=== PATIENT | female | born 1935 | race Caucasian/White ===

== ENCOUNTER 2022-02-21 06:10 | Observation (INO) ==
[2022-02-21] MEDS ORDERED: SODIUM CHLORIDE 0.9% 1000ML 1,000 ML IV ONE (06:43)
[2022-02-21] MEDS ORDERED: ACETAMINOPHEN 1,000 MG/100 ML VIAL IV STA (06:58)
[2022-02-21] MEDS ORDERED: MoRPHine SULFATE 2 MG/ML CARP IV STA (06:58)
[2022-02-21 07:18] LABS: Basophils # (auto) 0.02 K/uL (0-0.2); Basophils % (auto) 0.2 %; Eosinophils # (auto) 0.02 K/uL (0-0.5); Eosinophils % (auto) 0.2 %; Hematocrit (blood only) 39.7 % (37-47); Hemoglobin 13.7 g/dL (12.0-16.0); Immature Granulocytes # (auto) 0.03 K/uL (0.00-0.02); Immature Granulocytes % (auto) 0.3 %; Lymphocytes # (auto) 0.84 K/uL (1.2-3.4); Lymphocytes % (auto) 8.5 %; Mean Corpuscular Hemoglobin 32.3 pg (25-34); Mean Corpuscular Hgb Conc 34.5 g/dL (32-36); Mean Corpuscular Volume 93.6 fL (80-100); Mean Platelet Volume 9.7 fL (7.4-10.4); Monocytes # (auto) 1.09 K/uL (0.11-0.59); Neutrophils # (auto) 7.92 K/uL (1.4-6.5); Neutrophils % (auto) 79.8 %; Platelet Count 263 K/uL (130-400); RDW Coefficient of Variation 12.9 % (11.5-14.5); RDW Standard Deviation 44.4 fL (36.4-46.3); Red Blood Count 4.24 M/uL (4.2-5.4); White Blood Count 9.92 K/uL (4.8-10.8)
--- NOTE | 2022-02-21 07:26 | XRay Report ---
XR chest 1V portable CLINICAL HISTORY: Fall. COMPARISON STUDY: No previous studies for comparison. FINDINGS: There is an acute mildly displaced fracture of the posterior lateral right eighth rib. Ther e is an age indeterminate fracture of the posterior right ninth rib. There are age indeterminate nond isplaced fractures of the posterior left sixth and seventh ribs. No pneumothorax is identified. Linea r bilateral lower lung opacities are noted. These favor atelectasis. No evidence for pulmonary edema or pneumonia. Cardiac size is normal. IMPRESSION: 1. Acute mildly displaced fracture of the right eighth rib. No pneumothorax. Age-indeterminate fractu re of the posterior right ninth rib. 2. Age-indeterminate fractures of the posterior left sixth and seventh ribs. ACT 112: Negative or not required by law. Electronically signed by: Kevin Gaffney M.D. 02/21/2022 7:23 AM
[2022-02-21 07:37] LABS: Albumin Globulin Ratio 1.4 (0.9-2); Albumin Level 4.4 gm/dl (3.4-5.0); BUN Creatinine Ratio 16.4 (10-20); Bilirubin,Total 0.7 mg/dl (0.2-1.0); Calcium 9.4 mg/dl (8.5-10.1); Creatinine Clr Calc Pharmacy 42.2 ml/min; Est GFR (Non-African American) 75.1 ml/min; Globulin 3.1 gm/dl (2.5-4.0); Magnesium 1.8 mg/dl (1.7-2.4); Phosphorus 2.8 mg/dl (2.5-4.9); Potassium 3.7 mmol/L (3.5-5.1); Total Protein 7.5 gm/dl (6.0-8.3)
[2022-02-21] MEDS ORDERED: OPTIRAY 320 100ml IV ONE (08:14)
--- NOTE | 2022-02-21 08:24 | CT Scan Report ---
CT OF THE HEAD WITHOUT CONTRAST CLINICAL HISTORY: pain fall COMPARISON STUDY: No previous studies for comparison. TECHNIQUE: Helical axial images of the head were obtained without IV contrast. Automated exposure con trol was utilized for the study. A dose lowering technique was utilized adhering to the principles o f ALARA. FINDINGS: No acute intracranial hemorrhage, midline shift or mass effect is present. White matter hyp odensity suggests small vessel disease. The ventricular system is unremarkable. The basal cisterns ar e patent. No extra-axial collections are present. There are no findings to suggest acute dural sinus thrombosis or acute territorial infarct. No significant calvarial abnormalities are present. Visualiz ed portions of the sinuses and mastoid air cells are clear. IMPRESSION: 1. No acute intracranial findings. 2. No acute calvarial fracture. ACT 112: Negative or not required by law. Electronically signed by: Kevin Gaffney M.D. 02/21/2022 8:23 AM
--- NOTE | 2022-02-21 08:41 | CT Scan Report ---
CERVICAL SPINE CT CT DOSE: HISTORY: Neck pain fall TECHNIQUE: Multiaxial CT images of the cervical spine were performed and reformatted in the sagittal and coronal plane without the use of contrast. A dose lowering technique was utilized adhering to th e principles of ALARA. COMPARISON: None. FINDINGS: No fractures. 2 mm of anterolisthesis of C3 on C4. The C3-C4 vertebral bodies and facets ar e fused. Severe disc space narrowing from C4 through C7. Prevertebral soft tissues and the C1-C2 inte rval are intact. No pneumothorax. IMPRESSION: No fractures within the cervical spine. ACT 112: Negative or not required by law. Electronically signed by: Massimo Enamorado M.D. 02/21/2022 8:40 AM
--- NOTE | 2022-02-21 08:41 | CT Scan Report ---
CT thoracic spine w con CLINICAL HISTORY: Thoracic spine pain following fall. COMPARISON STUDY: No previous studies for comparison. TECHNIQUE: Axial images of the thoracic spine obtained following intravenous injection of 94 cc of Op tiray 320 IV. Sagittal and coronal reconstructions were viewed. Automated exposure control was utiliz ed for the study. A dose lowering technique was utilized adhering to the principles of ALARA. FINDINGS: Please note that the chest CT will be reported separately. Alignment of the thoracic spine is anatomic. There is moderate loss of height of the T4 vertebral body. This is age-indeterminate but probably old. There is mild loss of height of the superior endplate of T3. L2 compression fracture i s better depicted on the lumbar spine CT which will be reported separately. There is an acute nondisp laced fracture the posterior left seventh rib. There are multiple acute right-sided rib fractures whi ch are better depicted on the chest CT. There is a trace right hemothorax. IMPRESSION: 1. T3 and T4 compression fractures which are age-indeterminate but probably old. 2. Multiple acute right-sided rib fractures and an acute nondisplaced fracture of the posterior left seventh rib. These findings are better depicted on the chest CT which will be reported separately. ACT 112: Negative or not required by law. Electronically signed by: Kevin Gaffney M.D. 02/21/2022 8:40 AM
--- NOTE | 2022-02-21 08:46 | XRay Report ---
XR shoulder RT min 2V routine CLINICAL HISTORY: Fall. Right shoulder pain. COMPARISON STUDY: None. FINDINGS: No fracture or dislocation within the right shoulder. The right clavicle is intact. Nondisp laced right posterior eighth rib fracture. No right-sided pneumothorax. IMPRESSION: 1. No fracture or dislocation within the right shoulder. 2. Nondisplaced right posterior eighth rib fracture. ACT 112: Negative or not required by law. Electronically signed by: Massimo Enamorado M.D. 02/21/2022 8:44 AM
--- NOTE | 2022-02-21 08:53 | CT Scan Report ---
CT lumbar spine w con CLINICAL HISTORY: pain fall COMPARISON STUDY: No previous studies for comparison. TECHNIQUE: Axial images of the lumbar spine were obtained following intravenous injection of 94 cc of Optiray 320 IV. Sagittal and coronal reconstructions were viewed. Automated exposure control was uti lized for the study. A dose lowering technique was utilized adhering to the principles of ALARA. FINDINGS: Please note that the CT of the abdomen and pelvis will be reported separately. For purposes of numbering on this exam, the L5-S1 disc space is assigned to axial image 262 of [id number]. There is mode rate levoscoliosis of the lumbar spine. Moderate L2 compression fracture is probably old. Severe mult ilevel facet arthrosis is noted as well as multilevel disc space narrowing, osteophytosis and vacuum disc phenomenon. There are suspected acute nondisplaced bilateral sacral ala fractures. Acute nondisp laced fracture of the left transverse process of L5 is noted. IMPRESSION: 1. Acute nondisplaced fracture of the left transverse process of L5. 2. Moderate L2 compression fracture, likely old. 3. Suspected acute nondisplaced bilateral sacral ala fractures. 4. Severe multilevel degenerative changes within the lumbar spine with moderate levoscoliosis. ACT 112: Negative or not required by law. Electronically signed by: Kevin Gaffney M.D. 02/21/2022 8:52 AM
--- NOTE | 2022-02-21 09:19 | CT Scan Report ---
CHEST CT WITH CONTRAST; CT ABDOMEN AND PELVIS WITH IV CONTRAST ONLY HISTORY: Acute chest and abdominal trauma status post fall pain fall TECHNIQUE: Multiaxial CT images of the chest, abdomen and pelvis were performed following the IV admi nistration of 94 cc of Optiray. A dose lowering technique was utilized adhering to the principles o f ALARA. COMPARISON: CT thoracic and lumbar spine studies of same day FINDINGS: CT CHEST: Subcentimeter hypodense thyroid nodules. There are a few borderline enlarged mediastinal and right hi lar lymph nodes which are nonspecific. The heart is mildly enlarged. No pericardial effusion. Atheros clerosis of the thoracic aorta without aneurysm. Mild descending thoracic aortic tortuosity. Unremark able pulmonary artery. Trace left and small right pleural effusions. There is no pneumothorax. Mild bibasilar cylindrical br onchiectasis with linear atelectasis/scarring. Mild bilateral intralobular septal thickening. Mild em physema. There are a few scattered subsegmental tree-in-bud nodules noted within the lung bases. Ther e are a few solid pulmonary nodules noted within the lingula measuring up to 5 mm. The central airway s are patent. Unremarkable soft tissues. Degenerative changes of the shoulders and spine. Mild superi or endplate compression deformities without retropulsion is noted at T3 and T4. Acute nondisplaced fr acture involves the posterior medial aspect of the left seventh rib. Additional acute fractures are n oted within the posterior eighth, ninth and 10th ribs with mild comminution and displacement. CT ABDOMEN/PELVIS: Moderate L2 superior end plate compression deformity, likely chronic. Subtle acute nondisplaced bilat eral sacral alar fractures. Subtle acute nondisplaced fracture of the left L5 transverse process. Deg enerative changes of the spine, pelvis and hips. No pneumatosis or pneumoperitoneum. The spleen, pancreas, and mildly distended gallbladder appear unr emarkable. Thickening and adrenal glands suggests hyperplasia. There are several subcentimeter hypode nse foci throughout the liver suggestive of probable cysts. Patency of the hepatic and portal veins. No hydronephrosis. 1.8 cm cyst of the superior pole right kidney. Unremarkable urinary bladder. Atrop hic uterus. Atherosclerosis of the aorta. There is no lymphadenopathy. Small hiatal hernia with mild distal esophageal wall thickening. Colonic diverticulosis. No bowel obs truction or bowel wall thickening. There is mild fecal retention. Noninflamed appendix. Mild generali zed body wall edema. IMPRESSION: 1. Acute nondisplaced fracture of the posterior medial left seventh rib with acute comminuted and mil dly displaced fractures of the posterior right eighth through tenth ribs. 2. Mild superior endplate compression deformities at T3, T4 and L2 are technically age-indeterminate however are likely chronic. 3. Acute nondisplaced bilateral sacral alar fractures. 4. Subtle acute nondisplaced fracture of the left L5 transverse process. 5. Mild interstitial pulmonary edema with trace pleural effusions and bibasilar opacities suggestive of atelectasis. 6. No acute solid organ injury. 7. No pneumothorax. ACT 112: Negative or not required by law. Electronically signed by: Leon Dowd M.D. 02/21/2022 9:18 AM
[2022-02-21 09:37] LABS: Appearance Urine Clear (Clear); Bilirubin Urine Negative (Negative); Blood Urine Negative (Negative); Color Urine Yellow; Glucose Urine UA Negative (Negative); Ketones Urine Trace (Negative); Leukocyte Esterase Urine Negative (Negative); Nitrite Urine Negative (Negative); Protein Urine Negative (Negative); Specific Gravity Urine 1.022 (1.000-1.030); Urobilinogen Urine Negative (Negative); pH Urine 7.5 (4.5-7.5)
[2022-02-21] MEDS ORDERED: MoRPHine SULFATE 2 MG/ML CARP IV PRN (11:04)
[2022-02-21] MEDS ORDERED: MoRPHine SULFATE 4 MG/ML 1 ML CARP\\VIAL IV PRN (11:04)
--- NOTE | 2022-02-21 12:27 | History & Physical Report ---
Date of Service February 21, 2022 Assessment & Plan (1) Syncope: Admission and Anticipated Discharge Date Admission Date: #. Syncope Patient fell after walking few steps, lightheadedness/palpitation prior to fall [see HnP]. History of paroxysmal atrial tachycardia Add trop to admitting lab, Telemetry monitoring, Ortho vitals, cardiology consult. Might need Zio patch monitoring upon discharge. #. Fall #. Multiple rib fracture [right 8-10 ribs, left sixth and seventh rib #. Nondisplaced bilateral sacral ala fracture #. Chronic T3, T4 and L2 vertebral body fracture #. Fracture on the background of senile osteoporosis CT head and C-spine, right shoulder x-ray at admission WNL. CT chest, CTAP, CXR, LS spine CT, T-spine CT: Reviewed and multiple fractures noted as above. Pain control, morphine alternating with Toradol Laxatives while on morphine, patient reports better pain control at bedside exam with morphine. Orthopedic consult, await recommendations PT/OT, will likely need at least outpatient physical therapy versus rehab. continue w/ incentive spirometry. #. Other chronic medical conditions: Continue with/resume home meds as and when appropriate. #. Chronic mild hyponatremia: Pt's OP lab reveals Na to be 133 most of the time in the past, here 129 at presentation, continue to monitor daily. DVT prophylaxis: Heparin subcu Full code Patient's daughter at bedside at the time of exam, updated plan of care. 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 Per patient, she was sleeping in the couch the night prior to arrival, woke up in the middle of the night to go to the bathroom, walked a few steps, then became lightheaded with heart racing, she blacked out and fell over the stairs, her came from another room to pick her up and was noted to be unconscious [approximately 1 minute or less per patient] but soon became aware of the surroundings as soon as her called her name. Patient did not have any post-event confusion or headache. Prior to the event, patient did not have any nausea or vomiting or sweating or chest pain. Patient denies any fever/headache/chills/sore throat/cough/chest pain/palpitations/belly pain/acute changes in bowel or bladder habits/myalgias/other review of symptoms. Patient does complain of her chronic low back pain at her usual baseline state. Patient never used tobacco/smoking, very rarely drinks alcohol [6 times in a year], no recreational drug use. Patient is full code. No personal history of blood clot or UT. Family history of UT in father and NHL in mother. No family history of blood clot. Allergies Allergy/AdvReac Type Severity Reaction Status Date / Time No Known Allergies Allergy Unverified 02/21/22 07:39 Home Medications Medication Instructions Recorded Confirmed Type alendronate 70 mg tablet 70 mg PO WK 02/21/22 02/21/22 History calcium carb 333 mg-vit D3 133 1 tab PO DAILY 02/21/22 02/21/22 History unit-mag ox 133 mg-zinc oxide 5 mg tab coenzyme Q10 100 mg capsule 100 mg PO DAILY 02/21/22 02/21/22 History (CoQ-10) lisinopril 2.5 mg tablet 2.5 mg PO DAILY 02/21/22 02/21/22 History metoprolol succinate 50 mg 50 mg PO DAILY 02/21/22 02/21/22 History tablet,extended release 24 hr simvastatin 40 mg tablet 40 mg PO HS 02/21/22 02/21/22 History triamterene 37.5 1 tab PO DAILY 02/21/22 02/21/22 History mg-hydrochlorothiazide 25 mg tablet Past Med/Surg History Medical History (Updated 02/21/22 @ 12:28 by Africa Salas MD) CKD (chronic kidney disease) stage 3, GFR 30-59 ml/min Esotropia HLD (hyperlipidemia) HTN (hypertension) Osteoarthritis PAT (paroxysmal atrial tachycardia) Senile osteoporosis Surgical History (Updated 02/21/22 @ 09:06 by Edita Red PA-C) History of x4 History of cataract extraction Family History (Updated 02/21/22 @ 09:07 by Edita Red PA-C) Mother , 76 Lymphoma CHF (congestive heart failure) Father , 86 Myocardial infarction Coronary heart disease Social History (Updated 02/21/22 @ 09:08 by Edita eRd PA-C) Smoking Status: Never smoker Hx Alcohol Use: Yes Alcohol type: wine Hx Substance Use: No Preferred Language: Guatemalan Communication Ability: Effective It Support Consultant Required: No Beliefs That Will Affect Care: None marital status: Current Living Situation: Spouse Other Information That Helps Us Care for You: No Feels Safe at Home: Yes Review of Systems Review of Systems: Neg as otherwise mentioned above Physical Exam Physical Exam: GENERAL: Alert and oriented x3. NAD, on RA. HEENT: No pallor, no icterus. Pupils equal, round and reactive to light. Oral mucosa moist. NECK: No JVD, no neck masses. HEART: S1 and S2 heard. Regular rate and rhythm. No murmur, no gallop. RESPIRATORY SYSTEM: Normal AP diameter. No accessory muscle use. No wheezing, no crackles. ABDOMEN: Soft, bowel sounds present, nontender, no distention. CENTRAL NERVOUS SYSTEM: No facial droop. Speech is clear. Obeys simple commands. Moves extremities. EXTREMITIES: No edema, no erythema seen. Rt mid-back tenderness moderate, Lt mid-back tenderness mild. No vertebral tenderness. Results & Data Results & Data ([facility]) Vital Signs (Past 12 Hours) Vital Signs Temp Pulse Resp BP Pulse Ox 02/21/22 10:30 86 22 146/87 H 93 02/21/22 10:00 85 16 134/80 92 02/21/22 09:30 86 19 128/78 95 02/21/22 09:00 89 17 127/80 93 02/21/22 08:30 98 H 22 138/83 96 02/21/22 08:18 99 H 24 127/82 92 02/21/22 08:16 102 H 12 02/21/22 07:43 101 H 20 149/99 H 99 02/21/22 07:30 92 H 35 H 163/85 H 88 L 02/21/22 07:17 96 02/21/22 07:12 89 14 165/82 H 96 02/21/22 07:00 99 H 17 02/21/22 06:30 82 14 02/21/22 06:28 84 19 02/21/22 06:17 36.6 C 96 H 14 147/76 H 94 Code Status & VTE Plan VTE Prophylaxis Plan VTE Prophylaxis will be ordered: Yes
[2022-02-21] MEDS ORDERED: ONDANSETRON INJ 2 MG/ML 2 ML VIAL IV PRN (13:43)
[2022-02-21] MEDS ORDERED: ACETAMINOPHEN 325 MG TAB PO PRN (13:43)
[2022-02-21] MEDS ORDERED: ALUMINUM/MAGNESIUM SUSP 30 ML UDC PO PRN (13:43)
[2022-02-21] MEDS ORDERED: POLYETHYLENE (MIRALAX) 17 GM PACK PO PRN (13:43)
[2022-02-21] MEDS ORDERED: MAGNESIUM HYDROXIDE SUSP 30 ML UDC PO PRN (13:43)
[2022-02-21] MEDS: KETOROLAC TROMETHAMINE 15 MG/ML VIAL IV PRN ×2 (14:38→20:45)
[2022-02-21] MEDS: ACETAMINOPHEN 325 MG TAB PO SCH ×3 (14:39→20:38)
[2022-02-21] MEDS: TRIAMTERENE/HCTZ 37.5/25MG TAB PO SCH (15:34)
[2022-02-21] MEDS: MoRPHine SULFATE 2 MG/ML CARP IV PRN ×2 (15:39→20:44)
--- NOTE | 2022-02-21 15:40 | Cardiology Consultation ---
Date of Consultation February 21, 2022 Assessment & Plan (1) Syncope: (2) PAT (paroxysmal atrial tachycardia): (3) Hyponatremia: 86-year-old female presents with episode of syncope. Etiology not well- defined. Vasovagal etiology considered versus possible symptomatic dysrhythmia with history of paroxysmal atrial tachycardia. Resting 2D transthoracic echocardiogram pending currently. No dysrhythmias since admission. No symptoms to suggest unstable angina/ACS. Continue telemetry monitoring. If unrevealing, recommend 14-day outpatient ZIO monitor at discharge. Pain management, symptomatic treatment of rib fractures as per internal medicine. Check orthostatic blood pressure every shift. No medication changes at this time. Thank you for allow me to participate in the care of your patient. History of Present Illness Reason for Consultation: Syncope Requesting Physician: Dr. Salas Attending Physician: Africa Salas MD History of Present Illness 86-year-old female present to the emergency department with syncope, fall, and rib fracture. Patient reports walking in her home. She was not performing any strenuous activity when she acutely felt lightheaded. Her heart began to race and she was unable to lower herself to the floor. She passed out and injured her right side. CT confirms mildly displaced fractures of the posterior right and eighth through 10th ribs. Currently resting comfortably. Reports episodes of light headedness and palpita tions that have occurred throughout the years. She was evaluated by the undersigned in 2012. A few months prior to that evaluation she had experienced a similar syncopal episode. She has not experienced a syncopal episode over the past 9 years. In general, she is able to lower herself to a seated position if she becomes lightheaded or experiences palpitations. Carries a history of paroxysmal atrial tachycardia diagnosed per Holter monitor in 2010. Holter monitor reviewed, the episodes of SVT were less than 10 beats duration without associated symptoms. Denies any personal history of coronary disease, congestive heart failure, rheumatic fever as a child, or peripheral vascular disease. She denies any exertional chest discomfort or unusual shortness of breath. Currently asymptomatic and resting comfortably. Telemetry reveals sinus rhythm with rare PVCs. Allergies Allergy/AdvReac Type Severity Reaction Status Date / Time No Known Allergies Allergy Unverified 02/21/22 07:39 Home Medications Medication Instructions Recorded Confirmed Type alendronate 70 mg tablet 70 mg PO WK 02/21/22 02/21/22 History calcium carb 333 mg-vit D3 133 1 tab PO DAILY 02/21/22 02/21/22 History unit-mag ox 133 mg-zinc oxide 5 mg tab coenzyme Q10 100 mg capsule 100 mg PO DAILY 02/21/22 02/21/22 History (CoQ-10) lisinopril 2.5 mg tablet 2.5 mg PO DAILY 02/21/22 02/21/22 History metoprolol succinate 50 mg 50 mg PO DAILY 02/21/22 02/21/22 History tablet,extended release 24 hr simvastatin 40 mg tablet 40 mg PO HS 02/21/22 02/21/22 History triamterene 37.5 1 tab PO DAILY 02/21/22 02/21/22 History mg-hydrochlorothiazide 25 mg tablet Patient History Medical History CKD (chronic kidney disease) stage 3, GFR 30-59 ml/min Esotropia HLD (hyperlipidemia) HTN (hypertension) Osteoarthritis PAT (paroxysmal atrial tachycardia) Senile osteoporosis Surgical History History of x4 History of cataract extraction Family History Mother , 76 Lymphoma CHF (congestive heart failure) Father , 86 Myocardial infarction Coronary heart disease Social History Smoking Status: Never smoker Hx Alcohol Use: Yes Alcohol type: wine Hx Substance Use: No Preferred Language: Czech Communication Ability: Effective Log Cut Off Sawyer Required: No Beliefs That Will Affect Care: None marital status: Current Living Situation: Spouse Other Information That Helps Us Care for You: No Feels Safe at Home: Yes Assistive Devices: Walker Review of Systems Review of Systems: All systems reviewed & are unremarkable except as noted in Subjective Physical Exam Constitutional: well nourished; no acute distress and not ill appearing Respiratory: no respiratory distress, no labored breathing and no retractions Auscultation: lungs clear to auscultation bilaterally; no crackles, no rales, no rhonchi and no wheezes Cardiovascular: Rate/Rhythm: regular rate and regular rhythm Heart Sounds: normal S1 and normal S2; no murmur Vessels: no JVD and no carotid bruit Extremities: no edema Gastrointestinal (Abdomen): Inspection/Auscultation: abdomen normal to inspection; abdomen not distended and no abdominal edema Neurologic: CN's II-XI intact bilaterally and moves all extremities; no focal motor deficits Motor/Sensory: no tremor Psychiatric: A+Ox3, euthymic affect Results & Data ([facility]) Vital Signs (Past 12 Hours) Vital Signs Temp Pulse Pulse Resp BP BP Pulse Ox 02/21/22 13:46 36.5 C 88 16 153/94 H 95 02/21/22 12:15 85 18 171/105 H 97 02/21/22 12:00 89 18 95 02/21/22 11:30 86 20 161/88 H 02/21/22 11:00 96 H 16 02/21/22 10:30 86 22 146/87 H 93 02/21/22 10:00 85 16 134/80 92 02/21/22 09:30 86 19 128/78 95 02/21/22 09:00 89 17 127/80 93 02/21/22 08:30 98 H 22 138/83 96 02/21/22 08:18 99 H 24 127/82 92 02/21/22 08:16 102 H 12 02/21/22 07:43 101 H 20 149/99 H 99 02/21/22 07:30 92 H 35 H 163/85 H 88 L 02/21/22 07:17 96 02/21/22 07:12 89 14 165/82 H 96 02/21/22 07:00 99 H 17 02/21/22 06:30 82 14 02/21/22 06:28 84 19 02/21/22 06:17 36.6 C 96 H 14 147/76 H 94
--- NOTE | 2022-02-21 15:54 | Emergency Department Note ---
Impression & Plan Multiple fractures of ribs of right side, Left rib fracture, Closed sacral fracture, Lumbar transverse process fracture, Fall ED Provider Note NAME: VIVIAN ALONSO AGE: 86 SEX: F ARRIVES VIA: Walk-In INFORMANT: Patient ED PROVIDER(S): Caden Aviles MD CHIEF COMPLAINT: Fall, rib pain, back pain PLAN: Disposition: Admit MEDICAL DECISION MAKING: The patient is a pleasant 86-year-old woman with a pmhx of CKD, HTN, HLD, PAT who presents to the emergency department accompanied by her daughter via EMS for evaluation of fall last night around midnight when she was getting off of the couch to go upstairs and felt a flare of her sciatica and then fell before going up the steps onto her right side where she feels she may have broken a rib. She denies any head strike. She reports she was briefly "out" but recovered uneventfully. She initially wanted to stay home but her pain persisted and so agreed to come to the hospital. Prior to today she has any fevers, chills, cough, congestion, GI or symptoms. She is not on anti-coagulation. On arrival the patient is in no acute distress, afebrile stable vital signs. She appears uncomfortable. She has mild tenderness throughout the thoracic region without bony crepitus. She has tenderness of the right anterior lateral chest wall without bony crepitus. She has pain in the right hip with full range of motion. There is no shortening overtly. Distal PMS intact. Pelvis is stable. She has no focal neurologic deficits. WBC, H/H and platelets within normal limits. Chemistry without metabolic acidosis. Sodium 129 without recent values for comparison. Electrolytes LFTs without significant abnormality. High-sensitivity troponin 6.9, within normal limits. TSH within normal limits. UA without evidence of infection. Covid-19 RNA, NAAT negative. CT of the head, CTL spine, chest, abdomen pelvis were performed. Findings are notable for right-sided mildly displaced 8-10 rib fractures. Single nondisplaced left rib fracture. No pneumothorax. Age indeterminant thoracic compression fractures are noted. Acute bilateral nondisplaced sacral chon fractures are also seen. No additional traumatic findings. Findings reviewed with the patient and her daughter at the bedside. Given the patient's pain and impaired mobility. They did agree with plan for admission for pain control and PT/OT and possible placement. Case was discussed with Benito Llanos hospitalist, who will evaluate the patient for admission. Triage Nursing notes reviewed and agree them. Prior medical records reviewed Vital Signs: reviewed and remarkable for no significant abnormalities Differential diagnosis: Fracture, dislocation, contusion, intra-abdominal, pneumothorax, intrathoracic, intracranial, neurologic, compartment syndrome, rhabdomyolysis, as well as other pathologies. ER treatment provided: See below. Diagnostics interpreted by me: ECG: NSR, 89 bpm, no ectopy, no overt ST elevation or depression. Cardiac Monitoring: An order for continuous cardiac monitoring was placed and demonstrated NSR, 89 bpm, no ectopy. Laboratory studies: See below Imaging studies: See below Consultation(s): Case was discussed with Dominique Llanos hospitalist, who will evaluate the patient for admission. HPI: The patient is a pleasant 86-year-old woman with a pmhx of CKD, HTN, HLD, PAT who presents to the emergency department accompanied by her daughter via EMS for evaluation of fall last night around midnight when she was getting off of the couch to go upstairs and felt a flare of her sciatica and then fell before going up the steps onto her right side where she feels she may have broken a rib. She denies any head strike. She reports she was briefly "out" but recovered uneventfully. She initially wanted to stay home but her pain persisted and so agreed to come to the hospital. Prior to today she has any fevers, chills, cough, congestion, GI or symptoms. She is not on anti- coagulation. ROS: See above HPI for pertinent positives & negatives. A total of 10 systems reviewed and were otherwise negative. VITALS:See Below PHYSICAL EXAMINATION: GENERAL: Awake, alert, uncomfortable-appearing, in no distress HENT: Normocephalic, atraumatic. Oropharynx with dry mucous membranes and otherwise unremarkable. EYES: Normal conjunctiva. Sclera non-icteric. EOMI. No nystamgus. PEARRL. NECK: Supple. No nuchal rigidity. FROM. No JVD. RESPIRATORY: Clear to auscultation. CARDIAC: Regular rate, normal rhythm. Extremities warm and well perfused. Pulses equal. ABDOMEN: Soft, non-distended. No tenderness to palpation. No rebound or guarding. No masses. RECTAL: Deferred. MUSCULOSKELETAL: Mild tenderness throughout the thoracic region without bony crepitus. Mild tenderness of the right anterior lateral chest wall without bony crepitus.Pain in the right hip with full range of motion intact. There is no shortening. Distal PMS intact.Pelvis is stable. No joint edema. Right shoulder with ROM limited 2/2 pain. No deformity. LOWER EXTREMITIES: Calves are equal size bilaterally and non-tender. No edema. No discoloration. NEURO: No focal sensory or motor deficits noted. SKIN: No rash or jaundice noted. Caden Aviles MD Past Med/Surg History Medical History CKD (chronic kidney disease) stage 3, GFR 30-59 ml/min Esotropia HLD (hyperlipidemia) HTN (hypertension) Osteoarthritis PAT (paroxysmal atrial tachycardia) Senile osteoporosis Surgical History History of x4 History of cataract extraction Family History Mother , 76 Lymphoma CHF (congestive heart failure) Father , 86 Myocardial infarction Coronary heart disease Social History Smoking Status: Never smoker Hx Alcohol Use: Yes Alcohol type: wine Hx Substance Use: No Preferred Language: Tajik Communication Ability: Effective Makeup Editor Required: No Beliefs That Will Affect Care: None marital status: Current Living Situation: Spouse Other Information That Helps Us Care for You: No Feels Safe at Home: Yes Allergies Allergies Allergy/AdvReac Type Severity Reaction Status Date / Time No Known Allergies Allergy Unverified 02/21/22 07:39 Home Meds Home Medications Medication Instructions Recorded Confirmed alendronate 70 mg tablet 70 mg PO WK 02/21/22 02/21/22 calcium carb 333 mg-vit D3 133 1 tab PO DAILY 02/21/22 02/21/22 unit-mag ox 133 mg-zinc oxide 5 mg tab coenzyme Q10 100 mg capsule 100 mg PO DAILY 02/21/22 02/21/22 (CoQ-10) lisinopril 2.5 mg tablet 2.5 mg PO DAILY 02/21/22 02/21/22 metoprolol succinate 50 mg 50 mg PO DAILY 02/21/22 02/21/22 tablet,extended release 24 hr simvastatin 40 mg tablet 40 mg PO HS 02/21/22 02/21/22 triamterene 37.5 1 tab PO DAILY 02/21/22 02/21/22 mg-hydrochlorothiazide 25 mg tablet Results & Data (ED) Vital Signs Vital Signs - 24 hr 02/21/22 06:17 02/21/22 06:28 02/21/22 06:30 Temperature 36.6 C Temperature Source Temporal Artery Scan Pulse Rate 96 H 84 82 Pulse Rate from SpO2 Sensor Respiratory Rate 14 19 14 Respiratory Effort / Characteristics Non-Labored Respiratory Depth Normal Blood Pressure 147/76 H Blood Pressure Mean 99 Pulse Oximetry 94 Oxygen Delivery Method Room Air Sepsis Recent Fever Within 48 Hours No Sepsis New/Unexplained Change in Mental Status No Sepsis Action Taken by Nursing No Action Required 02/21/22 07:00 02/21/22 07:12 02/21/22 07:17 Temperature Temperature Source Pulse Rate 99 H 89 Pulse Rate from SpO2 Sensor 89 Respiratory Rate 17 14 Respiratory Effort / Characteristics Respiratory Depth Blood Pressure 165/82 H Blood Pressure Mean 109 Pulse Oximetry 96 96 Oxygen Delivery Method Room Air Sepsis Recent Fever Within 48 Hours Sepsis New/Unexplained Change in Mental Status Sepsis Action Taken by Nursing 02/21/22 07:30 02/21/22 07:43 02/21/22 08:16 Temperature Temperature Source Pulse Rate 92 H 101 H 102 H Pulse Rate from SpO2 Sensor 93 H 101 H Respiratory Rate 35 H 20 12 Respiratory Effort / Characteristics Respiratory Depth Blood Pressure 163/85 H 149/99 H Blood Pressure Mean 111 115 Pulse Oximetry 88 L 99 Oxygen Delivery Method Sepsis Recent Fever Within 48 Hours Sepsis New/Unexplained Change in Mental Status Sepsis Action Taken by Nursing 02/21/22 08:18 02/21/22 08:30 02/21/22 09:00 Temperature Temperature Source Pulse Rate 99 H 98 H 89 Pulse Rate from SpO2 Sensor 98 H 99 H 90 Respiratory Rate 24 22 17 Respiratory Effort / Characteristics Respiratory Depth Blood Pressure 127/82 138/83 127/80 Blood Pressure Mean 97 101 95 Pulse Oximetry 92 96 93 Oxygen Delivery Method Sepsis Recent Fever Within 48 Hours Sepsis New/Unexplained Change in Mental Status Sepsis Action Taken by Nursing 02/21/22 09:30 02/21/22 10:00 02/21/22 10:30 Temperature Temperature Source Pulse Rate 86 85 86 Pulse Rate from SpO2 Sensor 89 87 85 Respiratory Rate 19 16 22 Respiratory Effort / Characteristics Respiratory Depth Blood Pressure 128/78 134/80 146/87 H Blood Pressure Mean 94 98 106 Pulse Oximetry 95 92 93 Oxygen Delivery Method Room Air Sepsis Recent Fever Within 48 Hours Sepsis New/Unexplained Change in Mental Status Sepsis Action Taken by Nursing 02/21/22 11:00 02/21/22 11:30 Temperature Temperature Source Pulse Rate 96 H 86 Pulse Rate from SpO2 Sensor Respiratory Rate 16 20 Respiratory Effort / Characteristics Respiratory Depth Blood Pressure 161/88 H Blood Pressure Mean 112 Pulse Oximetry Oxygen Delivery Method Sepsis Recent Fever Within 48 Hours Sepsis New/Unexplained Change in Mental Status Sepsis Action Taken by Nursing Laboratory Data Attestation: I reviewed the patient's lab results. Result diagrams: 02/21/22 06:48 02/21/22 06:48 Lab Results 02/21/22 02/21/22 02/21/22 Range/Units 06:48 06:48 06:48 WBC 9.92 (4.8-10.8) K/uL RBC 4.24 (4.2-5.4) M/uL Hgb 13.7 (12.0-16.0) g/dL Hct 39.7 (37-47) % MCV 93.6 (80-100) fL MCH 32.3 (25-34) pg MCHC 34.5 (32-36) g/dL RDW Std Deviation 44.4 (36.4-46.3) fL RDW Coeff of Idalmis 12.9 (11.5-14.5) % Plt Count 263 (130-400) K/uL MPV 9.7 (7.4-10.4) fL Immature Gran % (Auto) 0.3 % Neut % (Auto) 79.8 % Lymph % (Auto) 8.5 % [place] % (Auto) 11.0 % Eos % (Auto) 0.2 % Baso % (Auto) 0.2 % Neut # (Auto) 7.92 H (1.4-6.5) K/uL Lymph # (Auto) 0.84 L (1.2-3.4) K/uL [place] # (Auto) 1.09 H (0.11-0.59) K/uL Eos # (Auto) 0.02 (0-0.5) K/uL Baso # (Auto) 0.02 (0-0.2) K/uL Immature Gran # (Auto) 0.03 H (0.00-0.02) K/uL Sodium 129 L (136-145) mmol/L Potassium 3.7 (3.5-5.1) mmol/L Chloride 93 L (98-107) mmol/L Carbon Dioxide 28 (21-32) mmol/L Anion Gap 8 (3-11) BUN 12 (6-23) mg/dl Creatinine 0.73 (0.6-1.2) mg/dl Est Cr Clr Drug Dosing 42.2 ml/min Est GFR ( Amer) 87.0 ml/min Est GFR (Non-Af Amer) 75.1 ml/min BUN/Creatinine Ratio 16.4 (10-20) Glucose 108 H (70-99(Fasting)) mg/dl Calcium 9.4 (8.5-10.1) mg/dl Phosphorus 2.8 (2.5-4.9) mg/dl Magnesium 1.8 (1.7-2.4) mg/dl Total Bilirubin 0.7 (0.2-1.0) mg/dl AST 34 (13-39) U/L ALT 22 (7-52) U/L Alkaline Phosphatase 119 H (34-104) U/L Troponin I High Sens (0-14) pg/ml Total Protein 7.5 (6.0-8.3) gm/dl Albumin 4.4 (3.4-5.0) gm/dl Globulin 3.1 (2.5-4.0) gm/dl Albumin/Globulin Ratio 1.4 (0.9-2) TSH 1.179 (0.300-4.500) uIu/ml Urine Color Urine Appearance (Clear) Urine pH (4.5-7.5) Ur Specific [place] (1.000-1.030) Urine Protein (Negative) Urine Glucose (UA) (Negative) Urine Ketones (Negative) Urine Blood (Negative) Urine Nitrite (Negative) Urine Bilirubin (Negative) Urine Urobilinogen (Negative) Ur Leukocyte Esterase (Negative) 02/21/22 02/21/22 Range/Units 06:48 09:22 WBC (4.8-10.8) K/uL RBC (4.2-5.4) M/uL Hgb (12.0-16.0) g/dL Hct (37-47) % MCV (80-100) fL MCH (25-34) pg MCHC (32-36) g/dL RDW Std Deviation (36.4-46.3) fL RDW Coeff of Idalmis (11.5-14.5) % Plt Count (130-400) K/uL MPV (7.4-10.4) fL Immature Gran % (Auto) % Neut % (Auto) % Lymph % (Auto) % [place] % (Auto) % Eos % (Auto) % Baso % (Auto) % Neut # (Auto) (1.4-6.5) K/uL Lymph # (Auto) (1.2-3.4) K/uL [place] # (Auto) (0.11-0.59) K/uL Eos # (Auto) (0-0.5) K/uL Baso # (Auto) (0-0.2) K/uL Immature Gran # (Auto) (0.00-0.02) K/uL Sodium (136-145) mmol/L Potassium (3.5-5.1) mmol/L Chloride (98-107) mmol/L Carbon Dioxide (21-32) mmol/L Anion Gap (3-11) BUN (6-23) mg/dl Creatinine (0.6-1.2) mg/dl Est Cr Clr Drug Dosing ml/min Est GFR ( Amer) ml/min Est GFR (Non-Af Amer) ml/min BUN/Creatinine Ratio (10-20) Glucose (70-99(Fasting)) mg/dl Calcium (8.5-10.1) mg/dl Phosphorus (2.5-4.9) mg/dl Magnesium (1.7-2.4) mg/dl Total Bilirubin (0.2-1.0) mg/dl AST (13-39) U/L ALT (7-52) U/L Alkaline Phosphatase (34-104) U/L Troponin I High Sens 6.9 (0-14) pg/ml Total Protein (6.0-8.3) gm/dl Albumin (3.4-5.0) gm/dl Globulin (2.5-4.0) gm/dl Albumin/Globulin Ratio (0.9-2) TSH (0.300-4.500) uIu/ml Urine Color Yellow Urine Appearance Clear (Clear) Urine pH 7.5 (4.5-7.5) Ur Specific [place] 1.022 (1.000-1.030) Urine Protein Negative (Negative) Urine Glucose (UA) Negative (Negative) Urine Ketones Trace H (Negative) Urine Blood Negative (Negative) Urine Nitrite Negative (Negative) Urine Bilirubin Negative (Negative) Urine Urobilinogen Negative (Negative) Ur Leukocyte Esterase Negative (Negative) Administered Medications Acetaminophen (Acetaminophen 325 Mg Tab) 650 mg PO QID [facility] Stop: 03/23/22 14:29 Last Admin: 02/21/22 17:20 Dose: 650 mg Documented by: [id number] Admin: 02/21/22 14:39 Dose: 650 mg Documented by: [id number] Ketorolac Tromethamine (Ketorolac Tromethamine 15 Mg/Ml Vial) 10 mg IV Q6H PRN PRN Reason: severe pain Stop: 02/26/22 14:03 Last Admin: 02/21/22 14:38 Dose: 10 mg Documented by: [id number] Morphine Sulfate (Morphine Sulfate 2 Mg/Ml Carp) 2 mg IV Q4H PRN PRN Reason: severe pain Stop: 03/07/22 13:42 Last Admin: 02/21/22 15:39 Dose: 2 mg Documented by: [id number] Triamterene/Hydrochlorothiazide (Triamterene/Hctz 37.5/25mg Tab) 1 tab PO DAILY [facility] Stop: 03/23/22 14:29 Last Admin: 02/21/22 15:34 Dose: 1 tab Documented by: [id number] Discontinued Medications Sodium Chloride (Nss 1000ml) 1,000 mls @ 999 mls/hr IV .Q1H1M ONE Stop: 02/21/22 07:43 Last Infusion: 02/21/22 08:19 Dose: 0 mls/hr Documented by: [id number] Admin: 02/21/22 07:09 Dose: 999 mls/hr Documented by: [id number] Acetaminophen (Ofirmev) 1,000 mg in 100 mls @ 400 mls/hr IV NOW STA Stop: 02/21/22 07:12 Last Infusion: 02/21/22 08:18 Dose: 0 mls/hr Documented by: [id number] Admin: 02/21/22 07:10 Dose: 400 mls/hr Documented by: [id number] Ioversol (Optiray 320 100ml) 94 ml IV ONCE ONE Stop: 02/21/22 08:15 Last Admin: 02/21/22 08:16 Dose: 94 ml Documented by: [id number] Morphine Sulfate (Morphine Sulfate 2 Mg/Ml Carp) 2 mg IV NOW STA Stop: 02/21/22 06:59 Last Admin: 02/21/22 07:11 Dose: 2 mg Documented by: [id number] Morphine Sulfate (Morphine Sulfate 2 Mg/Ml Carp) 1 mg IV Q2H PRN PRN Reason: Moderate Pain (Rating 3,4,5,6) Stop: 03/07/22 11:03 Last Admin: 02/21/22 11:27 Dose: 1 mg Documented by: [id number] Imaging Data Radiologist's Impression: Abdomen/Pelvis CT 02/21/22 06:[address] WITH CONTRAST; CT ABDOMEN AND PELVIS WITH IV CONTRAST ONLY HISTORY: Acute chest and abdominal trauma status post fall pain fall TECHNIQUE: Multiaxial CT images of the chest, abdomen and pelvis were performed following the IV administration of 94 cc of Optiray. A dose lowering technique was utilized adhering to the principles of ALARA. COMPARISON: CT thoracic and lumbar spine studies of same day FINDINGS: CT CHEST: Subcentimeter hypodense thyroid nodules. There are a few borderline enlarged mediastinal and right hilar lymph nodes which are nonspecific. The heart is mildly enlarged. No pericardial effusion. Atherosclerosis of the thoracic aorta without aneurysm. Mild descending thoracic aortic tortuosity. Unremarkable pulmonary artery. Trace left and small right pleural effusions. There is no pneumothorax. Mild bibasilar cylindrical bronchiectasis with linear atelectasis/scarring. Mild bilateral intralobular septal thickening. Mild emphysema. There are a few scattered subsegmental tree-in-bud nodules noted within the lung bases. There are a few solid pulmonary nodules noted within the lingula measuring up to 5 mm. The central airways are patent. Unremarkable soft tissues. Degenerative changes of the shoulders and spine. Mild superior endplate compression deformities without retropulsion is noted at T3 and T4. Acute nondisplaced fracture involves the posterior medial aspect of the left seventh rib. Additional acute fractures are noted within the posterior eighth, ninth and 10th ribs with mild comminution and displacement. CT ABDOMEN/PELVIS: Moderate L2 superior end plate compression deformity, likely chronic. Subtle ac jhonathan nondisplaced bilateral sacral alar fractures. Subtle acute nondisplaced fracture of the left L5 transverse process. Degenerative changes of the spine, pelvis and hips. No pneumatosis or pneumoperitoneum. The spleen, pancreas, and mildly distended gallbladder appear unremarkable. Thickening and adrenal glands suggests hyperplasia. There are several subcentimeter hypodense foci throughout the liver suggestive of probable cysts. Patency of the hepatic and portal veins. No hydronephrosis. 1.8 cm cyst of the superior pole right kidney. Unremarkable urinary bladder. Atrophic uterus. Atherosclerosis of the aorta. There is no lymphadenopathy. Small hiatal hernia with mild distal esophageal wall thickening. Colonic diverticulosis. No bowel obstruction or bowel wall thickening. There is mild fecal retention. Noninflamed appendix. Mild generalized body wall edema. IMPRESSION: 1. Acute nondisplaced fracture of the posterior medial left seventh rib with acute comminuted and mildly displaced fractures of the posterior right eighth through tenth ribs. 2. Mild superior endplate compression deformities at T3, T4 and L2 are technically age-indeterminate however are likely chronic. 3. Acute nondisplaced bilateral sacral alar fractures. 4. Subtle acute nondisplaced fracture of the left L5 transverse process. 5. Mild interstitial pulmonary edema with trace pleural effusions and bibasilar opacities suggestive of atelectasis. 6. No acute solid organ injury. 7. No pneumothorax. ACT 112: Negative or not required by law. Electronically signed by: Leon Dowd M.D. 02/21/2022 9:[address] 02/21/22 06:[address] DOSE: HISTORY: Neck pain fall TECHNIQUE: Multiaxial CT images of the cervical spine were performed and reformatted in the sagittal and coronal plane without the use of contrast. A dose lowering technique was utilized adhering to the principles of ALARA. COMPARISON: None. FINDINGS: No fractures. 2 mm of anterolisthesis of C3 on C4. The C3-C4 vertebral bodies and facets are fused. Severe disc space narrowing from C4 through C7. Prevertebral soft tissues and the C1-C2 interval are intact. No pneumothorax. IMPRESSION: No fractures within the cervical spine. ACT 112: Negative or not required by law. Electronically signed by: Massimo Enamorado M.D. 02/21/2022 8:[address] 02/21/22 06:[address] WITH CONTRAST; CT ABDOMEN AND PELVIS WITH IV CONTRAST ONLY HISTORY: Acute chest and abdominal trauma status post fall pain fall TECHNIQUE: Multiaxial CT images of the chest, abdomen and pelvis were performed following the IV administration of 94 cc of Optiray. A dose lowering technique was utilized adhering to the principles of ALARA. COMPARISON: CT thoracic and lumbar spine studies of same day FINDINGS: CT CHEST: Subcentimeter hypodense thyroid nodules. There are a few borderline enlarged mediastinal and right hilar lymph nodes which are nonspecific. The heart is mildly enlarged. No pericardial effusion. Atherosclerosis of the thoracic aorta without aneurysm. Mild descending thoracic aortic tortuosity. Unremarkable pulmonary artery. Trace left and small right pleural effusions. There is no pneumothorax. Mild bibasilar cylindrical bronchiectasis with linear atelectasis/scarring. Mild bilateral intralobular septal thickening. Mild emphysema. There are a few scattered subsegmental tree-in-bud nodules noted within the lung bases. There are a few solid pulmonary nodules noted within the lingula measuring up to 5 mm. The central airways are patent. Unremarkable soft tissues. Degenerative changes of the shoulders and spine. Mild superior endplate compression deformities without retropulsion is noted at T3 and T4. Acute nondisplaced fracture involves the posterior medial aspect of the left seventh rib. Additional acute fractures are noted within the posterior eighth, ninth and 10th ribs with mild comminution and displacement. CT ABDOMEN/PELVIS: Moderate L2 superior end plate compression deformity, likely chronic. Subtle acute nondisplaced bilateral sacral alar fractures. Subtle acute nondisplaced fracture of the left L5 transverse process. Degenerative changes of the spine, pelvis and hips. No pneumatosis or pneumoperitoneum. The spleen, pancreas, and mildly distended gallbladder appear unremarkable. Thickening and adrenal glands suggests hyperplasia. There are several subcentimeter hypodense foci throughout the liver suggestive of probable cysts. Patency of the hepatic and portal veins. No hydronephrosis. 1.8 cm cyst of the superior pole right kidney. Unremarkable urinary bladder. Atrophic uterus. Atherosclerosis of the aorta. There is no lymphadenopathy. Small hiatal hernia with mild distal esophageal wall thickening. Colonic diverticulosis. No bowel obstruction or bowel wall thickening. There is mild fecal retention. Noninflamed appendix. Mild generalized body wall edema. IMPRESSION: 1. Acute nondisplaced fracture of the posterior medial left seventh rib with acute comminuted and mildly displaced fractures of the posterior right eighth th rough tenth ribs. 2. Mild superior endplate compression deformities at T3, T4 and L2 are technically age-indeterminate however are likely chronic. 3. Acute nondisplaced bilateral sacral alar fractures. 4. Subtle acute nondisplaced fracture of the left L5 transverse process. 5. Mild interstitial pulmonary edema with trace pleural effusions and bibasilar opacities suggestive of atelectasis. 6. No acute solid organ injury. 7. No pneumothorax. ACT 112: Negative or not required by law. Electronically signed by: Leon Dowd M.D. 02/21/2022 9:[address] 02/21/22 06:58 CT lumbar spine w con CLINICAL HISTORY: pain fall COMPARISON STUDY: No previous studies for comparison. TECHNIQUE: Axial images of the lumbar spine were obtained following intravenous injection of 94 cc of Optiray 320 IV. Sagittal and coronal reconstructions were viewed. Automated exposure control was utilized for the study. A dose lowering technique was utilized adhering to the principles of ALARA. FINDINGS: Please note that the CT of the abdomen and pelvis will be reported separately. For purposes of numbering on this exam, the L5-S1 disc space is assigned to axial image 262 of [id number]. There is moderate levoscoliosis of the lumbar spine. Moderate L2 compression fracture is probably old. Severe multilevel facet arthrosis is noted as well as multilevel disc space narrowing, osteophytosis and vacuum disc phenomenon. There are suspected acute nondisplaced bilateral sacral ala fractures. Acute nondisplaced fracture of the left transverse process of L5 is noted. IMPRESSION: 1. Acute nondisplaced fracture of the left transverse process of L5. 2. Moderate L2 compression fracture, likely old. 3. Suspected acute nondisplaced bilateral sacral ala fractures. 4. Severe multilevel degenerative changes within the lumbar spine with moderate levoscoliosis. ACT 112: Negative or not required by law. Electronically signed by: Kevin Gaffney M.D. 02/21/2022 8:52 AM Shoulder X-Ray 02/21/22 06:58 XR shoulder RT min 2V routine CLINICAL HISTORY: Fall. Right shoulder pain. COMPARISON STUDY: None. FINDINGS: No fracture or dislocation within the right shoulder. The right clavicle is intact. Nondisplaced right posterior eighth rib fracture. No right- sided pneumothorax. IMPRESSION: 1. No fracture or dislocation within the right shoulder. 2. Nondisplaced right posterior eighth rib fracture. ACT 112: Negative or not required by law. Electronically signed by: Massimo Enamorado M.D. 02/21/2022 8:[address] 02/21/22 06:58 CT thoracic spine w con CLINICAL HISTORY: Thoracic spine pain following fall. COMPARISON STUDY: No previous studies for comparison. TECHNIQUE: Axial images of the thoracic spine obtained following intravenous injection of 94 cc of Optiray 320 IV. Sagittal and coronal reconstructions were viewed. Automated exposure control was utilized for the study. A dose lowering technique was utilized adhering to the principles of ALARA. FINDINGS: Please note that the chest CT will be reported separately. Alignment of the thoracic spine is anatomic. There is moderate loss of height of the T4 vertebral body. This is age-indeterminate but probably old. There is mild loss of height of the superior endplate of T3. L2 compression fracture is better depicted on the lumbar spine CT which will be reported separately. There is an acute nondisplaced fracture the posterior left seventh rib. There are multiple acute right-sided rib fractures which are better depicted on the chest CT. There is a trace right hemothorax. IMPRESSION: 1. T3 and T4 compression fractures which are age-indeterminate but probably old. 2. Multiple acute right-sided rib fractures and an acute nondisplaced fracture of the posterior left seventh rib. These findings are better depicted on the chest CT which will be reported separately. ACT 112: Negative or not required by law. Electronically signed by: Kevin Gaffney M.D. 02/21/2022 8:40 AM Discharge Plan Visit Data Chief Complaint: Fall Stated Complaint: BACK PAIN,POSS BROKEN RIBS S/P FALL,BLACKED OUT ED Provider: Caden Aivles Discharge Problem: Multiple fractures of ribs of right side, Left rib fracture, Closed sacral fracture, Lumbar transverse process fracture, Fall Patient Disposition: Admitted As Inpatient Discharge Instructions Interventions: ED Discharge Assessment Last Done: 02/21/22 12:15 Discharge Problem: Multiple fractures of ribs of right side Qualifiers: Encounter type: initial encounter Fracture type: closed Qualified Code(s): S22.41XA - Multiple fractures of ribs, right side, initial encounter for closed fracture Left rib fracture Qualifiers: Encounter type: initial encounter Rib fracture type: single rib Fracture type: closed Qualified Code(s): S22.32XA - Fracture of one rib, left side, initial encounter for closed fracture Closed sacral fracture Qualifiers: Encounter type: initial encounter Zone of sacrum fracture: unspecified portion of sacrum Qualified Code(s): S32.10XA - Unspecified fracture of sacrum, initial encounter for closed fracture Lumbar transverse process fracture Qualifiers: Encounter type: initial encounter Fracture type: closed Qualified Code(s): S32.009A - Unspecified fracture of unspecified lumbar vertebra, initial encounter for closed fracture Fall Qualifiers: Encounter type: initial encounter Qualified Code(s): W19.XXXA - Unspecified fall, initial encounter
[2022-02-21] MEDS: DOCUSATE SODIUM/SENNA 50/8.6MG TAB PO SCH (20:38)
[2022-02-21] MEDS: HEPARIN SOD 5,000 UNIT/0.5 ML VIAL SQ SCH (22:43)
[2022-02-22] MEDS: MoRPHine SULFATE 2 MG/ML CARP IV PRN (04:39)
[2022-02-22] MEDS: KETOROLAC TROMETHAMINE 15 MG/ML VIAL IV PRN ×3 (04:40→22:27)
[2022-02-22 07:27] LABS: Basophils # (auto) 0.03 K/uL (0-0.2); Basophils % (auto) 0.5 %; Eosinophils # (auto) 0.25 K/uL (0-0.5); Hematocrit (blood only) 36.3 % (37-47); Hemoglobin 12.2 g/dL (12.0-16.0); Immature Granulocytes # (auto) 0.01 K/uL (0.00-0.02); Immature Granulocytes % (auto) 0.2 %; Lymphocytes # (auto) 1.41 K/uL (1.2-3.4); Lymphocytes % (auto) 22.5 %; Mean Corpuscular Hemoglobin 31.9 pg (25-34); Mean Corpuscular Hgb Conc 33.6 g/dL (32-36); Mean Corpuscular Volume 94.8 fL (80-100); Mean Platelet Volume 9.4 fL (7.4-10.4); Monocytes # (auto) 0.85 K/uL (0.11-0.59); Monocytes % (auto) 13.5 %; Neutrophils # (auto) 3.73 K/uL (1.4-6.5); Neutrophils % (auto) 59.3 %; Platelet Count 231 K/uL (130-400); RDW Coefficient of Variation 13.3 % (11.5-14.5); Red Blood Count 3.83 M/uL (4.2-5.4); White Blood Count 6.28 K/uL (4.8-10.8)
[2022-02-22 07:36] LABS: Albumin Globulin Ratio 1.3 (0.9-2); Albumin Level 3.5 gm/dl (3.4-5.0); BUN Creatinine Ratio 18.4 (10-20); Bilirubin,Total 0.5 mg/dl (0.2-1.0); Calcium 8.8 mg/dl (8.5-10.1); Creatinine Clr Calc Pharmacy 35.8 ml/min; Est GFR (African American) 70.4 ml/min; Est GFR (Non-African American) 60.7 ml/min; Globulin 2.6 gm/dl (2.5-4.0); Magnesium 1.9 mg/dl (1.7-2.4); Potassium 3.9 mmol/L (3.5-5.1); Total Protein 6.1 gm/dl (6.0-8.3)
[2022-02-22] MEDS: HEPARIN SOD 5,000 UNIT/0.5 ML VIAL SQ SCH ×2 (08:08→20:31)
[2022-02-22] MEDS: ACETAMINOPHEN 325 MG TAB PO SCH ×4 (08:08→20:31)
[2022-02-22] MEDS: TRIAMTERENE/HCTZ 37.5/25MG TAB PO SCH (08:09)
[2022-02-22] MEDS: MULTIVITAMIN TAB PO SCH (08:09)
--- NOTE | 2022-02-22 08:48 | Orthopedic Consultation ---
Date of Consultation February 22, 2022 Assessment & Plan (1) Closed sacral fracture: I did consider possible brace however my concern is she is very short in stature and it would probably create more pressure on the ribs and subsequent discomfort. I would recommend ambulation and transfers as tolerated. I suspect these will heal without difficulty. She should lift no more than 5 pounds. History of Present Illness Reason for Consultation: Sacral insufficiency fractures Attending Physician: Karen Baires MD History of Present Illness This is a kiet 86-year-old female who presents after a fall. She does have multiple rib fractures as well as bilateral sacral ala fractures and transverse process fracture of L5. This morning states she states she is relatively comfortable in bed but does have trouble with transitions. She denies any numbness or tingling in lower extremities. Denies any lower extremity weakness. Allergies Allergy/AdvReac Type Severity Reaction Status Date / Time No Known Allergies Allergy Unverified 02/21/22 07:39 Home Medications Medication Instructions Recorded Confirmed Type alendronate 70 mg tablet 70 mg PO WK 02/21/22 02/21/22 History calcium carb 333 mg-vit D3 133 1 tab PO DAILY 02/21/22 02/21/22 History unit-mag ox 133 mg-zinc oxide 5 mg tab coenzyme Q10 100 mg capsule 100 mg PO DAILY 02/21/22 02/21/22 History (CoQ-10) lisinopril 2.5 mg tablet 2.5 mg PO DAILY 02/21/22 02/21/22 History metoprolol succinate 50 mg 50 mg PO DAILY 02/21/22 02/21/22 History tablet,extended release 24 hr simvastatin 40 mg tablet 40 mg PO HS 02/21/22 02/21/22 History triamterene 37.5 1 tab PO DAILY 02/21/22 02/21/22 History mg-hydrochlorothiazide 25 mg tablet Patient History Medical History CKD (chronic kidney disease) stage 3, GFR 30-59 ml/min Esotropia HLD (hyperlipidemia) HTN (hypertension) Osteoarthritis PAT (paroxysmal atrial tachycardia) Senile osteoporosis Surgical History History of x4 History of cataract extraction Family History Mother , 76 Lymphoma CHF (congestive heart failure) Father , 86 Myocardial infarction Coronary heart disease Social History Smoking Status: Never smoker Hx Alcohol Use: Yes Alcohol type: wine Hx Substance Use: No Preferred Language: Mexican Communication Ability: Effective Transportation Director Required: No Beliefs That Will Affect Care: None marital status: Current Living Situation: Spouse Other Information That Helps Us Care for You: No Feels Safe at Home: Yes Physical Exam Physical Exam: Patient is In bed. She does appear comfortable. She is constricted testing lower extremities. Sensory is intact. Results & Data ([facility]) Vital Signs (Past 12 Hours) Vital Signs Temp Pulse Pulse Resp BP Pulse Ox 02/22/22 08:19 36.9 C 89 16 158/84 H 94 02/22/22 07:45 75 02/22/22 04:00 36.8 C 85 18 124/79 94 02/22/22 00:38 77 02/21/22 22:47 36.5 C 80 20 124/71 92 (1) Closed sacral fracture Encounter type: initial encounter Zone of sacrum fracture: unspecified portion of sacrum Qualified Code(s): S32.10XA - Unspecified fracture of sacrum, initial encounter for closed fracture
[2022-02-22] MEDS ORDERED: lisinopril 2.5 MG TAB PO SCH (09:00)
[2022-02-22] MEDS ORDERED: METOPROLOL SUCC 50MG EXT REL TAB PO SCH (09:00)
[2022-02-22] MEDS: oxyCODONE HCL IR 5 MG TAB (IMMEDIATE RELEASE) PO PRN (11:20)
--- NOTE | 2022-02-22 11:53 | Electrocardiogram Report ---
Test Reason : Blood Pressure : / mmHG Vent. Rate : 089 BPM Atrial Rate : 089 BPM P-R Int : 146 ms QRS Dur : 066 ms QT Int : 356 ms P-R-T Axes : 058 -37 027 degrees QTc Int : 433 ms Poor data quality, interpretation may be adversely affected Normal sinus rhythm Left axis deviation Low voltage QRS Abnormal ECG No previous ECGs available Confirmed by Josh Ghosh ([id number]) on 02/22/2022 11:53:29 AM Referred By: REFERRED SELF Confirmed By:Josh Ghosh
[2022-02-22] MEDS ORDERED: METOPROLOL SUCC 25MG EXT REL TAB PO STA (14:12)
--- NOTE | 2022-02-22 14:15 | Cardiology Progress Note ---
Date of Service February 22, 2022 Assessment & Plan (1) Syncope: (2) PAT (paroxysmal atrial tachycardia): (3) Hyponatremia: Plan: Titrate Toprol-XL to 75 mg daily. Resting 2D transthoracic echocardiogram ordered. Recommend 14-day outpatient ZIO monitor at discharge. Assess orthostatic blood pressure every shift. Admission and Anticipated Discharge Date Admission Date: February 21, 2022 Subjective 86-year-old female seen and examined at the bedside. No recurrent lightheadedness or dizziness since admission. Telemetry reveals sinus rhythm in the 70-80s. There is an isolated 11 beat gladys of paroxysmal supraventricular tachycardia 2:57 AM. Patient sleeping during the event. Continues to note right-sided rib discomfort. No shortness of breath, orthopnea, or PND. Review of Systems Review of Systems: All systems reviewed & are unremarkable except as noted in Subjective Physical Exam Constitutional: well nourished; no acute distress and not ill appearing Respiratory: no respiratory distress, no labored breathing and no retractions Auscultation: lungs clear to auscultation bilaterally; no crackles, no rales, no rhonchi and no wheezes Cardiovascular: Rate/Rhythm: regular rate and regular rhythm Heart Sounds: normal S1 and normal S2; no murmur Vessels: no JVD and no carotid bruit Extremities: no edema Gastrointestinal (Abdomen): Inspection/Auscultation: abdomen normal to inspection; abdomen not distended and no abdominal edema Neurologic: CN's II-XI intact bilaterally and moves all extremities; no focal motor deficits Motor/Sensory: no tremor Psychiatric: A+Ox3, euthymic affect Results & Data ([facility]) Vital Signs (Past 12 Hours) Vital Signs Temp Pulse Pulse Resp BP Pulse Ox 02/22/22 11:22 36.3 C L 91 H 16 156/88 H 94 02/22/22 08:19 36.9 C 89 16 158/84 H 94 02/22/22 07:45 75 02/22/22 04:00 36.8 C 85 18 124/79 94
--- NOTE | 2022-02-22 15:33 | Hospitalist Progress Note ---
Date of Service February 22, 2022 Assessment & Plan (1) Syncope: (2) Multiple fractures of ribs of right side: Plan: #. Fall #. Multiple rib fracture [right 8-10 ribs, left sixth and seventh rib #. Nondisplaced bilateral sacral ala fracture #. Chronic T3, T4 and L2 vertebral body fracture #. Fracture on the background of senile osteoporosis Castor dizzy while ambulating and ended up with a fall Noted to have multiple rib fractures on the right and left side without any respiratory distress at rest Has closed sacral fracture as well Conservative management, pain control Appreciate Ortho input (3) Closed sacral fracture: (4) Lumbar transverse process fracture: (5) Hyponatremia: Plan: Sodium level is 129 on admission has improved to 131 (6) HTN (hypertension): Plan: Blood pressure seems to be reasonably controlled Pains a little high at 156 /80 (7) PAT (paroxysmal atrial tachycardia): Plan: Has paroxysmal atrial tachycardia Appreciate cardiology input and recommendation Has been getting beta-pat Will have outpatient Zio patch DVT prophylaxis Subcu heparin CODE STATUS Full Admission and Anticipated Discharge Date Admission Date: February 21, 2022 Subjective 02/22/2022 The patient was seen and examined in medical telemetry unit She has bad osteoarthritis and back pain with ambulatory dysfunction Has had a fall following spell of dizziness but no loss of consciousness Remained stable in bed Review of Systems Review of Systems: All systems reviewed and are unremarkable except as noted below Physical Exam Physical Exam: Lying in bed comfortably Constitutional: + thin; not ill appearing Eyes: PERRL, conjunctivae normal, anicteric sclerae ENMT: external ear and nose normal, oropharynx normal Neck: trachea midline, no thyromegaly Respiratory: no respiratory distress Auscultation: + diminished lung sounds and + crackles (Minimal crackles at the bases) Cardiovascular: Rate/Rhythm: regular rate and regular rhythm; not tachycardic Heart Sounds: normal S1, normal S2 and + murmur (2/6 ESM over precordium) Gastrointestinal (Abdomen): Inspection/Auscultation: normal bowel sounds; abdomen not distended Percussion/Palpation: abdomen soft; abdomen nontender Musculoskeletal: No acute arthritis in any joint Neurologic: Alert, awake and oriented x3. No focal sensory or no motor deficit appreciated Psychiatric: A+Ox3, euthymic affect Lymphatic: no cervical or axillary lymphadenopathy Results & Data Results & Data ([facility]) Vital Signs (Past 12 Hours) Vital Signs Temp Pulse Pulse Resp BP Pulse Ox 02/22/22 14:55 84 02/22/22 11:22 36.3 C L 91 H 16 156/88 H 94 02/22/22 08:19 36.9 C 89 16 158/84 H 94 02/22/22 07:45 75 02/22/22 04:00 36.8 C 85 18 124/79 94 Laboratory Results Short CBC 02/22/22 Range/Units 06:54 WBC 6.28 (4.8-10.8) K/uL Hgb 12.2 (12.0-16.0) g/dL Hct 36.3 L (37-47) % Plt Count 231 (130-400) K/uL BMP 02/22/22 06:54 Sodium 131 L Potassium 3.9 Chloride 100 Carbon Dioxide 26 BUN 16 Creatinine 0.87 Glucose 88 Calcium 8.8 Liver Function 02/22/22 Range/Units 06:54 Total Bilirubin 0.5 (0.2-1.0) mg/dl AST 45 H (13-39) U/L ALT 19 (7-52) U/L Alkaline Phosphatase 92 (34-104) U/L Albumin 3.5 (3.4-5.0) gm/dl Medications Administered Current Inpatient Medications Acetaminophen (Acetaminophen 325 Mg Tab) 650 mg PO Q4H PRN PRN Reason: Pain or Fever Stop: 03/23/22 13:42 Acetaminophen (Acetaminophen 325 Mg Tab) 650 mg PO QID [facility] Stop: 03/23/22 14:29 Last Admin: 02/22/22 13:26 Dose: 650 mg Documented by: Al Hydrox/Mg Hydrox/Simethicone (Aluminum/Magnesium Susp 30 Ml Udc) 15 ml PO Q4H PRN PRN Reason: Dyspepsia Stop: 03/23/22 13:42 Heparin Sodium (Porcine) (Heparin Sod 5,000 Unit/0.5 Ml Vial) 5,000 units SQ Q12 [facility] Stop: 03/23/22 20:59 Last Admin: 02/22/22 08:08 Dose: 5,000 units Documented by: Ketorolac Tromethamine (Ketorolac Tromethamine 15 Mg/Ml Vial) 10 mg IV Q6H PRN PRN Reason: severe pain Stop: 02/26/22 14:03 Last Admin: 02/22/22 14:28 Dose: 10 mg Documented by: Lisinopril (Lisinopril 2.5 Mg Tab) 2.5 mg PO DAILY [facility] Stop: 03/24/22 08:59 Last Admin: 02/22/22 08:09 Dose: 2.5 mg Documented by: Magnesium Hydroxide (Magnesium Hydroxide Susp 30 Ml Udc) 30 ml PO Q12H PRN PRN Reason: Constipation Stop: 03/23/22 13:42 Metoprolol Succinate (Metoprolol Succ 25mg Ext Rel Tab) 75 mg PO DAILY [facility] Stop: 03/25/22 08:59 Morphine Sulfate (Morphine Sulfate 2 Mg/Ml Carp) 2 mg IV Q4H PRN PRN Reason: severe pain Stop: 03/07/22 13:42 Last Admin: 02/22/22 04:39 Dose: 2 mg Documented by: Multivitamins (Multivitamin Tab) 1 tab PO DAILY [facility] Stop: 03/24/22 08:59 Last Admin: 02/22/22 08:09 Dose: 1 tab Documented by: Ondansetron HCl (Ondansetron Inj 2 Mg/Ml 2 Ml Vial) 4 mg IV Q6H PRN PRN Reason: Nausea Stop: 03/23/22 13:42 Oxycodone HCl (Oxycodone Hcl Ir 5 Mg Tab (Immediate Release)) 2.5 mg PO Q6H PRN PRN Reason: moderate pain Stop: 03/07/22 13:42 Last Admin: 02/22/22 11:20 Dose: 2.5 mg Documented by: Polyethylene Glycol (Polyethylene (Miralax) 17 Gm Pack) 17 gm PO DAILY PRN PRN Reason: Constipation Stop: 03/23/22 13:42 Senna/Docusate Sodium (Docusate Sodium/Senna 50/8.6mg Tab) 1 tab PO HS [facility] Stop: 03/23/22 20:59 Last Admin: 02/21/22 20:38 Dose: 1 tab Documented by: Triamterene/Hydrochlorothiazide (Triamterene/Hctz 37.5/25mg Tab) 1 tab PO DAILY [facility] Stop: 03/23/22 14:29 Last Admin: 02/22/22 08:09 Dose: 1 tab Documented by: (1) Multiple fractures of ribs of right side Encounter type: initial encounter Fracture type: closed Qualified Code(s): S22.41XA - Multiple fractures of ribs, right side, initial encounter for closed fracture (2) Closed sacral fracture Encounter type: initial encounter Zone of sacrum fracture: unspecified portion of sacrum Qualified Code(s): S32.10XA - Unspecified fracture of sacrum, initial encounter for closed fracture (3) Lumbar transverse process fracture Encounter type: initial encounter Fracture type: closed Qualified Code(s): S32.009A - Unspecified fracture of unspecified lumbar vertebra, initial encounter for closed fracture
[2022-02-22] MEDS: DOCUSATE SODIUM/SENNA 50/8.6MG TAB PO SCH (20:30)
[2022-02-23] MEDS ORDERED: lisinopril 2.5 MG TAB PO SCH (05:05)
[2022-02-23] MEDS: ACETAMINOPHEN 325 MG TAB PO SCH ×2 (08:01→12:38)
[2022-02-23] MEDS: TRIAMTERENE/HCTZ 37.5/25MG TAB PO SCH (08:02)
[2022-02-23] MEDS: HEPARIN SOD 5,000 UNIT/0.5 ML VIAL SQ SCH (08:02)
[2022-02-23] MEDS: MULTIVITAMIN TAB PO SCH (08:02)
[2022-02-23] MEDS ORDERED: METOPROLOL SUCC 25MG EXT REL TAB PO SCH (09:00)
--- NOTE | 2022-02-23 09:10 | Hospitalist Progress Note ---
Date of Service February 23, 2022 Assessment & Plan (1) Syncope: (2) Multiple fractures of ribs of right side: Plan: #. Fall #. Multiple rib fracture [right 8-10 ribs, left sixth and seventh rib #. Nondisplaced bilateral sacral ala fracture #. Chronic T3, T4 and L2 vertebral body fracture #. Fracture on the background of senile osteoporosis [place]uevo dizzy while ambulating and ended up with a fall Noted to have multiple rib fractures on the right and left side without any respiratory distress at rest Has closed sacral fracture as well Conservative management, pain control Appreciate Ortho input She is with a rib, sacral and compression fractures of vertebrae and requires a hospital bed for repositioning. This is not possible in an ordinary bed and a hospital bed is needed to elevate pain as well. She remains stable medically Blood pressure remains upper side without any symptoms Likely discharge today (3) Closed sacral fracture: (4) Lumbar transverse process fracture: (5) Hyponatremia: Plan: Sodium level is 129 on admission has improved to 131 (6) HTN (hypertension): Plan: Blood pressure seems to be reasonably controlled Pains a little high at 156 /80 We will continue current blood pressure medications and increase lisinopril to 5 mg once a day (7) PAT (paroxysmal atrial tachycardia): Plan: Has paroxysmal atrial tachycardia Appreciate cardiology input and recommendation Has been getting beta-pat Will have outpatient Zio patch DVT prophylaxis Subcu heparin CODE STATUS Full Likely discharge this afternoon Admission and Anticipated Discharge Date Admission Date: February 21, 2022 Subjective 02/22/2022 The patient was seen and examined in medical telemetry unit She has bad osteoarthritis and back pain with ambulatory dysfunction Has had a fall following spell of dizziness but no loss of consciousness Remained stable in bed 02/23/2022 The patient was seen and examined in medical telemetry unit She has been stable Orthostatic vitals showed that her blood pressure went up to 180s on standing without any symptoms She has been started with beta-pat with increasing dose and has been getting lisinopril She will continue with outpatient PT and a hospital bed has been requested Review of Systems Review of Systems: All systems reviewed and are unremarkable except as noted below Physical Exam Physical Exam: Lying in bed comfortably Constitutional: + thin; not ill appearing Eyes: PERRL, conjunctivae normal, anicteric sclerae ENMT: external ear and nose normal, oropharynx normal Neck: trachea midline, no thyromegaly Respiratory: no respiratory distress Auscultation: + diminished lung sounds and + crackles (Minimal crackles at the bases) Cardiovascular: Rate/Rhythm: regular rate and regular rhythm; not tachycardic Heart Sounds: normal S1, normal S2 and + murmur (2/6 ESM over precordium) Gastrointestinal (Abdomen): Inspection/Auscultation: normal bowel sounds; abdomen not distended Percussion/Palpation: abdomen soft; abdomen nontender Musculoskeletal: Has bilateral chest wall pain with deep breathing. Back pain is stable Neurologic: Alert, awake and oriented x3 Psychiatric: A+Ox3, euthymic affect Lymphatic: no cervical or axillary lymphadenopathy Results & Data Results & Data ([facility]) Vital Signs (Past 12 Hours) Vital Signs Temp Pulse Pulse Pulse Resp BP BP 02/23/22 08:03 36.5 C 78 18 172/102 H 02/23/22 07:51 86 02/23/22 06:15 159/90 H 02/23/22 04:24 37.4 C 87 18 176/96 H 02/23/22 00:04 83 02/22/22 23:00 36.5 C Pulse Ox 02/23/22 08:03 94 02/23/22 07:51 02/23/22 06:15 02/23/22 04:24 94 02/23/22 00:04 02/22/22 23:00 Medications Administered Current Inpatient Medications Acetaminophen (Acetaminophen 325 Mg Tab) 650 mg PO Q4H PRN PRN Reason: Pain or Fever Stop: 03/23/22 13:42 Acetaminophen (Acetaminophen 325 Mg Tab) 650 mg PO QID [facility] Stop: 03/23/22 14:29 Last Admin: 02/23/22 12:38 Dose: 650 mg Documented by: Al Hydrox/Mg Hydrox/Simethicone (Aluminum/Magnesium Susp 30 Ml Udc) 15 ml PO Q4H PRN PRN Reason: Dyspepsia Stop: 03/23/22 13:42 Heparin Sodium (Porcine) (Heparin Sod 5,000 Unit/0.5 Ml Vial) 5,000 units SQ Q12 [facility] Stop: 03/23/22 20:59 Last Admin: 02/23/22 08:02 Dose: 5,000 units Documented by: Ketorolac Tromethamine (Ketorolac Tromethamine 15 Mg/Ml Vial) 10 mg IV Q6H PRN PRN Reason: severe pain Stop: 02/26/22 14:03 Last Admin: 02/22/22 22:27 Dose: 10 mg Documented by: Lisinopril (Lisinopril 2.5 Mg Tab) 2.5 mg PO DAILY [facility] Stop: 03/25/22 05:04 Last Admin: 02/23/22 06:40 Dose: 2.5 mg Documented by: Magnesium Hydroxide (Magnesium Hydroxide Susp 30 Ml Udc) 30 ml PO Q12H PRN PRN Reason: Constipation Stop: 03/23/22 13:42 Metoprolol Succinate (Metoprolol Succ 25mg Ext Rel Tab) 75 mg PO DAILY [facility] Stop: 03/25/22 08:59 Last Admin: 02/23/22 08:02 Dose: 75 mg Documented by: Morphine Sulfate (Morphine Sulfate 2 Mg/Ml Carp) 2 mg IV Q4H PRN PRN Reason: severe pain Stop: 03/07/22 13:42 Last Admin: 02/22/22 04:39 Dose: 2 mg Documented by: Multivitamins (Multivitamin Tab) 1 tab PO DAILY [facility] Stop: 03/24/22 08:59 Last Admin: 02/23/22 08:02 Dose: 1 tab Documented by: Ondansetron HCl (Ondansetron Inj 2 Mg/Ml 2 Ml Vial) 4 mg IV Q6H PRN PRN Reason: Nausea Stop: 03/23/22 13:42 Oxycodone HCl (Oxycodone Hcl Ir 5 Mg Tab (Immediate Release)) 2.5 mg PO Q6H PRN PRN Reason: moderate pain Stop: 03/07/22 13:42 Last Admin: 02/22/22 11:20 Dose: 2.5 mg Documented by: Polyethylene Glycol (Polyethylene (Miralax) 17 Gm Pack) 17 gm PO DAILY PRN PRN Reason: Constipation Stop: 03/23/22 13:42 Senna/Docusate Sodium (Docusate Sodium/Senna 50/8.6mg Tab) 1 tab PO HS [facility] Stop: 03/23/22 20:59 Last Admin: 02/22/22 20:30 Dose: 1 tab Documented by: Triamterene/Hydrochlorothiazide (Triamterene/Hctz 37.5/25mg Tab) 1 tab PO DAILY [facility] Stop: 03/23/22 14:29 Last Admin: 02/23/22 08:02 Dose: 1 tab Documented by: (1) Multiple fractures of ribs of right side Encounter type: initial encounter Fracture type: closed Qualified Code(s): S22.41XA - Multiple fractures of ribs, right side, initial encounter for closed fracture (2) Lumbar transverse process fracture Encounter type: initial encounter Fracture type: closed Qualified Code(s): S32.009A - Unspecified fracture of unspecified lumbar vertebra, initial encounter for closed fracture (3) Closed sacral fracture Encounter type: initial encounter Zone of sacrum fracture: unspecified portion of sacrum Qualified Code(s): S32.10XA - Unspecified fracture of sacrum, initial encounter for closed fracture
[2022-02-23] MEDS ORDERED: lisinopril 5 MG TAB PO ONE (13:16)
[2022-02-23] MEDS: KETOROLAC TROMETHAMINE 15 MG/ML VIAL IV PRN (14:23)
[2022-02-23] MEDS: oxyCODONE HCL IR 5 MG TAB (IMMEDIATE RELEASE) PO PRN (15:40)
--- NOTE | 2022-02-23 16:25 | Cardiology Progress Note ---
Date of Service February 23, 2022 Assessment & Plan (1) Syncope: (2) PAT (paroxysmal atrial tachycardia): (3) Hyponatremia: Plan: Continue Toprol-XL 75 mg daily. Consider titration to 100 mg daily in the future pending clinical response. Agree with titration of lisinopril to improve blood pressure control. Recommend 14-day outpatient ZIO monitor at discharge. Admission and Anticipated Discharge Date Admission Date: February 21, 2022 Subjective Patient seen examined the bedside. Blood pressure elevated. Toprol-XL titrated to 75 mg daily. Lisinopril increased to 5 mg daily. Denies chest pain or shortness of breath. No recurrent palpitations, lightheadedness, or dizziness. Isolated short gladys of PSVT recorded overnight. Otherwise she remains in sinus rhythm. Review of Systems Review of Systems: All systems reviewed & are unremarkable except as noted in Subjective Physical Exam Constitutional: well nourished; no acute distress and not ill appearing Respiratory: no respiratory distress, no labored breathing and no retractions Auscultation: lungs clear to auscultation bilaterally; no crackles, no rales, no rhonchi and no wheezes Cardiovascular: Rate/Rhythm: regular rate and regular rhythm Heart Sounds: normal S1 and normal S2; no murmur Vessels: no JVD and no carotid bruit Extremities: no edema Gastrointestinal (Abdomen): Inspection/Auscultation: abdomen normal to inspection; abdomen not distended and no abdominal edema Neurologic: CN's II-XI intact bilaterally and moves all extremities; no focal motor deficits Motor/Sensory: no tremor Psychiatric: A+Ox3, euthymic affect Results & Data ([facility]) Vital Signs (Past 12 Hours) Vital Signs Temp Pulse Pulse Pulse Pulse Resp BP 02/23/22 15:18 36.9 C 80 87 90 18 172/102 H 02/23/22 11:00 36.9 C 80 18 02/23/22 08:03 36.5 C 78 18 172/102 H 02/23/22 07:51 86 02/23/22 06:15 02/23/22 04:24 37.4 C 87 18 176/96 H BP Pulse Ox 02/23/22 15:18 168/98 H 96 02/23/22 11:00 168/98 H 96 02/23/22 08:03 94 02/23/22 07:51 02/23/22 06:15 159/90 H 02/23/22 04:24 94
--- NOTE | 2022-02-24 07:55 | Discharge Summary ---
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 Per patient, she was sleeping in the couch the night prior to arrival, woke up in the middle of the night to go to the bathroom, walked a few steps, then became lightheaded with heart racing, she blacked out and fell over the stairs, her came from another room to pick her up and was noted to be unconscious [approximately 1 minute or less per patient] but soon became aware of the surroundings as soon as her called her name. Patient did not have any post-event confusion or headache. Prior to the event, patient did not have any nausea or vomiting or sweating or chest pain. Patient denies any fever/headache/chills/sore throat/cough/chest pain/palpitations/belly pain/acute changes in bowel or bladder habits/ myalgias/other review of symptoms. Patient does complain of her chronic low back pain at her usual baseline state. Patient never used tobacco/smoking, very rarely drinks alcohol [6 times in a year], no recreational drug use. Patient is full code. No personal history of blood clot or [place]. Family history of [place] in father and NHL in mother. No family history of blood clot. Admission Exam Per Admitting Provider Physical Exam: GENERAL: Alert and oriented x3. NAD, on RA. HEENT: No pallor, no icterus. Pupils equal, round and reactive to light. Oral mucosa moist. NECK: No JVD, no neck masses. HEART: S1 and S2 heard. Regular rate and rhythm. No murmur, no gallop. RESPIRATORY SYSTEM: Normal AP diameter. No accessory muscle use. No wheezing, no crackles. ABDOMEN: Soft, bowel sounds present, nontender, no distention. CENTRAL NERVOUS SYSTEM: No facial droop. Speech is clear. Obeys simple commands. Moves extremities. EXTREMITIES: No edema, no erythema seen. Rt mid-back tenderness moderate, Lt mid-back tenderness mild. No vertebral tenderness. Principal Diagnosis Fall with multiple rib fractures, nondisplaced sacral fracture and vertebral compression fracture-stable, syncope, hypertension Discharge Exam Lying in bed comfortably Constitutional + thin; not ill appearing Eyes PERRL, conjunctivae normal, anicteric sclerae ENMT external ear and nose normal, oropharynx normal Neck trachea midline, no thyromegaly Respiratory no respiratory distress Auscultation: + diminished lung sounds and + crackles (Minimal crackles at the bases) Cardiovascular Rate/Rhythm: regular rate and regular rhythm; not tachycardic Heart Sounds: normal S1, normal S2 and + murmur (2/6 ESM over precordium) Gastrointestinal (Abdomen) Inspection/Auscultation: normal bowel sounds; abdomen not distended Percussion/Palpation: abdomen soft; abdomen nontender Psychiatric A+Ox3, euthymic affect Lymphatic no cervical or axillary lymphadenopathy Discharge Data Allergies Allergy/AdvReac Type Severity Reaction Status Date / Time No Known Allergies Allergy Unverified 02/21/22 07:39 Consultations 02/21/22 11:04 ED Decision to Admit Stat 02/21/22 11:35 Consult Orthopedic Surgery Routine 02/21/22 12:20 Consult Cardiology Routine Ordered Studies 02/21/22 06:58 CT abd pelvis IV con only Stat CT cervical spine wo con Stat CT chest diagnostic w con Stat CT head/brain wo con Stat CT lumbar spine w con Stat CT thoracic spine w con Stat Hospital Course (1) Syncope: (2) Multiple fractures of ribs of right side: #. Fall #. Multiple rib fracture [right 8-10 ribs, left sixth and seventh rib #. Nondisplaced bilateral sacral ala fracture #. Chronic T3, T4 and L2 vertebral body fracture #. Fracture on the background of senile osteoporosis [place] dizzy while ambulating and ended up with a fall Noted to have multiple rib fractures on the right and left side without any respiratory distress at rest Has closed sacral fracture as well Conservative management, pain control Appreciate Ortho input She is with a rib, sacral and compression fractures of vertebrae and requires a hospital bed for repositioning. This is not possible in an ordinary bed and a hospital bed is needed to elevate pain as well. She remains stable medically Blood pressure remains upper side without any symptoms Likely discharge today (3) Closed sacral fracture: (4) Lumbar transverse process fracture: (5) Hyponatremia: Sodium level is 129 on admission has improved to 131 (6) HTN (hypertension): Blood pressure seems to be reasonably controlled Pains a little high at 156 /80 We will continue current blood pressure medications and increase lisinopril to 5 mg once a day (7) PAT (paroxysmal atrial tachycardia): Has paroxysmal atrial tachycardia Appreciate cardiology input and recommendation Has been getting beta-pat Will have outpatient Zio patch DVT prophylaxis Subcu heparin CODE STATUS Full Likely discharge this afternoon Total Time Total Time Spent Total Time Spent (In Minutes): 40 minutes Discharge Plan Discharge Items Patient Disposition: Home - Home Health Services Reason For Visit: FALL, MULTIPLE FRACTURES, CHRONIC HYPOATREMIA Discharge Diagnosis: Fall with multiple rib fractures, nondisplaced sacral fracture and vertebral compression fracture-stable, syncope, hypertension Condition on Discharge: Fair Activity: As commented below Activity Comment: Continue physical therapy and Occupational Therapy Non-emergency contact: Primary Care Provider Call non-emergency contact if: you have any medication questions and your symptoms worsen Follow-up/Referrals: Mindy Willis DO [Primary Care Provider] - (Date & Time 02/27/2022 11:10 AM Provider Mindy Willis DO Department Family Medicine [facility] ) Diet: Heart Healthy and Low Sodium (2gm) Addtl Attending Provider Instructions: Please take precautions to avoid falls Take your medications as advised Please keep appointments with your healthcare providers Will need outpatient Zio patch for 14 days Pending Studies at Discharge: No Stand-Alone Forms: My [facility] [email or web address], Smoking Cessation Medications and DC Order Prescriptions: New lisinopril [Zestril] 5 mg Tablet 5 mg PO DAILY 30 Days Qty: 30 RF: 0 metoprolol succinate [Toprol XL] 25 mg tablet extended release 24 hr 25 mg PO DAILY Qty: 30 RF: 0 oxycodone 5 mg Tablet 2.5 mg PO Q6H PRN (Reason: pain) 5 Days Qty: 10 RF: 0 diclofenac sodium 1 % gel 2 g topical QID Qty: 100 RF: 0 Continued metoprolol succinate 50 mg tablet extended release 24 hr 50 mg PO DAILY RF: 0 alendronate 70 mg tablet 70 mg PO WK RF: 0 simvastatin 40 mg tablet 40 mg PO HS RF: 0 triamterene-hydrochlorothiazid 37.5-25 mg tablet 1 tab PO DAILY RF: 0 coenzyme Q10 [CoQ-10] 100 mg Capsule 100 mg PO DAILY RF: 0 calcium carb-D3-mag ox-zinc ox 333 mg-133 unit -133 mg-5 mg Tablet 1 tab PO DAILY RF: 0 Discontinued lisinopril 2.5 mg tablet 2.5 mg PO DAILY RF: 0 Discharge Orders: Discharge Order (Routine); Ordered 02/23/22 Ordered By: Karen Baires Admission Data Admit Date/Time: 02/21/22 11:32 Attending Provider: Karen Baires Admit Provider: Africa Salas Primary Care Provider: Mindy Willis Other Providers: Adams Armendariz ; Africa Salas ; Chon Castro Other Interventions: Discharge Summary Assessment (RN) Last Done: 02/23/22 15:18
[2022-02-24] MEDS ORDERED: lisinopril 5 MG TAB PO SCH (09:00)
== END 2022-02-23 16:00 | disposition home health service (06) ==
LOC: 2W 06:10 → ED 06:10 → SUATTDRO 11:32 → 2W 12:15
DX: W19.XXXA Unspecified fall, initial encounter; S22.049A Unspecified fracture of fourth thoracic vertebra, initial encounter for closed fracture; E78.5 Hyperlipidemia, unspecified; M18.0 Bilateral primary osteoarthritis of first carpometacarpal joints; S32.10XA Unspecified fracture of sacrum, initial encounter for closed fracture; N18.30 Chronic kidney disease, stage 3 unspecified; S22.039A Unspecified fracture of third thoracic vertebra, initial encounter for closed fracture; R55 Syncope and collapse; M81.0 Age-related osteoporosis without current pathological fracture; I12.9 Hypertensive chronic kidney disease with stage 1 through stage 4 chronic kidney disease, or unspecified chronic kidney disease; Z79.899 Other long term (current) drug therapy; Z79.01 Long term (current) use of anticoagulants; S22.41XA Multiple fractures of ribs, right side, initial encounter for closed fracture; S32.029A Unspecified fracture of second lumbar vertebra, initial encounter for closed fracture

== ENCOUNTER 2023-12-17 13:33 | Inpatient (IN) ==
--- NOTE | 2023-12-17 14:15 | Emergency Department Note ---
Impression & Plan Acute pancreatitis, Syncope, Nausea & vomiting ED Provider Note Provider: José Luis Zee MD DATE OF SERVICE: 12/17/2023 CHIEF COMPLAINT: Weak, nausea vomiting, upper abdominal pain HISTORY OF PRESENT ILLNESS: Patient is a 88-year-old female past medical history of CKD and hypertension as well as hyperlipidemia presenting here today via ambulance from home. Earlier in the week had a bit of discomfort in the upper shoulder blade seen in the clinic and thought was musculoskeletal. This is mostly improved but today just after 10:00 developed some pain in the upper abdomen with associated nausea vomiting and 1 episode of diarrhea. No bloody component. [place] weak and near syncopal after this with possibly a few seconds syncope. No falls however family were present. Received some Zofran for EMS and nausea is little bit improved pain not that improved with Toradol enroute. Denies a history of abdominal surgeries. Denies lower abdominal pain. Denies lower back pain. Denies chest pain to me. No sick contacts. No suspect food intake. Son and daughter at bedside. No slurred speech or focal numbness or weakness appreciated. PAST MEDICAL HISTORY: As noted above MEDICATIONS: Reviewed home medications SOCIAL HISTORY: Resides at home PHYSICAL EXAM: GENERAL: alert and oriented in no acute distress on stretcher fatigued in appearance Head: normocephalic and atraumatic EYES: No injection, discharge or icterus. NECK: Trachea midline. Supple. ENT: Mucous membranes pink and moist. LUNGS: Airway patent. No retractions. Breath sounds clear with good air entry bilaterally. HEART: Regular rate and rhythm. No chest wall tenderness ABDOMEN: Soft mild epigastric tenderness. No lower abdominal tenderness. No guarding. No significant flank tenderness. SKIN: Acyanotic, warm, dry, without rashes EXTREMITIES: Without swelling, tenderness or deformity NEUROLOGICAL: No focal deficits. No aphasia. No facial droop or slurred speech. EK beats minute sinus rhythm PACs. No PVC. No acute ST segment elevation or depression with QTc 418. Left axis is noted. CONTINUOUS CARDIAC MONITORING: was ordered and showed a heart rate of 70s-80s bpm in NSR Patient's laboratory studies and imaging reviewed. Differential includes Appendicitis, infections, diverticulitis, UTI, obstruction, mesenteric ischemia, aortic pathology, inflammatory bowel disease, renal colic, PUD, pancreatitis, biliary pathology, hernia, volvulus, constipation, ACS as well as other pathologies. IMPRESSION/MEDICAL DECISION MAKING: Given the patient's age although minimal comorbidities, will obtain blood work, EKG, and imaging of the abdomen pelvis. Doubt this is cardiac in nature given location. Question possible intra-abdominal pathology such as cholecystitis or pancreatitis. Laboratory studies were sent. Given some IV fluid and small Lenz Zofran and fentanyl here for pain control as she has significant pain does not normally. Patient with elevated white blood cell count but no significant anemia. No evidence of a significant electrolyte abnormality or renal dysfunction. Noted with hepatitis. CT of her abdomen pelvis per radiology with some inflammation of the transverse colon and peritoneal fluid but no obvious perforation noted. Stool testing pending collection. Lipase later returned significant elevated 15,000. Consistent with pancreatitis. Given some additional final for pain control. Hospitalist contacted for further inpatient treatment. DIAGNOSIS: pancreatitis DISPOSITION: Hospitalist will evaluate Patient was agreeable with this plan as well as family Past Med/Surg History Medical History CKD (chronic kidney disease) stage 3, GFR 30-59 ml/min Esotropia HLD (hyperlipidemia) HTN (hypertension) Osteoarthritis PAT (paroxysmal atrial tachycardia) Senile osteoporosis Surgical History History of x4 History of cataract extraction Family History Mother , 76 Lymphoma CHF (congestive heart failure) Father , 86 Myocardial infarction Coronary heart disease Social History Smoking Status: Never smoker Hx Alcohol Use: Yes Alcohol type: wine Hx Substance Use: No Preferred Language: Turkish Communication Ability: Effective Senior Technical Manager Required: No Beliefs That Will Affect Care: None marital status: Current Living Situation: Spouse Feels Safe at Home: Yes Assistive Devices: Walker Allergies Allergies Allergy/AdvReac Type Severity Reaction Status Date / Time No Known Allergies Allergy Unverified 12/17/23 15:49 Home Meds Home Medications Medication Instructions Recorded Confirmed alendronate 70 mg tablet 70 mg PO WK 02/21/22 12/17/23 calcium carb 333 mg-vit D3 133 1 tab PO DAILY 02/21/22 12/17/23 unit-mag ox 133 mg-zinc oxide 5 mg tab coenzyme Q10 100 mg capsule 100 mg PO DAILY 02/21/22 12/17/23 (CoQ-10) acetaminophen 500 mg tablet 1,000 mg PO Q8 PRN pain,moderate 12/17/23 12/17/23 or headache amlodipine 2.5 mg tablet 2.5 mg PO [facility] 12/17/23 12/17/23 ascorbic acid (vitamin C) 125 mg 125 mg PO DAILY 12/17/23 12/17/23 chewable tablet (Vitamin C) atorvastatin 20 mg tablet 20 mg PO [facility] 12/17/23 12/17/23 fluorouracil 5 % topical cream 1 applic topical BID 12/17/23 12/17/23 lisinopril 10 mg tablet 10 mg PO [facility] 12/17/23 12/17/23 metoprolol succinate 100 mg 100 mg PO [facility] 12/17/23 12/17/23 tablet,extended release 24 hr multivitamin 1 tab PO [facility] 12/17/23 12/17/23 torsemide 5 mg tablet 5 mg PO [facility] 12/17/23 12/17/23 Results & Data (ED) Vital Signs Vital Signs - 24 hr 12/17/23 13:53 12/17/23 13:55 12/17/23 13:57 Temperature 36.7 C Temperature Source Oral Pulse Rate 74 81 78 Pulse Rate [Right Finger] Respiratory Rate 16 16 Respiratory Effort / Characteristics Non-Labored Respiratory Depth Normal Blood Pressure 144/78 H Blood Pressure [Right Arm] Blood Pressure Mean 100 Blood Pressure Mean [Right Arm] Pulse Oximetry 96 96 Oxygen Delivery Method Room Air Room Air Sepsis Recent Fever Within 48 Hours No Sepsis New/Unexplained Change in Mental Status N/A Sepsis Action Taken by Nursing No Action Required 12/17/23 15:25 Temperature Temperature Source Pulse Rate Pulse Rate [Right Finger] 88 Respiratory Rate 22 Respiratory Effort / Characteristics Non-Labored Respiratory Depth Normal Blood Pressure Blood Pressure [Right Arm] 137/77 Blood Pressure Mean Blood Pressure Mean [Right Arm] 97 Pulse Oximetry 95 Oxygen Delivery Method Room Air Sepsis Recent Fever Within 48 Hours Sepsis New/Unexplained Change in Mental Status Sepsis Action Taken by Nursing Laboratory Data 12/17/23 14:06 12/17/23 14:06 Lab Results 12/17/23 12/17/23 Range/Units 14:06 14:42 WBC 26.81 H (4.8-10.8) K/ul RBC 4.55 (4.20-5.40) M/uL Hgb 14.6 (12.0-16.0) g/dl Hct 43.0 (37.0-47.0) % MCV 94.5 (80.0-100.0) fL MCH 32.1 (25.0-34.0) pg MCHC 34.0 (32.0-36.0) g/dL RDW Std Deviation 47.3 H (36.4-46.3) fL RDW Coeff of Idalmis 13.6 (11.5-14.5) % Plt Count 232 (130-400) K/uL MPV 9.9 (9.4-12.4) fL Immature Gran % (Auto) 0.6 % Neut % (Auto) 85.6 % Lymph % (Auto) 5.0 % Addison % (Auto) 8.2 % Eos % (Auto) 0.3 % Baso % (Auto) 0.3 % Neut # (Auto) 22.95 H (1.40-6.50) K/uL Lymph # (Auto) 1.33 (1.20-3.40) K/uL Addison # (Auto) 2.19 H (0.11-0.59) K/uL Eos # (Auto) 0.09 (0.00-0.50) K/uL Baso # (Auto) 0.09 (0.00-0.20) K/uL Immature Gran # (Auto) 0.16 (0.01-0.20) K/uL Sodium 138 (136-145) mmol/L Potassium 4.1 (3.5-5.1) mmol/L Chloride 104 (98-107) mmol/L Carbon Dioxide 26 (21-32) mmol/L Anion Gap 8 (3-11) BUN 19 (6-23) mg/dl Creatinine 1.18 (0.6-1.2) mg/dl Est Cr Clr Drug Dosing 26.5 ml/min Est GFR ( Amer) 48.0 ml/min Est GFR (Non-Af Amer) 41.4 ml/min BUN/Creatinine Ratio 16.1 (10-20) Glucose 107 H (70-99(Fasting)) mg/dl Calcium 9.0 (8.6-10.3) mg/dl Total Bilirubin 0.4 (0.2-1.0) mg/dl AST 28 (13-39) U/L ALT 20 (7-52) U/L Alkaline Phosphatase 66 (34-104) U/L Troponin I High Sens 6.7 (0-14) pg/ml Total Protein 7.0 (6.0-8.3) gm/dl Albumin 3.9 (3.4-5.0) gm/dl Globulin 3.1 (2.5-4.0) gm/dl Albumin/Globulin Ratio 1.3 (0.9-2) Lipase 08221 H (11-82) U/L Adenovirus (PCR) Not Detected (NotDetected) B. pertussis DNA (PCR) Not Detected (NotDetected) B.parapertussis DNA PCR Not Detected (NotDetected) C. pneumoniae DNA (PCR) Not Detected (NotDetected) Coronavirus OC43 (PCR) Not Detected (NotDetected) Coronavirus HKU1 (PCR) Not Detected (NotDetected) Coronavirus 229E (PCR) Not Detected (NotDetected) SARS-CoV-2 (PCR) DETECTED A (NotDetected) Coronavirus NL63 (PCR) Not Detected (NotDetected) Human Metapneumovir PCR Not Detected (NotDetected) Influenza Type A (PCR) Not Detected (NotDetected) Influenza Type B (PCR) Not Detected (NotDetected) M. pneumoniae (PCR) Not Detected (NotDetected) Parainfluenza 1 (PCR) Not Detected (NotDetected) Parainfluenza 2 (PCR) Not Detected (NotDetected) Parainfluenza 3 (PCR) Not Detected (NotDetected) Parainfluenza 4 (PCR) Not Detected (NotDetected) RSV (PCR) Not Detected (NotDetected) Entero/Rhino (PCR) Not Detected (NotDetected) Administered Medications Discontinued Medications Fentanyl Citrate (Fentanyl Citrate Pf 100 Mcg/2 Ml Vial) 25 mcg IV NOW STA Stop: 12/17/23 14:15 Last Admin: 12/17/23 14:42 Dose: 25 mcg Documented By: EDISON Fentanyl Citrate (Fentanyl Citrate Pf 100 Mcg/2 Ml Vial) 50 mcg IV NOW STA Stop: 12/17/23 16:01 Last Admin: 12/17/23 16:16 Dose: 50 mcg Documented By: KELLI Ioversol (Optiray 320 500ml) 84 ml IV ONCE ONE Stop: 12/17/23 15:07 Last Admin: 12/17/23 15:02 Dose: 84 ml Documented By: EUNICE Ondansetron HCl (Ondansetron Inj 2 Mg/Ml 2 Ml Vial) 4 mg IV NOW STA Stop: 12/17/23 14:15 Last Admin: 12/17/23 14:42 Dose: 4 mg Documented By: EDISON Imaging Data Radiologist's Impression: Chest X-Ray 12/17/23 14:05 XR chest 1V portable CLINICAL HISTORY: near snycope, weak TECHNIQUE: Single frontal radiograph of the chest was obtained. Comparison: Comparison is made to chest radiograph 02/21/2022 FINDINGS: No lines and tubes are seen. Calcified aortic knob is seen. The lungs are clear. No evidence of pleural effusion or pneumothorax. IMPRESSION: No acute chest disease. ACT 112: Negative or not required by law. Electronically signed by: Paul Yun M.D. 12/17/2023 2:21 PM Abdomen/Pelvis CT 12/17/23 14:14 CT abd pelvis IV con only CLINICAL HISTORY: n/v/d, upper abd pain TECHNIQUE: Helical axial images of the abdomen and pelvis were obtained and displayed. Automated dose lowering techniques and/or adjustment according to patient size were utilized for this exam. This exam was performed with intravenous contrast. CT DOSE: 431.36 mGy.cm COMPARISON: Comparison is made to CT abdomen pelvis 02/21/2022 FINDINGS: Lower chest: Bibasilar atelectasis versus scarring is seen. Liver: Subcentimeter hypodensities in the liver are too small to characterize. Gallbladder and biliary tree: No calcified gallstones. Normal caliber wall. No intra- or extrahepatic biliary ductal dilation. Pancreas: Unremarkable, no focal lesions. Spleen: Unremarkable. Adrenals: Unremarkable. Kidneys and ureters: 16 mm cyst arises from the right kidney superior pole. Bladder: Unremarkable. Reproductive organs: Unremarkable. Bowel: Diverticulosis is seen without diverticulitis. The appendix is normal. Thickening of the transverse colon and cecal art noted. Liquid contents are seen in the colon. Lymph nodes Retroperitoneal: Unremarkable. Pelvic: Unremarkable. Mesenteric: Unremarkable. Peritoneum: Mild peritoneal fluid is seen. Vessels: Atherosclerotic calcifications are seen. Abdominal wall: Unremarkable. Bones: Old healed rib fractures are seen. Degenerative changes are seen in the spine. Scoliosis is seen. Old compression fractures of the spine are again seen. IMPRESSION: There is thickening of the transverse colon and cecum with peritoneal fluid, this may represent an infectious/inflammatory colitis. ACT 112: Negative or not required by law. Electronically signed by: Paul Yun M.D. 12/17/2023 3:15 PM Discharge Plan Visit Data Chief Complaint: Syncope (Near Syncope) ED Provider: José Luis Zee Discharge Problem: Acute pancreatitis, Syncope, Nausea & vomiting Patient Disposition: Being Evaluated by Hospitalist Forms Stand Alone Forms: My [facility] [email or web address] Prescriptions Prescriptions: No Action alendronate 70 mg tablet 70 mg PO WK Rx Instructions: TAKE 1 TABLET BY MOUTH ONCE A WEEK. coenzyme Q10 [CoQ-10] 100 mg Capsule 100 mg PO DAILY calcium carb-D3-mag ox-zinc ox 333 mg-133 unit -133 mg-5 mg Tablet 1 tab PO DAILY torsemide 5 mg tablet 5 mg PO QAM lisinopril 10 mg tablet 10 mg PO QAM fluorouracil 5 % cream 1 applic TOPICAL BID Rx Instructions: apply to isolated areas on face for 6-8 weeks atorvastatin 20 mg tablet 20 mg PO QAM metoprolol succinate 100 mg tablet extended release 24 hr 100 mg PO QAM amlodipine 2.5 mg tablet 2.5 mg PO QAM multivitamin Tablet 1 tab PO QAM ascorbic acid (vitamin C) [Vitamin C] 125 mg Tablet,Chewable 125 mg PO DAILY acetaminophen 500 mg Tablet 1,000 mg PO Q8 PRN (Reason: pain,moderate or headache) Referrals Referrals: Mindy Willis DO [Primary Care Provider] - Discharge Problem: Acute pancreatitis Qualifiers: Pancreatitis type: unspecified pancreatitis type Acute pancreatitis complication: unspecified Qualified Code(s): K85.90 - Acute pancreatitis without necrosis or infection, unspecified
--- NOTE | 2023-12-17 14:22 | XRay Report ---
XR chest 1V portable CLINICAL HISTORY: near snycope, weak TECHNIQUE: Single frontal radiograph of the chest was obtained. Comparison: Comparison is made to chest radiograph 02/21/2022 FINDINGS: No lines and tubes are seen. Calcified aortic knob is seen. The lungs are clear. No evidence of pleur al effusion or pneumothorax. IMPRESSION: No acute chest disease. ACT 112: Negative or not required by law. Electronically signed by: Paul Yun M.D. 12/17/2023 2:21 PM
[2023-12-17 14:23] LABS: Hemoglobin 14.6 g/dl (12.0-16.0); Mean Corpuscular Hemoglobin 32.1 pg (25.0-34.0); Mean Corpuscular Volume 94.5 fL (80.0-100.0); Mean Platelet Volume 9.9 fL (9.4-12.4); Platelet Count 232 K/uL (130-400); RDW Coefficient of Variation 13.6 % (11.5-14.5); RDW Standard Deviation 47.3 fL (36.4-46.3); Red Blood Count 4.55 M/uL (4.20-5.40); White Blood Count 26.81 K/ul (4.8-10.8)
[2023-12-17 14:40] LABS: BUN Creatinine Ratio 16.1 (10-20); Creatinine Clr Calc Pharmacy 26.5 ml/min; Est GFR (Non-African American) 41.4 ml/min; Potassium 4.1 mmol/L (3.5-5.1)
[2023-12-17] MEDS: fentaNYL citrate PF 100 MCG/2 ML VIAL IV STA ×2 (14:42→16:16)
[2023-12-17] MEDS: ONDANSETRON INJ 2 MG/ML 2 ML VIAL IV STA (14:42)
[2023-12-17 14:46] LABS: Troponin I High Sensitivity 6.7 pg/ml (0-14)
[2023-12-17 14:56] LABS: Basophils # (auto) 0.09 K/uL (0.00-0.20); Basophils % (auto) 0.3 %; Eosinophils # (auto) 0.09 K/uL (0.00-0.50); Eosinophils % (auto) 0.3 %; Immature Granulocytes # (auto) 0.16 K/uL (0.01-0.20); Immature Granulocytes % (auto) 0.6 %; Lymphocytes # (auto) 1.33 K/uL (1.20-3.40); Monocytes # (auto) 2.19 K/uL (0.11-0.59); Monocytes % (auto) 8.2 %; Neutrophils # (auto) 22.95 K/uL (1.40-6.50); Neutrophils % (auto) 85.6 %
[2023-12-17 14:59] LABS: Albumin Globulin Ratio 1.3 (0.9-2); Albumin Level 3.9 gm/dl (3.4-5.0); Bilirubin,Total 0.4 mg/dl (0.2-1.0); Globulin 3.1 gm/dl (2.5-4.0)
[2023-12-17] MEDS: OPTIRAY 320 500ml IV ONE (15:02)
--- NOTE | 2023-12-17 15:16 | CT Scan Report ---
CT abd pelvis IV con only CLINICAL HISTORY: n/v/d, upper abd pain TECHNIQUE: Helical axial images of the abdomen and pelvis were obtained and displayed. Automated dose lowering techniques and/or adjustment according to patient size were utilized for this exam. This e xam was performed with intravenous contrast. CT DOSE: 431.36 mGy.cm COMPARISON: Comparison is made to CT abdomen pelvis 02/21/2022 FINDINGS: Lower chest: Bibasilar atelectasis versus scarring is seen. Liver: Subcentimeter hypodensities in the liver are too small to characterize. Gallbladder and biliary tree: No calcified gallstones. Normal caliber wall. No intra- or extrahepatic biliary ductal dilation. Pancreas: Unremarkable, no focal lesions. Spleen: Unremarkable. Adrenals: Unremarkable. Kidneys and ureters: 16 mm cyst arises from the right kidney superior pole. Bladder: Unremarkable. Reproductive organs: Unremarkable. Bowel: Diverticulosis is seen without diverticulitis. The appendix is normal. Thickening of the trans verse colon and cecal art noted. Liquid contents are seen in the colon. Lymph nodes Retroperitoneal: Unremarkable. Pelvic: Unremarkable. Mesenteric: Unremarkable. Peritoneum: Mild peritoneal fluid is seen. Vessels: Atherosclerotic calcifications are seen. Abdominal wall: Unremarkable. Bones: Old healed rib fractures are seen. Degenerative changes are seen in the spine. Scoliosis is se en. Old compression fractures of the spine are again seen. IMPRESSION: There is thickening of the transverse colon and cecum with peritoneal fluid, this may represent an in fectious/inflammatory colitis. ACT 112: Negative or not required by law. Electronically signed by: Paul Yun M.D. 12/17/2023 3:15 PM
[2023-12-17 16:21] LABS: Adenovirus PCR Not Detected (NotDetected); Bordetella parapertussis PCR Not Detected (NotDetected); Bordetella pertussis PCR Not Detected (NotDetected); Chlamydia pneumoniae PCR Not Detected (NotDetected); Coronavirus 229E PCR Not Detected (NotDetected); Coronavirus CoV-2 (COVID19)PCR DETECTED (NotDetected); Coronavirus HKU1 PCR Not Detected (NotDetected); Coronavirus NL63 PCR Not Detected (NotDetected); Coronavirus OC43PCR Not Detected (NotDetected); Human Metapneumovirus PCR Not Detected (NotDetected); Influenza A PCR Not Detected (NotDetected); Influenza B PCR Not Detected (NotDetected); Mycoplasma pneumoniae PCR Not Detected (NotDetected); Parainfluenza Virus 1 PCR Not Detected (NotDetected); Parainfluenza Virus 2 PCR Not Detected (NotDetected); Parainfluenza Virus 3 PCR Not Detected (NotDetected); Parainfluenza Virus 4 PCR Not Detected (NotDetected); Respiratory Syncytial VirusPCR Not Detected (NotDetected); Rhinovirus/Enterovirus PCR Not Detected (NotDetected)
[2023-12-17] MEDS ORDERED: POLYETHYLENE (MIRALAX) 17 GM PACK PO PRN (16:49)
[2023-12-17] MEDS ORDERED: MAGNESIUM HYDROXIDE SUSP 30 ML UDC PO PRN (16:49)
[2023-12-17] MEDS ORDERED: ALUMINUM/MAGNESIUM SUSP 30 ML UDC PO PRN (16:49)
--- NOTE | 2023-12-17 17:39 | History & Physical Report ---
Date of Service December 17, 2023 Assessment & Plan (1) Acute pancreatitis: (2) Nausea & vomiting: (3) HTN (hypertension): (4) HLD (hyperlipidemia): (5) CKD (chronic kidney disease) stage 3, GFR 30-59 ml/min: Plan Ms. Cash is an 88-year-old female that presents today with complaints of epigastric pain, nausea and 1 episode of vomiting that occurred around 1030 this morning after eating breakfast. Since then she has had intermittent diarrhea. She recently had COVID October 2023 and since then reports generally feeling poor. No recent travel or known sick contacts. Otherwise is generally healthy and independent at baseline. Patient recently finished a 5-day course of p.o. prednisone for arthritic changes in her back which was started on 12/05/2023. Additional past medical history includes HTN, HLD, CKD stage III, chronic hyponatremia. In the ED noted leukocytosis 26.81, lipase 15,300, LFTs unremarkable, troponin negative, otherwise labs unremarkable. Incidentally tested positive for COVID on [facility] [employer] [facility]. Patient received IV Zofran and IV fentanyl for symptom management in ED. Abdomen pelvis CT in the ED There is thickening of the transverse colon and cecum with peritoneal fluid, this may represent an infectious/inflammatory colitis. No clear fluid collection or abscess noted. Patient will be admitted for acute pancreatitis with IV fluid resuscitation and broad-spectrum IV antibiotics. Will keep patient n.p.o. and obtain MRCP tonight.will check lactate and calcium and magnesium level. Will continue scheduled Zofran and as needed Dilaudid. Incidentally patient tested positive for COVID and will be placed on airborne precautions. GI consult formally placed. Acute pancreatitis: Acute Leukocytosis 26.81, lactate pending Lipase 15,300; trend in a.m. LFTs unremarkable Abdomen/pelvis CT: thickening of the transverse colon and cecum with peritoneal fluid, this may represent an infectious/inflammatory colitis. No clear fluid collection or abscess noted. No gallbladder surgery history Received Zofran and fentanyl in ED; Continue IV Zofran and add IV Dilaudid; avoid morphine due to effects on sphincter of Oddi Empirically treat with IV Zosyn and adjust based on culture results LR at 100 mL/h x 2 bags ordered MRCP ordered GI consult placed COVID-positive: Acute Recent COVID infection October 2023 with supportive treatment at home No official PCR testing No upper respiratory symptoms currently Placed on airborne precautions HTN: Chronic Takes amlodipine, torsemide, and lisinopril; continue for now. HLD: Chronic Takes atorvastatin; continue Disposition: PCP: Mindy Willis PA-C CODE STATUS: Full code VTE prophylaxis: Teds and SCDs for now I spent a total of 87 minutes coordinating, documenting, and providing care for this patient excluding time spent in the performance of separately billed services. All of the aforementioned completed while collaborating with the assigned attending physician for a full treatment plan. Please see their addendum for further details. History of Present Illness Chief Complaint: Nausea and abdominal pain Primary Care Provider: Mindy Willis DO Ms. Cash is an 88-year-old female that presents today with complaints o epigastric pain, nausea and 1 episode of vomiting that occurred around 1030 this morning. She had just finished eating toast, cereal, crackers with peanut butter and her coffee as usual and while she was watching TV started to feel nauseated. She sat on a nearby rolled walker and had a near syncopal episode but did not fall or lose consciousness that lasted a few seconds. Since then she has had intermittent diarrhea. She recently had COVID October 2023 and since then reports generally feeling poor. Patient denies tobacco, alcohol, recreational drug use including medical marijuana. No recent travel or known sick contacts. Otherwise is generally healthy and independent at baseline. Patient recently finished a 5-day course of p.o. prednisone for arthritic changes in her back which was started on 12/05/2023. Additional past medical history includes HTN, HLD, CKD stage III, chronic hyponatremia. In the ED noted leukocytosis 26.81, lipase 15,300, LFTs unremarkable, troponin negative, otherwise labs unremarkable. Incidentally tested positive for COVID on [facility]. Patient received IV Zofran and IV fentanyl for symptom management. Abdomen pelvis CT in the ED There is thickening of the transverse colon and cecum with peritoneal fluid, this may represent an infectious/inflammatory colitis. No clear fluid collection or abscess noted. Patient will be admitted for acute pancreatitis with IV fluid resuscitation and broad-spectrum IV antibiotics. Will keep patient n.p.o. and obtain MRCP tonight.will check lactate and calcium and magnesium level. Will continue scheduled Zofran and as needed Dilaudid. Incidentally patient tested positive for COVID and will be placed on airborne precautions. GI consult formally placed. Allergies Allergy/AdvReac Type Severity Reaction Status Date / Time No Known Allergies Allergy Unverified 12/17/23 15:49 Home Medications Medication Instructions Recorded Confirmed Type alendronate 70 mg tablet 70 mg PO WK 02/21/22 12/17/23 History calcium carb 333 mg-vit D3 133 1 tab PO DAILY 02/21/22 12/17/23 History unit-mag ox 133 mg-zinc oxide 5 mg tab coenzyme Q10 100 mg capsule 100 mg PO DAILY 02/21/22 12/17/23 History (CoQ-10) acetaminophen 500 mg tablet 1,000 mg PO Q8 PRN pain,moderate 12/17/23 12/17/23 History or headache amlodipine 2.5 mg tablet 2.5 mg PO QAM 12/17/23 12/17/23 History ascorbic acid (vitamin C) 125 mg 125 mg PO DAILY 12/17/23 12/17/23 History chewable tablet (Vitamin C) atorvastatin 20 mg tablet 20 mg PO QAM 12/17/23 12/17/23 History fluorouracil 5 % topical cream 1 applic topical BID 12/17/23 12/17/23 History lisinopril 10 mg tablet 10 mg PO QAM 12/17/23 12/17/23 History metoprolol succinate 100 mg 100 mg PO QAM 12/17/23 12/17/23 History tablet,extended release 24 hr multivitamin 1 tab PO QAM 12/17/23 12/17/23 History torsemide 5 mg tablet 5 mg PO QAM 12/17/23 12/17/23 History Past Med/Surg History Medical History (Updated 12/17/23 @ 17:57 by NATALIE Mcfarlane) Near syncope Esotropia Osteoarthritis Senile osteoporosis CKD (chronic kidney disease) stage 3, GFR 30-59 ml/min HTN (hypertension) PAT (paroxysmal atrial tachycardia) HLD (hyperlipidemia) Surgical History History of cataract extraction History of x4 Family History Mother , 76 Lymphoma CHF (congestive heart failure) Father , 86 Myocardial infarction Coronary heart disease Social History Smoking Status: Never smoker Hx Alcohol Use: Yes Alcohol type: wine Hx Substance Use: No Preferred Language: Maltese Communication Ability: Effective Pan Greaser Required: No Beliefs That Will Affect Care: None marital status: Current Living Situation: Spouse Feels Safe at Home: Yes Assistive Devices: Walker Review of Systems Review of Systems: Neuro: (-) Falls, trauma, slurred speech HEENT: (-) CHILDRESS, dizziness, dysphagia, visual or auditory changes CV: (-) CP, palpitations, swelling Resp: (-) SOB GI: (-) appetite changes, (+) nausea, (+) vomiting (+) diarrhea, bowel changes : (-) urinary changes Skin: (-) rashes Psych: (-) anxiety, depression Physical Exam Physical Exam: Neuro: AAOx4, PERRLA, no aphagia, memory changes, CNII-XII grossly intact HEENT: head normocephalic, moist mucus membranes CV: S1/S2, (-) M/G/R, (-) edema, cap refill < 3 seconds Resp: Lungs CTA in all geiger. On RA GI: Abdomen Ax4 bowel sounds. (+) rebound tenderness LUQ; generalized abdominal pain. (+) soft. (-) CVA tenderness Musculoskeletal: 5/5 B/L UE strength, 5/5 B/L LE strength. No gait disturbance Skin: (-) rashes , (-) erythema. Psych: euthymic mood Results & Data Results & Data Vital Signs (Past 12 Hours) Vital Signs Temp Pulse Pulse Resp BP BP Pulse Ox 12/17/23 15:25 88 22 137/77 95 12/17/23 13:57 78 16 96 12/17/23 13:55 81 12/17/23 13:53 36.7 C 74 16 144/78 H 96 O2 Del Method 12/17/23 15:25 Room Air 12/17/23 13:57 Room Air 12/17/23 13:55 12/17/23 13:53 Room Air Laboratory Results Short CBC 12/17/23 Range/Units 14:06 WBC 26.81 H (4.8-10.8) K/ul Hgb 14.6 (12.0-16.0) g/dl Hct 43.0 (37.0-47.0) % Plt Count 232 (130-400) K/uL BMP 12/17/23 14:06 Sodium 138 Potassium 4.1 Chloride 104 Carbon Dioxide 26 BUN 19 Creatinine 1.18 Glucose 107 H Calcium 9.0 Liver Function 12/17/23 Range/Units 14:06 Total Bilirubin 0.4 (0.2-1.0) mg/dl AST 28 (13-39) U/L ALT 20 (7-52) U/L Alkaline Phosphatase 66 (34-104) U/L Albumin 3.9 (3.4-5.0) gm/dl Diagnostic Findings Chest X-Ray 12/17/23 14:05 XR chest 1V portable CLINICAL HISTORY: near snycope, weak TECHNIQUE: Single frontal radiograph of the chest was obtained. Comparison: Comparison is made to chest radiograph 02/21/2022 FINDINGS: No lines and tubes are seen. Calcified aortic knob is seen. The lungs are clear. No evidence of pleural effusion or pneumothorax. IMPRESSION: No acute chest disease. ACT 112: Negative or not required by law. Electronically signed by: Paul Yun M.D. 12/17/2023 2:21 PM Abdomen/Pelvis CT 12/17/23 14:14 CT abd pelvis IV con only CLINICAL HISTORY: n/v/d, upper abd pain TECHNIQUE: Helical axial images of the abdomen and pelvis were obtained and displayed. Automated dose lowering techniques and/or adjustment according to patient size were utilized for this exam. This exam was performed with intravenous contrast. CT DOSE: 431.36 mGy.cm COMPARISON: Comparison is made to CT abdomen pelvis 02/21/2022 FINDINGS: Lower chest: Bibasilar atelectasis versus scarring is seen. Liver: Subcentimeter hypodensities in the liver are too small to characterize. Gallbladder and biliary tree: No calcified gallstones. Normal caliber wall. No intra- or extrahepatic biliary ductal dilation. Pancreas: Unremarkable, no focal lesions. Spleen: Unremarkable. Adrenals: Unremarkable. Kidneys and ureters: 16 mm cyst arises from the right kidney superior pole. Bladder: Unremarkable. Reproductive organs: Unremarkable. Bowel: Diverticulosis is seen without diverticulitis. The appendix is normal. Thickening of the transverse colon and cecal art noted. Liquid contents are se en in the colon. Lymph nodes Retroperitoneal: Unremarkable. Pelvic: Unremarkable. Mesenteric: Unremarkable. Peritoneum: Mild peritoneal fluid is seen. Vessels: Atherosclerotic calcifications are seen. Abdominal wall: Unremarkable. Bones: Old healed rib fractures are seen. Degenerative changes are seen in the spine. Scoliosis is seen. Old compression fractures of the spine are again seen. IMPRESSION: There is thickening of the transverse colon and cecum with peritoneal fluid, this may represent an infectious/inflammatory colitis. ACT 112: Negative or not required by law. Electronically signed by: Paul Yun M.D. 12/17/2023 3:15 PM Code Status & VTE Plan Code Status Full Code in the event of cardiac or respiratory arrest VTE Prophylaxis Plan VTE Prophylaxis will be ordered: Yes Supervising Physician Co-Signing Physician Notes I have seen and discussed the case with the collaborating LEANNE. I agree with the above H&P. I have reviewed and confirmed the patients medical history, the findings on physical examination, and the patients diagnosis and treatment plan with Cory ESTRADA and agree with the information documented. In short, Ms. Cash is an 88 year old woman admitted for acute pancreatitis. Reports "annoying" epigastric pain that came on suddenly. Exam with LUQ/epigastric tenderness to slight palation. GI consulted. Undergoing MRCP. Recommendations per GI. LR @80/hr. Rest of plan as above. I have reviewed the advanced practitioner's documentation, and I agree with, and take responsibility for the plan of care I spent a total of 25 minutes coordinating, documenting, and providing care for this patient excluding time spent in the performance of separately billed services. All of the aforementioned completed outside of collaborating with above advanced practitioner for a full treatment plan. (1) Acute pancreatitis Acute pancreatitis complication: unspecified Pancreatitis type: unspecified pancreatitis type Qualified Code(s): K85.90 - Acute pancreatitis without necrosis or infection, unspecified
[2023-12-17] MEDS: HYDROmorphone INJ 0.5 MG/0.5 ML SYR IV STA (17:59)
[2023-12-17] MEDS: HYDROmorphone INJ 0.5 MG/0.5 ML SYR ONE (17:59)
[2023-12-17] MEDS: ONDANSETRON INJ 2 MG/ML 2 ML VIAL ONE (17:59)
[2023-12-17 18:53] LABS: Calcium 8.3 mg/dl (8.6-10.3); Phosphorus 3.5 mg/dl (2.5-4.9)
[2023-12-17] MEDS: ACETAMINOPHEN 325 MG TAB PO PRN (20:07)
[2023-12-17] MEDS: PIPER/TAZO 4.5g in D5W MINI-B 100 ML IV ONE (20:20)
[2023-12-17] MEDS: LACTATED RINGER'S 1,000 ML IV SCH (20:21)
[2023-12-17] MEDS: oxyCODONE HCL IR 5 MG TAB (IMMEDIATE RELEASE) PO PRN (21:02)
[2023-12-17] MEDS: KETOROLAC TROMETHAMINE 15 MG/ML VIAL IV ONE (21:02)
[2023-12-17] MEDS: HYDROmorphone INJ 0.5 MG/0.5 ML SYR IV PRN (22:19)
[2023-12-18 00:40] LABS: Appearance Urine Clear (Clear); Bilirubin Urine Negative (Negative); Blood Urine Negative (Negative); Color Urine Yellow; Epithelial Cell Urine Auto >30 /lpf (0-5); Glucose Urine UA Negative (Negative); Ketones Urine Trace (Negative); Leukocyte Esterase Urine Negative (Negative); Nitrite Urine Negative (Negative); Protein Urine Trace (Negative); Specific Gravity Urine > 1.045 (1.000-1.030); Urobilinogen Urine Negative (Negative); pH Urine 5.5 (4.5-7.5)
[2023-12-18 01:03] LABS: Bacteria Urine Automated 1+ (Negative); RBC Urine Automated 0-4 /hpf (0-4)
--- OUTSIDE RECORDS SUMMARY | 2023-12-18 04:44 | External Medical Summary | Summary of Care ---
Author Name Unknown Organization [facility] Address [address] [place] [address] Phone [phone] Care Team Providers Care Crusher Setter Name Role Phone Kelly Powell DO Primary Care Provider Reason for Visit * Reason Comments Outpatient Testing Encounter Details Date Type Department Care Team (Late st Contact Info) Description 12/13/2023 10:40 AM EST Laboratory Laboratory [address] [place] [phone] [place] [address] Hypercalcemia*; MyCode Research Other*[id number]; Dyslipidemia, goal LDL below 100; Essential hypertension with goal blood pressure less than 140/90; Senile osteoporosis; Malaise and fatigue Allergies Active Allergy Reactions Criticality Noted Date Comments No Known Drug Allergy 02/27/2002 documented as of this encounter (statuses as of 12/16/2023) Medications Medication Sig Dispensed Refills Start Date End Date Status Coenzyme Q10 100 MG Oral Capsule 1 Capsule. 0 02/21/2022 Active Fpw-Rnc-Wltv-D Oral Tablet 1 Tablet . 0 02/21/2022 Active Acetaminophen 500 MG Oral Tablet Take 2 Tablets by mouth every 8 hours as needed for Pain, Moderate or Other (headache). 0 Active Multivitamin Adult Oral Tablet Take 1 Tablet by mouth in the morning. 0 Active Metoprolol Succinate ER 100 MG Oral Tablet Extended Release 24 Hour (toPROL XL)Indications:Parox ysmal atrial tachycardia,Essentia l hypertension with goal blood pressure less than 140/90 TAKE ONE TABLET BY MOUTH EVERY MORNING 90 Tablet 3 02/21/2023 02/21/2024 Active Atorvastatin Calcium 20 MG Oral Tablet (Lipitor) Take 1 Tablet by mouth in the morning. 100 Tablet 3 06/04/2023 Active amLODIPine Besylate 2.5 MG Oral Tablet (Norvasc) Take 1 Tablet by mouth in the morning. 100 Tablet 3 06/04/2023 Active Alendronate Sodium 70 MG Oral Tablet (Fosamax) Take 1 Tablet by mouth once a week. with 8 oz. water 30 minutes before first meal of the day. Remain upright for 30 min after taking tablet. 13 Tablet 3 08/19/2023 Active Vitamin C 125 MG Oral Tablet Chewable Take by mouth. 0 Active Fluorouracil 5 % External Cream (Efudex)Indications: AK (actinic keratosis) Apply 2x daily for 3 weeks to isolated areas on face (6-8 weeks total to spots on arms/hands) 40 g 1 12/02/2023 Active Lisinopril 10 MG Oral Tablet (Prinivil) Take 1 Tablet by mouth in the morning. In the morning.. 100 Tablet 3 12/13/2023 Active Torsemide 5 MG Oral Tablet (Demadex)Indications :Essential hypertension with goal blood pressure less than 140/90 Take 1 Tablet by mouth in the morning. 100 Tablet 3 12/13/2023 Active documented as of this encounter (statuses as of 12/16/2023) Active Problems Problem Noted Date Diagnosed Date Vision impairment 06/04/2023 Hx of actinic keratosis 01/03/2022 Overview: actinic keratoses (Efudex 05/2014 to nose, bilat temples/R upper forehead with only mild reaction, bilat forearms 12/09, face/neck/dorsal hands 09/08, face/arms 06/12) Proteinuria 05/18/2020 Primary osteoarthritis of both hands 11/19/2017 Chronic right-sided low back pain with right-sandy ed sciatica 11/19/2017 Essential hypertension with goal blood pressure less than 140/90 04/18/2016 Personal history of other malignant neoplasm of skin 12/01/2014 Overview: 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 Paroxysmal atrial tachycardia 12/28/2010 Dyslipidemia, goal LDL below 100 11/15/2010 Senile osteoporosis documented as of this encounter (statuses as of 12/16/2023) Resolved Problems Problem Noted Date Diagnosed Date Resolved Date Chronic kidney disease, stage 3a 04/04/2021 06/01/2022 Overview: Per CKD protocol Benign hypertension with sta ge 3a chronic kidney disease 02/28/2021 06/01/2022 Overview: Per CKD protocol Benign hypertension with CKD (chronic kidney disease) stage III 08/29/2018 03/02/2021 Overview: Per CKD protocol HTN, goal below 140/90 05/14/201505/14 Hypertension goal BP (blood pressure) < 140/80 11/08/2014 05/14/2015 Balance problem 04/05/2014 11/19/2017 Palpitations 03/10/2013 08/29/2018 Lightheadedness 03/10/2013 09/14/2013 HTN, goal below 130/80 11/15/201011/08 Major depressive disorder 10/18/2010 Overview: ICD-10 update of inactive term Transient insomnia 10/18/2010 2 Dyslipidemia, goal LDL below 160 10/18/2010 11/15/2010 HTN, goal below 140/90 10/18/201011/15 Dyslipidemia, goal LDL below 100 09/07/2009 10/18/2010 HTN, goal below 130/80 09/07/200910/18 Cramp in limb 09/07/2009 08/20/2012 Kidney disease, chronic, sta ge III (GFR 30-59 ml/min) 01/20/2008 10/18/2010 Kidney disease, chronic, sta ge III (GFR 30-59 ml/min) 01/20/2008 08/05/2019 Vitamin D deficiency 10/22/2006 018 LUMB-LUMBOSAC DISC DEGEN 10/09/2006 Sciatica 10/09/2006 01/20/2008 ADVANCE DIRECTIVE INFORMATION 09/24/2005 11/19/2017 Overview: No, Advance Directive brochure given to patient at prior appointment. Other premature beats 03/28/20052010 Esophageal reflux 03/23/2003 11/19/2017 Other allergic rhinitis 03/06/200210/23 Overview: ICD-10 update of inactive term GENERAL OSTEOARTHROSIS 11/19 PURE HYPERCHOLESTEROLEM 08/21 Postmenopausal atrophic vaginitis 11/19/2017 HTN, goal below 140/90 03/04 COMMON MIGRAINE WITHOUT MENT ION OF INTRACTABLE MIGRAINE 11/19/2017 Other cataract 08/20/2012 Overview: bilateral Benign hypertensive kidney d isease with chronic kidney disease stage I through stage IV, or unspecified(403.10) 01/20/2008 Mitral valve disorder 2017 documented as of this encounter (statuses as of 12/16/2023) Immunizations Name Administration Dates Next Due COVID-19 mRNA, LNP-s, No Pre serve, 2-Dose Series (Moderna) 08/14/2021,01/19/2021,12/19/2020 Influenza, Whole Virus 10/23/2000 Pneumococcal Conjugate Vacc, 13 Valent (Prevnar) 07/26/2015 Pneumococcal Polysaccharide PPV23 (Pneumovax) 03/23/2003 Seasonal Influenza Virus Vac cine, Unspecified Formulation 08/14/2021,07/19/2020,07/10/2019,06/21,07/01/2017,11/14/2016,07/26/20 15,07/26/2014,08/24/2013,08/20/2012,1 ,08/10/2010,08/06/2009,08/31,08/19/2007,08/22/2006, 5,09/09/2003,09/02/2002,09/16/2001, Seasonal Influenza, PF, 6 M & above, IM , (FluLaval or Fluzone) 09/20/2023,07/05/2022,07/19/2020,06/22,07/09/2018 Seasonal Influenza, Quadriva lent Hd (Fluzone Hd) 08/14/2021 Seasonal Influenza, Quadriva lent, No Preserve, IM 07/01/2017,11/14/2016,07/26/2015 Seasonal Influenza, Split, I IV3, With Preserve, Inj 07/26/2014,08/24/2013,08/20/2012,07/21,08/10/2010,08/06/2009,08/31/20 08,08/19/2007,08/22/2006,09/07/2005,1 11/09/2002,09/02/2002,09/16/2001 09/16/2002 TD - Tetanus/Diptheria (ADULT) 10/09/2007,1995 TDAP (age 10 and older)(Boostrix) 03/25/2018 Varicella Zoster Vaccine (Adult) 11/04/2008 Zoster Vaccine Recombinant (Shingrix) 06/14/2022 ,11/30/2021 documented as of this encounter Social History Tobacco Use Types Packs/Day Years Used Date Smoking Tobacco: Never Smokeless Tobacco: Never Alcohol Use Standard Drinks/Week Comments No 0 (1 standard drink = 0.6 oz pur e alcohol) a few times per year PHQ-2 Answer Date Recorded PHQ Adult Total Score 0 03/30/2022 Hunger Vital Sign Answer Date Recorded Within the past 12 months, y ou worried that your food would run out before you got the money to buy more. Never true 03/30/20 22 Within the past 12 months, t he food you bought just didn't last and you didn't have money to get more. Never true 03/30/2022 Sex and Gender Information Value Date Recorded Sex Assigned at Female 02/22/2021 9:06 AM EDT Gender Identity Female 02/22/2021 9:06 AM EDT Sexual Orientation Straight 02/22/2021 9: 06 AM EDT Job Start Date Occupation Industry Not on file Not on file Not on file documented as of this encounter Miscellaneous Notes * Addendum Note - Kelly Powell DO - 12/16/2023 10:15 PM ESTAddended by: KELLY POWELL on: 12/16/2023 10:15 PM Modules accepted: Orders documented in this encounter Plan of Treatment Upcoming Encounters Date Type Department Care Team (Late st Contact Info) Description 01/01/2024 12:45 PM EDT Office Visit MOHS Surgery [facility] [address] [place] [address] Susie Witt MD [address] [place] [address] 01/29/2024 12:30 PM EDT Office Visit Orthopaedics [facility] [address] [facility] [place] [address] José Luis Conklin MD [address] [place] [address] 03/26/2024 10:30 AM EDT Office Visit [facility] [place] [address] Mahnaz Guerrier PA-C [address] [facility] [place] [address] 03/30/2024 9:20 AM EDT Office Visit Dermatology [address] [place] [address] Luann Guerra PA-C [address] [place] [address] [place] [address] 07/22/2024 9:30 AM EDT Office Visit Family Medicine [address] [place] [phone] Kelly Powell, [address] [place] [address] [place] [address] Scheduled Orders Name Type Priority Associated Diagnoses Orde r Schedule CALCIUM Lab Routine Hypercalcemia Expected: 01/14/2024 (Approximate), Expires: 12/15/2024 PTH Lab Routine Hypercalcemia Expected: 01/14/2024 (Approximate), Expires: 12/15/2024 Health Maintenance Due Date Last Done Comments Depression Screening 03/30/2023 03/30/2022 COVID-19 Vaccine ( season) 2023 08/14/2021, 01/19/2021, 12/19/2020 Albumin/Creatinine Ratio 06/01/2025 022, 05/30/2021, 05/25/2020 DXA Scan 08/08/2025 08/08/2023, 07/21, 05/24/2021, Additional history exists DTaP,Tdap,and Td Vaccines (2 - Td or Tdap) 03/25/2028 03/25/2018, 10/09/2007, 02/20/1996 Pneumococcal Vaccine: 65+ Years Completed 07/26/2015, 03/23/2003 Zoster Vaccines Completed 06/14/2022, 11/21, 11/04/2008 Influenza Vaccine (FLU shot) Completed 10/2022, 07/05/2022, 08/14/2021, Additional history exists VITAMIN D LEVEL ONCE IN A LIFETIME-USE SMARTSET# [id number] Completed 12/13/2023, 06/01/2022, 11/25/2020, Additional history exists GARDASIL-HPV IMMUNIZATION SERIES Aged Out No longer eligible based on patient's age to complete this topic Hepatitis B Aged Out No longer eligi ble based on patient's age to complete this topic MENINGOCOCCAL (MENACTRA/MENVEO) Aged Out No longer eligible based on patient's age to complete this topic documented as of this encounter Medical Devices Not on filedocumented as of this encounter Procedures Procedure Name Priority Date/Time Associated Diagnosis Comments MYCODE SST1 Routine 12/13/2023 10:32 AM EST MyCode Research Other*[id number] MYCODE INITIAL ADULT-2SST Routine 12/13/2023 10:32 AM EST MyCode Research Other*[id number] ANEMIA REFLEX CHEMISTRY HOLD Routine 12/13/2023 10:32 AM EST Malaise and fatigue ANEMIA CBC Routine 12/13/2023 10:32 AM EST Malaise and fatigue DIFFERENTIAL, AUTOMATED Routine 12/13/2023 10:32 AM EST Malaise and fatigue MYCODE SUBSEQUENT ADULT Routine 12/13/2023 10:32 AM EST MyCode Research Other*[id number] DIFFERENTIAL, AUTOMATED Routine 12/13/2023 10:32 AM EST Malaise and fatigue LIPID PANEL WITH DIRECT LDL IF TG IS HIGH Routine 12/13/2023 10:32 AM EST Dyslipidemia, goal LDL below 100 25-HYDROXY VITAMIN D Routine 12/13/2023 10:32 AM EST Senile osteoporosis COMPREHENSIVE METABOLIC PANEL Routine 12/13/2023 10:32 AM EST Essential hypertension with goal blood pressure less than 140/90 Dyslipidemia, goal LDL below 100 documented in this encounter Results * ANEMIA REFLEX CHEMISTRY HOLD (12/13/2023 10:32 AM EST) Blood Venous blood specimen / Unknown Venipuncture / Unknown 12/13/2023 10:32 AM EST 12/13/2023 10:32 AM EST Kelly Powell DO LAB BLOOD ORDERABLES LABORATORY [facility] [address] [place] [address] * (ABNORMAL) DIFFERENTIAL, AUTOMATED (12/13/2023 10:32 AM EST) WBC 9.70 4.00 - 10.80 K/uL 12/13/2023 11:24 PM EST [facility] Neutrophils % 57.8 40.0 - 75.0 % 12/13/2023 11:24 PM EST [facility] Lymphocytes % 24.0 18.0 - 42.0 % 12/13/2023 11:24 PM EST [facility] Monocytes % 12.4(H) 1.0 - 11.0 % 12/13/2023 11:24 PM EST [facility] Eosinophils % 4.4 0.0 - 6.0 % 12/13/2023 11:24 PM EST [facility] Basophils % 0.6 0.0 - 2.0 % 12/13/2023 11:24 PM EST [facility] Immature Granulocytes % 0.8 0.0 - 2.0 % 12/13/2023 11:24 PM EST [facility] Absolute Neutrophils 5.60 1.80 - 7.70 K/uL 12/13/2023 11:24 PM EST [facility] Absolute Lymphocytes 2.33 1.00 - 4.80 K/ul 12/13/2023 11:24 PM EST [facility] Absolute Monocytes 1.20(H) 0.00 - 1.10 K/uL 12/13/2023 11:24 PM EST [facility] Absolute Eosinophils 0.43 0.00 - 0.70 K/uL 12/13/2023 11:24 PM EST [facility] Absolute Basophils 0.06 0.00 - 0.20 K/uL 12/13/2023 11:24 PM EST [facility] Absolute Immature Granulocytes 0.08 0.00 - 0.20 K/uL 12/13/2023 11:24 PM EST [facility] Blood Venous blood specimen / Unknown Venipuncture / Unknown 12/13/2023 10:32 AM EST 12/13/2023 10:32 AM EST Kelyl Powell DO LAB BLOOD ORDERABLES [facility] [address] [place] [address] * (ABNORMAL) ANEMIA CBC (12/13/2023 10:32 AM EST) WBC 9.70 4.00 - 10.80 K/uL 12/13/2023 11:24 PM EST [facility] RBC 4.73 3.85 - 5.15 M/uL 12/13/2023 11:24 PM EST [facility] HGB 15.3 12.0 - 15.3 g/dL 12/13/2023 11:24 PM EST [facility] Comment: Anemia reflex testing triggers on a HGB < 12.0 for Females and HGB < 13.0 for Males in accordance with the WHO Anemia Guidelines Anemia reflex testing triggers on a HGB < 12.0 for Females and HGB < 13.0 for Males in accordance with the WHO Anemia Guidelines HCT 47.0(H) 36.0 - 45.2 % 12/13/2023 11:24 PM EST [facility] MCV 99.4 81.5 - 97.5 fL 12/13/2023 11:24 PM EST [facility] MCH 32.3 27.0 - 34.0 pg 12/13/2023 11:24 PM EST LABORATORY [facility] MCHC 32.6 32.0 - 36.0 g/dL 12/13/2023 11:24 PM EST LABORATORY [facility] RDW 13.7 11.5 - 15.5 % 12/13/2023 11:24 PM EST [facility] PLT 270 140 - 400 K/uL 12/13/2023 11:24 PM EST LAB[facility]ATORY [facility] MPV 10.8 6.6 - 11.1 fL 12/13/2023 11:24 PM EST LABORATORY [facility] nRBCs 0 <=0 /100 WBCs 12/13/2023 11:24 PM EST LAB[facility]ATORY [facility] Blood Venous blood specimen / Unknown Venipuncture / Unknown 12/13/2023 10:32 AM EST 12/13/2023 10:32 AM EST Kelly Powell DO LAB BLOOD ORDERABLES LABORATORY [facility] [address] [place] [address] * MYCODE SST2 (12/13/2023 10:32 AM EST) MyCode Specimen Freezing of extracted DNA, whole blood and/or serum. 12/16/2023 10:01 AM EST LAB[facility]ATORY [facility] Blood Venous blood specimen / Unknown Venipuncture / Unknown 12/13/2023 10:32 AM EST 12/13/2023 10:32 AM EST Shirley Mayos PSYCHIATRICA LAB BLOOD ORDERAB LES Performing Organization Address City/[facility]/ZIP Co de Phone Number LABORATORY [facility] [address] [place] [address] * MYCODE SST1 (12/13/2023 10:32 AM EST) Pathologist [facility] MyCode Specimen Freezing of extracted DNA, whole blood and/or serum. 12/16/2023 10:01 AM EST LABORATORY [facility] Blood Venous blood specimen / Unknown Venipuncture / Unknown 12/13/2023 10:32 AM EST 12/13/2023 10:32 AM EST Shirley Mayos PSYCHIATRICA LAB BLOOD ORDERAB LES Performing Organization Address [facility] Co de Phone Number LABORATORY [facility] [address] [place] [address] * 25-HYDROXY VITAMIN D (12/13/2023 10:32 AM EST) Pathologist [facility] 25-Hydroxy Vitamin D 34 >19 ng/mL 12/14/2023 4:13 AM EST LABORATORY [facility] Blood Venous blood specimen / Unknown Venipuncture / Unknown 12/13/2023 10:32 AM EST 12/13/2023 10:32 AM EST Narrative LABORATORY [facility] - 12/14/2023 4:13 AM EST Deficient: <20 ng/mL Insufficient: 20-29 ng/mL Recommended/Optimum:30-50 ng/mL Vitamin D intoxication is rare. If suspicious of Vitamin D toxicity, evaluation of serum Calcium and PTH is recommended. Kelly Powell DO LAB BLOOD ORDERABLES Performing Organization Address City/[facility] Co de Phone Number LABORATORY [facility] [address] [place] [address] * (ABNORMAL) COMPREHENSIVE METABOLIC PANEL (12/13/2023 10:32 AM EST) BUN 17 6 - 20 mg/dL 12/14/2023 3:27 AM EST [facility] Creatinine 0.9 0.5 - 1.0 mg/dL 12/14/2023 3:27 AM EST [facility] Estimated Glomerular Filtration Rate 62 >=60 mL/min 12/14/2023 3:27 AM EST [facility] Comment:eGFR is calculated b ased on the CKD-EPI 2020 equation Sodium 139 135 - 146 mmol/L 12/14/2023 3:27 AM EST [facility] Potassium 4.7 3.5 - 5.1 mmol/L 12/14/2023 3:27 AM EST [facility] Chloride 98 98 - 107 mmol/L 12/14/2023 3:27 AM EST [facility] CO2 27 22 - 32 mmol/L 12/14/2023 3:27 AM EST [facility] Anion Gap 14 7 - 15 mmol/L 12/14/2023 3:27 AM EST [facility] Glucose 85 70 - 120 mg/dL 12/14/2023 3:27 AM EST [facility] Albumin 4.7 3.8 - 5.0 g/dL 12/14/2023 3:27 AM EST [facility] AST 30 10 - 35 U/L 12/14/2023 3:27 AM EST [facility] Alkaline Phosphatase 83 35 - 130 U/L 12/14/2023 3:27 AM EST [facility] Bilirubin, Total 0.3 <=1.2 mg/dL 12/14/2023 3:27 AM EST [facility] Calcium 10.7(H) 8.4 - 10.2 mg/dL 12/14/2023 3:27 AM EST [facility] Protein 7.4 6.0 - 8.3 g/dL 12/14/2023 3:27 AM EST [facility] ALT 29 10 - 35 U/L 12/14/2023 3:27 AM EST [facility] Blood Venous blood specimen / Unknown Venipuncture / Unknown 12/13/2023 10:32 AM EST 12/13/2023 10:32 AM EST Kelly Powell DO LAB BLOOD ORDERABLES [facility] [address] [place] [address] * (ABNORMAL) LIPID PANEL WITH DIRECT LDL IF TG IS HIGH (12/13/2023 10:32 AM EST) Triglycerides 175(H) <=174 mg/dL 12/14/2023 3:27 AM EST LABORATORY [facility] Comment: Triglyceride Reference Ranges (mg/dL): <150 Acceptable 150-174 Borderline high 175-499 High >=500 Very high Cholesterol 179 <200 mg/dL 12/14/2023 3:27 AM EST LAB[facility]ATORY [facility] Comment: Total Cholesterol Reference Ranges (mg/dL): <200 Desirable 200-239 Borderline high >=240 High HDL Cholesterol 71 >49 mg/dL 3:27 AM EST LAB[facility]ATORY [facility] Comment: HDL Cholesterol Reference Ranges (mg/dL): >=60 High (Desirable) <50 Low (Undesirable) For Females <40 Low (Undesirable) For Males Non-HDL Cholesterol 108 <=159 mg/dL 12/14/2023 3:27 AM EST LAB[facility]ATORY [facility] Comment: Non-HDL Cholesterol Reference Range (mg/dL): <100 Target level for high risk ASCVD patient <130 Optimal for general population 130-159 Near optimal for general population 160-189 Borderline High 190-219 High >=220 Very High LDL Cholesterol 73 <=129 mg/dL 12/14/2023 3:27 AM EST LAB[facility]ATORY [facility] Comment: LDL Cholesterol Reference Ranges (mg/dL): <70 Target level for high risk ASCVD patient <100 Optimal for general population 100-129 Near optimal for general population 130-159 Borderline high 160-189 High >=190 Very high Blood Venous blood specimen / Unknown Venipuncture / Unknown 12/13/2023 10:32 AM EST 12/13/2023 10:32 AM EST Kelly Powell DO LAB BLOOD ORDERABLES LABORATORY [facility] [address] [place] [address] documented in this encounter Visit Diagnoses Diagnosis Hypercalcemia- Primary MyCode Research Other*[id number] Dyslipidemia, goal LDL below 100 Other and unspecified hyperlipidemia Essential hypertension with goal blood pressure less than 140/90 Senile osteoporosis Malaise and fatigue Other malaise and fatigue documented in this encounter Care Teams Crusher Setter Relationship Specialty Start Date End Date Kelly Powell DO [address] [place] [address] [place] [phone] PCP - General Internal Medicine 11/19/17 documented as of this encounter
--- OUTSIDE RECORDS SUMMARY | 2023-12-18 04:45 | External Medical Summary ---
Author Name Unknown Address Unknown Organization K01:LABORATORY [facility] - [address] [facility] [place] [address] Laboratory Report Ordering Provider Test Date Status SHERRY MENDOZA 12/13/2023 10:32:13 Final Observation Date Value Abnormality Reference (Units ) Status BUN 12/13/2023 10:32:13 17 6-20 (mg/dL) Final Creatinine 12/13/2023 10:32:13 0.9 0.5-1.0 (mg/dL) Final Glomerular filtration rate/1.73 sq M.predicted [Volume Rate/Area] in Serum, Plasma or Blood by Creatinine-based formula (CKD-EPI) 12/13/2023 10:32:13 62 >=60 (mL/min) Final eGFR is calculated based on the CKD-EPI 2020 equation SODIUM 12/13/2023 10:32:13 139 135-146 (m mol/L) Final Potassium 12/13/2023 10:32:13 4.7 3.5-5.1 (m mol/L) Final Cl 12/13/2023 10:32:13 98 98-107 (mm ol/L) Final CO2 12/13/2023 10:32:13 27 22-32 (mmo l/L) Final Anion gap 12/13/2023 10:32:13 14 7-15 (mmol /L) Final Glucose 12/13/2023 10:32:13 85 70-120 (mg /dL) Final Albumin 12/13/2023 10:32:13 4.7 3.8-5.0 (g /dL) Final AST (Aspartate aminotransferase) 12/13/2023 10:32:13 30 10-35 (U/L) Fin al Alk Phos 12/13/2023 10:32:13 83 35-130 (U/ L) Final Bilirubin, Total 12/13/2023 10:32:13 0.3 <=1 .2 (mg/dL) Final Calcium 12/13/2023 10:32:13 10.7 Above high normal 8. 4-10.2 (mg/dL) Final Protein 12/13/2023 10:32:13 7.4 6.0-8.3 (g /dL) Final ALT (Alanine aminotransferase) 12/13/2023 10:32:13 29 10-35 (U/L) Sarkis diaz Performing Location LABORATORY [facility] - [facility] [address] [facility] [address]
--- OUTSIDE RECORDS SUMMARY | 2023-12-18 04:45 | External Medical Summary | Summary of Care ---
Author Name Unknown Organization [facility] Address [address] [place] [address] Phone [phone] Care Team Providers Care Hardware Press Operator Name Role Phone Mindy Willis DO Primary Care Provider Reason for Referral * Evaluate & Treat - Unlimited Visits (Within 10 days (routine)) - Authorized Specialty Diagnoses / Procedures Referred By Angelique mcdonald Referred To Contact Orthopaedic Surgery / Orthopedics Diagnoses Carpal tunnel syndrome of right wrist Mindy Willis DO [address] [place] [address] [place] [address] Referral ID Status Reason Start Date Expiration Date Visits Requested Visits Authorized [id number] Authorized Specialty Services Required 12/13/2023 999 999 Question Answer Referral Priority Within 10 days (routine) Where should this appointment be scheduled? [facility] What body part is the patient being seen for? Hand What condition is the patient being seen for? Sprain/Strain/Tear/Other Comments Dr. Conklin Reason for Visit * Reason Comments Re-Check Pt c/o pain in shoul derek blades; saw Dr. Valentin last week for this (chest wall pain), finished prednisone, no improvement. Encounter Details Date Type Department Care Team (Late st Contact Info) Description 12/13/2023 9:30 AM EST [facility] [place] [phone] Mindy Willis, [address] [place] [address] Essential hypertension with goal blood pressure less than 140/90*; Paroxysmal atrial tachycardia; Senile osteoporosis; Dyslipidemia, goal LDL below 100; Paraspinal muscle spasm; Carpal tunnel syndrome of right wrist; Malaise and fatigue; History of 2019 novel coronavirus disease (COVID-19) Allergies Active Allergy Reactions Criticality Noted Date Comments No Known Drug Allergy 02/27/2002 documented as of this encounter (statuses as of 12/13/2023) Medications Medication Sig Dispensed Refills Start Date End Date Status Coenzyme Q10 100 MG Oral Capsule 1 Capsule. 0 02/21/2022 Active Dte-Tsb-Nydq-D Oral Tablet 1 Tablet . 0 02/21/2022 Active Acetaminophen 500 MG Oral Tablet Take 2 Tablets by mouth every 8 hours as needed for Pain, Moderate or Other (headache). 0 Active Multivitamin Adult Oral Tablet Take 1 Tablet by mouth in the morning. 0 Active Metoprolol Succinate ER 100 MG Oral Tablet Extended Release 24 Hour (toPROL XL)Indications:Par oxysmal atrial tachycardia,Essent ial hypertension with goal blood pressure less than [...] 0 Active Fluorouracil 5 % External Cream (Efudex)Indication s:AK (actinic keratosis) Apply 2x daily for 3 weeks to isolated areas on face (6-8 weeks total to spots on arms/hands) 40 g 1 12/02/2023 Active Lisinopril 10 MG Oral Tablet (Prinivil) Take 1 Tablet by mouth in the morning. In the morning.. 100 Tablet 3 12/13/2023 Active Torsemide 5 MG Oral Tablet (Demadex)Indicatio ns:Essential hypertension with goal blood pressure less than 140/90 Take 1 Tablet by mouth in the morning. 100 Tablet 3 12/13/2023 Active Torsemide 5 MG Oral Tablet (Demadex)Indicatio ns:Essential hypertension with goal blood pressure less than 140/90,HTN, goal below 140/90 TAKE ONE TABLET BY MOUTH IN THE MORNING 90 Tablet 2 03/25/2023 12/13/2023 Discontinue d(Refill) Lisinopril 10 MG Oral Tablet (Prinivil) TAKE ONE TABLET BY MOUTH EVERY MORNING 100 Tablet 3 10/23/2022 12/13/2023 Discontinue d(Refill) documented as of this encounter (statuses as of 12/13/2023) Active Problems Problem Noted Date Diagnosed Date [...] as of this encounter (statuses as of 12/13/2023) Resolved Problems Problem Noted Date Diagnosed Date [...] as of this encounter (statuses as of 12/13/2023) Immunizations Name Administration Dates Next Due COVID-19 mRNA, LNP-s, No Pre serve, 2-Dose Series (Moderna) 08/14/2021,01/19/2021,12/19/2020 Pneumococcal Conjugate Vacc, 13 Valent (Prevnar) 07/26/2015 Seasonal Influenza Virus Vac cine, Unspecified Formulation 08/14/2021,07/19/2020,07/10/2019,2017,07/01/2017,11/14/2016,07/26/2015,1 ,08/24/2013,08/20/2012, 011,08/10/2010,08/06/2009,08/31/2008,,08/22/2006,09/07/2005,09/09/20 03,09/02/2002,09/16/2001,10/23/2000 Seasonal Influenza, PF, 6 M & above, IM , (FluLaval or Fluzone) 09/20/2023,07/05/2022,07/19/2020,2018,07/09/2018 Seasonal Influenza, Quadriva lent Hd (Fluzone Hd) 08/14/2021 Seasonal Influenza, Quadriva lent, No Preserve, IM 07/01/2017,11/14/2016,07/26/2015 Seasonal Influenza, Split, I IV3, With Preserve, Inj 07/26/2014,08/24/2013,08/20/2012,2010,08/10/2010,08/06/2009,08/31/2008,1 ,08/22/2006 TD - Tetanus/Diptheria (ADULT) 10/09/2007 TDAP (age 10 and older)(Boostrix) 03/25/2018 Varicella [...] on file documented as of this encounter Last Filed Vital Signs Vital Sign Reading Time Taken Comments Blood Pressure 144/86 12/13/2023 9:33 AM EST Pulse 88 12/13/2023 9:33 AM EST Temperature 36.6 C (97.8 F) 12/13/2023 9:33 AM ES T Respiratory Rate - - Oxygen Saturation 95% 12/13/2023 9:33 AM EST Inhaled Oxygen Concentration - - Weight 51.6 kg (113 lb 12.8 oz) 12/13/2023 9:33 AM EST Height - - Body Mass Index 23.19 12/05/2023 10:55 AM EST documented in this encounter Progress Notes * Mindy Willis DO - 12/13/2023 9:48 AM EST Subjective: Connie Cash is a 88 year old female. Chief Complaint Patient presents with Re-Check Pt c/o pain in shoulder blades; saw Dr. Valentin last week for this (chest wall pain), finished prednisone, no improvement. HPI: Connie Cash presents today for routine follow up. Concerns today include back pain x 2 weeks. Was worse on the left but it's more present on the right. It is a dull ache that gets worse at times. No clear precipitating factors. Symptoms started after she was doing some yard work and she thought it was muscular. No pain or swelling her calves. She also notes some pins and needles in her right hand. Makes it hard for her to do things with theright hand. Comes and goes throughout the night. She did have COVID in mid-October and has felt tired since then. She notices some carpal tunnel symptoms in her right hand. Drops things at times. She is right-handed. She remains on fosamax for her osteoporosis. Tolerating this well. BP is a little high here today. Tends to run in the 130/70s at home. PMH: Patient Active Problem List Diagnosis Code Senile osteoporosis M81.0 Dyslipidemia, goal LDL below 100 E78.5 Paroxysmal atrial tachycardia I47.19 Personal history of other malignant neoplasm of skin Z85.828 Essential hypertension with goal blood pressure less than 140/90 I10 Primary osteoarthritis of both hands M19.041, M19.042 Chronic right-sided low back pain with right-sided sciatica M54.41, G89.29 Proteinuria R80.9 Hx of actinic keratosis Z87.2 Vision impairment H54.7 Current Outpatient Medications Medication Sig Dispense Refill Coenzyme Q10 100 MG Oral Capsule 1 Capsule. Vzc-Pgm-Neqk-D Oral Tablet 1 Tablet . Acetaminophen 500 MG Oral Tablet Take 2 Tablets by mouth every 8 hours as needed for Pain, Moderateor Other (headache). Multivitamin Adult Oral Tablet Take 1 Tablet by mouth in the morning. Torsemide 5 MG Oral Tablet (Demadex) TAKE ONE TABLET BY MOUTH IN THE MORNING 90 Tablet 2 Metoprolol Succinate ER 100 MG Oral Tablet Extended Release 24 Hour (toPROL XL) TAKE ONE TABLET BY MOUTH EVERY MORNING 90 Tablet 3 Lisinopril 10 MG Oral Tablet (Prinivil) TAKE ONE TABLET BY MOUTH EVERY MORNING (Patient taking differently: Take 2 Tablets by mouth in the morning.) 100 Tablet 3 Atorvastatin Calcium 20 MG Oral Tablet (Lipitor) Take 1 Tablet by mouth in the morning. 100 Tablet 3 amLODIPine Besylate 2.5 MG Oral Tablet (Norvasc) Take 1 Tablet by mouth in the morning. 100 Tablet 3 Alendronate Sodium 70 MG Oral Tablet (Fosamax) Take 1 Tablet by mouth once a week. with 8 oz. water30 minutes before first meal of the day. Remain upright for 30 min after taking tablet. 13 Tablet 3 Vitamin C 125 MG Oral Tablet Chewable Take by mouth. Fluorouracil 5 % External Cream (Efudex) Apply 2x daily for 3 weeks to isolated areas on face (6-8 weeks total to spots on arms/hands) 40 g 1 No current facility-administered medications for this visit. Review of patient's allergies indicates: Allergen Reactions No Known Drug Allergy Objective: BP 144/86 | Pulse 88 | Temp 36.6 C (97.8 F) | Wt 51.6 kg (113 lb 12.8 oz) | SpO2 95% | BMI 23.19 kg/m | BSA 1.46 m General: alert, healthy, no distress, well nourished, and well developed Neck: supple, no adenopathy, thyroid normal size, non-tender, without nodularity Back: there is right thoracic paraspinal muscle in the area of her pain Heart: regular rate & rhythm and no murmur Lungs: chest symmetric with normal AP diameter, no chest deformities noted, normal respiratory rateand rhythm, lungs clear to auscultation Abdomen: abdomen soft and non-tender Extremities: no joint deformities, effusion, or inflammation, no edema Neuro Exam: alert & oriented x 3 with fluent speech, no focal motor/sensory deficits, gait normal Skin: skin color, texture, turgor are normal, no rashes or significant lesions ASSESSMENT/PLAN: Essential hypertension with goal blood pressure less than 140/90 (Primary) - high here today but typically well controlled. - Torsemide 5 MG Oral Tablet (Demadex); Take 1 Tablet by mouth in the morning. Paroxysmal atrial tachycardia - continue metoprolol Senile osteoporosis - on fosamax - 25-HYDROXY VITAMIN D; Future; Expected date: 12/13/2023 Dyslipidemia, goal LDL below 100 - continue atorvastatin - LIPID PANEL WITH DIRECT LDL IF TG IS HIGH; Future; Expected date: 12/13/2023 - COMPREHENSIVE METABOLIC PANEL; Future; Expected date: 12/13/2023 Paraspinal muscle spasm - recommend heat, massage. Soft tissue treatment by the chiropractor would also be okay. Carpal tunnel syndrome of right wrist - refer to Dr. Conklin - ORTHOPAEDICS REFERRAL OP Malaise and fatigue - suspect due to COVID but will check labs. - CBC WITH WBC DIFFERENTIAL AND ANEMIA REFLEX WORKUP; Future; Expected date: 12/13/2023 History of 2019 novel coronavirus disease (COVID-19) Other orders - Lisinopril 10 MG Oral Tablet (Prinivil); Take 1 Tablet by mouth in the morning. In the morning.. Follow-up: Return in about 6 months (around 06/12/2024). | Check-out note: Labs today. Mindy Willis DO documented in this encounter Plan of Treatment Upcoming Encounters Date Type Department Care Team (Late st Contact Info) Description 12/13/2023 10:40 AM EST Laboratory Laboratory [address] [place] [phone] [place], [address] [place] [address] [employer] Other*[id number]; Dyslipidemia, goal LDL below 100; Essential hypertension with goal blood pressure less than 140/90; Senile osteoporosis; Malaise and fatigue 01/01/2024 12:45 PM EDT Office Visit [facility] Surgery [facility] [address] [place] [address] Susie Witt MD [address] [place] [address] 01/29/2024 12:30 PM EDT Office Visit Orthopaedics [facility] [address] [place] [address] José Luis Conklin MD [address] [place] [address] 03/26/2024 10:30 AM EDT Office Visit Otolaryngology, [address] [place] [address] Mahnaz Guerrier PA-C [address] [address] 03/30/2024 9:20 AM EDT Office Visit Dermatology [address] [place] [address] Luann Guerra PA-C [address] [place] [address] [place] [address] 07/22/2024 9:30 AM EDT Office Visit Family Medicine [address] [place] [phone] Mindy Willis[address] [place] [address] Pending Results Name Type Priority Associated Diagnoses Date /Time LIPID PANEL WITH DIRECT LDL IF TG IS HIGH Lab Routine Dyslipidemia, goal LDL below 100 12/13/2023 10:32 AM EST COMPREHENSIVE METABOLIC PANEL Lab Routine Essential hypertension with goal blood pressure less than 140/90 Dyslipidemia, goal LDL below 100 12/13/2023 10:32 AM EST 25-HYDROXY VITAMIN D Lab Routine Senile osteoporosis 12/13/2023 10:32 AM EST CBC WITH WBC DIFFERENTIAL AND ANEMIA REFLEX WORKUP Lab Routine Malaise and fatigue 12/13/2023 10:32 AM EST Scheduled Orders Name Type Priority Associated Diagnoses Orde r Schedule LIPID PANEL WITH DIRECT LDL IF TG IS HIGH Lab Routine Dyslipidemia, goal LDL below 100 Expected: 12/13/2023, Expires: 12/13/2024 COMPREHENSIVE METABOLIC PANEL Lab Routine Essential hypertension with goal blood pressure less than 140/90 Dyslipidemia, goal LDL below 100 Expected: 12/13/2023 (Approximate), Expires: 12/12/2024 25-HYDROXY VITAMIN D Lab Routine Senile osteoporosis Expected: 12/13/2023 (Approximate), Expires: 12/12/2024 CBC WITH WBC DIFFERENTIAL AND ANEMIA REFLEX WORKUP Lab Routine Malaise and fatigue Expected: 12/13/2023 (Approximate), Expires: 12/13/2024 Scheduled Referrals Name Type Priority Associated Diagnoses Order Schedule ORTHOPAEDICS REFERRAL OP Referral Within 10 days (routine) Carpal tunnel syndrome of right wrist Ordered: 12/13/2023 Health Maintenance Due Date Last Done Comments Depression Screening 03/30/2023 03/30/2022 COVID-19 Vaccine ( season) 2023 08/14/2021, 01/19/2021, 12/19/2020 Albumin/Creatinine Ratio 06/01/2025 022, 05/30/2021, 05/25/2020 DXA Scan 08/08/2025 08/08/2023, 07/21, 05/24/2021, Additional history exists DTaP,Tdap,and Td Vaccines (2 - Td or Tdap) 03/25/2028 03/25/2018, 10/09/2007, 02/20/1996 Pneumococcal Vaccine: 65+ Years Completed 07/26/2015, 03/23/2003 VITAMIN D LEVEL ONCE IN A LIFETIME-USE SMARTSET# [id number] Completed 06/01/2022, 11/25/2020, 03/11/2020, Additional history exists Zoster Vaccines Completed 06/14/2022, 11/21, 11/04/2008 Influenza Vaccine (FLU shot) Completed 10/2022, 07/05/2022, 08/14/2021, Additional history exists GARDASIL-HPV IMMUNIZATION SERIES Aged [...] Not on filedocumented as of this encounter Visit Diagnoses Diagnosis Essential hypertension with goal blood pressure less than 140/90- Primary Paroxysmal atrial tachycardia Paroxysmal supraventricular tachycardia Senile osteoporosis Dyslipidemia, goal LDL below 100 Other and unspecified hyperlipidemia Paraspinal muscle spasm Other symptoms referable to back Carpal tunnel syndrome of right wrist Carpal tunnel syndrome Malaise and fatigue Other malaise and fatigue History of 2019 novel coronavirus disease (COVID-19) [employer] Other*[id number] Dyslipidemia, goal LDL below 100 Other and unspecified hyperlipidemia Essential hypertension with goal blood pressure less than 140/90 Senile osteoporosis Malaise and fatigue Other malaise and fatigue documented in this encounter Care Teams Hardware Press Operator Relationship Specialty Start Date End Date Mindy Willis DO [address] [place] [address] [place] [address] PCP - General Internal Medicine 11/19/17 documented as of this encounter"
--- OUTSIDE RECORDS SUMMARY | 2023-12-18 04:45 | External Medical Summary | Summary of Care ---
Author Name Unknown Organization [facility] Address [address] [place] [address] Phone [phone] Care Team Providers Care Cardiac Catheterization Technician Name Role Phone Mindy Willis DO Primary Care Provider Reason for Visit * Reason Comments Outpatient Testing Encounter Details Date Type Department Care Team (Late st Contact Info) Description 12/13/2023 10:40 AM EST Laboratory Laboratory [address] [place] [phone] [place] [address] [employer] Other*[id number]; Dyslipidemia, goal LDL below 100; Essential hypertension with goal blood pressure less than 140/90; Senile osteoporosis; Malaise and fatigue Allergies Active Allergy Reactions Criticality Noted Date Comments No Known Drug Allergy 02/27/2002 documented as of this encounter (statuses as of 12/13/2023) Medications Medication Sig Dispensed Refills Start Date End Date Status Coenzyme Q10 100 MG Oral Capsule 1 Capsule. 0 02/21/2022 Active Gtv-Sdt-Dmbs-D Oral Tablet 1 Tablet . 0 02/21/2022 [...] on file documented as of this encounter Plan of Treatment Upcoming Encounters Date Type Department Care Team (Late st Contact Info) Description 01/01/2024 12:45 PM EDT Office Visit [facility] Surgery [facility] [address] [place] [address] Susie Witt MD [address] [facility] [place] [address] 01/29/2024 12:30 PM EDT Office Visit Orthopaedics [facility] [address] [place] [address] José Luis Conklin MD [address] [place] [address] 03/26/2024 10:30 AM EDT Office Visit Otolaryngology, [address] [address] [place] [address] Mahnaz Guerrier PA-C [address] [facility] [address] 03/30/2024 9:20 AM EDT Office Visit Dermatology [address] [place] [address] Luann Guerra PA-C [address] [place] [address] [place] [address] 07/22/2024 9:30 AM EDT Office Visit Family Medicine [address] [place] [phone] Mindy Willis [address] [place] [address] Pending Results Name Type Priority Associated Diagnoses Date /Time MYCODE SUBSEQUENT ADULT Lab Routine [employer] Other*[id number] 12/13/2023 10:32 AM EST LIPID PANEL WITH DIRECT LDL IF TG [...] Malaise and fatigue 12/13/2023 10:32 AM EST MYCODE SST1 Lab Routine [employer] Other*[id number] 12/13/2023 10:32 AM EST MYCODE SST2 Lab Routine [employer] Other*[id number] 12/13/2023 10:32 AM EST ANEMIA CBC Lab Routine Malaise and fatigue 12/13/2023 10:32 AM EST DIFFERENTIAL, AUTOMATED Lab Routine Malaise and fatigue 12/13/2023 10:32 AM EST ANEMIA REFLEX CHEMISTRY HOLD Lab Routine Malaise and fatigue 12/13/2023 10:32 AM EST Health Maintenance Due Date Last Done Comments Depression Screening 03/30/2023 03/30/2022 COVID-19 Vaccine ( season) 2023 08/14/2021, 01/19/2021, 12/19/2020 Albumin/Creatinine Ratio 06/01/2025 022, 05/30/2021, 05/25/2020 DXA Scan 08/08/2025 08/08/2023, 07/21, 05/24/2021, Additional history exists DTaP,Tdap,and Td Vaccines (2 - Td or Tdap) 03/25/2028 03/25/2018, 10/09/2007, 02/20/1996 Pneumococcal Vaccine: 65+ Years Completed 07/26/2015, 03/23/2003 VITAMIN D LEVEL ONCE IN A LIFETIME-USE SMARTSET# [id number] Completed 06/01/2022, 11/25/2020, 03/11/2020, Additional history exists [...] as of this encounter Visit Diagnoses Diagnosis [employer] Other*[id number] Dyslipidemia, goal LDL below 100 Other and unspecified hyperlipidemia Essential hypertension with goal blood pressure less than 140/90 Senile osteoporosis Malaise and fatigue Other malaise and fatigue documented in this encounter Care Teams Cardiac Catheterization Technician Relationship Specialty Start Date End Date Mindy Willis DO [address] [place] [address] [place] [address] PCP - General Internal Medicine 11/19/17 documented as of this encounter
--- OUTSIDE RECORDS SUMMARY | 2023-12-18 04:45 | External Medical Summary ---
Author Name Unknown Address Unknown Organization [id number]:[facility]ATORY [facility] [place] [address] [place] [address] [address] Laboratory Report Ordering Provider Test Date Status TRIXIE VALLADARES 12/13/2023 10:32:13 Final Observation Date Value Abnormality Reference (Units ) Status MYCODE SPECIMEN-SST 12/13/2023 10:32:13 Freezing of extracted DNA, whole blood and/or serum. Final Performing Location [facility]ORY [facility] [address] [facility] [address]
--- OUTSIDE RECORDS SUMMARY | 2023-12-18 04:45 | External Medical Summary ---
Author Name Unknown Address Unknown Organization [id number]:[facility] [place] [address] [place] [address] Laboratory Report Ordering Provider Test Date Status TRIXIE VALLADARES 12/13/2023 10:32:13 Final Observation Date Value Abnormality Reference (Units ) Status MYCODE SPECIMEN-SST 12/13/2023 10:32:13 Freezing of extracted DNA, whole blood and/or serum. Final Performing Location [facility]ORY [facility] [address] [facility] [address]
--- OUTSIDE RECORDS SUMMARY | 2023-12-18 04:45 | External Medical Summary ---
Author Name Unknown Address Unknown Organization [id number]:[facility] [place] [address] [place] [address] Laboratory Report Ordering Provider Test Date Status SHERRY MENDOZA 12/13/2023 10:32:13 Final Deficient: <20 ng/mL
Ins ufficient: 20-29 ng/mL
Recommended/Optimum:30-50 ng/mL

Vitamin D intoxication is rare. If suspicious of Vitamin D toxicity, evaluation of serum Calcium and PTH is recommended. Observation Date Value Abnormality Reference (Units ) Status 25-OH Vitamin D total 12/13/2023 10:32:13 34 >19 (ng/mL) Final Performing Location LABORATORY C - [address] [place] [address]
--- OUTSIDE RECORDS SUMMARY | 2023-12-18 04:45 | External Medical Summary | Summary of Care ---
Author Name Unknown Organization [facility] Address [address] [place] [address] Phone [phone] Care Team Providers Care Rotary Pump Operator Name Role Phone Mindy Willis DO Primary Care Provider Reason for Referral * Evaluate & Treat - Unlimited Visits (Within 10 days (routine)) - Authorized Specialty Diagnoses / Procedures Referred By Angelique mcdonald Referred To Contact Dermatology Diagnoses Squamous cell carcinoma of skin of right upper limb, including shoulder Luann Guerra PA-C [address] [place] [address] [place] [address] Referral ID Status Reason Start Date Expiration Date Visits Requested Visits Authorized [id number] Authorized Specialty Services Required 12/09/2023 1 1 Question Answer Referral Priority Within 10 days (routine) Are you referring the patient for Mohs Surgery and have a current positive skin cancer biopsy result? Yes Where should this appointment be scheduled? Dominique Type of Procedure MOHS Surgery Comments A. Skin, R anterior forearm, shave: Invasive moderately differentiated squamous cell carcinoma Reason for Visit * Reason Onset Date Comments Appointment 12/09/2023 Encounter Details Date Type Department Care Team ([facility] st Contact Info) Description 12/09/[address] [address] Luann Guerra PA-C [address] [place] [address] [place] [address] Appointment Allergies Active Allergy Reactions Criticality Noted Date Comments No Known Drug Allergy 02/27/2002 documented as of this encounter (statuses as of 12/10/2023) Medications Medication Sig Dispensed Refills Start Date End Date Status Coenzyme Q10 100 MG Oral Capsule 1 Capsule. 0 02/21/2022 Active Swo-Egj-Mvnm-D Oral Tablet 1 Tablet . 0 02/21/2022 Active Acetaminophen 500 MG Oral Tablet Take 2 Tablets by mouth every 8 hours as needed for Pain, Moderate or Other (headache). 0 Active Multivitamin Adult Oral Tablet Take 1 Tablet by mouth in the morning. 0 Active Torsemide 5 MG Oral Tablet (Demadex)Indication s:Essential hypertension with goal blood pressure less than 140/90,HTN, goal below 140/90 TAKE ONE TABLET BY MOUTH IN THE MORNING 90 Tablet 2 03/25/2023 03/24/2024 Active Metoprolol Succinate ER 100 MG Oral Tablet Extended Release 24 Hour (toPROL XL)Indications:Paro xysmal atrial tachycardia,Essenti al hypertension with goal blood pressure less than 140/90 TAKE ONE TABLET BY MOUTH EVERY MORNING 90 Tablet 3 02/21/2023 02/21/2024 Active Lisinopril 10 MG Oral Tablet (Prinivil) TAKE ONE TABLET BY MOUTH EVERY MORNING 100 Tablet 3 10/23/2022 12/31/2023 Active Additional Information Patient taking differently: 20 mg Oral Daily(AM), Reported on 06/04/2023 Atorvastatin Calcium 20 MG Oral Tablet (Lipitor) [...] 0 Active Fluorouracil 5 % External Cream (Efudex)Indications :AK (actinic keratosis) Apply 2x daily for 3 weeks to isolated areas on face (6-8 weeks total to spots on arms/hands) 40 g 1 12/02/2023 Active predniSONE 20 MG Oral Tablet (Deltasone)Indicati ons:Chest wall pain Take 2 Tablets by mouth in the morning for 5 days. 10 Tablet 0 12/05/2023 12/10/2023 Active documented as of this encounter (statuses as of 12/10/2023) Active Problems Problem Noted Date Diagnosed Date [...] as of this encounter (statuses as of 12/10/2023) Resolved Problems Problem Noted Date Diagnosed Date [...] as of this encounter (statuses as of 12/10/2023) Immunizations Name Administration Dates Next Due COVID-19 mRNA, LNP-s, No Pre serve, 2-Dose Series (Moderna) 08/14/2021,01/19/2021,12/19/2020 Influenza, Whole Virus 10/23/2000 Pneumococcal Conjugate Vacc, 13 Valent (Prevnar) 07/26/2015 Pneumococcal Polysaccharide PPV23 (Pneumovax) 03/23/2003 Seasonal Influenza, PF, 6 M & above, IM , (FluLaval or Fluzone) 07/05/2022,07/19/2020,07/10/2019,06/21 Seasonal Influenza, Quadriva lent Hd (Fluzone Hd) [...] as of this encounter Miscellaneous Notes * Telephone Encounter - Josefina Pang OSA - 12/10/2023 9:41 AM EST Spoke to patient and confirmed scheduled mohs appt for December will mail a mohs packet. * Telephone Encounter - Josefina Pang OSA - 12/09/2023 12:52 PM EST 12/09 spoke to son and offered 01/01/[address] Witt for mohs surgery, he said he will "discuss" this with Connie and will call us back to confirm the surgery * Telephone Encounter - Luann Guerra PA-C - 12/09/2023 12:28 PM EST A. Skin, R anterior forearm, shave: Invasive moderately differentiated squamous cell carcinoma documented in this encounter Plan of Treatment Upcoming Encounters Date Type Department Care Team (Late st Contact Info) Description 12/13/2023 9:30 AM EST Office Visit Family Medicine [address] [place] [phone] [place] [address] 01/01/2024 12:45 PM EDT Office Visit MOHS Surgery [facility] [place] [address] [place] [address] Susie Witt MD [address] [place] [address] 03/26/2024 10:30 AM EDT Office Visit Otolaryngology, [address] [place] [address] Mahnaz Guerrier PA-C [address] [facility] [id number] 03/30/2024 9:20 AM EDT Office Visit Dermatology [address] [place] [address] Luann Guerra PA-C [address] [place] [address] [place] [address] Scheduled Referrals Name Type Priority Associated Diagnoses Orde r Schedule MOHS SURGERY REFERRAL OP Referral Within 10 days (routine) Squamous cell carcinoma of skin of right upper limb, including shoulder Ordered: 12/09/2023 Health Maintenance Due Date Last Done Comments Depression Screening 03/30/2023 03/30/2022 COVID-19 Vaccine ( season) 2023 08/14/2021, 01/19/2021, 12/19/2020 Influenza Vaccine (FLU shot) (#1) 2023 07/05/2022, 08/14/2021, 07/19/2020, Additional history exists Albumin/Creatinine Ratio 06/01/2025 022, 05/30/2021, 05/25/2020 DXA Scan 08/08/2025 08/08/2023, 07/21, 05/24/2021, Additional history exists DTaP,Tdap,and Td Vaccines (2 - Td or Tdap) 03/25/2028 03/25/2018, 10/09/2007, 02/20/1996 Pneumococcal Vaccine: 65+ Years Completed 07/26/2015, 03/23/2003 VITAMIN D LEVEL ONCE IN A LIFETIME-USE SMARTSET# [id number] Completed 06/01/2022, 11/25/2020, 03/11/2020, Additional history exists Zoster Vaccines Completed 06/14/2022, 11/21, 11/04/2008 GARDASIL-HPV IMMUNIZATION SERIES Aged Out No longer [...] as of this encounter Visit Diagnoses Diagnosis Squamous cell carcinoma of skin of right upper limb, including shoulder- Primary Squamous cell carcinoma of skin of upper limb, including shoulder documented in this encounter Care Teams Rotary Pump Operator Relationship Specialty Start Date End Date Mindy Willis DO [address] [place] [address] [place] [address] PCP - General Internal Medicine 11/19/17 documented as of this encounter
--- OUTSIDE RECORDS SUMMARY | 2023-12-18 04:45 | External Medical Summary ---
Author Name Unknown Address Unknown Organization K01:[facility] [place] [address] [place] [id number] Laboratory Report Ordering Provider Test Date Status SHERRY MENDOZA 12/13/2023 10:32:13 Final Observation Date Value Abnormality Reference (Units ) Status WBC, Total 12/13/2023 10:32:13 9.70 4.00-10.8 0 (K/uL) Final RBC 12/13/2023 10:32:13 4.73 3.85-5.15 (M/uL) Final Hemoglobin 12/13/2023 10:32:13 15.3 12.0-15.3 (g/dL) Final Anemia reflex testing trigge rs on a HGB < 12.0 for Females and HGB < 13.0 for Males in accordance with the WHO Anemia Guidelines
Anemia reflex testing triggers on a HGB < 12.0 for Females and HGB < 13.0 for Males in accordance with the WHO Anemia Guidelines HCT 12/13/2023 10:32:13 47.0 Above hi gh normal 36.0-45.2 (%) Final MCV 12/13/2023 10:32:13 99.4 81.5-97.5 (fL) Final MCH 12/13/2023 10:32:13 32.3 27.0-34.0 (pg) Final MCHC 12/13/2023 10:32:13 32.6 32.0-36.0 (g/dL) Final RDW 12/13/2023 10:32:13 13.7 11.5-15.5 (%) Final Platelets 12/13/2023 10:32:13 270 140-400 (K /uL) Final MPV 12/13/2023 10:32:13 10.8 6.6-11.1 ( fL) Final Nucleated erythrocytes/100 leukocytes [Ratio] in Blood by Automated count 12/13/2023 10:32:13 0 <=0 (/100 WBCs) Final Performing Location [facility] [place] [address] [facility] [address]
--- OUTSIDE RECORDS SUMMARY | 2023-12-18 04:46 | External Medical Summary | Summary of Care ---
Author Name Unknown Organization [facility] Address [address] [place] [address] Phone [phone] Care Team Providers Care Hybrid Derivatives Trader Name Role Phone Mindy Willis DO Primary Care Provider Reason for Visit * Reason Onset Date Comments Appointment 12/02/2023 3 - 6 mon ret - Derm Encounter Details Date Type Department Care Team (Late st Contact Info) Description 12/02/[address] [place] [address] Luann Guerra PA-C [address] [place] [address] [place] [phone] Appointment (3 - 6 mon ret - Derm ) Allergies Active Allergy Reactions Criticality Noted Date Comments No Known Drug Allergy 02/27/2002 documented as of this encounter (statuses as of 12/02/2023) Medications Medication Sig Dispensed Refills Start Date End Date Status Coenzyme Q10 100 MG Oral Capsule 1 Capsule. 0 02/21/2022 Active Mel-Rra-Dkkf-D Oral Tablet 1 Tablet . 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 Paroxysmal atrial tachycardia 12/28/2010 Dyslipidemia, goal LDL below 100 11/15/2010 Senile osteoporosis documented as of this encounter (statuses as of 12/02/2023) Resolved Problems Problem Noted Date Diagnosed Date [...] as of this encounter (statuses as of 12/02/2023) Immunizations Name Administration Dates Next Due COVID-19 mRNA, LNP-s, No Pre serve, 2-Dose Series (Moderna) 08/14/2021,01/19/2021,12/19/2020 Pneumococcal Conjugate Vacc, 13 Valent (Prevnar) 07/26/2015 Seasonal Influenza, PF, 6 M & above, IM , (FluLaval or Fluzone) 07/05/2022,07/19/2020,07/10/2019,2017 Seasonal Influenza, Quadriva lent Hd (Fluzone Hd) [...] encounter Miscellaneous Notes * Telephone Encounter - Karie Chapin OSA - 12/02/2023 11:25 AM EST Damien saw Luann today, and needs to return in: Return 3-6 months for AKs. documented in this encounter Plan of Treatment Upcoming Encounters Date Type Department Care Team (Late st Contact Info) Description 12/13/2023 9:30 AM EST Office Visit Family Medicine [address] [place] [phone] Mindy Willis [address] [place] [address] 03/19/2024 9:30 AM EDT Office Visit OtolaryngologyAd[facility] [address] [place] [address] Mahnaz Guerrier PA-C [address] [facility] [place] [address] Health Maintenance Due Date Last Done Comments [...] D LEVEL ONCE IN A LIFETIME-USE SMARTSET# [id number] Completed 06/01/2022, 11/25/2020, 03/11/2020, Additional history exists [...] Not on filedocumented as of this encounter Care Teams Hybrid Derivatives Trader Relationship Specialty Start Date End Date Mindy Willis DO [address] [place] [address] [place] [address] PCP - General Internal Medicine 11/19/17 documented as of this encounter
--- OUTSIDE RECORDS SUMMARY | 2023-12-18 04:46 | External Medical Summary | Summary of Care ---
Author Name Unknown Organization [facility] Address [address] [place] [address] Phone [phone] Care Team Providers Care Tester Vibrator Equipment Name Role Phone Mindy Willis DO Primary Care Provider [phone] Reason for Referral * Evaluate & Treat - Unlimited Visits (Within 10 days (routine)) - Authorized Specialty Diagnoses / Procedures Referred By Angelique mcdonald Referred To Contact Dermatology Diagnoses Squamous cell carcinoma of skin of right upper limb, including shoulder Luann Guerra PA-C [address] [place] [address] [place] [address] Referral ID Status Reason Start Date Expiration Date Visits Requested Visits Authorized [id number] Authorized Specialty Services Required 12/09/2023 1 1 [...] Encounter Details Date Type Department Care Team ([facility] st Contact Info) Description 12/09/[address] [address] Luann Guerra PA-C [address] [place] [address] [place] [address] Appointment Allergies Active Allergy Reactions Criticality Noted Date Comments No Known Drug Allergy 02/27/2002 documented as of this encounter (statuses as of 12/09/2023) Medications Medication Sig Dispensed Refills Start Date End Date Status Coenzyme Q10 100 MG Oral Capsule 1 Capsule. 0 02/21/2022 Active Wyb-Mau-Fjwf-D Oral Tablet 1 Tablet . 0 02/21/2022 [...] as of this encounter (statuses as of 12/09/2023) Active Problems Problem Noted Date Diagnosed Date [...] as of this encounter (statuses as of 12/09/2023) Resolved Problems Problem Noted Date Diagnosed Date [...] as of this encounter (statuses as of 12/09/2023) Immunizations Name Administration Dates Next Due COVID-19 [...] Pang OSA - 12/09/2023 12:[address] Randle ok to offer 12/18 at the 10:30am mohs spot? * Telephone Encounter - Luann Guerra PA-C - 12/09/2023 12:28 PM EST A. Skin, R anterior forearm, shave: Invasive moderately differentiated squamous cell carcinoma documented in this encounter Plan of Treatment Upcoming Encounters Date Type Department Care Team (Late st Contact Info) Description 12/13/2023 9:30 AM EST Office Visit Family Medicine [address] [place] [phone] Mindy [address] [place] [address] 03/26/2024 10:30 AM EDT [place] [address] Mahnaz Guerrier PA-C [address] [facility] [place] [address] 03/30/2024 9:20 AM EDT Office Visit Dermatology [place] [place] [address] Luann Guerra PA-C [address] [place] [address] [place] [address] Scheduled Referrals Name Type Priority Associated Diagnoses [...] D LEVEL ONCE IN A LIFETIME-USE SMARTSET# [id number] Completed 06/01/2022, 11/25/2020, 03/11/2020, Additional history exists [...] shoulder documented in this encounter Care Teams Tester Vibrator Equipment Relationship Specialty Start Date End Date Mindy Willis DO [address] [place] [address] [place] [address] PCP - General Internal Medicine 11/19/17 documented as of this encounter
--- OUTSIDE RECORDS SUMMARY | 2023-12-18 04:46 | External Medical Summary | Summary of Care ---
Author Name Unknown Organization [facility] Address [address] [place] [address] Phone [phone] Care Team Providers Care Lasting Room Machine Operator Name Role Phone Mindy Willis DO Primary Care Provider Reason for Referral * Evaluate & Treat - Unlimited Visits (Within 10 days (routine)) - Authorized Specialty Diagnoses / Procedures Referred By Angelique mcdonald Referred To Contact Dermatology Diagnoses Squamous cell carcinoma of skin of right upper limb, including shoulder Luann Guerra PA-C [address] [place] [address] [place] [address] Referral ID Status Reason Start Date Expiration Date Visits Requested Visits Authorized [id number] Authorized Specialty Services Required 12/09/2023 1 1 [...] Encounter Details Date Type Department Care Team ([facility] st Contact Info) Description 12/09/[address] [address] Luann Guerra PA-C [address] [place] [address] [place] [address] Appointment Allergies Active Allergy Reactions Criticality Noted Date Comments No Known Drug Allergy 02/27/2002 documented as of this encounter (statuses as of 12/09/2023) Medications Medication Sig Dispensed Refills Start Date End Date Status Coenzyme Q10 100 MG Oral Capsule 1 Capsule. 0 02/21/2022 Active Gzl-Dug-Riwr-D Oral Tablet 1 Tablet . 0 02/21/2022 [...] encounter Miscellaneous Notes * Telephone Encounter - Luann Guerra PA-C - 12/09/2023 12:28 PM EST A. Skin, R anterior forearm, shave: Invasive moderately differentiated squamous cell carcinoma documented in this encounter Plan of Treatment Upcoming Encounters Date Type Department Care Team (Late st Contact Info) Description 12/13/2023 9:30 AM EST Office Visit Family Medicine [address] [place] [phone] Mindy Willis DO [address] [place] [address] [place] [address] 03/26/2024 10:30 AM EDT [facility] [place] [address] Mahnaz Guerrier PA-C [address] [facility] [address] 03/30/2024 9:20 AM EDT Office Visit Dermatology [address] [place] [address] Luann Guerra PA-C [address] [place] [address] [place] [address] Scheduled Referrals Name Type Priority Associated Diagnoses Orde r Schedule MOHS SURGERY REFERRAL OP Referral Within 10 days (routine) Squamous cell carcinoma of skin of right upper limb, including shoulder Ordered: 12/09/2023 Health Maintenance Due Date Last Done Comments Depression Screening 03/30/2023 03/30/2022 COVID-19 Vaccine (24 season) 2023 08/14/2021, 01/19/2021, 12/19/2020 Influenza Vaccine (FLU shot) (#1) 2023 07/05/2022, 08/14/2021, 07/19/2020, Additional history exists Albumin/Creatinine Ratio 06/01/2025 022, 05/30/2021, 05/25/2020 DXA Scan 08/08/2025 08/08/2023, 07/21, 05/24/2021, Additional history exists DTaP,Tdap,and Td Vaccines (2 - Td or Tdap) 03/25/2028 03/25/2018, 10/09/2007, 02/20/1996 Pneumococcal Vaccine: 65+ Years Completed 07/26/2015, 03/23/2003 VITAMIN D LEVEL ONCE IN A LIFETIME-USE SMARTSET# [id number] Completed 06/01/2022, 11/25/2020, 03/11/2020, Additional history exists [...] shoulder documented in this encounter Care Teams Lasting Room Machine Operator Relationship Specialty Start Date End Date Mindy Willis DO [address] [place] [address] [place] [phone] PCP - General Internal Medicine 11/19/17 documented as of this encounter
--- OUTSIDE RECORDS SUMMARY | 2023-12-18 04:46 | External Medical Summary | Summary of Care ---
Author Name Unknown Organization [facility] Address [address] [place] [address] Phone [phone] Care Team Providers Care Asset Protection Officer Name Role Phone Mindy Willis DO Primary Care Provider Reason for Visit * Reason Onset Date Comments Appointment 12/02/2023 3 - 6 mon ret - Derm Encounter Details Date Type Department Care Team (Late st Contact Info) Description 12/02/2023 Telephone Dermatology [address] [place] [address] Luann Guerra PA-C [address] [place] [address] [place] [address] Appointment (3 - 6 mon ret - Derm ) Allergies Active Allergy Reactions Criticality Noted Date Comments No Known Drug Allergy 02/27/2002 documented as of this encounter (statuses as of 12/04/2023) Medications Medication Sig Dispensed Refills Start Date End Date Status Coenzyme Q10 100 MG Oral Capsule 1 Capsule. 0 02/21/2022 Active Bhi-Mik-Gkne-D Oral Tablet 1 Tablet . 0 02/21/2022 [...] as of this encounter (statuses as of 12/04/2023) Active Problems Problem Noted Date Diagnosed Date [...] as of this encounter (statuses as of 12/04/2023) Resolved Problems Problem Noted Date Diagnosed Date [...] as of this encounter (statuses as of 12/04/2023) Immunizations Name Administration Dates Next Due COVID-19 [...] encounter Miscellaneous Notes * Telephone Encounter - Kirby Pichardo OSA - 12/04/2023 11:02 AM EST I mailed appt to pt. * Telephone Encounter - Leesa Olivia LPN - 12/04/2023 8:49 AM EST Saturday at 9:20 AM - please mail * Telephone Encounter - Karie Chapin OSA - 12/02/2023 11:25 AM EST Damien saw Luann today, and needs to return in: Return 3-6 months for AKs. documented in this encounter Plan of Treatment Upcoming Encounters Date Type Department Care Team (Late st Contact Info) Description 12/05/2023 3:40 PM EST Office Visit Family [address] [phone] Leonora Alonso PA-C [address] [place] [address] [place] [address] 12/13/2023 9:30 AM EST Office Visit Family Medicine [address] [place] [phone] Mindy Willis DO [address] [place] [address] [place] [address] 03/19/2024 9:30 AM EDT Office Visit Otolaryngology, [address] [place] [address] Mahnaz Guerrier PA-C [address] [facility] [place] [address] 03/30/2024 9:20 AM EDT Office Visit Dermatology [address] [place] [address] Luann Guerra PA-C [address] [place] [address] [place] [address] Health Maintenance Due Date Last Done Comments Depression Screening 03/30/2023 03/30/2022 COVID-19 Vaccine (4 - 2023-24 season) 2023 08/14/2021, 01/19/2021, 12/19/2020 Influenza Vaccine (FLU shot) (#1) 2023 07/05/2022, 08/14/2021, 07/19/2020, Additional history exists Albumin/Creatinine Ratio 06/01/2025 022, 05/30/2021, 05/25/2020 DXA Scan 08/08/2025 08/08/2023, 07/21, 05/24/2021, Additional history exists DTaP,Tdap,and Td Vaccines (2 - Td or Tdap) 03/25/2028 03/25/2018, 10/09/2007, 02/20/1996 Pneumococcal Vaccine: 65+ Years Completed 07/26/2015, 03/23/2003 VITAMIN D LEVEL ONCE IN A LIFETIME-USE SMARTSET# [id number] Completed 06/01/2022, 11/25/2020, 03/11/2020, Additional history exists [...] filedocumented as of this encounter Care Teams Asset Protection Officer Relationship Specialty Start Date End Date Mindy Willis DO [address] [place] [address] [place] [address] PCP - General Internal Medicine 11/19/17 documented as of this encounter
--- OUTSIDE RECORDS SUMMARY | 2023-12-18 04:46 | External Medical Summary | Summary of Care ---
Author Name Unknown Organization [facility] Address [address] [place] [address] Phone [phone] Care Team Providers Care Monogram Machine Operator Name Role Phone Mindy Willis DO Primary Care Provider [phone] Reason for Visit * Reason Comments Follow Up Pt here for multiple spots of concern on neck, arms, and face. Hx of non-melanoma skin cancer. Encounter Details Date Type Department Care Team (Late st Contact Info) Description 12/02/2023 9:20 AM EST Office Visit Dermatology [address] [place] [address] Luann Guerra PA-C [address] [place] [address] [place] [address] Hx of nonmelanoma skin cancer*; AK (actinic keratosis); Neoplasm of uncertain behavior of skin Allergies Active Allergy Reactions Criticality Noted Date Comments No Known Drug Allergy 02/27/2002 documented as of this encounter (statuses as of 12/02/2023) Medications Medication Sig Dispensed Refills Start Date End Date Status Coenzyme Q10 100 MG Oral Capsule 1 Capsule. 0 02/21/2022 Active Okt-Aym-Fgoi-D Oral Tablet 1 Tablet . 0 02/21/2022 [...] Split, I IV3, With Preserve, Inj 07/26/2014,08/24/2013,08/20/2012,07/21,08/10/2010,08/06/2009,08/31/20 08,08/19/2007,08/22/2006,09/07/2005,11/09/2002,09/02/2002,09/16/2001 09/16/2002 TD - Tetanus/Diptheria (ADULT) 10/09/2007,1995 TDAP [...] on file documented as of this encounter Patient Instructions * Patient Instructions* Luann Guerra PA-C - 12/02/2023 9:14 AM EST Skin Cryosurgery (FREEZING) Instructions Most areas treated by freezing will need very little care. You may wash normally with soap and water and leave any small crusts in place. Vaseline to treated areas 2-3 times per day is a good idea, you do not need to keep them covered with bandages. If a large blister forms and breaks, you will want to apply a light dressing to the area. CHANGE DRESSING ONCE DAILY 1. Wash hands and remove the original dressing(s) in 12-24 hours. 2. Gently clean wound(s) with soap and water. Rinse with water and pat the wound dry. 3. Apply a thin layer of Vaseline ointment with a Q-tip. 4. Cover with a bandage if area(s) is not on the face or scalp. A dressing is not required on the face or scalp. Use non-adherent dressing and paper tape if you are sensitive to band-aid adhesive sensitive. 5. If you have any concerns about the healing wound, please either or our main Dermatology office in [place] at [phone]. If an emergency, please go to your nearest Emergency Department. documented in this encounter Progress Notes * Torin Fontanez MD - 12/02/2023 10:22 AM EST I have seen and examined the patient via teledermatology review of chart note and photos with Luann Guerra PA-C. I have reviewed and agree with the assessment and plan. * Luann Guerra PA-C - 12/02/2023 9:20 AM EST SUBJECTIVE: History of Present Illness: Connie Cash is a 87 year old female seen today for follow up of AKs. Previous office visit: 07/08/2023 Last attempted treatments include: cryo to AKs Pt declined full skin exam. Had CV about 1 month ago. Some scaly areas on face/neck/arms, two that became firmer and more tender. No tx to date. Did not use any Efudex to any lesions since last office visit. REVIEW OF SYSTEMS: SKIN: No other new or changing moles. HEME/LYMPH: No new or enlarging lumps or bumps. CONSTITUTIONAL: No nausea, vomiting, fevers, chills, diarrhea. No recent unintended weight loss, night sweats, appetite or malaise. 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 MEDICA TIONS: Current Outpatient Medications Medication Sig Dispense Refill Coenzyme Q10 100 MG Oral Capsule 1 Capsule. Ocx-Nvy-Qgyl-D Oral Tablet 1 Tablet . Acetaminophen 500 [...] MG Oral Tablet Chewable Take by mouth. No current facility-administered medications for this visit. ALLERG IES: No known drug allergy OBJECT EDUARDO: GEN: alert, no distress, appears oriented, pleasant, and cooperative. SKIN: Detailed exam of face including lids and lips, anterior neck, bilateral upper ext. (arm, hand, fingers), and fingernails completed: 1A.R anterior forearm-9x5mm hyperkeratotic scaly papule on erythematous base. 2B. L dorsal hand-Hemorrhagically crust papule on hyperkeratotic base. 3. Face/neck/hands/forearms-24 pink scaly papules and plaques, some hyperkeratotic. ASSESS MENT/PLAN: 1A. hAK vs SCCIS vs SCC on R anterior forearm-Tangential biopsy of the lesion noted above to confirm diagnosis. The procedure, risks (to include but not limited to pain, bleeding, infection and scarring), benefits, alternatives and expected outcomes were discussed with the patient and verbal consent was obtained. Time out called. Patient identified, procedure verified, site identified and verified. Patient and staff present in agreement. Area prepped with alcohol and anesthetized using 1cc of 0.5% lidocaine with epinephrine at 1:200,000 concentration. Tangential biopsy of lesion performed. 20% AlCl and bandaging applied. Specimen sent to pathology. Patient instructed in routine post-op careand given wound care brochure. 2B. L dorsal hand-Tangential biopsy of the lesion noted above to confirm diagnosis. The procedure, risks (to include but not limited to pain, bleeding, infection and scarring), benefits, alternativesand expected outcomes were discussed with the patient and verbal consent was obtained. Time out called. Patient identified, procedure verified, site identified and verified. Patient and staff presentin agreement. Area prepped with alcohol and anesthetized using 1cc of 0.5% lidocaine with epinephrine at 1:200,000 concentration. Tangential biopsy of lesion performed. 20% AlCl and bandaging applied. Specimen sent to pathology. Patient instructed in routine post-op care and given wound care brochure. 3. Actinic keratosis (x24 treated) on face/neck/hands/forearms-Cryosurgery explained to the patient. Discussed risk of blistering, crusting, infection, scarring, reoccurrence of lesions, hypopigmentation, post inflammatory hyperpigmentation with pt prior to procedure. Verbal consent obtained. Time out called immediately prior to procedure and patient identification and site verified. Cryo therapyperformed with Liquid Nitrogen via cryo spray unit to lesion (s) noted above. Location noted in physical exam. Post op course explained. Recommend/might use Efudex in between appointments, she will let me know next time if she did useit, for how long, and what location(s). Patient with son, Sriram, today. Photo(s) of #1-3 taken, pt verbally consented to having photo(s) taken. Follow-up: 3-6 months for AKs Call pt's son (Sriram) or patient with bx result, gave permission to send results over my chart as well. Applicable photos (if any) and chart reviewed by Dr. Torin Fontanez. Presumed diagnoses, expected natural histories, and management options discussed with the patient at length. Questions were addressed and anticipatory guidance provided. They were instructed to contact me if additional questions, concerns, or problems develop in the interim. -There were no barriers to learning and no other pain was related to today's visit. The patient and/or person accompanying patient demonstrates understanding of the visit and treatment. Luann Guerra PA-C 12/02/2023 9:13 AM Dermatology [address] [place] [address] documented in this encounter Nursing Notes * Silvia Raygoza LPN - 12/02/2023 9:08 AM EST Patient identified by full name and date of Chief Complaint Patient presents with Follow Up Pt here for multiple spots of concern on neck, arms, and face. Hx of non- melanoma skin cancer. documented in this encounter Plan of Treatment Upcoming Encounters Date Type Department Care Team (Late st Contact Info) Description 12/13/2023 9:30 AM EST Office Visit [place] [phone] Mindy Willis[address] [place] [address] 03/19/2024 9:30 AM EDT Office Visit [facility] [place] [address] Mahnaz Guerrier PA-C [address] [facility] [place] [address] Pending Results Name Type Priority Associated Diagnoses Date /Time SURGICAL PATHOLOGY Pathology Routine Neoplasm of uncertain behavior of skin 12/02/2023 9:40 AM EST Health Maintenance Due Date Last [...] D LEVEL ONCE IN A LIFETIME-USE SMARTSET# [id number] Completed 06/01/2022, 11/25/2020, 03/11/2020, Additional history exists [...] Procedure Name Priority Date/Time Associated Diagnosis Comments DERM IMAGE (SITE) Routine 12/02/2023 Hx of nonmelanoma skin cancer AK (actinic keratosis) Neoplasm of uncertain behavior of skin documented in this encounter Results * DERM IMAGE (SITE) (12/02/2023) 12/02/2023 Luann Guerra PA-C DIGITAL PHOTOG SUSAN documented in this encounter Visit Diagnoses Diagnosis Hx of nonmelanoma skin cancer- Primary Personal history of other malignant neoplasm of skin AK (actinic keratosis) Actinic keratosis Neoplasm of uncertain behavior of skin documented in this encounter Care Teams Monogram Machine Operator Relationship Specialty Start Date End Date Mindy Willis DO [address] [place] [address] [place] [address] PCP - General Internal Medicine 11/19/17 documented as of this encounter
--- OUTSIDE RECORDS SUMMARY | 2023-12-18 04:46 | External Medical Summary | Summary of Care ---
Author Name Unknown Organization [facility] Address [address] [facility] [address] Phone [phone] Care Team Providers Care Towel Hemmer Name Role Phone Mindy Willis DO Primary Care Provider [phone] Reason for Visit * Reason Onset Date Comments Appointment 11/12/2023 Encounter Details Date Type Department Care Team (Late st Contact Info) Description 11/12/2023 Telephone Access Center, [address] Ext *DO NOT REMOVE THIS DEPARTMENT* [place] [address] Services, Scheduling [address] [place] [address] Appointment Allergies Active Allergy Reactions Criticality Noted Date Comments No Known Drug Allergy 02/27/2002 documented as of this encounter (statuses as of 11/13/2023) Medications Medication Sig Dispensed Refills Start Date End Date Status Coenzyme Q10 100 MG Oral Capsule 1 Capsule. 0 02/21/2022 Active Rdt-Azg-Raux-D Oral Tablet 1 Tablet . 0 02/21/2022 [...] taking tablet. 13 Tablet 3 08/19/2023 Active documented as of this encounter (statuses as of 11/13/2023) Active Problems Problem Noted Date Diagnosed Date [...] as of this encounter (statuses as of 11/13/2023) Resolved Problems Problem Noted Date Diagnosed Date [...] as of this encounter (statuses as of 11/13/2023) Immunizations Name Administration Dates Next Due COVID-19 [...] Telephone Encounter - Kirby Pichardo OSA - 11/13/2023 3:51 PM EST I spoke to pt. She agreed to appt for now, unless still not feeling ok from Covid. * Telephone Encounter - Leesa Olivia LPN - 11/13/2023 3:41 PM EST Can offer first next avail of Saturday at 9:20 AM * Telephone Encounter - Rocio Avila OSA - 11/12/2023 8:09 AM EST Pt called to cancel her appointment on 11/13 she tested positive for Covid and would like to reschedule has a concerning lump on hand. Please assist. Yocasta eugene documented in this encounter Plan of Treatment Upcoming Encounters Date Type Department Care Team (Late st Contact Info) Description 12/02/2023 9:20 AM EST Office Visit Dermatology [address] [place] [address] Luann Guerra PA-C [address] [place] [address] [place] [address] 12/13/2023 9:30 AM EST Office Visit Family Medicine [address] [place] [phone] Mindy Willis [address] [place] [address] 03/19/2024 9:30 AM EDT Office Visit [facility] [place] [address] Mahnaz Guerrier PA-C [address] [facility] [place] [address] Health Maintenance Due Date Last Done Comments Depression Screening 03/30/2023 03/30/2022 COVID-19 Vaccine ( season) 2023 08/14/2021, 01/19/2021, 12/19/2020 Influenza Vaccine (FLU shot) (#1) 2023 07/05/2022, 08/14/2021, 07/19/2020, Additional history exists Albumin/Creatinine Ratio 06/01/2025 022, 05/30/2021, 05/25/2020 DXA Scan 08/08/2025 08/08/2023, 0801/2021, 03/04/2018, Additional history exists DTaP,Tdap,and Td Vaccines (2 - Td or Tdap) 03/25/2028 03/25/2018, 10/09/2007, 02/20/1996 Pneumococcal Vaccine: 65+ Years Completed 07/26/2015, 03/23/2003 VITAMIN D LEVEL ONCE IN A LIFETIME-USE SMARTSET# [id number] Completed 06/01/2022, 11/25/2020, 03/11/2020, Additional history exists [...] filedocumented as of this encounter Care Teams Towel Hemmer Relationship Specialty Start Date End Date Mindy Willis DO [address] [place] [address] [place] [phone] PCP - General Internal Medicine 11/19/17 documented as of this encounter
--- OUTSIDE RECORDS SUMMARY | 2023-12-18 04:46 | External Medical Summary | Summary of Care ---
Author Name Unknown Organization [facility] Address [address] [place] [address] Phone [phone] Care Team Providers Care Final Assembly Worker Name Role Phone Mindy Willis DO Primary Care Provider Reason for Referral * Evaluate & Treat - Unlimited Visits (Within 10 days (routine)) - Authorized Specialty Diagnoses / Procedures Referred By Angelique mcdonald Referred To Contact Dermatology Diagnoses Squamous cell carcinoma of skin of right upper limb, including shoulder Luann Guerra PA-C [address] [place] [address] [place] [address] Referral ID Status Reason Start Date Expiration Date Visits Requested Visits Authorized [id number] Authorized Specialty Services Required 12/09/2023 1 1 [...] Encounter Details Date Type Department Care Team ([facility] st Contact Info) Description 12/09/[address] [address] Luann Guerra PA-C [address] [place] [address] [place] [address] Appointment Allergies Active Allergy Reactions Criticality Noted Date Comments No Known Drug Allergy 02/27/2002 documented as of this encounter (statuses as of 12/09/2023) Medications Medication Sig Dispensed Refills Start Date End Date Status Coenzyme Q10 100 MG Oral Capsule 1 Capsule. 0 02/21/2022 Active Upu-Yuv-Ojud-D Oral Tablet 1 Tablet . 0 02/21/2022 [...] 9:30 AM EST Office Visit Family Medicine [address] [phone] [place] [address] 01/01/2024 12:45 PM EDT Office Visit [facility] [place] [address] [facility] [address] Susie Witt MD [address] [place], [place] [address] [address] 03/26/2024 10:30 AM EDT Office Visit Otolaryngology, [facility] [address] [place] [address] Mahnaz Guerrier PA-C [address] [place] [address] 03/30/2024 9:20 AM EDT Office Visit Dermatology [address] [place] [address] Luann Guerra PA-C [address] [place] [address] [place] [address] Scheduled Referrals Name Type Priority Associated Diagnoses [...] D LEVEL ONCE IN A LIFETIME-USE SMARTSET# [id number] Completed 06/01/2022, 11/25/2020, 03/11/2020, Additional history exists [...] shoulder documented in this encounter Care Teams Final Assembly Worker Relationship Specialty Start Date End Date Mindy Willis DO [address] [place] [address] [place] [address] PCP - General Internal Medicine 11/19/17 documented as of this encounter
--- OUTSIDE RECORDS SUMMARY | 2023-12-18 04:46 | External Medical Summary | Summary of Care ---
Author Name Unknown Organization [facility] Address [address] [place] [address] Phone [phone] Care Team Providers Care Cost And Risk Analysis Manager Name Role Phone Mindy Willis DO Primary Care Provider [phone] Reason for Visit * Reason Onset Date Comments Appointment 12/02/2023 3 - 6 mon ret - Derm Encounter Details Date Type Department Care Team (Late st Contact Info) Description 12/02/20[address]phone [address] [place] [address] Luann Guerra PA-C [address] [place] [address] [place] [address] Appointment (3 - 6 mon ret - Derm ) Allergies Active Allergy Reactions Criticality Noted Date Comments No Known Drug Allergy 02/27/2002 documented as of this encounter (statuses as of 12/04/2023) Medications Medication Sig Dispensed Refills Start Date End Date Status Coenzyme Q10 100 MG Oral Capsule 1 Capsule. 0 02/21/2022 Active Zof-Wlz-Gmry-D Oral Tablet 1 Tablet . 0 02/21/2022 [...] encounter Miscellaneous Notes * Telephone Encounter - Leesa Olivia LPN [...] 9:30 AM EST Office Visit Family Medicine [address] [place] [phone] Mindy Willis [address] [place] [address] 03/19/2024 9:30 AM EDT Office Visit [facility] [place] [phone] Mahnaz Guerrier PA-C [address] [facility] [place] [address] 03/30/2024 9:20 AM EDT Office Visit Dermatology [address] [place] [address] Luann Guerra PA-C [address] [place] [address] [place] [address] Health Maintenance Due Date Last Done Comments [...] D LEVEL ONCE IN A LIFETIME-USE SMARTSET# [id number] Completed 06/01/2022, 11/25/2020, 03/11/2020, Additional history exists [...] filedocumented as of this encounter Care Teams Cost And Risk Analysis Manager Relationship Specialty Start Date End Date Mindy Willis DO [address] [place] [address] [place] [phone] PCP - General Internal Medicine 11/19/17 documented as of this encounter
--- OUTSIDE RECORDS SUMMARY | 2023-12-18 04:46 | External Medical Summary | Summary of Care ---
Author Name Unknown Organization [facility] Address [address] [place] [address] Phone [phone] Care Team Providers Care Surgical Technology Instructor Name Role Phone Mindy Willis DO Primary Care Provider [phone] Reason for Visit * Reason Comments Acute Encounter Details Date Type Department Care Team (Late st Contact Info) Description 12/05/2023 11:00 AM EST Office Visit Family Medicine [address] [place] [phone] Ming Andrade MD [address] [place] [address] [place] [address] Chest wall pain* Allergies Active Allergy Reactions Criticality Noted Date Comments No Known Drug Allergy 02/27/2002 documented as of this encounter (statuses as of 12/05/2023) Medications Medication Sig Dispensed Refills Start Date End Date Status Coenzyme Q10 100 MG Oral Capsule 1 Capsule. 0 02/21/2022 Active Dix-Ien-Uopl-D Oral Tablet 1 Tablet . 0 02/21/2022 [...] as of this encounter (statuses as of 12/05/2023) Active Problems Problem Noted Date Diagnosed Date [...] as of this encounter (statuses as of 12/05/2023) Resolved Problems Problem Noted Date Diagnosed Date [...] as of this encounter (statuses as of 12/05/2023) Immunizations Name Administration Dates Next Due COVID-19 [...] Sign Reading Time Taken Comments Blood Pressure 138/82 12/05/2023 10:55 AM EST Pulse 82 12/05/2023 10:55 AM EST Temperature 36.1 C (97 F) 12/05/2023 10:55 AM EST Respiratory Rate - - Oxygen Saturation 94% 12/05/2023 10:55 AM EST Inhaled Oxygen Concentration - - Weight 51.3 kg (113 lb) 12/05/2023 10:55 AM EST Height 149.2 cm (4' 10.74") 12/05/2023 10:55 AM EST Body Mass Index 23.03 12/05/2023 10:55 AM EST documented in this encounter Progress Notes * Ming Andrade MD - 12/05/2023 11:05 AM EST Subjective: HPI: Connie Cash is a 88 year old female with hx of HLD, HTN, DJD, Atrial tachycardia, insomnia seen for Ant and posterior chest wall pain - for 1 week - pt was doing yard work 1 week ago - worse with deep breath - denied any CP or dizziness - have not tried anything - denied any fever or cough ---- had mild URI symptoms 1 month ago- tested positive COVID Patient Active Problem List Diagnosis Code Senile [...] Q10 100 MG Oral Capsule 1 Capsule. Com-Jvd-Jzme-D Oral Tablet 1 Tablet . Acetaminophen 500 [...] to spots on arms/hands) 40 g 1 predniSONE 20 MG Oral Tablet (Deltasone) Take 2 Tablets by mouth in the morning for 5 days. 10 Tablet 0 No current facility-administered medications for this visit. Past Medical History: Diagnosis Date Balance problem 04/05/2014 Benign hypertensive kidney disease with chronic kidney disease stage I through stage IV, or unspecified(403.10) Cramp in limb 09/07/2009 Degeneration of lumbosacral intervertebral disc Depressive disorder, not elsewhere classified 10/18/2010 Dyslipidemia, goal LDL below 100 09/07/2009 Dyslipidemia, goal LDL below 160 10/18/2010 Generalized osteoarthritis HTN, goal below 130/80 09/07/2009 HTN, goal below 140/90 10/18/2010 Hypertension goal BP (blood pressure) < 140/80 11/08/2014 Kidney disease, chronic, stage III (GFR 30-59 ml/min) ([facility]) 01/20/2008 Migraine without aura Mitral valve disorder 12/26/10 moderate MR Other cataract bilateral Other premature beats 03/28/2005 Paroxysmal atrial tachycardia 12/28/2010 Postmenopausal atrophic vaginitis Sciatica 10/09/2006 Senile osteoporosis 09/21 Past Surgical History: Procedure Laterality Date DELIVERY 1956 x4 COLORECTAL CANCER SCREEN; COLON spring 2005 Dr. Gonzáles - normal INJECT DX/THER SUBSTANCE INTERLAMINAR LUMBAR/SACRAL W IMAGE GUIDE 04/25/2022 INJECTION SPINE LUMBAR OR SACRAL performed by Thaddeus Mendenhall, DO at OR [facility] 03/04/2018 Femur T -3.1 high risk but stable, continue treatment. 2 years NUC MED MYOCARD STRESS TREAD 03/25/01 normal REMOVE CATARACT, INSERT LENS PROSTH Bilateral 2014 US BONE DENSITY PERIPH NON [facility] 10/21 t score = -1.8 Review of patient's allergies indicates: Allergen Reactions No Known Drug Allergy Family History Problem Relation Age of Onset Cancer Mother lymphoma Heart Disorder Mother CHF in her 70's Social History Tobacco Use Smoking status: Never Smokeless tobacco: Never Substance Use Topics Alcohol use: No Comment: a few times per year Vaping/E-Cigarette Use Vaping/E-Cigarette Substances Vaping/E-Cigarette Devices ROS: -Per HPI OBJECTIVE: BP 138/82 | Pulse 82 | Temp 36.1 C (97 F) (Tympanic) | Ht 1.492 m (4' 10.74") | Wt 51.3 kg (113lb) | SpO2 94% | BMI 23.03 kg/m | BSA 1.46 m PHYSICAL EXAM: Vitals are reviewed General:. NAD, well developed Cardiac:. Normal S1, S2, no murmur Lungs:. CTA, no wheezing or crackles MSK: ttp of the anterior chest wall area and b/l scapula area ASSESSMENT/PLAN: Continue warm compress and recommended topical pain reliever - call the clinic if the symptoms persist Chest wall pain (Primary) - predniSONE 20 MG Oral Tablet (Deltasone); Take 2 Tablets by mouth in the morning for 5 days. Ming Andrade MD Family medicine, [address] [address] documented in this encounter Nursing Notes * Edita Limon LPN - 12/05/2023 10:55 AM EST Acute: Had COVID about a month ago. Has pain in through back Taking a deep breath in, hurts across chest and back. Saturday was doing a lot of bending & outside yard work since it was nice out. Pain started on Saturday. documented in this encounter Plan of Treatment Upcoming Encounters Date Type Department Care Team (Late st Contact Info) Description 12/13/2023 9:30 AM EST Office Visit Family Medicine [address] [place] [phone] Mindy Willis DO [address] [place] [address] [place] [address] 03/19/2024 9:30 AM EDT Office Visit [facility]ol[facility]ology[facility] [address] [place] [address] Mahnaz Guerrier PA-C [address] [facility] [place] [address] 03/30/2024 9:20 AM EDT Office Visit Dermatology [address] [place] [address] Luann Guerra PA-C [address] [place] [address] [place] [address] Health Maintenance Due Date Last Done Comments Depression Screening 03/30/2023 03/30/2022 COVID-19 Vaccine (2022- season) 2023 08/14/2021, 01/19/2021, 12/19/2020 Influenza Vaccine (FLU shot) (#1) 2023 07/05/2022, 08/14/2021, 07/19/2020, Additional history exists Albumin/Creatinine Ratio 06/01/2025 022, 05/30/2021, 05/25/2020 DXA Scan 08/08/2025 08/08/2023, 07/21, 05/24/2021, Additional history exists DTaP,Tdap,and Td Vaccines (2 - Td or Tdap) 03/25/2028 03/25/2018, 10/09/2007, 02/20/1996 Pneumococcal Vaccine: 65+ Years Completed 07/26/2015, 03/23/2003 VITAMIN D LEVEL ONCE IN A LIFETIME-USE SMARTSET# [id number] Completed 06/01/2022, 11/25/2020, 03/11/2020, Additional history exists [...] as of this encounter Visit Diagnoses Diagnosis Chest wall pain- Primary Painful respiration documented in this encounter Care Teams Surgical Technology Instructor Relationship Specialty Start Date End Date Mindy Willis DO [address] [place] [address] [place] [address] PCP - General Internal Medicine 11/19/17 documented as of this encounter
--- OUTSIDE RECORDS SUMMARY | 2023-12-18 04:46 | External Medical Summary | Summary of Care ---
Author Name Unknown Organization [facility] Address [address] [place] [address] Phone [phone] Care Team Providers Care Fraternity Adviser Name Role Phone Mindy Willis DO Primary Care Provider Reason for Visit * Reason Comments Follow Up Pt here for multiple spots of concern on neck, arms, and face. Hx of non-melanoma skin cancer. Encounter Details Date Type Department Care Team (Late st Contact Info) Description 12/02/2023 9:20 AM EST Office Visit Dermatology [address] [place] [address] Luann Guerra PA-C [address] [place] [address] [place] [address] Hx of nonmelanoma skin cancer*; AK (actinic keratosis); Neoplasm of uncertain behavior of skin Allergies Active Allergy Reactions Criticality Noted Date Comments No Known Drug Allergy 02/27/2002 documented as of this encounter (statuses as of 12/02/2023) Medications Medication Sig Dispensed Refills Start Date End Date Status Coenzyme Q10 100 MG Oral Capsule 1 Capsule. 0 02/21/2022 Active Tie-Iyy-Vmfv-D Oral Tablet 1 Tablet . 0 02/21/2022 [...] either or our main Dermatology office in [place] at [phone]. If an emergency, please go to your nearest Emergency Department. documented in this encounter Progress Notes * Luann Guerra PA-C - 12/02/2023 9:20 [...] 06/12) Reviewed, same day as visit, 0 [facility] Dermatology lab work(s)/pathology report(s) as well as those sent by referring provider prior to seeing pt. MEDICA TIONS: Current Outpatient Medications Medication Sig Dispense Refill Coenzyme Q10 100 MG Oral Capsule 1 Capsule. Wye-Szg-Scam-D Oral Tablet 1 Tablet . Acetaminophen 500 [...] Guerra PA-C 12/02/2023 9:13 AM Dermatology [address] Steve [place] [address] documented in this encounter Nursing Notes * [...] 9:30 AM EST Office Visit Family Medicine [address] [place] [phone] [address] [place] [address] 03/19/2024 9:30 AM EDT [place] [address] Mahnaz Guerrier PA-C [address] [facility] [place] [address] Pending Results Name Type Priority Associated Diagnoses [...] D LEVEL ONCE IN A LIFETIME-USE SMARTSET# [id number] Completed 06/01/2022, 11/25/2020, 03/11/2020, Additional history exists [...] skin documented in this encounter Care Teams Fraternity Adviser Relationship Specialty Start Date End Date Mindy Willis DO [address] [place] [address] [place] [phone] PCP - General Internal Medicine 11/19/17 documented as of this encounter
[2023-12-18 04:47] LABS: Hematocrit (blood only) 39.7 % (37.0-47.0); Hemoglobin 13.3 g/dl (12.0-16.0); Mean Corpuscular Hgb Conc 33.5 g/dL (32.0-36.0); Mean Corpuscular Volume 95.7 fL (80.0-100.0); Mean Platelet Volume 9.8 fL (9.4-12.4); Platelet Count 190 K/uL (130-400); RDW Coefficient of Variation 14.1 % (11.5-14.5); RDW Standard Deviation 49.1 fL (36.4-46.3); Red Blood Count 4.15 M/uL (4.20-5.40); White Blood Count 17.38 K/ul (4.8-10.8)
--- OUTSIDE RECORDS SUMMARY | 2023-12-18 04:47 | External Medical Summary | Summary of Care ---
Author Name Unknown Organization [facility] Address [address] [facility] [place] [address] Phone [phone] Care Team Providers Care Laborer Rags Name Role Phone Kelly Powell DO Primary Care Provider Reason for Visit * Reason Comments Follow Up 6 months for AKs, no concerns Encounter Details Date Type Department Care Team Description 07/08/2023 Office Visit Dermatology [address] [place] [address] Luann Guerra PA-C [address] [place] [address] [place] [address] Hx of nonmelanoma skin cancer*; AK (actinic keratosis) Allergies Active Allergy Reactions Severity Noted Date Comments No Known Drug Allergy 02/27/2002 documented as of this encounter (statuses as of 07/09/2023) Medications Medication Sig Dispensed Refills Start Date End Date Status Coenzyme Q10 100 MG Oral Capsule 1 Capsule. 0 02/21/2022 Active Yre-Frw-Olwh-D Oral Tablet 1 Tablet . 0 02/21/2022 [...] Release 24 Hour (toPROL XL)Indications:Paro xysmal atrial tachycardia (HCC),Essential hypertension with goal blood pressure less than 140/90 TAKE ONE TABLET BY MOUTH EVERY MORNING 90 Tablet 3 02/21/2023 02/21/2024 Active Lisinopril 10 MG Oral Tablet (Prinivil) TAKE ONE TABLET BY MOUTH EVERY MORNING 100 Tablet 3 10/23/2022 10/23/2023 Active Additional Information Patient taking differently: 20 mg Oral Daily(AM), Reported on 06/04/2023 Atorvastatin Calcium 20 MG Oral Tablet (Lipitor) Take 1 Tablet by mouth in the morning. 100 Tablet 3 06/04/2023 Active amLODIPine Besylate 2.5 MG Oral Tablet (Norvasc) Take 1 Tablet by mouth in the morning. 100 Tablet 3 06/04/2023 Active documented as of this encounter (statuses as of 07/09/2023) Active Problems Problem Noted Date Vision impairment 06/04/2023 Hx of actinic keratosis 01/03/2022 Overview: actinic keratoses (Efudex 05/2014 to nose, bilat temples/R upper forehead with only mild reaction, bilat forearms 12/09, face/neck/dorsal hands 09/08, face/arms 06/12) Proteinuria 05/18/2020 Primary osteoarthritis of both hands Chronic right-sided low back pain with r ight-sided sciatica 11/19/2017 Essential hypertension with goal blood p ressure less than 140/90 04/18/2016 Personal history of other malignant neop lasm of skin 12/01/2014 Overview: 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 Paroxysmal atrial tachycardia 12/28/2010 Dyslipidemia, goal LDL below 100 011 Senile osteoporosis documented as of this encounter (statuses as of 07/09/2023) Resolved Problems Problem Noted Date Resolved Date Chronic kidney disease, stage 3a 04/04/2021 06/01/2022 Overview: Per CKD protocol Benign hypertension with stage 3a chronic kidney disease 02/28/2021 06/01/2022 Overview: Per CKD protocol Benign hypertension with CKD (chronic kidney disease) stage III 08/29/2018 03/02/2021 Overview: Per CKD protocol HTN, goal below 140/90 05/14/2015 6 Hypertension goal BP (blood pressure) < 140/80 0 11/08/2014 05/14/2015 Balance problem 04/05/2014 11/19/2017 Palpitations 03/10/2013 08/29/2018 Lightheadedness 03/10/2013 09/14/2013 HTN, goal below 130/80 11/15/2010 5 Major depressive disorder 10/18/20102010 Overview: ICD-10 update of inactive term Transient insomnia 10/18/2010 08/20/2012 Dyslipidemia, goal LDL below 160 10/18/2010 11/15/2010 HTN, goal below 140/90 10/18/2010 1 Dyslipidemia, goal LDL below 100 09/07/2009 10/18/2010 HTN, goal below 130/80 09/07/2009 0 Cramp in limb 09/07/2009 08/20/2012 Kidney disease, chronic, stage III (GFR 30-59 ml /min) 01/20/2008 10/18/2010 Kidney disease, chronic, stage III (GFR 30-59 ml /min) 01/20/2008 08/05/2019 Vitamin D deficiency 10/22/2006 11/19/2017 LUMB-LUMBOSAC DISC DEGEN 10/09/2006 018 Sciatica 10/09/2006 01/20/2008 ADVANCE DIRECTIVE INFORMATION 09/24/2005 Overview: No, Advance Directive brochure given to patient at prior appointment. Other premature beats 03/28/2005 12/28/2010 Esophageal reflux 03/23/2003 11/19/2017 Other allergic rhinitis 03/06/2002 11/19/19 18 Overview: ICD-10 update of inactive term GENERAL OSTEOARTHROSIS 8 PURE HYPERCHOLESTEROLEM 09/07/20 09 Postmenopausal atrophic vaginitis 11/19/2017 HTN, goal below 140/90 0 COMMON MIGRAINE WITHOUT MENTION OF INTRACTABLE M IGRAINE 11/19/2017 Other cataract 08/20/2012 Overview: bilateral Benign hypertensive kidney d isease with chronic kidney disease stage I through stage IV, or unspecified(403.10) 01/20/2008 Mitral valve disorder 11/19/2017 documented as of this encounter (statuses as of 07/09/2023) Immunizations Name Administration Dates Next Due COVID-19 mRNA, LNP-s, No Pre serve, 2-Dose Series (Moderna) 08/14/2021,01/19/2021,12/19/2020 Influenza, Whole Virus 10/23/2000 Pneumococcal Conjugate Vacc, 13 Valent (Prevnar) 07/26/2015 Pneumococcal Polysaccharide PPV23 (Pneumovax) 03/23/2003 Seasonal Influenza, PF, 6 mo ns & Above, IM , (Flulaval) 07/05/2022,07/19/2020,07/10/2019,06/21 Seasonal Influenza, Quadriva lent Hd (Fluzone [...] e alcohol) a few times per year Food Insecurity Answer Date Recorded Within the past 12 months, y ou worried that your food would run out before you got money to buy more. Never true 03/30/2022 Within the past 12 months, t he food you bought just didn't last and you didn't have money to get more. Never true 03/30/2022 Sex Assigned at Date Recorded Female 02/22/2021 9:06 AM E DT Job Start Date Occupation Industry Not on file Not on file Not on file documented as of this encounter Patient Instructions * Patient Instructions* Luann Guerra PA-C - 07/08/2023 8:38 AM EDT Skin Cryosurgery (FREEZING) Instructions Most areas treated [...] either or our main Dermatology office in [place] at [phone]. If an emergency, please go to your nearest Emergency Department. SUNSCREEN USE AND SUN PROTECTION: 1. The best protection is sun avoidance. Seek shade if you can, especially between 10am to 4pm (peak sun hours). 2. Use sunscreen with an SPF (Sun Protection Factor - the number on most sunscreen bottles) of 30 or more that protects from Ultraviolet A (UVA) and Ultraviolet B (UVB) wavelength light (strongly recommend SPF 50). This is referred to as broad spectrum sun protection because it protects from most wa velengths in both spectrums of UVA and UVB light. Unfortunately, even though the protection is broad it is not complete, therefore making sun avoidance the best protection. UVB and UVA have both beenimplicated in causing skin cancers. Older sunscreens only protected from UVB and sunscreens with added UVA protection should contain Titanium dioxide, Zinc oxide, or Avobenzone. Other oil free, non-comedogenic lotion with SPF 30 or greater is fine. 3. Use sun protection if outside for 15 minutes or more. Apply 20-30 minutes before going out and reapply every 1-2 hours. No sunscreen is truly water ''proof'' and it will wash away with sweat, swimming and rubbing. 4. Wear tightly woven, loose fitting (cooler) long sleeved clothing, UV-blocking sun glasses (eyes need protection as well) and wide-brimmed hatwear (no straw hats with holes because light still getsthrough). Strongly recommended *Neutrogena Pure and Free Baby SPF 60 (have separate face and body lotions) orCeraVe AM facial lotion (with SPF 30). If looking for non toxic alternatives-look for non-pamella particle zinc. Product examples; Think sport, Think baby, [place], [employer] botanicalgoDog Fetch, [place] Paperfold, [place] baby. "Baby" products can be used for all ages. documented in this encounter Progress Notes * Torin Fontanez MD - 07/09/2023 7:35 AM EDT I have seen and examined the patient via teledermatology review of chart note and photos with Luann Guerra PA-C. I have reviewed and agree with the assessment and plan. * Luann Guerra PA-C - 07/08/2023 8:33 AM EDT SUBJECTIVE: History of Present Illness: Connie Cash is a 87 year old female seen today for follow up of AKs. Previous office visit: 12/03/2022 Last attempted treatments include: Mohs for SCC and curettage of SCCIS (x2), Efudex face/arms x 10 days (06/12) No new or changing lesions, per pt. REVIEW OF SYSTEMS: SKIN: No other new [...] vs SCCIS on R dorsal hand 12/13? actinic keratoses (Efudex 05/2014 to nose, bilat temples/R upper forehead with only mild reaction, bilat forearms 12/09, face/neck/dorsal hands 09/08, face/arms 06/12) Reviewed, same day as visit, 0 [facility] Dermatology lab work(s)/pathology report(s) as well as those sent by referring provider prior to seeing pt. MEDICA TIONS: Current Outpatient Medications Medication Sig Dispense Refill Coenzyme Q10 100 MG Oral Capsule 1 Capsule. Roq-Izi-Fnfn-D Oral Tablet 1 Tablet . Acetaminophen 500 [...] mouth in the morning. 100 Tablet 3 No current facility-administered medications for this visit. ALLERG IES: No known drug allergy OBJECT EDUARDO: GEN: alert, no distress, appears oriented, pleasant, and cooperative. SKIN: Detailed exam of face including lids and lips, anterior neck, bilateral upper ext. (arm, hand, fingers), and fingernails completed: Face/hands/forearms-21 pink scaly papules and plaques, some hyperkeratotic. ASSESS MENT/PLAN: Actinic keratosis (x21 treated) on face/hands/forearms-Cryosurgery explained to the patient. Discussed risk of blistering, crusting, infection, scarring, reoccurrence of lesions, hypopigmentation, post inflammatory hyperpigmentation with pt prior to procedure. Verbal consent obtained. Time out called immediately prior to procedure and patient identification and site verified. Cryo therapy performed with Liquid Nitrogen via cryo spray unit to lesion (s) noted above. Location noted in physical exam. Post op course explained. Might use Efudex she has at home in between appointments, will let me know next time if she did use it, for how long, and what location(s). Patient with family member today. Photo(s) of #1 taken, pt verbally consented to having photo(s) taken. Follow-up: 4 months for AKs Applicable photos (if any) and chart reviewed [...] the visit and treatment. Luann Guerra PA-C 07/08/2023 8:33 AM Ref: SELF[[id number]] NO STREET ADDRESS AVAILABLE None (office) None (fax) PCP: KELLY POWELL [address] [place] [address] [place] [address] [phone] documented in this encounter Nursing Notes * Leesa Olivia LPN - 07/08/2023 8:37 AM EDT Patient identified by full name and date of . Chief Complaint Patient presents with Follow Up 6 months for AKs, no concerns documented in this encounter Plan of Treatment Upcoming Encounters Date Type Specialty Care Team Description 08/08/2023 Imaging Radiology 11/13/2023 Office Visit Dermatology Luann Guerra PA-C [address] [place] [address] [place] [address] 12/13/2023 Office Visit Family Medicine Kelly Powell[address] [place] [address] 03/19/2024 Office Visit Otolaryngology Mahnaz Guerrier PA-C [address] [facility] [address] Health Maintenance Due Date Last Done Comments COVID-19 Vaccine (4 - Moderna series) 10/09/2021 08/14/2021, 01/19/2021, 12/19/2020 *NEPHROLOGY REFERRAL DUE TO RESISTANT HTN 02/18/2023 Depression Screening 03/30/2023 03/30/2022 DXA Scan 05/24/2023 05/24/2021, 02/18, 02/11/2015, Additional history exists *BISPHONATE OR OTHER ACCEPTABLE MEDICATION NEEDED FOR OSTEOPOROSIS (REFER TO SMARTSET #1146) 06/06/2023 Influenza Vaccine (FLU shot) (#1) 2023 07/05/2022, 08/14/2021, 07/19/2020, Additional history exists Albumin/Creatinine Ratio 06/01/2025 022, 05/30/2021, 05/25/2020 DTaP,Tdap,and Td Vaccines (2 - Td or Tdap) 03/25/2028 03/25/2018, 10/09/2007, 02/20/1996 Pneumococcal Vaccine: 65+ Years Completed 07/26/2015, 03/23/2003 VITAMIN D LEVEL ONCE IN A LIFETIME-USE SMARTSET# [id number] Completed 06/01/2022, 11/25/2020, 03/11/2020, Additional history exists [...] as of this encounter Visit Diagnoses Diagnosis Hx of nonmelanoma skin cancer- Primary Personal history of other malignant neoplasm of skin AK (actinic keratosis) Actinic keratosis documented in this encounter Care Teams Laborer Rags Relationship Specialty Start Date End Date Kelly Powell[address] [place] [phone] PCP - General Internal Medicine 11/19/17 documented as of this encounter
--- OUTSIDE RECORDS SUMMARY | 2023-12-18 04:47 | External Medical Summary | Summary of Care ---
Author Name Unknown Organization [facility] Address [address] [place] [address] Phone [phone] Care Team Providers Care Parking Meter Attendant Name Role Phone Mindy Willis DO Primary Care Provider [phone] Reason for Visit * Reason Onset Date Comments case management 08/19/2023 Closing from Nikita e Management Encounter Details Date Type Department Care Team (Latest Contact Info) Description 08/19/2023 Systems Integration Engineer Telephone Care Coordination [address] [place] [address] Reina Armstrong RN [address], [place] [phone] case management (Closing from Case Managem... Allergies Active Allergy Reactions Criticality Noted Date Comments No Known Drug Allergy 02/27/2002 documented as of this encounter (statuses as of 08/19/2023) Medications Medication Sig Dispensed Refills Start Date End Date Status Coenzyme Q10 100 MG Oral Capsule 1 Capsule. 0 02/21/2022 Active Ren-Dfl-Zeur-D Oral Tablet 1 Tablet . 0 02/21/2022 [...] as of this encounter (statuses as of 08/19/2023) Active Problems Problem Noted Date Diagnosed Date [...] as of this encounter (statuses as of 08/19/2023) Resolved Problems Problem Noted Date Diagnosed Date [...] as of this encounter (statuses as of 08/19/2023) Immunizations Name Administration Dates Next Due COVID-19 mRNA, LNP-s, No Pre serve, 2-Dose Series (Moderna) 08/14/2021,01/19/2021,12/19/2020 Pneumococcal Conjugate Vacc, 13 Valent (Prevnar) 07/26/2015 SEASONAL INFLUENZA, PF, 6 M & Above, IM , (FLULAVAL or FLUZONE) 07/05/2022,07/19/2020,07/10/2019,2017 Seasonal Influenza, Quadriva lent Hd (Fluzone [...] e alcohol) a few times per year Sex and Gender Information Value Date Recorded Sex Assigned at Female 02/22/2021 9:06 AM EDT Gender Identity Female 02/22/2021 9:06 AM EDT Sexual Orientation Straight 02/22/2021 9: 06 AM EDT Job Start Date Occupation Industry Not on file Not on file Not on file documented as of this encounter Miscellaneous Notes * Telephone Encounter - Reina Armstrong RN - 08/19/2023 3:59 PM EDT CM Transition/Closure: Review of current patient status: Lipid goal met, <100, patient 71. SNP LOB: no Outstanding Goals: HYPERTENSION: Achieve successful management/treatment of HTN Patient's last Blood pressure at the Office was 142/80. She is on Lisinopril 10 mg, Metoprolol 100 mg, amlodipine 2.5 mg, torsemide 5mg. Current Status of Advanced Care Planning: Ongoing progress toward ACP conversation as documented inACP activity. Medications: Pt. can afford medications. Current Exacerbation Plan: No CHF, No COPD Community Resource Needs: All necessary community resource needs met/in place. Future Appointments Scheduled: Future Appointments-next 60 days Date/Time Provider Specialty Dept Phone 11/13/2023 11:20 AM (Arrive by 11:05 AM) Luann Guerra PA-C Dermatology [phone] 12/13/2023 9:30 AM (Arrive by 9:15 AM) Mindy Willis, Family Medicine [phone] 03/19/2024 9:30 AM Mahnaz Guerrier PA-C Otolaryngology [phone] No Appointment needed at this time. Health Plan Benefits assessed: yes Pt. Has had no utilization for a period of >6 months. Upon review of patient status plan to close patient from Outpatient Case Management services.. Reinforced CM contact information as well as PCP office contact information for any change in status or questions. Pt. was not made aware of this transition due to: no contact with Case Management since January Warm Hand-off: This note serves as written notification of Transition/Closure plan as well as handoff details. Warm hand-off conducted: No. Reina Armstrong RN Outpatient Case Management documented in this encounter Plan of Treatment Upcoming Encounters Date Type Department Care Team (Late st Contact Info) Description 11/13/2023 11:20 AM EST Office Visit Dermatology [address] [place] [address] Luann Guerra PA-C [address] [place] [address] [place] [phone] 12/13/2023 9:30 AM EST Office Visit Family Medicine [address] [place] [phone] Mindy Willis DO [address] [place] [address] [place] [phone] 03/19/2024 9:30 AM EDT Office Visit [facility] [place] [phone] Mahnaz Guerrier PA-C [address] [facility] [place] [phone] Health Maintenance Due Date Last Done Comments Depression Screening 03/30/2023 03/30/2022 *BISPHONATE OR OTHER ACCEPTABLE MEDICATION NEEDED FOR OSTEOPOROSIS (REFER TO SMARTSET #1146) 06/06/2023 COVID-19 Vaccine ( season) 2023 08/14/2021, 01/19/2021, 12/19/2020 Influenza Vaccine (FLU shot) (#1) 2023 07/05/2022, 08/14/2021, 07/19/2020, Additional history exists Albumin/Creatinine Ratio 06/01/2025 022, 05/30/2021, 05/25/2020 DXA Scan 08/08/2025 08/08/2023, 0801/2021, 03/04/2018, Additional history exists DTaP,Tdap,and Td Vaccines (2 - Td or Tdap) 03/25/2028 03/25/2018, 10/09/2007, 02/20/1996 Pneumococcal Vaccine: 65+ Years Completed 07/26/2015, 03/23/2003 VITAMIN D LEVEL ONCE IN A LIFETIME-USE SMARTSET# [id number] Completed 06/01/2022, 11/25/2020, 03/11/2020, Additional history exists [...] filedocumented as of this encounter Care Teams Parking Meter Attendant Relationship Specialty Start Date End Date Mindy Willis DO [address] [place] [address] [place] [phone] PCP - General Internal Medicine 11/19/17 documented as of this encounter
--- OUTSIDE RECORDS SUMMARY | 2023-12-18 04:47 | External Medical Summary | Summary of Care ---
Author Name Unknown Organization [facility] Address [address] [facility] [place] [address] Phone [phone] Care Team Providers Care Documentation Liaison Name Role Phone Kelly Powell DO Primary Care Provider Reason for Visit * Reason Comments Follow Up 6 months for AKs, no concerns Encounter Details Date Type Department Care Team Description 07/08/2023 Office Visit Dermatology [address] [place] [address] Luann Guerra PA-C [address] [place] [address] [place] [address] Hx of nonmelanoma skin cancer*; AK (actinic keratosis) Allergies Active Allergy Reactions Severity Noted Date Comments No Known Drug Allergy 02/27/2002 documented as of this encounter (statuses as of 07/08/2023) Medications Medication Sig Dispensed Refills Start Date End Date Status Coenzyme Q10 100 MG Oral Capsule 1 Capsule. 0 02/21/2022 Active Ane-Ymh-Hzha-D Oral Tablet 1 Tablet . 0 02/21/2022 [...] as of this encounter (statuses as of 07/08/2023) Active Problems Problem Noted Date Vision impairment [...] as of this encounter (statuses as of 07/08/2023) Resolved Problems Problem Noted Date Resolved Date [...] as of this encounter (statuses as of 07/08/2023) Immunizations Name Administration Dates Next Due COVID-19 mRNA, LNP-s, No Pre serve, 2-Dose Series (Moderna) 08/14/2021,01/19/2021,12/19/2020 Pneumococcal Conjugate Vacc, 13 Valent (Prevnar) 07/26/2015 Seasonal Influenza, PF, 6 mo ns & Above, IM , (Flulaval) 07/05/2022,07/19/2020,07/10/2019,2017 Seasonal Influenza, Quadriva lent Hd (Fluzone [...] either or our main Dermatology office in [place] at [phone]. If an emergency, please go to your [...] zinc. Product examples; Think sport, Think baby, Ga, GeneAssess, [place] Contentful, [place] baby. "Baby" products can be used for all ages. documented in this encounter Progress Notes * Luann Guerra PA-C - 07/08/2023 8:33 [...] 06/12) Reviewed, same day as visit, 0 [facility] Dermatology lab work(s)/pathology report(s) as well as those sent by referring provider prior to seeing pt. MEDICA TIONS: Current Outpatient Medications Medication Sig Dispense Refill Coenzyme Q10 100 MG Oral Capsule 1 Capsule. Okp-Lpl-Clat-D Oral Tablet 1 Tablet . Acetaminophen 500 [...] Luann Guerra PA-C 07/08/2023 8:33 AM Ref: SELF[[id number]] NO STREET ADDRESS AVAILABLE None (office) None (fax) PCP: KELLY POWELL [address] [place] [address] [place] [phone] documented in this encounter Nursing Notes * Leesa Olivia LPN - 07/08/2023 8:37 AM EDT Patient identified by full name and date of . Chief Complaint Patient presents with Follow Up 6 months for AKs, no concerns documented in this encounter Plan of Treatment Upcoming Encounters Date Type Specialty Care Team Description 08/08/2023 Imaging Radiology 11/13/2023 Office Visit Dermatology Luann Guerra PA-C [address] [place] [address] [place] [phone] 12/13/2023 Office Visit Family Medicine Kelly Powell DO [address] [place] [address] [place] [phone] 03/19/2024 Office Visit Otolaryngology Mahnaz Guerrier PA-C [address] [facility] [place] [phone] Health Maintenance Due Date Last Done Comments [...] D LEVEL ONCE IN A LIFETIME-USE SMARTSET# [id number] Completed 06/01/2022, 11/25/2020, 03/11/2020, Additional history exists [...] keratosis documented in this encounter Care Teams Documentation Liaison Relationship Specialty Start Date End Date Kelly Powell[address] [place] [address] PCP - General Internal Medicine 11/19/17 documented as of this encounter
--- OUTSIDE RECORDS SUMMARY | 2023-12-18 04:47 | External Medical Summary | Summary of Care ---
Author Name Unknown Organization [facility] Address [address] [facility] [place] [address] Phone [phone] Care Team Providers Care Fine Arts Teacher Name Role Phone Mindy Willis DO Primary Care Provider Encounter Details Date Type Department Care Team (Late st Contact Info) Description 11/11/2023 Result Scan Unspecified Department <No scans attached> Allergies Active Allergy Reactions Criticality Noted Date Comments No Known Drug Allergy 02/27/2002 documented as of this encounter (statuses as of 11/13/2023) Medications Medication Sig Dispensed Refills Start Date End Date Status Coenzyme Q10 100 MG Oral Capsule 1 Capsule. 0 02/21/2022 Active Fqi-Viu-Eksp-D Oral Tablet 1 Tablet . 0 02/21/2022 [...] 9:30 AM EST Office Visit Family Medicine [address] [phone] [place] [phone] 03/19/2024 9:30 AM EDT Office Visit [facility] [place] [address] Mahnaz Guerrier PA-C [address] [facility] [place] [address] Health Maintenance Due Date Last Done Comments Depression Screening 03/30/2023 03/30/2022 COVID-19 Vaccine ( season) 2023 08/14/2021, 01/19/2021, 12/19/2020 Influenza Vaccine (FLU shot) (#1) 2023 07/05/2022, 08/14/2021, 07/19/2020, Additional history exists Albumin/Creatinine Ratio 06/01/2025 022, 05/30/2021, 05/25/2020 DXA Scan 08/08/2025 08/08/2023, 08/0 01/2021, 03/04/2018, Additional history exists DTaP,Tdap,and Td Vaccines (2 - Td or Tdap) 03/25/2028 03/25/2018, 10/09/2007, 02/20/1996 Pneumococcal Vaccine: 65+ Years Completed 07/26/2015, 03/23/2003 VITAMIN D LEVEL ONCE IN A LIFETIME-USE SMARTSET# [id number] Completed 06/01/2022, 11/25/2020, 03/11/2020, Additional history exists [...] Procedure Name Priority Date/Time Associated Diagnosis Comments OUTSIDE LAB RESULTS 11/11/2023 documented in this encounter Results * OUTSIDE LAB RESULTS (11/11/2023) 11/11/2023 No Physician Data Unknown LABORATORY documented in this encounter Care Teams Fine Arts Teacher Relationship Specialty Start Date End Date Mindy Willis DO [address] [place] [address] [place] [phone] PCP - General Internal Medicine 11/19/17 documented as of this encounter
--- OUTSIDE RECORDS SUMMARY | 2023-12-18 04:47 | External Medical Summary | Summary of Care ---
Author Name Unknown Organization [facility] Address [address] [facility] [place] [address] Phone [phone] Care Team Providers Care Business Services Administrator Name Role Phone Mindy Willis DO Primary Care Provider [phone] Encounter Details Date Type Department Care Team (Late st Contact Info) Description 11/13/2023 Orders Only Family Medicine [address] [place] [phone] Mindy Willis [address] [place] [address] Allergies Active Allergy Reactions Criticality Noted Date Comments No Known Drug Allergy 02/27/2002 documented as of this encounter (statuses as of 11/13/2023) Medications Medication Sig Dispensed Refills Start Date End Date Status Coenzyme Q10 100 MG Oral Capsule 1 Capsule. 0 02/21/2022 Active Pgx-Wka-Ceqa-D Oral Tablet 1 Tablet . 0 02/21/2022 [...] 9:30 AM EST Office Visit Family Medicine [address] [phone] Mindy Willis[address] [place] [address] 03/19/2024 9:30 AM EDT Office Visit [facility] [place] [address] Mahnaz Guerrier PA-C [address] [facility] [address] Health Maintenance Due Date Last Done Comments Depression Screening 03/30/2023 03/30/2022 COVID-19 Vaccine ( season) 2023 08/14/2021, 01/19/2021, 12/19/2020 Influenza Vaccine (FLU shot) (#1) 2023 07/05/2022, 08/14/2021, 07/19/2020, Additional history exists Albumin/Creatinine Ratio 06/01/2025 022, 05/30/2021, 05/25/2020 DXA Scan 08/08/2025 08/08/2023, 08/01/2021, 03/04/2018, Additional history exists DTaP,Tdap,and Td Vaccines (2 - Td or Tdap) 03/25/2028 03/25/2018, 10/09/2007, 02/20/1996 Pneumococcal Vaccine: 65+ Years Completed 07/26/2015, 03/23/2003 VITAMIN D LEVEL ONCE IN A LIFETIME-USE SMARTSET# [id number] Completed 06/01/2022, 11/25/2020, 03/11/2020, Additional history exists [...] Name Priority Date/Time Associated Diagnosis Comments OUTSIDE LAB-CORONAVIRUS (COVID-19) Routine 11/11/2023 documented in this encounter Results * (ABNORMAL) OUTSIDE LAB-CORONAVIRUS (COVID-19) (11/11/2023) [id number] E LAB DETECTED(A ) OUTSIDE LAB (SEE SCANNED REPORT) 11/11/2023 History Per Patient LABORATORY OUTSIDE LAB (SEE SCANNED REPORT) documented in this encounter Care Teams Business Services Administrator Relationship Specialty Start Date End Date Mindy Willis DO [address] [place] [address] [place] [phone] PCP - General Internal Medicine 11/19/17 documented as of this encounter
[2023-12-18 04:58] LABS: Albumin Globulin Ratio 1.4 (0.9-2); Albumin Level 3.5 gm/dl (3.4-5.0); BUN Creatinine Ratio 19.4 (10-20); Bilirubin,Total 0.4 mg/dl (0.2-1.0); Chol HDL Ratio 2.2 (0-5); Creatinine Clr Calc Pharmacy 30.3 ml/min; Est GFR (African American) 56.6 ml/min; Est GFR (Non-African American) 48.8 ml/min; Globulin 2.5 gm/dl (2.5-4.0); Potassium 3.8 mmol/L (3.5-5.1)
[2023-12-18] MEDS: PIPERACILLIN/TAZOBACTAM 4.5 GM in DEXTROSE 5% MINI-B 100 ML IV SCH (06:02)
--- NOTE | 2023-12-18 08:41 | Magnetic Resonance Report ---
MRCP CLINICAL HISTORY: Acute pancreatitis. COMPARISON STUDY: Abdominal CT dated 12/17/2023. TECHNIQUE: Abdominal MRCP is performed utilizing various T2-weighted sequences in the axial and coron al planes. 3-D reformats are created and assessed. IV contrast was not administered for this examinat ion. Diffusion -weighted imaging was utilized. FINDINGS: The gallbladder is normal in appearance. No gallstones are identified. There is no intra or extrahepa tic biliary ductal dilatation. The common bile duct is normal in caliber, measuring up to 5 mm in dang meter. There are no intraluminal filling defects to suggest choledocholithiasis. The pancreatic duct is normal in caliber. The pancreas is edematous with peripancreatic inflammation and fluid. This is consistent with acute p ancreatitis. Fluid tracks inferiorly in the retroperitoneal space. There are scattered subcentimeter hepatic cysts. The unenhanced liver, spleen, and adrenal glands are otherwise grossly unremarkable. T he kidneys are normal in size and without hydronephrosis. A 1.6 cm cyst is noted in the right upper p ole. The abdominal aorta is normal in course and caliber. There is no evidence of bowel obstruction. There is a small amount of perihepatic and perisplenic ascites. There is no evidence of destructive b jade lesion. Degenerative change and scoliosis is seen in the lumbar spine. No pleural effusion is see n. IMPRESSION: 1. No gallstones are identified. Normal MRCP. 2. Acute pancreatitis. 3. Small volume of abdominal ascites. Dictated: 12/18/2023 8:14 AM Transcribed: 12/18/2023 8:22 AM Rene [id number] [email or web address] Electronically signed by: Jarret Neal M.D. 12/18/2023 8:39 AM
[2023-12-18] MEDS: amLODIPine BESYLATE 5 MG TAB PO SCH (09:19)
[2023-12-18] MEDS: ASCORBIC ACID 500 MG TAB PO SCH (09:19)
[2023-12-18] MEDS: ATORVASTATIN 20 MG TAB PO SCH (09:19)
[2023-12-18] MEDS: lisinopril 10 MG TAB PO SCH (09:20)
[2023-12-18] MEDS: METOPROLOL SUCC 50MG EXT REL TAB PO SCH (09:20)
[2023-12-18] MEDS: TORSEMIDE 10 MG TAB PO SCH (09:20)
--- NOTE | 2023-12-18 09:51 | Gastrointestinal Consultation ---
Date of Consultation December 18, 2023 Assessment & Plan (1) Acute pancreatitis: 88 year old female admitted with upper abd pain, elevated lipase and imaging consistent with acute pancreaitits. She has normal LFTs and negative MRCP, she is COVID-19 positive Treat the pancreatitis LR 100-150 mL/hr Antiemetics PRN Analgesia PRN OP EUS in 1-2 months time offered If develops diarrhea, check stool culture and c.diff given colitis on CT Thank you for allowing us to participate in the care of this patient. Please call with any acute changes, questions or concerns. Please see addendum below with additional recommendation from my supervising physician. Supervising Physician Co-Signing Physician Notes I performed a history and physical examination of the patient today, including specifically on physical exam - soft abdomen. I have discussed the patient's management with the advanced practitioner. Please refer to the nurse practitioner's note for the documented findings and plan of care. Acute pancreatitis, unclear etiology. Plan for EUS as OP. Recall GI if needed. History of Present Illness Reason for Consultation: acute panc Requesting Physician: Josue Attending Physician: Africa Salas MD History of Present Illness 88 year old female with history of HTN, CKD, PAT, dyslipidemia and others below admitted through the ED w/ abd pain, onset 1 day ago. Upper abd pain. Some nausea. No vomiting. No change in her bowels. No diarrhea or constipation. Denies black or bloody stools. Denies fever, chills, CP, SOB. + COVID Normal LFTs Lipase 15,300 --> 1,525 MRCP 2023: . No gallstones are identified. Normal MRCP.Acute pancreatitis.Small volume of abdominal ascites. CTAP 2023: The case was reviewed with Dr. Zee in the emergency Department. The pancreas is edematous and heterogeneous with significant peripancreatic inflammation and fluid. Findings are consistent with acute pancreatitis. The gland enhances throughout. The duct is normal in caliber. Fluid tracks inferior ly within the retroperitoneum. No organized peripancreatic fluid collection is seen. The splenic vein is patent. There are mildly distended and fluid-filled loops of small bowel with no evidence of high-grade obstruction. This may represent ileus. A nonspecific enteritis could appear similar and this should be correlated clinically. Allergies Allergy/AdvReac Type Severity Reaction Status Date / Time No Known Allergies Allergy Unverified 02/27/24 15:49 Home Medications Medication Instructions Recorded Confirmed Type alendronate 70 mg tablet 70 mg PO WK 02/21/22 12/17/23 History calcium carb 333 mg-vit D3 133 1 tab PO DAILY 02/21/22 12/17/23 History unit-mag ox 133 mg-zinc oxide 5 mg tab coenzyme Q10 100 mg capsule 100 mg PO DAILY 02/21/22 12/17/23 History (CoQ-10) acetaminophen 500 mg tablet 1,000 mg PO Q8 PRN pain,moderate 12/17/23 12/17/23 History or headache amlodipine 2.5 mg tablet 2.5 mg PO QAM 12/17/23 12/17/23 History ascorbic acid (vitamin C) 125 mg 125 mg PO DAILY 12/17/23 12/17/23 History chewable tablet (Vitamin C) atorvastatin 20 mg tablet 20 mg PO QAM 12/17/23 12/17/23 History fluorouracil 5 % topical cream 1 applic topical BID 12/17/23 12/17/23 History lisinopril 10 mg tablet 10 mg PO QAM 12/17/23 12/17/23 History metoprolol succinate 100 mg 100 mg PO QAM 12/17/23 12/17/23 History tablet,extended release 24 hr multivitamin 1 tab PO QAM 12/17/23 12/17/23 History torsemide 5 mg tablet 5 mg PO QAM 12/17/23 12/17/23 History Patient History Medical History (Updated 12/17/23 @ 17:57 by NATALIE Mcfarlane) Near syncope Esotropia Osteoarthritis Senile osteoporosis CKD (chronic kidney disease) stage 3, GFR 30-59 ml/min HTN (hypertension) PAT (paroxysmal atrial tachycardia) HLD (hyperlipidemia) Surgical History History of cataract extraction History of x4 Family History Mother , 76 Lymphoma CHF (congestive heart failure) Father , 86 Myocardial infarction Coronary heart disease Social History Smoking Status: Never smoker Hx Alcohol Use: No Hx Substance Use: No Preferred Language: Libyan Communication Ability: Effective Small Boat Engineer Required: Yes and No Beliefs That Will Affect Care: None marital status: Current Living Situation: Family Current Living Situation Comment: lives with son Other Information That Helps Us Care for You: No Feels Safe at Home: Yes Safety Concerns: Feels Safe At This Time Assistive Devices: Denture - Upper and Glasses Review of Systems Review of Systems: All systems reviewed & are unremarkable except as noted in HPI & below Physical Exam Constitutional: WD/WN, vitals as above Respiratory: normal respiratory effort, lungs clear to auscultation Cardiovascular: Rate/Rhythm: regular rate Gastrointestinal (Abdomen): Percussion/Palpation: + abdomen tender and abdomen soft; no guarding and abdomen not rigid Skin: no rashes, warm and dry Results & Data Vital Signs (Past 12 Hours) Vital Signs Temp Pulse Pulse Resp BP BP Pulse Ox 12/18/23 09:39 36.6 C 108 H 20 137/86 98 12/18/23 07:55 83 12/18/23 06:16 36.7 C 81 16 122/69 94 12/18/23 00:55 12/18/23 00:55 77 17 133/73 92 12/17/23 23:50 81 19 98 12/17/23 23:50 81 17 122/64 98 12/17/23 23:40 78 16 98 12/17/23 23:30 80 19 97 12/17/23 23:21 81 12/17/23 23:20 80 19 97 12/17/23 23:10 80 13 98 12/17/23 23:00 81 16 98 12/17/23 23:00 81 16 122/64 98 12/17/23 22:50 79 16 98 12/17/23 22:40 80 16 98 12/17/23 22:30 79 20 97 12/17/23 22:22 80 18 97 12/17/23 22:22 80 18 100/74 97 12/17/23 22:20 79 20 98 12/17/23 22:10 76 19 98 12/17/23 22:00 73 15 98 12/17/23 21:50 76 23 99 Pulse Ox O2 Del Method O2 Del Method O2 Flow Rate O2 Flow Rate 12/18/23 09:39 Nasal Cannula 2 12/18/23 07:55 12/18/23 06:16 Nasal Cannula 2 12/18/23 00:55 92 Nasal Cannula 2 12/18/23 00:55 Nasal Cannula 2 12/17/23 23:50 12/17/23 23:50 Nasal Cannula 2 12/17/23 23:40 12/17/23 23:30 12/17/23 23:21 12/17/23 23:20 12/17/23 23:10 12/17/23 23:00 12/17/23 23:00 12/17/23 22:50 12/17/23 22:40 12/17/23 22:30 12/17/23 22:22 12/17/23 22:22 12/17/23 22:20 12/17/23 22:10 12/17/23 22:00 12/17/23 21:50 Laboratory Results 12/18/23 12/18/23 12/17/23 Range/Units 04:30 00:20 18:07 WBC 17.38 H (4.8-10.8) K/ul RBC 4.15 L (4.20-5.40) M/uL Hgb 13.3 (12.0-16.0) g/dl Hct 39.7 (37.0-47.0) % MCV 95.7 (80.0-100.0) fL MCH 32.0 (25.0-34.0) pg MCHC 33.5 (32.0-36.0) g/dL RDW Std Deviation 49.1 H (36.4-46.3) fL RDW Coeff of Idalmis 14.1 (11.5-14.5) % Plt Count 190 (130-400) K/uL MPV 9.8 (9.4-12.4) fL Immature Gran % (Auto) % Neut % (Auto) % Lymph % (Auto) % [place] % (Auto) % Eos % (Auto) % Baso % (Auto) % Neut # (Auto) (1.40-6.50) K/uL Lymph # (Auto) (1.20-3.40) K/uL [place] # (Auto) (0.11-0.59) K/uL Eos # (Auto) (0.00-0.50) K/uL Baso # (Auto) (0.00-0.20) K/uL Immature Gran # (Auto) (0.01-0.20) K/uL Sodium 137 (136-145) mmol/L Potassium 3.8 (3.5-5.1) mmol/L Chloride 104 (98-107) mmol/L Carbon Dioxide 26 (21-32) mmol/L Anion Gap 7 (3-11) BUN 20 (6-23) mg/dl Creatinine 1.03 (0.6-1.2) mg/dl Est Cr Clr Drug Dosing 30.3 ml/min Est GFR ( Amer) 56.6 ml/min Est GFR (Non-Af Amer) 48.8 ml/min BUN/Creatinine Ratio 19.4 (10-20) Glucose 127 H (70-99(Fasting)) mg/dl Lactate 1.3 (0.4-2.0) mmol/L Calcium 8.0 L 8.3 L (8.6-10.3) mg/dl Phosphorus 3.5 (2.5-4.9) mg/dl Total Bilirubin 0.4 (0.2-1.0) mg/dl AST 26 (13-39) U/L ALT 18 (7-52) U/L Alkaline Phosphatase 57 (34-104) U/L Troponin I High Sens (0-14) pg/ml Total Protein 6.0 (6.0-8.3) gm/dl Albumin 3.5 (3.4-5.0) gm/dl Globulin 2.5 (2.5-4.0) gm/dl Albumin/Globulin Ratio 1.4 (0.9-2) Triglycerides 81 (0-150) mg/dl Cholesterol 119 (0-200) mg/dl LDL Cholesterol, Calc 49 mg/dl VLDL Cholesterol, Calc 16 (0-30) mg/dl HDL Cholesterol 54 mg/dl Cholesterol/HDL Ratio 2.2 (0-5) Lipase 1525 H (11-82) U/L Urine Color Yellow Urine Appearance Clear (Clear) Urine pH 5.5 (4.5-7.5) Ur Specific [place] > 1.045 H (1.000-1.030) Urine Protein Trace H (Negative) Urine Glucose (UA) Negative (Negative) Urine Ketones Trace H (Negative) Urine Blood Negative (Negative) Urine Nitrite Negative (Negative) Urine Bilirubin Negative (Negative) Urine Urobilinogen Negative (Negative) Ur Leukocyte Esterase Negative (Negative) Urine WBC (Auto) 5-10 H (0-5) /hpf Urine RBC (Auto) 0-4 (0-4) /hpf U Hyaline Cast (Auto) 1-5 (0-5) /lpf U Epithel Cells (Auto) >30 H (0-5) /lpf Urine Bacteria (Auto) 1+ H (Negative) Ur Renal Epithelial Cell Not Reportable Urine Yeast Not Reportable Adenovirus (PCR) (NotDetected) B. pertussis DNA (PCR) (NotDetected) B.parapertussis DNA PCR (NotDetected) C. pneumoniae DNA (PCR) (NotDetected) Coronavirus OC43 (PCR) (NotDetected) Coronavirus HKU1 (PCR) (NotDetected) Coronavirus 229E (PCR) (NotDetected) SARS-CoV-2 (PCR) (NotDetected) Coronavirus NL63 (PCR) (NotDetected) Human Metapneumovir PCR (NotDetected) Influenza Type A (PCR) (NotDetected) Influenza Type B (PCR) (NotDetected) M. pneumoniae (PCR) (NotDetected) Parainfluenza 1 (PCR) (NotDetected) Parainfluenza 2 (PCR) (NotDetected) Parainfluenza 3 (PCR) (NotDetected) Parainfluenza 4 (PCR) (NotDetected) RSV (PCR) (NotDetected) Entero/Rhino (PCR) (NotDetected) 12/17/23 12/17/23 Range/Units 14:42 14:06 WBC 26.81 H (4.8-10.8) K/ul RBC 4.55 (4.20-5.40) M/uL Hgb 14.6 (12.0-16.0) g/dl Hct 43.0 (37.0-47.0) % MCV 94.5 (80.0-100.0) fL MCH 32.1 (25.0-34.0) pg MCHC 34.0 (32.0-36.0) g/dL RDW Std Deviation 47.3 H (36.4-46.3) fL RDW Coeff of Idalmis 13.6 (11.5-14.5) % Plt Count 232 (130-400) K/uL MPV 9.9 (9.4-12.4) fL Immature Gran % (Auto) 0.6 % Neut % (Auto) 85.6 % Lymph % (Auto) 5.0 % [place] % (Auto) 8.2 % Eos % (Auto) 0.3 % Baso % (Auto) 0.3 % Neut # (Auto) 22.95 H (1.40-6.50) K/uL Lymph # (Auto) 1.33 (1.20-3.40) K/uL [place] # (Auto) 2.19 H (0.11-0.59) K/uL Eos # (Auto) 0.09 (0.00-0.50) K/uL Baso # (Auto) 0.09 (0.00-0.20) K/uL Immature Gran # (Auto) 0.16 (0.01-0.20) K/uL Sodium 138 (136-145) mmol/L Potassium 4.1 (3.5-5.1) mmol/L Chloride 104 (98-107) mmol/L Carbon Dioxide 26 (21-32) mmol/L Anion Gap 8 (3-11) BUN 19 (6-23) mg/dl Creatinine 1.18 (0.6-1.2) mg/dl Est Cr Clr Drug Dosing 26.5 ml/min Est GFR ( Amer) 48.0 ml/min Est GFR (Non-Af Amer) 41.4 ml/min BUN/Creatinine Ratio 16.1 (10-20) Glucose 107 H (70-99(Fasting)) mg/dl Lactate (0.4-2.0) mmol/L Calcium 9.0 (8.6-10.3) mg/dl Phosphorus (2.5-4.9) mg/dl Total Bilirubin 0.4 (0.2-1.0) mg/dl AST 28 (13-39) U/L ALT 20 (7-52) U/L Alkaline Phosphatase 66 (34-104) U/L Troponin I High Sens 6.7 (0-14) pg/ml Total Protein 7.0 (6.0-8.3) gm/dl Albumin 3.9 (3.4-5.0) gm/dl Globulin 3.1 (2.5-4.0) gm/dl Albumin/Globulin Ratio 1.3 (0.9-2) Triglycerides (0-150) mg/dl Cholesterol (0-200) mg/dl LDL Cholesterol, Calc mg/dl VLDL Cholesterol, Calc (0-30) mg/dl HDL Cholesterol mg/dl Cholesterol/HDL Ratio (0-5) Lipase 37875 H (11-82) U/L Urine Color Urine Appearance (Clear) Urine pH (4.5-7.5) Ur Specific [place] (1.000-1.030) Urine Protein (Negative) Urine Glucose (UA) (Negative) Urine Ketones (Negative) Urine Blood (Negative) Urine Nitrite (Negative) Urine Bilirubin (Negative) Urine Urobilinogen (Negative) Ur Leukocyte Esterase (Negative) Urine WBC (Auto) (0-5) /hpf Urine RBC (Auto) (0-4) /hpf U Hyaline Cast (Auto) (0-5) /lpf U Epithel Cells (Auto) (0-5) /lpf Urine Bacteria (Auto) (Negative) Ur Renal Epithelial Cell Urine Yeast Adenovirus (PCR) Not Detected (NotDetected) B. pertussis DNA (PCR) Not Detected (NotDetected) B.parapertussis DNA PCR Not Detected (NotDetected) C. pneumoniae DNA (PCR) Not Detected (NotDetected) Coronavirus OC43 (PCR) Not Detected (NotDetected) Coronavirus HKU1 (PCR) Not Detected (NotDetected) Coronavirus 229E (PCR) Not Detected (NotDetected) SARS-CoV-2 (PCR) DETECTED A (NotDetected) Coronavirus NL63 (PCR) Not Detected (NotDetected) Human Metapneumovir PCR Not Detected (NotDetected) Influenza Type A (PCR) Not Detected (NotDetected) Influenza Type B (PCR) Not Detected (NotDetected) M. pneumoniae (PCR) Not Detected (NotDetected) Parainfluenza 1 (PCR) Not Detected (NotDetected) Parainfluenza 2 (PCR) Not Detected (NotDetected) Parainfluenza 3 (PCR) Not Detected (NotDetected) Parainfluenza 4 (PCR) Not Detected (NotDetected) RSV (PCR) Not Detected (NotDetected) Entero/Rhino (PCR) Not Detected (NotDetected) (1) Acute pancreatitis Acute pancreatitis complication: unspecified Pancreatitis type: unspecified pancreatitis type Qualified Code(s): K85.90 - Acute pancreatitis without necrosis or infection, unspecified
--- NOTE | 2023-12-18 10:14 | Electrocardiogram Report ---
Test Reason : Blood Pressure : / mmHG Vent. Rate : 073 BPM Atrial Rate : 073 BPM P-R Int : 156 ms QRS Dur : 064 ms QT Int : 380 ms P-R-T Axes : 068 -53 004 degrees QTc Int : 418 ms Sinus rhythm with Premature atrial complexes Left axis deviation Low voltage QRS Abnormal ECG No previous ECGs available Confirmed by Nikita Ross [id number]) on 12/18/2023 10:14:13 AM Referred By: REFERRED SELF Confirmed By:Nikita Ross
--- NOTE | 2023-12-18 12:10 | Hospitalist Progress Note ---
Date of Service December 18, 2023 Assessment & Plan (1) Acute pancreatitis: (2) Nausea & vomiting: (3) HTN (hypertension): (4) HLD (hyperlipidemia): (5) CKD (chronic kidney disease) stage 3, GFR 30-59 ml/min: Plan 88-year-old female that presented 12/17 with complaints of epigastric pain, nausea and 1 episode of vomiting after eating breakfast. Since then she has had intermittent diarrhea. She recently had COVID October 2023 and since then reports generally feeling poor. No recent travel or known sick contacts. Otherwise is generally healthy and independent at baseline. Additional past medical history includes HTN, HLD, CKD stage III, chronic hyponatremia. She is being managed for the following: Acute pancreatitis Possible colitis Patient presented with acute abdominal pain, associated with nausea and vomiting. [place] [address], CTAP with concerns of colitis in transverse colon and cecum. MRCP with acute pancreatitis, no gallstone identified. LFT unremarkable. WBC elevated at 26.81 K Continue with IVF, pain management, nausea control. Continue with Zosyn 12/18 N.p.o. for now until belly pain improves. Patient denies diarrhea. Clinically patient feels little better, WBC and lipase trending down. Patient has been afebrile. Monitor replete electrolytes. GI evaluated, outpatient EUS in 1 to 2 months time. COVID-positive: Recent infection in October 2023, no official PCR testing done. No upper respiratory symptoms currently. Airborne precaution. Other chronic medical conditions: Continue with/resume home meds as and when able. HTN: Chronic, continue home amlodipine, torsemide, lisinopril. HLD: Chronic. Continue home atorvastatin. Disposition: PCP: Mindy Willis PA-C CODE STATUS: Full code VTE prophylaxis: Teds and SCDs for now Admission and Anticipated Discharge Date Admission Date: December 17, 2023 Subjective Patient was seen and examined at bedside. Patient was lying in bed, on room air, NAD. Patient reports abdominal pain building up now, it is fairly under control with pain medication ordered. Patient n.p.o., on IV fluid, advised her to inform RN of increasing abdomen pain so that she gets pain medication. Patient denies any flulike illness in the last 1 week, denies any new acute event overnight, denies headache or dizziness or chest pain. Physical Exam Physical Exam: GENERAL: Alert and oriented x3. NAD, on RA. HEENT: No pallor, no icterus. Pupils equal, round and reactive to light. Oral mucosa moist. NECK: No JVD, no neck masses. HEART: S1 and S2 heard. Regular rate and rhythm. Tachycardia, No murmur, no gallop. RESPIRATORY SYSTEM: Normal AP diameter. No accessory muscle use. No wheezing, no crackles. ABDOMEN: Soft, bowel sounds present, +tender x diffuse, mostly epigastric, no distention. CENTRAL NERVOUS SYSTEM: No facial droop. Speech is clear. Obeys simple commands. Moves extremities. EXTREMITIES: No edema, no erythema seen. Results & Data Results & Data Vital Signs (Past 12 Hours) Vital Signs Temp Pulse Pulse Resp BP Pulse Ox Pulse Ox 12/18/23 11:04 101 H 12/18/23 11:01 12/18/23 10:32 37.1 C 102 H 16 123/78 94 12/18/23 09:39 36.6 C 108 H 20 137/86 98 12/18/23 07:55 83 12/18/23 06:16 36.7 C 81 16 122/69 94 12/18/23 00:55 92 12/18/23 00:55 77 17 133/73 92 O2 Del Method O2 Del Method O2 Flow Rate O2 Flow Rate 12/18/23 11:04 12/18/23 11:01 Room Air 12/18/23 10:32 Room Air 12/18/23 09:39 Nasal Cannula 2 12/18/23 07:55 12/18/23 06:16 Nasal Cannula 2 12/18/23 00:55 Nasal Cannula 2 12/18/23 00:55 Nasal Cannula 2 (1) Acute pancreatitis Acute pancreatitis complication: unspecified Pancreatitis type: unspecified pancreatitis type Qualified Code(s): K85.90 - Acute pancreatitis without necrosis or infection, unspecified
[2023-12-18] MEDS: ALENDRONATE SODIUM 70 MG TAB PO SCH (13:51)
[2023-12-18] MEDS: LACTATED RINGER'S 1,000 ML IV SCH (18:22)
[2023-12-19 07:02] LABS: Hematocrit (blood only) 37.7 % (37.0-47.0); Hemoglobin 12.8 g/dl (12.0-16.0); Mean Corpuscular Hemoglobin 31.9 pg (25.0-34.0); Mean Platelet Volume 10.1 fL (9.4-12.4); Platelet Count 159 K/uL (130-400); RDW Coefficient of Variation 14.6 % (11.5-14.5); RDW Standard Deviation 50.6 fL (36.4-46.3); Red Blood Count 4.01 M/uL (4.20-5.40)
[2023-12-19 07:22] LABS: BUN Creatinine Ratio 17.6 (10-20); Calcium 7.4 mg/dl (8.6-10.3); Creatinine Clr Calc Pharmacy 34.5 ml/min; Est GFR (African American) 65.7 ml/min; Est GFR (Non-African American) 56.7 ml/min; Magnesium 1.8 mg/dl (1.7-2.4); Phosphorus 2.2 mg/dl (2.5-4.9); Potassium 3.5 mmol/L (3.5-5.1)
[2023-12-19] MEDS: LACTATED RINGER'S 1,000 ML IV SCH (08:32)
--- NOTE | 2023-12-19 11:46 | XRay Report ---
KUB HISTORY: abd distension, ? obstruction COMPARISON: Abdomen and pelvis CT 12/17/2023. FINDINGS: Borderline dilated gas-filled loops of large and small bowel seen within the abdomen. This favors a mild ileus. There is contrast within the bladder from the prior CT examination. Degenerative changes and levoscoliosis within the lumbar spine. Trace left pleural effusion and left basilar line ar densities. No renal calculi. No ureteral calculi. No pneumoperitoneum or pneumatosis. IMPRESSION: 1. Borderline dilated gas-filled loops of large and small bowel consistent with ileus. 2. Trace left pleural effusion. ACT 112: Negative or not required by law. Electronically signed by: Massimo Enamorado M.D. 12/19/2023 11:45 AM
--- NOTE | 2023-12-19 13:16 | Surgery Consultation ---
Date of Consultation December 19, 2023 Assessment & Plan (1) Acute pancreatitis: Patient is a pleasant 88 yo female presented to the [facility] ER on 12/17/23 with c/o abdominal pain, nausea, vomiting, diarrhea that had started that afternoon. She was admitted to the hospital for IV fluids , made NPO and placed on Zosyn. While in the ER she had an MRCP, and a CT of the abdominal / pelvis. The MRCP showed no gallstones but was positive with acute pancreatitis. The CT scan showed: There is thickening of the transverse colon and cecum with peritoneal fluid, this may represent an infectious/inflammatory colitis. A KUB was obtained today and is readin. Borderline dilated gas-filled loops of large and small bowel consistent with ileus. The patient current reports that her abdominal pain is less then it was at admission but still rating it a 6/10, she has been NPO , and reports she has not had any BM since Saturday when she was at home, and denies passing flatus. She reports she has not been OOB other than walking to the bathroom. She currently report no nausea or vomiting, but has been belching. On exam her abdomen appears distended, soft , tenderness generalized but reports more in LLQ. Discussed with patient and daughter Marilyn the KUB reading an ileus. WBC are elevated at 27 (17), Lipase yesterday was 1525, the patient did test + for COVID in the ER however denies any respiratory symptoms and reports that she had COVID last month. Keep NPO for now until passing flatus Encouraged ambulation with assist in room IV Fluids for hydration IV antiemetic PRN IV antibiotics IV analgesic PRN I do not feel an NG tube is necessary at this time however if nausea and vomiti ng start I discussed with the patient and Marilyn the possibility of one. Will discuss case with on-call surgeon and further recommendations will be forthcoming. (2) Ileus: Supervising Physician Co-Signing Physician Notes This case was discussed with the surgical PA History of Present Illness Reason for Consultation: acute pancreatitis , ileus Attending Physician: Africa Salas MD History of Present Illness Patient is a pleasant 88 yo female with PMH of sacral fx, rib fx, fall, hyponatremia, CKD 3 , PAT, HLD, that presented to the [facility] ER on 12/17/23 with c/o abdominal pain, nausea, vomiting, diarrhea that had started that afternoon. Her WBC were 26, and Lipase 59734. She was admitted to the hospital for IV fluids , made NPO and placed on Zosyn. While in the ER she had an MRCP, and a CT of the abdominal / pelvis. The MRCP showed no gallstones but was positive with acute pancreatitis. The CT scan showed: There is thickening of the transverse colon and cecum with peritoneal fluid, this may represent an infectious/inflammatory colitis. The patient current reports that her abdominal pain is less then it was at admission but still rating it a 6/10, she has been NPO , and reports she has not had any BM since Saturday when she was at home. General surgery was consulted for possible bowel obstruction, abdominal distension. The patient denies prior abdominal surgeries except for 4 cesarian sections. Allergies Allergy/AdvReac Type Severity Reaction Status Date / Time No Known Allergies Allergy Unverified 12/17/23 15:49 Home Medications Medication Instructions Recorded Confirmed Type alendronate 70 mg tablet 70 mg PO WK 02/21/22 12/17/23 History calcium carb 333 mg-vit D3 133 1 tab PO DAILY 02/21/22 12/17/23 History unit-mag ox 133 mg-zinc oxide 5 mg tab coenzyme Q10 100 mg capsule 100 mg PO DAILY 02/21/22 12/17/23 History (CoQ-10) acetaminophen 500 mg tablet 1,000 mg PO Q8 PRN pain,moderate 12/17/23 12/17/23 History or headache amlodipine 2.5 mg tablet 2.5 mg PO QAM 12/17/23 12/17/23 History ascorbic acid (vitamin C) 125 mg 125 mg PO DAILY 12/17/23 12/17/23 History chewable tablet (Vitamin C) atorvastatin 20 mg tablet 20 mg PO QAM 12/17/23 12/17/23 History fluorouracil 5 % topical cream 1 applic topical BID 12/17/23 12/17/23 History lisinopril 10 mg tablet 10 mg PO QAM 12/17/23 12/17/23 History metoprolol succinate 100 mg 100 mg PO QAM 12/17/23 12/17/23 History tablet,extended release 24 hr multivitamin 1 tab PO QAM 12/17/23 12/17/23 History torsemide 5 mg tablet 5 mg PO QAM 12/17/23 12/17/23 History Patient History Medical History Near syncope Esotropia Osteoarthritis Senile osteoporosis CKD (chronic kidney disease) stage 3, GFR 30-59 ml/min HTN (hypertension) PAT (paroxysmal atrial tachycardia) HLD (hyperlipidemia) Surgical History History of cataract extraction History of x4 Family History Mother , 76 Lymphoma CHF (congestive heart failure) Father , 86 Myocardial infarction Coronary heart disease Social History Smoking Status: Never smoker Hx Alcohol Use: No Hx Substance Use: No Preferred Language: Bermudian Communication Ability: Effective 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 Beliefs That Will Affect Care: None marital status: Current Living Situation: Family Current Living Situation Comment: lives with son Other Information That Helps Us Care for You: No Feels Safe at Home: Yes Safety Concerns: Feels Safe At This Time Assistive Devices: Denture - Upper and Glasses Review of Systems Constitutional: no fever and no chills Respiratory: no dyspnea Cardiovascular: no chest pain Gastrointestinal: + abdominal pain and + belching; no naus ea and no vomiting Genitourinary: no dysuria Musculoskeletal: + muscle weakness Physical Exam Physical Exam: alert oriented Constitutional: cooperative and comfortable; no acute distress Respiratory: normal respiratory effort and able to speak in complete sentences; no respiratory distress Cardiovascular: Rate/Rhythm: regular rate Gastrointestinal (Abdomen): Inspection/Auscultation: + abdomen distended Percussion/Palpation: + abdomen tender and abdomen soft; abdomen not rigid Results & Data Vital Signs (Past 12 Hours) Vital Signs Temp Pulse Pulse Resp BP Pulse Ox O2 Del Method 12/19/23 12:01 99.1 F 99 H 18 122/70 90 Room Air 12/19/23 08:15 Room Air 12/19/23 07:42 98.8 F 100 H 18 104/63 92 Room Air 12/19/23 07:41 89 12/19/23 05:30 98.8 F 97 H 17 93 Room Air 12/19/23 03:13 98.4 F 96 H 20 103/63 91 Room Air Diagnostic Findings [place], [place] [phone] XRay Report Patient: VIVIAN ALONSO Admit Date: 12/17/23 MR#: [id number] Address1: [address] [place] [address] Acct ID:[id number] Address2: Date: 1935 [facility] Zip: [place] [address] Age: 88 Location: Sex: F Room/Bed: [facility] Att Phy: Africa Salas MD Diagnosis: ABDOMINAL PAIN Gladys Phy: Mindy Willis DO Service Date: 12/19/23 Fam Phy: Interpreting Phy: Massimo Enamorado MDAdmit Phy: Korina Sandoval MD Ordering Phy: Africa Salas MD cc: ~ KUB HISTORY: abd distension, ? obstruction COMPARISON: Abdomen and pelvis CT 12/17/2023. FINDINGS: Borderline dilated gas-filled loops of large and small bowel seen within the abdomen. This favors a mild ileus. There is contrast within the bladder from the prior CT examination. Degenerative changes and levoscoliosis within the lumbar spine. Trace left pleural effusion and left basilar linear densities. No renal calculi. No ureteral calculi. No pneumoperitoneum or pneumatosis. IMPRESSION: 1. Borderline dilated gas-filled loops of large and small bowel consistent with ileus. 2. Trace left pleural effusion. ACT 112: Negative or not required by law. Electronically signed by: Massimo Enamorado M.D. 12/19/2023 11:45 AM Dictated: 12/19/23 1142 Transcribed: 12/19/23 1142 PG Care Time/CCT Total # of Minutes Spent Total Time Spent with Patient: Total time spent is greater than 50% in coordination of care (as documented) at patient's floor/unit and/or counseling patient: Coding Level of Care Code 73904 INT INP/OBS CARE 1/40MIN Diagnoses Acute pancreatitis K85.90 Acute pancreatitis complication: unspecified Pancreatitis type: unspecified pancreatitis type Ileus K56.7 (1) Acute pancreatitis Acute pancreatitis complication: unspecified Pancreatitis type: unspecified pancreatitis type Qualified Code(s): K85.90 - Acute pancreatitis without necrosis or infection, unspecified
[2023-12-19] MEDS ORDERED: POTASSIUM PHOS 3 MMOL/1 ML INFUSION IV STA (13:41)
--- NOTE | 2023-12-19 13:47 | Hospitalist Progress Note ---
Date of Service December 19, 2023 Assessment & Plan (1) Acute pancreatitis: (2) Nausea & vomiting: (3) HTN (hypertension): (4) HLD (hyperlipidemia): (5) CKD (chronic kidney disease) stage 3, GFR 30-59 ml/min: Plan 88-year-old female that presented 12/17 with complaints of epigastric pain, nausea and 1 episode of vomiting after eating breakfast. Since then she has had intermittent diarrhea. She recently had COVID October 2023 and since then reports generally feeling poor. No recent travel or known sick contacts. Otherwise is generally healthy and independent at baseline. Additional past medical history includes HTN, HLD, CKD stage III, chronic hyponatremia. She is being managed for the following: Acute pancreatitis Possible colitis Patient presented with acute abdominal pain, associated with nausea and vomiting. At [place], [place] [address], CTAP with concerns of colitis in transverse colon and cecum. MRCP with acute pancreatitis, no gallstone identified. LFT unremarkable. WBC elevated at 26.81 K Continue with IVF, pain management, nausea control. Continue with Zosyn 12/18 N.p.o. for now until belly pain improves. Pt reports pain may be slightly better, but now has ileus - see below. Pt has been afebrile. Monitor replete electrolytes. GI evaluated, outpatient EUS in 1 to 2 months time. Ileus: Pt developed abd distension , not moved bowel or gas since 12/18 AM. XR KUB w/ ileus. Gen Sx on board, appreciate recs. NPO, IVF, Pain/Nausea Mx. COVID-positive: Recent infection in October 2023, no official PCR testing done. No upper respiratory symptoms currently. Airborne precaution. Other chronic medical conditions: Continue with/resume home meds as and when able. HTN: Chronic, continue home amlodipine, torsemide, lisinopril. HLD: Chronic. Continue home atorvastatin. Disposition: PCP: Mindy Willis PA-C CODE STATUS: Full code VTE prophylaxis: Teds and SCDs for now Admission and Anticipated Discharge Date Admission Date: December 17, 2023 Subjective Patient was seen and examined at bedside. Patient was lying in bed, on room air, NAD. Patient reports abdominal pain may be minimally better but now has abdominal distention. Patient has not passed flatus and bowel since yesterday morning and has not had nausea and vomiting by the time of my bedside exam. Patient's family at bedside updated, plan to get x-ray KUB and surgical consult. Continue n.p.o. and IV fluid. Afebrile, vitals appears to be fairly stable except for some tachycardia likely secondary to acute distress. Physical Exam Physical Exam: GENERAL: Alert and oriented x3. NAD, on RA. HEENT: No pallor, no icterus. Pupils equal, round and reactive to light. Oral mucosa moist. NECK: No JVD, no neck masses. HEART: S1 and S2 heard. Regular rate and rhythm. Tachycardia, No murmur, no gallop. RESPIRATORY SYSTEM: Normal AP diameter. No accessory muscle use. No wheezing, no crackles. ABDOMEN: +tender x diffuse, + distension, decreased bowel sounds. CENTRAL NERVOUS SYSTEM: No facial droop. Speech is clear. Obeys simple commands. Moves extremities. EXTREMITIES: No edema, no erythema seen. Results & Data Results & Data Vital Signs (Past 12 Hours) Vital Signs Temp Pulse Pulse Resp BP Pulse Ox O2 Del Method 12/19/23 12:01 37.3 C 99 H 18 122/70 90 Room Air 12/19/23 08:15 Room Air 12/19/23 07:42 37.1 C 100 H 18 104/63 92 Room Air 12/19/23 07:41 89 12/19/23 05:30 37.1 C 97 H 17 93 Room Air 12/19/23 03:13 36.9 C 96 H 20 103/63 91 Room Air (1) Acute pancreatitis Acute pancreatitis complication: unspecified Pancreatitis type: unspecified pancreatitis type Qualified Code(s): K85.90 - Acute pancreatitis without n ecrosis or infection, unspecified
[2023-12-19] MEDS: ONDANSETRON INJ 2 MG/ML 2 ML VIAL IV PRN (14:01)
[2023-12-19] MEDS: POTASSIUM PHOSPHATE 15 MMOL in SODIUM CHLORIDE 0.9% 250 ML IV ONE (14:22)
--- NOTE | 2023-12-19 15:37 | XRay Report ---
SINGLE VIEW CHEST CLINICAL HISTORY: Enteric tube placement. FINDINGS: An AP, portable, upright chest radiograph is compared to study dated 12/17/2023. An enteric tube is been placed. The tip projects below the diaphragm over the distal stomach. The heart is enlar ged and atherosclerotic calcification of the thoracic aorta. The pulmonary vasculature is noncongeste d. Chronic interstitial thickening similar to previous. There are small pleural effusions with depend ent consolidation. No pneumothorax is seen. The skeletal structures are osteopenic. There are chronic /healed right-sided rib fractures. IMPRESSION: 1. An enteric tube has been placed as above. 2. Cardiomegaly without radiographic evidence of congestive failure. 3. Small pleural effusions with dependent consolidation. These are new from 12/17/2023. ACT 112: Negative or not required by law. Electronically signed by: Jarret Neal M.D. 12/19/2023 3:35 PM
[2023-12-19] MEDS: HYDROmorphone INJ 0.5 MG/0.5 ML SYR IV STA (19:50)
[2023-12-19] MEDS: oxyCODONE HCL IR 5 MG TAB (IMMEDIATE RELEASE) PO SCH (21:04)
[2023-12-20] MEDS: HYDROmorphone INJ 0.5 MG/0.5 ML SYR IV PRN (00:31)
--- NOTE | 2023-12-20 07:11 | XRay Report ---
KUB HISTORY: ileus COMPARISON: KUB 12/19/2023. FINDINGS: Nasogastric tube terminates in the distal stomach. Left basilar linear densities favor subs egmental atelectasis. Mildly dilated gas-filled loops of small bowel seen within the abdomen. There i s gas within the nondistended colon. Findings could represent an ileus versus partial small bowel obs truction. No renal calculi. No ureteral calculi. No pneumoperitoneum or pneumatosis. IMPRESSION: Mildly dilated gas-filled loops of small bowel within the abdomen. This could represent an ileus vers us small bowel obstruction. ACT 112: Negative or not required by law. Electronically signed by: Massimo Enamorado M.D. 12/20/2023 7:10 AM
[2023-12-20 08:28] LABS: Hematocrit (blood only) 39.1 % (37.0-47.0); Hemoglobin 12.7 g/dl (12.0-16.0); Mean Corpuscular Hemoglobin 31.1 pg (25.0-34.0); Mean Corpuscular Hgb Conc 32.5 g/dL (32.0-36.0); Mean Corpuscular Volume 95.6 fL (80.0-100.0); Mean Platelet Volume 9.9 fL (9.4-12.4); Platelet Count 146 K/uL (130-400); RDW Coefficient of Variation 14.4 % (11.5-14.5); RDW Standard Deviation 50.2 fL (36.4-46.3); Red Blood Count 4.09 M/uL (4.20-5.40); White Blood Count 23.25 K/ul (4.8-10.8)
[2023-12-20 08:42] LABS: BUN Creatinine Ratio 18.3 (10-20); Calcium 7.3 mg/dl (8.6-10.3); Creatinine Clr Calc Pharmacy 44.1 ml/min; Est GFR (African American) 88.8 ml/min; Est GFR (Non-African American) 76.6 ml/min; Phosphorus 1.7 mg/dl (2.5-4.9); Potassium 3.4 mmol/L (3.5-5.1)
[2023-12-20] MEDS: D5W AND 1/2NSS 1,000 ML IV SCH (08:54)
[2023-12-20] MEDS: PANTOprazole 40 MG in SYRINGE 0 ML IV SCH (10:11)
[2023-12-20] MEDS: BENZOCAINE/MENTHOL 18 LOZ/1 BOX MT PRN (10:11)
[2023-12-20] MEDS: METOPROLOL TARTRATE 1 MG/ML VIAL IV SCH (10:52)
[2023-12-20] MEDS ORDERED: POTASSIUM PHOS 3 MMOL/1 ML INFUSION IV STA (12:09)
[2023-12-20] MEDS ORDERED: POTASSIUM CHLORIDE / WTR 10 MEQ/100 ML PLCT IV SCH (12:15)
[2023-12-20] MEDS: POTASSIUM PHOSPHATE 21 MMOL in SODIUM CHLORIDE 0.9% 500 ML IV ONE (12:56)
--- NOTE | 2023-12-20 15:35 | Surgery Progress Note ---
Date of Service December 20, 2023 Assessment & Plan (1) Ileus: Plan: Patient here with acute pancreatitis and subsequent ileus WBC 23 (27), lipase 47 (1500) Had increased nausea yesterday, therefore NGT placed. 400cc documented last 12 hours Abdomen distended, generalized discomfort, softer than yesterday. starting to pass flatus KUB today shows ileus vs. partial SBO Will start IV PPI due to brown NGT appearance Recommend continuing current measures while awaiting further return of bowel function May clamp NGT to ambulate, and encouraged frequent ambulation with assistance [facility] surgery covering the wknd (2) Acute pancreatitis: Admission and Anticipated Discharge Date Admission Date: December 17, 2023 Supervising Physician Co-Signing Physician Notes I have seen and examined this patient with the surgical PA. I agree with this plan. Subjective Patient reports feeling mildly better. Starting to pass a small amount of flatus. Physical Exam Physical Exam: awake/alert, no distress Respiratory: normal respiratory effort Gastrointestinal (Abdomen): Inspection/Auscultation: + abdomen distended Percussion/Palpation: + abdomen tender (generalized discomfort to palpation throughout) and abdomen soft Results & Data Vital Signs (Past 12 Hours) Vital Signs Temp Pulse Pulse Resp BP BP Pulse Ox 12/20/23 15:15 98.8 F 98 H 18 115/81 94 12/20/23 14:14 96 12/20/23 10:52 99 H 126/79 12/20/23 10:52 98.6 F 99 H 20 126/79 94 12/20/23 07:49 12/20/23 07:18 98.6 F 124 H 18 149/79 H 94 12/20/23 05:52 102 H 12/20/23 04:06 98.4 F 87 18 119/74 93 O2 Del Method O2 Flow Rate 12/20/23 15:15 Nasal Cannula 2 12/20/23 14:14 12/20/23 10:52 12/20/23 10:52 Nasal Cannula 2 12/20/23 07:49 Nasal Cannula 2 12/20/23 07:18 Nasal Cannula 1.5 12/20/23 05:52 12/20/23 04:06 Room Air PG Care Time/CCT Total # of Minutes Spent Total Time Spent with Patient: Total time spent is greater than 50% in coordination of care (as documented) at patient's floor/unit and/or counseling patient: Coding Level of Care Code 18277 SUB INP/OBS CARE Diagnoses Ileus K56.7 Acute pancreatitis K85.90 Acute pancreatitis complication: unspecified Pancreatitis type: unspecified pancreatitis type (2) Acute pancreatitis Acute pancreatitis complication: unspecified Pancreatitis type: unspecified pancreatitis type Qualified Code(s): K85.90 - Acute pancreatitis without necrosis or infection, unspecified
--- NOTE | 2023-12-20 16:17 | Hospitalist Progress Note ---
Date of Service December 20, 2023 Assessment & Plan (1) Acute pancreatitis: (2) Nausea & vomiting: (3) HTN (hypertension): (4) HLD (hyperlipidemia): (5) CKD (chronic kidney disease) stage 3, GFR 30-59 ml/min: Plan 88-year-old female that presented 12/17 with complaints of epigastric pain, nausea and 1 episode of vomiting after eating breakfast. Since then she has had intermittent diarrhea. She recently had COVID October 2023 and since then reports generally feeling poor. No recent travel or known sick contacts. Otherwise is generally healthy and independent at baseline. Additional past medical history includes HTN, HLD, CKD stage III, chronic hyponatremia. She is being managed for the following: Acute pancreatitis Possible colitis Patient presented with acute abdominal pain, associated with nausea and vomiting. [place], [place] [address], CTAP with concerns of colitis in transverse colon and cecum. MRCP with acute pancreatitis, no gallstone identified. LFT unremarkable. WBC elevated at 26.81 K Continue with IVF, pain management, nausea control. Continue with Zosyn 12/18 N.p.o. for now until belly pain improves. Lipase down to normal, epigastric pain has resolved. Lower abdominal pain persisting. Pt has been afebrile. Monitor replete electrolytes. GI evaluated, outpatient EUS in 1 to 2 months time. Ileus: Pt developed abd distension , not moved bowel or gas since 12/18 AM. XR KUB w/ ileus on , improving on 12/19 XR KUB. Gen Sx on board, appreciate recs. NPO, IVF, Pain/Nausea Mx. IV PPI. Encourage ambulation, communicated with the patient and her daughter at bedside. COVID-positive: Recent infection in October 2023, no official PCR testing done. No upper respiratory symptoms currently. Airborne precaution. Other chronic medical conditions: Continue with/resume home meds as and when able. HTN: Chronic, continue home amlodipine, torsemide, lisinopril as able. HLD: Chronic. Continue home atorvastatin. Disposition: PCP: Mindy Willis PA-C CODE STATUS: Full code VTE prophylaxis: Teds and SCDs for now Admission and Anticipated Discharge Date Admission Date: December 17, 2023 Subjective Patient was seen and examined at bedside. Patient was lying in bed, on room air, NAD. Patient reports feeling better, no epigastric pain, mild lower abdominal pain, abdominal distention getting better. Is moving gas now, has normal bowel. Patient denies febrile episodes/headache/dizziness/chest pain. Patient's daughter at bedside given detailed explanation of patient's current condition, we looked at the monitor at her lab and lab trends. We also reviewed her chest x-ray imaging and KUB x-ray. Patient was encouraged to ambulate and use incentive spirometer to prevent fluid collection in the lungs. I answered all her questions to the best of my ability. She voiced understanding and was agreeable to plan of care. Physical Exam Physical Exam: GENERAL: Alert and oriented x3. NAD, on RA. HEENT: No pallor, no icterus. Pupils equal, round and reactive to light. Oral mucosa moist. NECK: No JVD, no neck masses. HEART: S1 and S2 heard. Regular rate and rhythm. Tachycardia, No murmur, no gallop. RESPIRATORY SYSTEM: Normal AP diameter. No accessory muscle use. No wheezing, no crackles. ABDOMEN: +tender x lower belly, + distension - improving, decreased bowel sounds. CENTRAL NERVOUS SYSTEM: No facial droop. Speech is clear. Obeys simple commands. Moves extremities. EXTREMITIES: No edema, no erythema seen. Results & Data Results & Data Vital Signs (Past 12 Hours) Vital Signs Temp Pulse Pulse Resp BP BP Pulse Ox 12/20/23 15:15 37.1 C 98 H 18 115/81 94 12/20/23 14:14 96 12/20/23 10:52 99 H 126/79 12/20/23 10:52 37 C 99 H 20 126/79 94 12/20/23 07:49 12/20/23 07:18 37.0 C 124 H 18 149/79 H 94 12/20/23 05:52 102 H O2 Del Method O2 Flow Rate 12/20/23 15:15 Nasal Cannula 2 12/20/23 14:14 12/20/23 10:52 12/20/23 10:52 Nasal Cannula 2 12/20/23 07:49 Nasal Cannula 2 12/20/23 07:18 Nasal Cannula 1.5 12/20/23 05:52 (1) Acute pancreatitis Acute pancreatitis complication: unspecified Pancreatitis type: unspecified pancreatitis type Qualified Code(s): K85.90 - Acute pancreatitis without necrosis or infection, unspecified
[2023-12-20] MEDS: LIDOCAINE 5% 1 PATCH TD SCH (18:16)
[2023-12-20] MEDS: POTASSIUM CHLORIDE / WTR 10 MEQ/100 ML PLCT IV SCH (18:30)
[2023-12-20] MEDS: HEPARIN SOD 5,000 UNIT/0.5 ML VIAL SQ SCH (20:35)
[2023-12-21 06:33] LABS: Hematocrit (blood only) 35.4 % (37.0-47.0); Hemoglobin 11.8 g/dl (12.0-16.0); Mean Corpuscular Hemoglobin 31.9 pg (25.0-34.0); Mean Corpuscular Hgb Conc 33.3 g/dL (32.0-36.0); Mean Corpuscular Volume 95.7 fL (80.0-100.0); Mean Platelet Volume 10.2 fL (9.4-12.4); Platelet Count 170 K/uL (130-400); RDW Coefficient of Variation 14.3 % (11.5-14.5); White Blood Count 18.32 K/ul (4.8-10.8)
[2023-12-21 06:59] LABS: BUN Creatinine Ratio 15.7 (10-20); Calcium 6.8 mg/dl (8.6-10.3); Creatinine Clr Calc Pharmacy 44.7 ml/min; Est GFR (African American) 90.3 ml/min; Est GFR (Non-African American) 77.9 ml/min; Potassium 3.5 mmol/L (3.5-5.1)
[2023-12-21 07:03] LABS: Phosphorus 1.2 mg/dl (2.5-4.9)
[2023-12-21] MEDS ORDERED: POTASSIUM PHOS 3 MMOL/1 ML INFUSION IV STA (08:17)
[2023-12-21] MEDS: CALCIUM CHLORIDE 10% 1,000 MG in DEXTROSE 5% 50 ML IV STA (08:57)
[2023-12-21] MEDS: POTASSIUM PHOSPHATE 30 MMOL in SODIUM CHLORIDE 0.9% 500 ML IV ONE (09:33)
--- NOTE | 2023-12-21 10:25 | Surgery Progress Note ---
Date of Service December 21, 2023 Assessment & Plan (1) Ileus: Plan: likely associated with severe pancreatitis con't NG OOB IVF Admission and Anticipated Discharge Date Admission Date: December 17, 2023 Subjective passing only a little flatus pain improved less bloated Review of Systems Constitutional: no fever and no chills Respiratory: no dyspnea Cardiovascular: no chest pain Gastrointestinal: + abdominal pain and + change in bowel h abits; no nausea and no vomiting Genitourinary: no dysuria Musculoskeletal: no back pain Neurologic: no localized weakness and no generalized weakness Psychiatric: no behavioral changes Physical Exam Constitutional: + thin Respiratory: normal respiratory effort, lungs clear to auscultation Cardiovascular: RRR, no murmur, no edema Gastrointestinal (Abdomen): Inspection/Auscultation: abdomen normal to inspection, + abdomen distended and normal bowel sounds Percussion/Palpation: + abdomen tender and abdomen soft; no guarding and abdomen not rigid Musculoskeletal: Head/Neck/Chest: normocephalic and head atraumatic Skin: no rashes, warm and dry Results & Data Vital Signs (Past 12 Hours) Vital Signs Temp Pulse Pulse Resp BP BP Pulse Ox 12/21/23 09:47 106 H 146/85 H 12/21/23 07:23 12/21/23 07:23 37 C 102 H 20 136/84 92 12/21/23 05:57 90 12/21/23 03:43 91 H 12/21/23 03:40 36.4 C L 104 H 18 124/71 91 12/20/23 23:11 36.9 C 99 H 18 117/71 93 12/20/23 23:07 O2 Del Method O2 Flow Rate 12/21/23 09:47 12/21/23 07:23 Nasal Cannula 2 12/21/23 07:23 Nasal Cannula 2 12/21/23 05:57 12/21/23 03:43 12/21/23 03:40 Nasal Cannula 1.5 12/20/23 23:11 Nasal Cannula 1.5 12/20/23 23:07 Nasal Cannula 2
--- NOTE | 2023-12-21 11:14 | XRay Report ---
XR chest 1V portable HISTORY: 88 years-old Female chf acute shortness of breath COMPARISON: 12/19/2023 TECHNIQUE: AP view of the chest FINDINGS: Cardiac silhouette is enlarged. Pulmonary vascular congestion with interstitial pain is generally unc hanged. No pneumothorax. Layering pleural effusions with persistent bibasilar consolidation. Enteric tube courses in the stomach with side port projected over the mid gastric body and distal tip outside the [id number]. Bones appear grossly intact. IMPRESSION: 1. Cardiomegaly with unchanged pulmonary edema. 2. Persistent layering pleural effusions with bibasilar consolidation. ACT 112: Negative or not required by law. The above report was generated using voice recognition software. It may contain grammatical, syntax o r spelling errors. Electronically signed by: Leon Dowd M.D. 12/21/2023 11:13 AM
[2023-12-21] MEDS: ALBUTEROL 0.083% NEBU SOLN 3 ML VIAL NEB PRN (11:43)
[2023-12-21] MEDS ORDERED: Nursing to Pharmacy Communication SCH (14:30)
[2023-12-21] MEDS: FUROSEMIDE INJ 20 MG/2 ML VIAL IV ONE (16:01)
--- NOTE | 2023-12-21 16:05 | Hospitalist Progress Note ---
Date of Service December 21, 2023 Assessment & Plan (1) Acute pancreatitis: Plan: Acute pancreatitis Possible colitis Patient presented with acute abdominal pain, associated with nausea and vomiting. [place] [address], CTAP with concerns of colitis in transverse colon and cecum. MRCP with acute pancreatitis, no gallstone identified. LFT unremarkable. WBC elevated at 26.81 K Continue with IVF, pain management, nausea control. Continue with Zosyn 12/18 due to nonspecific colitis N.p.o. for now until belly pain improves. Lipase down to normal, epigastric pain has resolved. Lower abdominal pain persisting. Monitor replete electrolytes. GI evaluated, outpatient EUS in 1 to 2 months time. Appreciate surgery input and recommendation Has been having NGT drainage's Abdomen remains distended with discomfort and nausea Bowel sounds very sluggish Will continue current management with n.p.o. and NG tube drain Ileus: Pt developed abd distension , not moved bowel or gas since 12/18 AM. XR KUB w/ ileus on , improving on 12/19 XR KUB. Gen Sx on board, appreciate recs. NPO, IVF, Pain/Nausea Mx. IV PPI. Encourage ambulation, communicated with the patient and her daughter at bedside. Abdomen remains distended with almost no bowel sound Will continue NG tube of suction Replace electrolytes-has hypophosphatemia and hypokalemia-supplemented Will monitor levels Shortness of breath and wheezing Has tachycardia Chest x-ray did show possible congestive changes Will try small dose of Lasix of 20 mg IV Will monitor electrolytes COVID-19 positive Not having any symptoms from COVID Has not been getting any medication Current shortness of breath is secondary to congestive changes Will monitor (2) Nausea & vomiting: Plan: Secondary to acute pancreatitis (3) HTN (hypertension): (4) HLD (hyperlipidemia): (5) CKD (chronic kidney disease) stage 3, GFR 30-59 ml/min: Plan 88-year-old female that presented 12/17 with complaints of epigastric pain, nausea and 1 episode of vomiting after eating breakfast. Since then she has had intermittent diarrhea. She recently had COVID October 2023 and since then reports generally feeling poor. No recent travel or known sick contacts. Otherwise is generally healthy and independent at baseline. Additional past medical history includes HTN, HLD, CKD stage III, chronic hyponatremia. She is being managed for the following: Other chronic medical conditions: Continue with/resume home meds as and when able. HTN: Chronic, continue home amlodipine, torsemide, lisinopril as able. HLD: Chronic. Continue home atorvastatin. Disposition: PCP: Mindy Willis PA-C CODE STATUS: Full code VTE prophylaxis: Teds and SCDs for now Discussed with the daughter in detail Admission and Anticipated Discharge Date Admission Date: December 17, 2023 Subjective 12/21/2023 The patient was seen and examined in medical telemetry unit in presence of the daughter She has been complaining of shortness of breath at rest Minimal cough and wheezing Denies any abdominal pain but has discomfort and some swelling Has been moving gas but bowel is not moved Review of Systems Review of Systems: All systems reviewed and are unremarkable except as noted below Physical Exam Physical Exam: Lying in bed with minimal distress due to shortness of breath and abdominal discomfort Constitutional: + ill appearing and average body habitus Eyes: PERRL, conjunctivae normal, anicteric sclerae ENMT: external ear and nose normal, oropharynx normal Neck: trachea midline, no thyromegaly Respiratory: + respiratory distress (Mild to moderate distress at rest) Auscultation: + diminished lung sounds, + crackles (Minimal bibasilar crackles) and + wheezes Cardiovascular: Rate/Rhythm: regular rate, regular rhythm and + tachycardic Heart Sounds: normal S1 and normal S2 Extremities: no edema Gastrointestinal (Abdomen): Inspection/Auscultation: + abdomen distended (Minimally distended); + abnormal bowel sounds (Hardly any bowel sound) Percussion/Palpation: + abdomen tender (Minimally tender) and abdomen soft Musculoskeletal: No acute arthritis involving any of the joint Neurologic: normal touch/pain/proprioception and moves all extremities; no focal motor deficits Remains very weak and lethargic Lymphatic: no cervical or axillary lymphadenopathy Results & Data Results & Data Vital Signs (Past 12 Hours) Vital Signs Temp Pulse Pulse Resp BP BP Pulse Ox 12/21/23 15:42 37.5 C 114 H 17 133/75 93 12/21/23 14:07 113 H 12/21/23 11:30 36.8 C 104 H 17 145/87 H 91 12/21/23 09:47 106 H 146/85 H 12/21/23 07:23 12/21/23 07:23 37 C 102 H 20 136/84 92 12/21/23 05:57 90 O2 Del Method O2 Flow Rate 12/21/23 15:42 Room Air 12/21/23 14:07 12/21/23 11:30 Room Air 12/21/23 09:47 12/21/23 07:23 Nasal Cannula 2 12/21/23 07:23 Nasal Cannula 2 12/21/23 05:57 Laboratory Results Short CBC 12/21/23 Range/Units 06:04 WBC 18.32 H (4.8-10.8) K/ul Hgb 11.8 L (12.0-16.0) g/dl Hct 35.4 L (37.0-47.0) % Plt Count 170 (130-400) K/uL [facility] 12/21/23 06:04 Sodium 134 L Potassium 3.5 Chloride 102 Carbon Dioxide 24 BUN 11 Creatinine 0.70 Glucose 118 H Calcium 6.8 L Medications Administered Short CBC 12/21/23 Range/Units 06:04 WBC 18.32 H (4.8-10.8) K/ul Hgb 11.8 L (12.0-16.0) g/dl Hct 35.4 L (37.0-47.0) % Plt Count 170 (130-400) K/uL [facility] 12/21/23 06:04 Sodium 134 L Potassium 3.5 Chloride 102 Carbon Dioxide 24 BUN 11 Creatinine 0.70 Glucose 118 H Calcium 6.8 L (1) Acute pancreatitis Acute pancreatitis complication: unspecified Pancreatitis type: unspecified pancreatitis type Qualified Code(s): K85.90 - Acute pancreatitis without necrosis or infection, unspecified
[2023-12-21] MEDS: METOPROLOL TARTRATE 1 MG/ML VIAL IV SCH (17:43)
[2023-12-21] MEDS: LIDOCAINE 5% 1 PATCH TD SCH (19:21)
[2023-12-22 06:56] LABS: Basophils # (auto) 0.05 K/uL (0.00-0.20); Basophils % (auto) 0.4 %; Eosinophils % (auto) 0.7 %; Hematocrit (blood only) 33.8 % (37.0-47.0); Hemoglobin 11.7 g/dl (12.0-16.0); Immature Granulocytes # (auto) 0.05 K/uL (0.01-0.20); Immature Granulocytes % (auto) 0.4 %; Lymphocytes # (auto) 0.73 K/uL (1.20-3.40); Lymphocytes % (auto) 5.2 %; Mean Corpuscular Hemoglobin 31.7 pg (25.0-34.0); Mean Corpuscular Hgb Conc 34.6 g/dL (32.0-36.0); Mean Corpuscular Volume 91.6 fL (80.0-100.0); Mean Platelet Volume 10.1 fL (9.4-12.4); Monocytes # (auto) 1.38 K/uL (0.11-0.59); Monocytes % (auto) 9.8 %; Neutrophils # (auto) 11.73 K/uL (1.40-6.50); Neutrophils % (auto) 83.5 %; Platelet Count 179 K/uL (130-400); RDW Standard Deviation 47.5 fL (36.4-46.3); Red Blood Count 3.69 M/uL (4.20-5.40); White Blood Count 14.04 K/ul (4.8-10.8)
[2023-12-22 07:30] LABS: Albumin Level 2.9 gm/dl (3.4-5.0); Bilirubin,Total 1.1 mg/dl (0.2-1.0); Calcium 7.4 mg/dl (8.6-10.3); Magnesium 1.7 mg/dl (1.7-2.4); Potassium 3.3 mmol/L (3.5-5.1)
[2023-12-22 07:36] LABS: Creatinine Clr Calc Pharmacy 54.8 ml/min; Est GFR (African American) 96.6 ml/min; Est GFR (Non-African American) 83.4 ml/min
[2023-12-22 07:47] LABS: Albumin Globulin Ratio 1.1 (0.9-2); Globulin 2.7 gm/dl (2.5-4.0); Phosphorus 1.1 mg/dl (2.5-4.9); Total Protein 5.6 gm/dl (6.0-8.3)
[2023-12-22] MEDS ORDERED: POTASSIUM PHOS 3 MMOL/1 ML INFUSION IV STA ×2 (07:53→17:28)
--- NOTE | 2023-12-22 08:10 | Electrocardiogram Report ---
Test Reason : Blood Pressure : / mmHG Vent. Rate : 105 BPM Atrial Rate : 105 BPM P-R Int : 124 ms QRS Dur : 064 ms QT Int : 316 ms P-R-T Axes : 039 -28 030 degrees QTc Int : 417 ms Sinus tachycardia Low voltage QRS Borderline ECG When compared with ECG of 17-DEC-2023 13:48, Premature atrial complexes are no longer Present Confirmed by Gelacio Chase ([id number]) on 12/22/2023 8:09:59 AM Referred By: REFERRED SELF Confirmed By:Gelacio Chase
[2023-12-22] MEDS: POTASSIUM PHOSPHATE 30 MMOL in SODIUM CHLORIDE 0.9% 500 ML IV ONE (08:24)
[2023-12-22] MEDS: POTASSIUM CHLORIDE CRTAB 20 MEQ TABCR PO STA (08:35)
[2023-12-22] MEDS: METOPROLOL TARTRATE 1 MG/ML VIAL IV SCH (11:08)
--- NOTE | 2023-12-22 12:01 | Surgery Progress Note ---
Date of Service December 22, 2023 Assessment & Plan (1) Ileus: Plan: likely associated with severe pancreatitis slowly improving con't NGT - if continuing to pass flatus, may clamp later today OOB; ambulate IVF hydration Admission and Anticipated Discharge Date Admission Date: December 17, 2023 Subjective The patient was seen and examined in medical telemetry unit in presence of the daughter minimal abdominal discomfort NGT in place Has been moving gas but bowel is not moved Physical Exam Physical Exam: awake/alert, no distress AFebrile; slight tachycardia abdomen soft, TTP epigastric region Results & Data Vital Signs (Past 12 Hours) Vital Signs Temp Pulse Pulse Resp BP BP Pulse Ox 12/22/23 11:27 124 H 134/84 12/22/23 11:08 130 H 145/87 H 12/22/23 11:06 36.4 C L 130 H 20 145/87 H 93 12/22/23 07:00 12/22/23 07:00 37.1 C 123 H 20 149/90 H 93 12/22/23 06:20 115 H 12/22/23 06:20 104 H 20 94 12/22/23 05:41 103 H 148/87 H 12/22/23 05:26 121 H 160/94 H 12/22/23 03:44 36.8 C 131 H 18 166/93 H 90 12/22/23 00:07 109 H O2 Del Method 12/22/23 11:27 12/22/23 11:08 12/22/23 11:06 Room Air 12/22/23 07:00 Room Air 12/22/23 07:00 Room Air 12/22/23 06:20 12/22/23 06:20 Room Air 12/22/23 05:41 12/22/23 05:26 12/22/23 03:44 Room Air 12/22/23 00:07 Laboratory Results 12/22/23 Range/Units 05:54 WBC 14.04 H (4.8-10.8) K/ul RBC 3.69 L (4.20-5.40) M/uL Hgb 11.7 L (12.0-16.0) g/dl Hct 33.8 L (37.0-47.0) % MCV 91.6 (80.0-100.0) fL MCH 31.7 (25.0-34.0) pg MCHC 34.6 (32.0-36.0) g/dL RDW Std Deviation 47.5 H (36.4-46.3) fL RDW Coeff of Idalmis 14.0 (11.5-14.5) % Plt Count 179 (130-400) K/uL MPV 10.1 (9.4-12.4) fL Immature Gran % (Auto) 0.4 % Neut % (Auto) 83.5 % Lymph % (Auto) 5.2 % [place] % (Auto) 9.8 % Eos % (Auto) 0.7 % Baso % (Auto) 0.4 % Neut # (Auto) 11.73 H (1.40-6.50) K/uL Lymph # (Auto) 0.73 L (1.20-3.40) K/uL [place] # (Auto) 1.38 H (0.11-0.59) K/uL Eos # (Auto) 0.10 (0.00-0.50) K/uL Baso # (Auto) 0.05 (0.00-0.20) K/uL Immature Gran # (Auto) 0.05 (0.01-0.20) K/uL Sodium 133 L (136-145) mmol/L Potassium 3.3 L (3.5-5.1) mmol/L Chloride 102 (98-107) mmol/L Carbon Dioxide 25 (21-32) mmol/L Anion Gap 6 (3-11) BUN 8 (6-23) mg/dl Creatinine 0.57 L (0.6-1.2) mg/dl Est Cr Clr Drug Dosing 54.8 ml/min Est GFR ( Amer) 96.6 ml/min Est GFR (Non-Af Amer) 83.4 ml/min BUN/Creatinine Ratio 14.0 (10-20) Glucose 99 (70-99(Fasting)) mg/dl Calcium 7.4 L (8.6-10.3) mg/dl Phosphorus 1.1 L* (2.5-4.9) mg/dl Magnesium 1.7 (1.7-2.4) mg/dl Total Bilirubin 1.1 H (0.2-1.0) mg/dl AST 21 (13-39) U/L ALT 13 (7-52) U/L Alkaline Phosphatase 73 (34-104) U/L Total Protein 5.6 L (6.0-8.3) gm/dl Albumin 2.9 L (3.4-5.0) gm/dl Globulin 2.7 (2.5-4.0) gm/dl Albumin/Globulin Ratio 1.1 (0.9-2)
[2023-12-22] MEDS: POTASSIUM CHLORIDE / WTR 10 MEQ/100 ML PLCT IV SCH (14:30)
--- NOTE | 2023-12-22 14:55 | Hospitalist Progress Note ---
Date of Service December 22, 2023 Assessment & Plan (1) Acute pancreatitis: Plan: Acute pancreatitis Possible colitis Patient presented with acute abdominal pain, associated with nausea and vomiting. [place] [id number], CTAP with concerns of colitis in transverse colon and cecum. MRCP with acute pancreatitis, no gallstone identified. LFT unremarkable. WBC elevated at 26.81 K Continue with IVF, pain management, nausea control. Continue with Zosyn 12/18 due to nonspecific colitis N.p.o. for now until belly pain improves. Lipase down to normal, epigastric pain has resolved. Lower abdominal pain persisting. Monitor replete electrolytes. GI evaluated, outpatient EUS in 1 to 2 months time. Appreciate surgery input and recommendation Has been having NGT drainage's Abdomen remains distended with discomfort and nausea Bowel sounds very sluggish Will continue current management with n.p.o. and NG tube drain Clinically much better today with improvement of abdominal distention and discomfort Ileus: Pt developed abd distension , not moved bowel or gas since 12/18 AM. XR KUB w/ ileus on , improving on 12/19 XR KUB. Gen Sx on board, appreciate recs. NPO, IVF, Pain/Nausea Mx. IV PPI. Encourage ambulation, communicated with the patient and her daughter at bedside. Abdomen remains distended with almost no bowel sound Will continue NG tube of suction Replace electrolytes-has hypophosphatemia and hypokalemia-supplemented Bowel sounds remains sluggish Electrolyte imbalance Noted to have hypophosphatemia, hypokalemia and hypomagnesemia Has been getting intravenous replacement and will monitor She will need more of IV replacement seems to be Shortness of breath and wheezing Has tachycardia Chest x-ray did show possible congestive changes Will try small dose of Lasix of 20 mg IV Will not give any more Lasix and there is no more wheezing COVID-19 positive Not having any symptoms from COVID Has not been getting any medication Current shortness of breath is secondary to congestive changes Will monitor (2) Nausea & vomiting: Plan: Secondary to acute pancreatitis (3) HTN (hypertension): (4) HLD (hyperlipidemia): (5) CKD (chronic kidney disease) stage 3, GFR 30-59 ml/min: Plan 88-year-old female that presented 12/17 with complaints of epigastric pain, nausea and 1 episode of vomiting after eating breakfast. Since then she has had intermittent diarrhea. She recently had COVID October 2023 and since then reports generally feeling poor. No recent travel or known sick contacts. Otherwise is generally healthy and independent at baseline. Additional past medical history includes HTN, HLD, CKD stage III, chronic hyponatremia. She is being managed for the following: Other chronic medical conditions: Continue with/resume home meds as and when able. HTN: Chronic, continue home amlodipine, torsemide, lisinopril as able. HLD: Chronic. Continue home atorvastatin. Disposition: PCP: Mindy Willis PA-C CODE STATUS: Full code VTE prophylaxis: Teds and SCDs for now Discussed with the daughter in detail Admission and Anticipated Discharge Date Admission Date: December 17, 2023 Subjective 12/21/2023 The patient was seen and examined in medical telemetry unit in presence of the daughter She has been complaining of shortness of breath at rest Minimal cough and wheezing Denies any abdominal pain but has discomfort and some swelling Has been moving gas but bowel is not moved 12/22/2023 The patient was seen and examined in medical telemetry unit in presence of the daughter She has been feeling much better today No wheezing and no shortness of breath Abdominal distention is decreased and does not have any abdominal discomfort and her pain Passing gas but no bowel movement Review of Systems Review of Systems: All systems reviewed and are unremarkable except as noted below Physical Exam Physical Exam: Lying in bed with minimal distress due to shortness of breath and abdominal discomfort Constitutional: + ill appearing and average body habitus Eyes: PERRL, conjunctivae normal, anicteric sclerae ENMT: external ear and nose normal, oropharynx normal Neck: trachea midline, no thyromegaly Respiratory: + respiratory distress (Mild to moderate distress at rest) Auscultation: + diminished lung sounds and + crackles (Minimal bibasilar crackles); no wheezes Cardiovascular: Rate/Rhythm: regular rate, regular rhythm and + tachycardic Heart Sounds: normal S1 and normal S2 Extremities: no edema Gastrointestinal (Abdomen): Inspection/Auscultation: + abdomen distended (Minimally distended); + abnormal bowel sounds (Bowel sound is decreased) Percussion/Palpation: + abdomen tender (Minimally tender) and abdomen soft Musculoskeletal: No acute arthritis involving any joint Neurologic: normal touch/pain/proprioception and moves all extremities; no focal motor deficits Lymphatic: no cervical or axillary lymphadenopathy Results & Data Results & Data Vital Signs (Past 12 Hours) Vital Signs Temp Pulse Pulse Resp BP BP Pulse Ox 12/22/23 14:31 115 H 153/81 H 12/22/23 14:26 105 H 18 95 12/22/23 14:24 115 H 12/22/23 14:21 116 H 12/22/23 14:03 124 H 156/81 H 12/22/23 11:27 124 H 134/84 12/22/23 11:08 130 H 145/87 H 12/22/23 11:06 36.4 C L 130 H 20 145/87 H 93 12/22/23 10:11 179 H 12/22/23 07:00 12/22/23 07:00 37.1 C 123 H 20 149/90 H 93 12/22/23 06:20 115 H 12/22/23 06:20 104 H 20 94 12/22/23 05:41 103 H 148/87 H 12/22/23 05:26 121 H 160/94 H 12/22/23 03:44 36.8 C 131 H 18 166/93 H 90 O2 Del Method 12/22/23 14:31 12/22/23 14:26 Room Air 12/22/23 14:24 12/22/23 14:21 12/22/23 14:03 12/22/23 11:27 12/22/23 11:08 12/22/23 11:06 Room Air 12/22/23 10:11 12/22/23 07:00 Room Air 12/22/23 07:00 Room Air 12/22/23 06:20 12/22/23 06:20 Room Air 12/22/23 05:41 12/22/23 05:26 12/22/23 03:44 Room Air Laboratory Results Short CBC 12/22/23 Range/Units 05:54 WBC 14.04 H (4.8-10.8) K/ul Hgb 11.7 L (12.0-16.0) g/dl Hct 33.8 L (37.0-47.0) % Plt Count 179 (130-400) K/uL BMP 12/22/23 05:54 Sodium 133 L Potassium 3.3 L Chloride 102 Carbon Dioxide 25 BUN 8 Creatinine 0.57 L Glucose 99 Calcium 7.4 L Liver Function 12/22/23 Range/Units 05:54 Total Bilirubin 1.1 H (0.2-1.0) mg/dl AST 21 (13-39) U/L ALT 13 (7-52) U/L Alkaline Phosphatase 73 (34-104) U/L Albumin 2.9 L (3.4-5.0) gm/dl Medications Administered Current Inpatient Medications Acetaminophen (Acetaminophen 325 Mg Tab) 650 mg PO Q4H PRN PRN Reason: Pain or Fever Stop: 01/16/24 16:48 Last Admin: 12/21/23 01:45 Dose: 650 mg Al Hydrox/Mg Hydrox/Simethicone (Aluminum/Magnesium Susp 30 Ml Udc) 15 ml PO Q4H PRN PRN Reason: Dyspepsia Stop: 01/16/24 16:48 Albuterol (Albuterol 0.083% Nebu Soln 3 Ml Vial) 2.5 mg NEB Q6H PRN; Protocol PRN Reason: Shortness Of Breath Or Wheezing Stop: 01/20/24 10:25 Last Admin: 12/22/23 14:21 Dose: 2.5 mg Alendronate Sodium (Alendronate Sodium 70 Mg Tab) 70 mg PO Mo@0630 [facility] Stop: 01/17/24 06:29 Last Admin: 12/18/23 13:51 Dose: 70 mg Amlodipine Besylate (Amlodipine Besylate 5 Mg Tab) [facility] Stop: 01/17/24 08:59 Last Admin: 12/22/23 08:30 Dose: 2.5 mg Ascorbic Acid (Ascorbic Acid 500 Mg Tab) 250 mg PO DAILY [facility] Stop: 01/17/24 08:59 Last Admin: 12/22/23 08:31 Dose: 250 mg Atorvastatin Calcium (Atorvastatin 20 Mg Tab) 20 mg PO QAM [facility] Stop: 01/17/24 08:59 Last Admin: 12/22/23 08:31 Dose: 20 mg Benzocaine (Benzocaine/Menthol 18 [place]/1 Box) 1 rafaela MT PRN PRN PRN Reason: Sore Throat Stop: 01/19/24 09:34 Last Admin: 12/20/23 10:11 Dose: 1 rafaela Heparin Sodium (Porcine) (Heparin Sod 5,000 Unit/0.5 Ml Vial) 5,000 units SQ Q12 [facility] Stop: 01/19/24 20:59 Last Admin: 12/22/23 08:26 Dose: 5,000 units Hydromorphone HCl (Hydromorphone Inj 0.5 Mg/0.5 Ml Syr) 0.5 mg IV Q4H PRN PRN Reason: Pain Stop: 12/31/23 20:59 Last Admin: 12/22/23 11:07 Dose: 0.5 mg Piperacillin Sod/Tazobactam (Sod 4.5 gm/ Dextrose) 100 mls @ 25 mls/hr IV Q8H [facility]; Protocol Stop: 12/28/23 03:59 Last Admin: 12/22/23 12:21 Dose: 25 mls/hr Pantoprazole Sodium 40 mg/ (Syringe) 10 mls @ 5 mls/min IV BID [facility] Stop: 01/19/24 09:44 Last Admin: 12/22/23 09:00 Dose: 5 mls/min Potassium Chloride ([place] / Wtr) 10 meq in 100 mls @ 100 mls/hr IV Q1H [facility] Stop: 12/22/23 16:29 Last Admin: 12/22/23 14:30 Dose: 100 mls/hr Lidocaine (Lidocaine 5% 1 Patch) 1 patch TD HS [facility] Stop: 01/20/24 20:59 Last Admin: 12/21/23 19:21 Dose: 1 patch Lisinopril (Lisinopril 10 Mg Tab) [facility] [place] Stop: 01/17/24 08:59 Last Admin: 12/22/23 08:31 Dose: 10 mg Magnesium Hydroxide (Magnesium Hydroxide Susp 30 Ml Udc) 30 ml PO Q12H PRN PRN Reason: Constipation Stop: 01/16/24 16:48 Melatonin (Melatonin 3 Mg Tab) 3 mg PO HS PRN PRN Reason: Sleep Stop: 01/16/24 22:22 Metoprolol Succinate (Metoprolol Succ 50mg Ext Rel Tab) 100 mg PO QAM [facility] Stop: 01/17/24 08:59 Last Admin: 12/20/23 08:47 Dose: 100 mg Metoprolol Tartrate (Metoprolol Tartrate 1 Mg/Ml Vial) 5 mg IV Q4H [facility] Stop: 01/21/24 10:44 Last Admin: 12/22/23 14:03 Dose: 5 mg Miscellaneous (Remove Lidoderm Patch) 1 each N/A DAILY@0900 [facility] Stop: 01/21/24 08:59 Last Admin: 12/22/23 08:24 Dose: 1 each Ondansetron HCl (Ondansetron Inj 2 Mg/Ml 2 Ml Vial) 4 mg IV Q6H PRN PRN Reason: Nausea And Vomiting Stop: 01/18/24 13:39 Last Admin: 12/19/23 14:01 Dose: 4 mg Oxycodone HCl (Oxycodone Hcl Ir 5 Mg Tab (Immediate Release)) 5 mg PO Q4H PRN PRN Reason: Pain Stop: 12/31/23 20:37 Last Admin: 12/19/23 17:26 Dose: 5 mg Polyethylene Glycol (Polyethylene (Miralax) 17 Gm Pack) 17 gm PO DAILY PRN PRN Reason: Constipation Stop: 01/16/24 16:48 Torsemide (Torsemide 10 Mg Tab) 5 mg PO QAM [facility] Stop: 01/17/24 08:59 Last Admin: 12/18/23 09:20 Dose: 5 mg (1) Acute pancreatitis Acute pancreatitis complication: unspecified Pancreatitis type: unspecified pancreatitis type Qualified Code(s): K85.90 - Acute pancreatitis without necrosis or infection, unspecified
[2023-12-22 17:07] LABS: Calcium 7.2 mg/dl (8.6-10.3); Magnesium 1.7 mg/dl (1.7-2.4); Potassium 3.8 mmol/L (3.5-5.1)
[2023-12-22 17:18] LABS: BUN Creatinine Ratio 13.5 (10-20); Creatinine Clr Calc Pharmacy 60.1 ml/min; Est GFR (African American) 99.6 ml/min; Est GFR (Non-African American) 85.9 ml/min; Phosphorus 2.1 mg/dl (2.5-4.9)
[2023-12-22] MEDS: POTASSIUM PHOSPHATE 24 MMOL in SODIUM CHLORIDE 0.9% 500 ML IV ONE (18:16)
[2023-12-23 07:39] LABS: BUN Creatinine Ratio 17.4 (10-20); Calcium 7.3 mg/dl (8.6-10.3); Creatinine Clr Calc Pharmacy 65.5 ml/min; Est GFR (African American) 103.7 ml/min; Est GFR (Non-African American) 89.4 ml/min; Magnesium 1.8 mg/dl (1.7-2.4); Potassium 3.7 mmol/L (3.5-5.1)
[2023-12-23] MEDS: LEVALBUTEROL HCL 0.63 MG/3 ML NEB NEB PRN (08:18)
[2023-12-23] MEDS ORDERED: POTASSIUM PHOS 3 MMOL/1 ML INFUSION IV STA (09:15)
--- NOTE | 2023-12-23 09:56 | Surgery Progress Note ---
<Statement entered by Katie Cottrell DO - 12/24/23 08:15> I have seen this patient. Would advance diet slowly tomorrow (12/24/23) if she has remains without nausea or abdominal pain o/n. Date of Service December 23, 2023 Assessment & Plan (1) Ileus: Plan: Pt resting in bed daughter at bedside +flatus early AM/overnight no BM NG tube documented 150cc yesterday output Clamp NG tube 4 hours, residual less than 100cc D/c NG tube and start clears If residuals more than 100cc may to start PPN pt has been NPO since 12/18/23 May repeat KUB if desired however since pt reports +Flatus we can hold on this OOB as tolerated with assist Admission and Anticipated Discharge Date Admission Date: December 17, 2023 Subjective Pt resting in bed daughter at bedside +flatus early AM/overnight no BM NG tube documented 150cc yesterday Review of Systems Constitutional: no fever and no chills Respiratory: + dyspnea Cardiovascular: no chest pain Gastrointestinal: no abdominal pain (TTP LLQ mild), no nausea and no vomiting Musculoskeletal: + muscle weakness Physical Exam Physical Exam: alert awake Constitutional: cooperative and comfortable; no acute distress Respiratory: normal respiratory effort and able to speak in complete sentences; no respiratory distress Cardiovascular: Rate/Rhythm: + tachycardic Gastrointestinal (Abdomen): Inspection/Auscultation: + abdomen distended Percussion/Palpation: + abdomen tender (TTP LLQ mild) and abdomen soft; abdomen not rigid and abdomen not firm Skin: no rashes, warm and dry Results & Data Vital Signs (Past 12 Hours) Vital Signs Temp Pulse Pulse Resp BP BP Pulse Ox 12/23/23 08:18 121 H 17 94 12/23/23 08:00 12/23/23 06:14 101 H 144/88 H 12/23/23 06:01 98.8 F 122 H 18 158/81 H 95 12/23/23 05:54 120 H 148/92 H 12/23/23 04:11 176 H 12/23/23 03:47 105 H 134/82 12/23/23 03:35 98.4 F 114 H 18 143/85 H 95 12/23/23 02:55 102 H 138/86 12/22/23 23:18 105 H 12/22/23 23:16 99.3 F 104 H 16 147/86 H 94 12/22/23 23:11 103 H 18 98 12/22/23 22:42 103 H 132/83 12/22/23 22:22 122 H 148/88 H O2 Del Method 12/23/23 08:18 Room Air 12/23/23 08:00 Room Air 12/23/23 06:14 12/23/23 06:01 Room Air 12/23/23 05:54 12/23/23 04:11 12/23/23 03:47 12/23/23 03:35 Room Air 12/23/23 02:55 12/22/23 23:18 12/22/23 23:16 Room Air 12/22/23 23:11 Room Air 12/22/23 22:42 12/22/23 22:22 PG Care Time/CCT Total # of Minutes Spent Total Time Spent with Patient: Total time spent is greater than 50% in coordination of care (as documented) at patient's floor/unit and/or counseling patient: Coding Level of Care Code 84667 SUB INP/OBS CARE 11/14MIN Diagnoses Ileus K56.7
[2023-12-23 10:14] LABS: Basophils # (auto) 0.07 K/uL (0.00-0.20); Basophils % (auto) 0.6 %; Eosinophils # (auto) 0.18 K/uL (0.00-0.50); Eosinophils % (auto) 1.4 %; Hematocrit (blood only) 34.8 % (37.0-47.0); Hemoglobin 11.6 g/dl (12.0-16.0); Immature Granulocytes # (auto) 0.07 K/uL (0.01-0.20); Immature Granulocytes % (auto) 0.6 %; Lymphocytes # (auto) 0.56 K/uL (1.20-3.40); Lymphocytes % (auto) 4.4 %; Mean Corpuscular Hemoglobin 31.3 pg (25.0-34.0); Mean Corpuscular Hgb Conc 33.3 g/dL (32.0-36.0); Mean Corpuscular Volume 93.8 fL (80.0-100.0); Monocytes # (auto) 1.22 K/uL (0.11-0.59); Monocytes % (auto) 9.6 %; Neutrophils # (auto) 10.59 K/uL (1.40-6.50); Neutrophils % (auto) 83.4 %; Platelet Count 197 K/uL (130-400); RDW Coefficient of Variation 14.3 % (11.5-14.5); RDW Standard Deviation 49.1 fL (36.4-46.3); Red Blood Count 3.71 M/uL (4.20-5.40); White Blood Count 12.69 K/ul (4.8-10.8)
[2023-12-23] MEDS: POTASSIUM PHOSPHATE 40 MMOL in SODIUM CHLORIDE 0.9% 1,000 ML IV ONE (10:22)
--- NOTE | 2023-12-23 14:26 | Hospitalist Progress Note ---
Date of Service December 23, 2023 Assessment & Plan (1) Acute pancreatitis: Plan: Acute pancreatitis Possible colitis Patient presented with acute abdominal pain, associated with nausea and vomiting. [place] [address], CTAP with concerns of colitis in transverse colon and cecum. MRCP with acute pancreatitis, no gallstone identified. LFT unremarkable. WBC elevated at 26.81 K Continue with IVF, pain management, nausea control. Continue with Zosyn 12/18 due to nonspecific colitis N.p.o. for now until belly pain improves. Lipase down to normal, epigastric pain has resolved. Lower abdominal pain persisting. Monitor replete electrolytes. GI evaluated, outpatient EUS in 1 to 2 months time. Appreciate surgery input and recommendation Has been having NGT drainage's Abdomen remains distended with discomfort and nausea Bowel sounds very sluggish Will continue current management with n.p.o. and NG tube drain Clinically much better today with improvement of abdominal distention and discomfort Will clamp NG tube and possible discontinue NG tube this afternoon She has been feeling much better and tachycardia is not yet controlled Ileus: Pt developed abd distension , not moved bowel or gas since 12/18 AM. XR KUB w/ ileus on , improving on 12/19 XR KUB. Gen Sx on board, appreciate recs. NPO, IVF, Pain/Nausea Mx. IV PPI. Encourage ambulation, communicated with the patient and her daughter at bedside. Abdomen remains distended with almost no bowel sound Will continue NG tube of suction Replace electrolytes-has hypophosphatemia and hypokalemia-supplemented Bowel sounds remains sluggish Has been moving gases but no bowel movement and abdomen is benign Electrolyte imbalance Noted to have hypophosphatemia, hypokalemia and hypomagnesemia Has been getting intravenous replacement and will monitor She will need more of IV replacement seems to be Phosphate remains low and will be replaced Shortness of breath and wheezing Has tachycardia Chest x-ray did show possible congestive changes Will try small dose of Lasix of 20 mg IV Will not give any more Lasix and there is no more wheezing No wheezing and or crackles COVID-19 positive Not having any symptoms from COVID Has not been getting any medication Current shortness of breath is secondary to congestive changes Will monitor (2) Nausea & vomiting: Plan: Secondary to acute pancreatitis (3) HTN (hypertension): (4) HLD (hyperlipidemia): (5) CKD (chronic kidney disease) stage 3, GFR 30-59 ml/min: Plan 88-year-old female that presented 12/17 with complaints of epigastric pain, nausea and 1 episode of vomiting after eating breakfast. Since then she has had intermittent diarrhea. She recently had COVID October 2023 and since then reports generally feeling poor. No recent travel or known sick contacts. Otherwise is generally healthy and independent at baseline. Additional past medical history includes HTN, HLD, CKD stage III, chronic hyponatremia. She is being managed for the following: Other chronic medical conditions: Continue with/resume home meds as and when able. HTN: Chronic, continue home amlodipine, torsemide, lisinopril as able. HLD: Chronic. Continue home atorvastatin. Disposition: PCP: Mindy Willis PA-C CODE STATUS: Full code VTE prophylaxis: Teds and SCDs for now Discussed with the daughter in detail Admission and Anticipated Discharge Date Admission Date: December 17, 2023 Subjective 12/21/2023 The patient was seen and examined in medical telemetry unit in presence of the daughter She has been complaining of shortness of breath at rest Minimal cough and wheezing Denies any abdominal pain but has discomfort and some swelling Has been moving gas but bowel is not moved 12/22/2023 The patient was seen and examined in medical telemetry unit in presence of the daughter She has been feeling much better today No wheezing and no shortness of breath Abdominal distention is decreased and does not have any abdominal discomfort and her pain Passing gas but no bowel movement 12/23/2023 The patient was seen and examined in medical telemetry unit in presence of the daughter She has been feeling much better today Has been passing gas but no bowel movement Abdomen remains nondistended and nontender with positive bowel sound Still remains tachycardic Review of Systems Review of Systems: All systems reviewed and are unremarkable except as noted below Physical Exam Physical Exam: Lying in bed with minimal distress due to shortness of breath and abdominal discomfort Constitutional: + ill appearing and average body habitus Eyes: PERRL, conjunctivae normal, anicteric sclerae ENMT: external ear and nose normal, oropharynx normal Neck: trachea midline, no thyromegaly Respiratory: + respiratory distress (Mild to moderate distress at rest) Auscultation: + diminished lung sounds and + crackles (Minimal bibasilar crackles); no wheezes Cardiovascular: Rate/Rhythm: regular rate, regular rhythm and + tachycardic Heart Sounds: normal S1 and normal S2 Extremities: no edema Gastrointestinal (Abdomen): Inspection/Auscultation: + abdomen distended (Minimally distended); + abnormal bowel sounds (Bowel sound is decreased) Percussion/Palpation: + abdomen tender (Minimally tender) and abdomen soft Musculoskeletal: No acute arthritis involving any of the joint Neurologic: normal touch/pain/proprioception and moves all extremities; no focal motor deficits Lymphatic: no cervical or axillary lymphadenopathy Results & Data Results & Data Vital Signs (Past 12 Hours) Vital Signs Temp Pulse Pulse Resp BP BP Pulse Ox 12/23/23 11:30 36.9 C 117 H 18 140/77 96 12/23/23 10:53 113 H 12/23/23 10:24 120 H 159/84 H 12/23/23 10:00 115 H 12/23/23 08:18 121 H 17 94 12/23/23 08:00 12/23/23 06:14 101 H 144/88 H 12/23/23 06:01 37.1 C 122 H 18 158/81 H 95 12/23/23 05:54 120 H 148/92 H 12/23/23 04:11 176 H 12/23/23 03:47 105 H 134/82 12/23/23 03:35 36.9 C 114 H 18 143/85 H 95 12/23/23 02:55 102 H 138/86 O2 Del Method 12/23/23 11:30 Room Air 12/23/23 10:53 12/23/23 10:24 12/23/23 10:00 12/23/23 08:18 Room Air 12/23/23 08:00 Room Air 12/23/23 06:14 12/23/23 06:01 Room Air 12/23/23 05:54 12/23/23 04:11 12/23/23 03:47 12/23/23 03:35 Room Air 12/23/23 02:55 Laboratory Results Short CBC 12/23/23 Range/Units 06:33 WBC 12.69 H (4.8-10.8) K/ul Hgb 11.6 L (12.0-16.0) g/dl Hct 34.8 L (37.0-47.0) % Plt Count 197 (130-400) K/uL BMP 12/22/23 12/23/23 16:31 06:33 Sodium 132 L 134 L Potassium 3.8 3.7 Chloride 103 104 Carbon Dioxide 19 L 20 L BUN 7 8 Creatinine 0.52 L 0.46 L Glucose 91 84 Calcium 7.2 L 7.3 L Medications Administered Current Inpatient Medications Acetaminophen (Acetaminophen 325 Mg Tab) 650 mg PO Q4H PRN PRN Reason: Pain or Fever Stop: 01/16/24 16:48 Last Admin: 12/21/23 01:45 Dose: 650 mg Al Hydrox/Mg Hydrox/Simethicone (Aluminum/Magnesium Susp 30 Ml Udc) 15 ml PO Q4H PRN PRN Reason: Dyspepsia Stop: 01/16/24 16:48 Alendronate Sodium (Alendronate Sodium 70 Mg Tab) 70 mg PO Mo@0630 [facility] Stop: 01/17/24 06:29 Last Admin: 12/23/23 05:45 Dose: 70 mg Amlodipine Besylate (Amlodipine Besylate 5 Mg Tab) [facility] Stop: 01/17/24 08:59 Last Admin: 12/23/23 07:40 Dose: 2.5 mg Ascorbic Acid (Ascorbic Acid 500 Mg Tab) 250 mg PO DAILY [facility] Stop: 01/17/24 08:59 Last Admin: 12/23/23 07:41 Dose: 250 mg Atorvastatin Calcium (Atorvastatin 20 Mg Tab) 20 mg PO QAM [facility] Stop: 01/17/24 08:59 Last Admin: 12/23/23 07:40 Dose: 20 mg Benzocaine (Benzocaine/Menthol 18 Rafaela/1 Box) 1 rafaela MT PRN PRN PRN Reason: Sore Throat Stop: 01/19/24 09:34 Last Admin: 12/20/23 10:11 Dose: 1 rafaela Heparin Sodium (Porcine) (Heparin Sod 5,000 Unit/0.5 Ml Vial) 5,000 units SQ Q12 [facility] Stop: 01/19/24 20:59 Last Admin: 12/23/23 07:39 Dose: 5,000 units Hydromorphone HCl (Hydromorphone Inj 0.5 Mg/0.5 Ml Syr) 0.5 mg IV Q4H PRN PRN Reason: Pain Stop: 12/31/23 20:59 Last Admin: 12/23/23 10:22 Dose: 0.5 mg Piperacillin Sod/Tazobactam (Sod 4.5 gm/ Dextrose) 100 mls @ 25 mls/hr IV Q8H [facility]; Protocol Stop: 12/28/23 03:59 Last Admin: 12/23/23 12:52 Dose: 25 mls/hr Pantoprazole Sodium 40 mg/ (Syringe) 10 mls @ 5 mls/min IV BID [facility] Stop: 01/19/24 09:44 Last Admin: 12/23/23 08:55 Dose: 5 mls/min Potassium Phosphate 40 mmol/ (Sodium Chloride) 1,013.3333 mls @ 100 mls/hr IV ONE ONE Stop: 12/23/23 19:37 Last Admin: 12/23/23 10:22 Dose: 100 mls/hr Levalbuterol HCl (Levalbuterol Hcl 0.63 Mg/3 Ml Neb) 0.63 mg NEB Q6H PRN; Protocol PRN Reason: Shortness Of Breath Or Wheezing Stop: 01/22/24 05:57 Last Admin: 12/23/23 08:18 Dose: 0.63 mg Lidocaine (Lidocaine 5% 1 Patch) 1 patch TD HS [facility] Stop: 01/20/24 20:59 Last Admin: 12/22/23 20:48 Dose: 1 patch Lisinopril (Lisinopril 10 Mg Tab) [facility] Stop: 01/17/24 08:59 Last Admin: 12/23/23 07:41 Dose: 10 mg Magnesium Hydroxide (Magnesium Hydroxide Susp 30 Ml Udc) 30 ml PO Q12H PRN PRN Reason: Constipation Stop: 01/16/24 16:48 Melatonin (Melatonin 3 Mg Tab) 3 mg PO HS PRN PRN Reason: Sleep Stop: 01/16/24 22:22 Metoprolol Succinate (Metoprolol Succ 50mg Ext Rel Tab) 100 mg PO QAM [facility] Stop: 01/17/24 08:59 Last Admin: 12/20/23 08:47 Dose: 100 mg Metoprolol Tartrate (Metoprolol Tartrate 1 Mg/Ml Vial) 5 mg IV Q4H [facility] Stop: 01/21/24 10:44 Last Admin: 12/23/23 10:24 Dose: 5 mg Miscellaneous (Remove Lidoderm Patch) 1 each N/A DAILY@0900 [facility] Stop: 01/21/24 08:59 Last Admin: 12/23/23 07:43 Dose: 1 each Ondansetron HCl (Ondansetron Inj 2 Mg/Ml 2 Ml Vial) 4 mg IV Q6H PRN PRN Reason: Nausea And Vomiting Stop: 01/18/24 13:39 Last Admin: 12/19/23 14:01 Dose: 4 mg Oxycodone HCl (Oxycodone Hcl Ir 5 Mg Tab (Immediate Release)) 5 mg PO Q4H PRN PRN Reason: Pain Stop: 12/31/23 20:37 Last Admin: 12/19/23 17:26 Dose: 5 mg Polyethylene Glycol (Polyethylene (Miralax) 17 Gm Pack) 17 gm PO DAILY PRN PRN Reason: Constipation Stop: 01/16/24 16:48 Torsemide (Torsemide 10 Mg Tab) 5 mg PO QAM [facility] Stop: 01/17/24 08:59 Last Admin: 12/18/23 09:20 Dose: 5 mg (1) Acute pancreatitis Acute pancreatitis complication: unspecified Pancreatitis type: unspecified pancreatitis type Qualified Code(s): K85.90 - Acute pancreatitis without necrosis or infection, unspecified
[2023-12-23] MEDS: METOPROLOL SUCC 50MG EXT REL TAB PO STA (17:50)
[2023-12-23] MEDS: MELATONIN 3 MG TAB PO PRN (21:47)
[2023-12-24] MEDS: METOPROLOL TARTRATE 1 MG/ML VIAL IV PRN (02:32)
[2023-12-24] MEDS: LEVALBUTEROL HCL 0.63 MG/3 ML NEB NEB STA (03:32)
[2023-12-24 07:34] LABS: BUN Creatinine Ratio 20.4 (10-20); Calcium 7.8 mg/dl (8.6-10.3); Creatinine Clr Calc Pharmacy 61.4 ml/min; Est GFR (African American) 101.5 ml/min; Est GFR (Non-African American) 87.6 ml/min; Phosphorus 1.9 mg/dl (2.5-4.9)
--- NOTE | 2023-12-24 08:11 | Surgery Progress Note ---
Date of Service December 24, 2023 Assessment & Plan (1) Ileus: Plan: pt states she had a good night Had BM yesterday and passing flatus Will start on diet this AM, see how she tolerates Audible wheezing noted while talking with patient, she reports she was just up to the bathroom SpO2 spot checked at bedside 96-95 % on RA Has respiratory treatments ordered Admission and Anticipated Discharge Date Admission Date: December 17, 2023 Subjective pt states she had a good night Had BM yesterday and passing flatus Review of Systems Constitutional: no fever and no chills Respiratory: + dyspnea on exertion Cardiovascular: no chest pain Gastrointestinal: no abdominal pain, no nausea and no vomiting Musculoskeletal: + muscle weakness Physical Exam Physical Exam: alert oriented Constitutional: cooperative and comfortable; no acute distress Respiratory: able to speak in complete sentences and + audible wheezes; no respiratory distress Cardiovascular: Rate/Rhythm: + tachycardic (118) Gastrointestinal (Abdomen): Inspection/Auscultation: + abdomen distended Percussion/Palpation: abdomen soft; abdomen nontender, no guarding and abdomen not firm Results & Data Vital Signs (Past 12 Hours) Vital Signs Temp Pulse Pulse Resp BP BP BP 12/24/23 07:46 97.7 F 118 H 18 151/87 H 12/24/23 04:24 101 H 18 142/82 H 12/24/23 03:32 108 H 18 12/24/23 02:55 109 H 165/86 H 12/24/23 02:32 98.1 F 24 12/24/23 02:32 126 H 158/91 H 12/23/23 22:55 98.2 F 120 H 16 143/86 H 12/23/23 22:46 112 H 19 12/23/23 22:43 103 H 12/23/23 20:50 97.9 F 113 H 18 154/90 H 12/23/23 20:30 Pulse Ox O2 Del Method 12/24/23 07:46 97 Room Air 12/24/23 04:24 95 Room Air 12/24/23 03:32 95 Room Air 12/24/23 02:55 12/24/23 02:32 93 Room Air 12/24/23 02:32 12/23/23 22:55 94 Room Air 12/23/23 22:46 95 Room Air 03/04/24 22:43 12/23/23 20:50 93 Room Air 12/23/23 20:30 Room Air PG Care Time/CCT Total # of Minutes Spent Total Time Spent with Patient: Total time spent is greater than 50% in coordination of care (as documented) at patient's floor/unit and/or counseling patient: Coding Level of Care Code 32531 SUB INP/OBS CARE 1/25MIN Diagnoses Ileus K56.7
[2023-12-24] MEDS: SODIUM PHOSPHATE 20 MMOL in SODIUM CHLORIDE 0.9% 500 ML IV ONE (08:36)
[2023-12-24] MEDS: METOPROLOL SUCC 50MG EXT REL TAB PO SCH (08:47)
[2023-12-24] MEDS: POT PHOSPHATE MONOBASIC W/ SOD TAB PO SCH (10:31)
[2023-12-24] MEDS: SODIUM PHOSPHATE 3 MMOL/1 ML 5 ML VIAL IV STA (10:33)
--- NOTE | 2023-12-24 14:21 | Hospitalist Progress Note ---
Date of Service December 24, 2023 Assessment & Plan (1) Acute pancreatitis: Plan: Acute pancreatitis Possible colitis Patient presented with acute abdominal pain, associated with nausea and vomiting. At [place], [place] [address], CTAP with concerns of colitis in transverse colon and cecum. MRCP with acute pancreatitis, no gallstone identified. LFT unremarkable. WBC elevated at 26.81 K Continue with IVF, pain management, nausea control. Continue with Zosyn 12/18 due to nonspecific colitis N.p.o. for now until belly pain improves. Lipase down to normal, epigastric pain has resolved. Lower abdominal pain persisting. Monitor replete electrolytes. GI evaluated, outpatient EUS in 1 to 2 months time. Appreciate surgery input and recommendation Has been having NGT drainage's Abdomen remains distended with discomfort and nausea Bowel sounds very sluggish Will continue current management with n.p.o. and NG tube drain Clinically much better today with improvement of abdominal distention and discomfort Will clamp NG tube and possible discontinue NG tube this afternoon Will continue IV antibiotic while she is in the hospital Has been having diarrhea and will check stool for C. difficile Ileus: Pt developed abd distension , not moved bowel or gas since 12/18 AM. XR KUB w/ ileus on , improving on 12/19 XR KUB. Gen Sx on board, appreciate recs. NPO, IVF, Pain/Nausea Mx. IV PPI. Encourage ambulation, communicated with the patient and her daughter at bedside. Abdomen remains distended with almost no bowel sound Will continue NG tube of suction Replace electrolytes-has hypophosphatemia and hypokalemia-supplemented Bowel sounds remains sluggish Has been moving gases but no bowel movement and abdomen is benign Has had bowel movement and denies any abdominal symptoms Will advance diet as tolerated Electrolyte imbalance Noted to have hypophosphatemia, hypokalemia and hypomagnesemia Has been getting intravenous replacement and will monitor She will need more of IV replacement seems to be Phosphate remains low and will be replaced We will get another dose of IV phosphate and then started on oral phosphate twice daily to maintain it Shortness of breath and wheezing Has tachycardia Chest x-ray did show possible congestive changes Will try small dose of Lasix of 20 mg IV Will not give any more Lasix and there is no more wheezing No wheezing and or crackles Has been saturating normally on room air Will need to have 2 steps O2 saturation test prior to discharge COVID-19 positive Not having any symptoms from COVID Has not been getting any medication Current shortness of breath is secondary to congestive changes Will monitor (2) Nausea & vomiting: Plan: Secondary to acute pancreatitis (3) HTN (hypertension): (4) HLD (hyperlipidemia): (5) CKD (chronic kidney disease) stage 3, GFR 30-59 ml/min: Plan 88-year-old female that presented 12/17 with complaints of epigastric pain, nausea and 1 episode of vomiting after eating breakfast. Since then she has had intermittent diarrhea. She recently had COVID October 2023 and since then reports generally feeling poor. No recent travel or known sick contacts. Otherwise is generally healthy and independent at baseline. Additional past medical history includes HTN, HLD, CKD stage III, chronic hyponatremia. She is being managed for the following: Other chronic medical conditions: Continue with/resume home meds as and when able. HTN: Chronic, continue home amlodipine, torsemide, lisinopril as able. HLD: Chronic. Continue home atorvastatin. Disposition: PCP: Mindy Willis PA-C CODE STATUS: Full code VTE prophylaxis: Teds and SCDs for now Discussed with the daughter in detail Admission and Anticipated Discharge Date Admission Date: December 17, 2023 Subjective 12/21/2023 The patient was seen and examined in medical telemetry unit in presence of the daughter She has been complaining of shortness of breath at rest Minimal cough and wheezing Denies any abdominal pain but has discomfort and some swelling Has been moving gas but bowel is not moved 12/22/2023 The patient was seen and examined in medical telemetry unit in presence of the daughter She has been feeling much better today No wheezing and no shortness of breath Abdominal distention is decreased and does not have any abdominal discomfort and her pain Passing gas but no bowel movement 12/23/2023 The patient was seen and examined in medical telemetry unit in presence of the daughter She has been feeling much better today Has been passing gas but no bowel movement Abdomen remains nondistended and nontender with positive bowel sound Still remains tachycardic 12/24/2023 The patient was seen and examined in medical telemetry unit in presence of the daughter She has been much better today Has had a huge bowel movement last night and NG tube has been out since yesterday Started on some diet as tolerated She is having diarrhea today and will check C. difficile Review of Systems Review of Systems: All systems reviewed and are unremarkable except as noted below Physical Exam Physical Exam: Lying in bed with minimal distress due to shortness of breath and abdominal discomfort Constitutional: + ill appearing and average body habitus Eyes: PERRL, conjunctivae normal, anicteric sclerae ENMT: external ear and nose normal, oropharynx normal Neck: trachea midline, no thyromegaly Respiratory: + respiratory distress (Mild to moderate distress at rest) Auscultation: + diminished lung sounds and + crackles (Minimal bibasilar crackles); no wheezes Cardiovascular: Rate/Rhythm: regular rate, regular rhythm and + tachycardic Heart Sounds: normal S1 and normal S2 Extremities: no edema Gastrointestinal (Abdomen): Inspection/Auscultation: + abdomen distended (Minimally distended); + abnormal bowel sounds (Bowel sound is decreased) Percussion/Palpation: + abdomen tender (Minimally tender) and abdomen soft Neurologic: normal touch/pain/proprioception and moves all extremities; no focal motor deficits Lymphatic: no cervical or axillary lymphadenopathy Results & Data Results & Data Vital Signs (Past 12 Hours) Vital Signs Temp Pulse Pulse Resp BP BP BP 12/24/23 14:15 116 H 18 12/24/23 11:21 36.5 C 108 H 18 120/78 12/24/23 08:23 117 H 20 12/24/23 08:00 96 H 12/24/23 08:00 12/24/23 07:46 36.5 C 118 H 18 151/87 H 12/24/23 04:24 101 H 18 142/82 H 12/24/23 03:32 108 H 18 12/24/23 02:55 109 H 165/86 H 12/24/23 02:32 36.7 C 24 12/24/23 02:32 126 H 158/91 H Pulse Ox O2 Del Method 12/24/23 14:15 95 Room Air 12/24/23 11:21 95 Room Air 12/24/23 08:23 94 Room Air 12/24/23 08:00 12/24/23 08:00 Room Air 12/24/23 07:46 97 Room Air 12/24/23 04:24 95 Room Air 12/24/23 03:32 95 Room Air 12/24/23 02:55 12/24/23 02:32 93 Room Air 12/24/23 02:32 Laboratory Results BMP 12/24/23 06:31 Sodium 136 Potassium 4.0 Chloride 105 Carbon Dioxide 20 L BUN 10 Creatinine 0.49 L Glucose 86 Calcium 7.8 L Medications Administered Current Inpatient Medications Acetaminophen (Acetaminophen 325 Mg Tab) 650 mg PO Q4H PRN PRN Reason: Pain or Fever Stop: 01/16/24 16:48 Last Admin: 12/21/23 01:45 Dose: 650 mg Al Hydrox/Mg Hydrox/Simethicone (Aluminum/Magnesium Susp 30 Ml Udc) 15 ml PO Q4H PRN PRN Reason: Dyspepsia Stop: 01/16/24 16:48 Alendronate Sodium (Alendronate Sodium 70 Mg Tab) 70 mg PO Mo@0630 [facility] Stop: 01/17/24 06:29 Last Admin: 12/23/23 05:45 Dose: 70 mg Amlodipine Besylate (Amlodipine Besylate 5 Mg Tab) [facility] Stop: 01/17/24 08:59 Last Admin: 12/24/23 08:49 Dose: 2.5 mg Ascorbic Acid (Ascorbic Acid 500 Mg Tab) 250 mg PO DAILY [facility] Stop: 01/17/24 08:59 Last Admin: 12/24/23 08:42 Dose: 250 mg Atorvastatin Calcium (Atorvastatin 20 Mg Tab) [facility] [place] Stop: 01/17/24 08:59 Last Admin: 12/24/23 08:50 Dose: 20 mg Benzocaine (Benzocaine/Menthol 18 Rafaela/1 Box) 1 rafaela MT PRN PRN PRN Reason: Sore Throat Stop: 01/19/24 09:34 Last Admin: 12/20/23 10:11 Dose: 1 rafaela Heparin Sodium (Porcine) (Heparin Sod 5,000 Unit/0.5 Ml Vial) 5,000 units SQ Q12 [facility] Stop: 01/19/24 20:59 Last Admin: 12/24/23 08:43 Dose: 5,000 units Hydromorphone HCl (Hydromorphone Inj 0.5 Mg/0.5 Ml Syr) 0.5 mg IV Q4H PRN PRN Reason: Pain Stop: 12/31/23 20:59 Last Admin: 03/04/24 14:28 Dose: 0.5 mg Piperacillin Sod/Tazobactam (Sod 4.5 gm/ Dextrose) 100 mls @ 25 mls/hr IV Q8H [facility]; Protocol Stop: 12/28/23 03:59 Last Admin: 12/24/23 12:23 Dose: 25 mls/hr Pantoprazole Sodium 40 mg/ (Syringe) 10 mls @ 5 mls/min IV BID [facility] Stop: 01/19/24 09:44 Last Admin: 12/24/23 08:36 Dose: 5 mls/min Levalbuterol HCl (Levalbuterol Hcl 0.63 Mg/3 Ml Neb) 0.63 mg NEB Q6H PRN; Protocol PRN Reason: Shortness Of Breath Or Wheezing Stop: 01/22/24 05:57 Last Admin: 12/24/23 14:14 Dose: 0.63 mg Lidocaine (Lidocaine 5% 1 Patch) 1 patch TD HS [facility] Stop: 01/20/24 20:59 Last Admin: 12/23/23 20:28 Dose: 1 patch Lisinopril (Lisinopril 10 Mg Tab) 10 mg PO QAM [facility] Stop: 01/17/24 08:59 Last Admin: 12/24/23 08:48 Dose: 10 mg Magnesium Hydroxide (Magnesium Hydroxide Susp 30 Ml Udc) 30 ml PO Q12H PRN PRN Reason: Constipation Stop: 01/16/24 16:48 Melatonin (Melatonin 3 Mg Tab) 3 mg PO HS PRN PRN Reason: Sleep Stop: 01/16/24 22:22 Last Admin: 12/23/23 21:47 Dose: 3 mg Metoprolol Succinate (Metoprolol Succ 50mg Ext Rel Tab) [facility] [place]: 01/23/24 08:59 Last Admin: 12/24/23 08:47 Dose: 100 mg Metoprolol Tartrate (Metoprolol Tartrate 1 Mg/Ml Vial) 5 mg IV Q4H PRN PRN Reason: Tachycardia Stop: 01/21/24 10:44 Last Admin: 12/24/23 02:32 Dose: 5 mg Miscellaneous (Remove Lidoderm Patch) 1 each N/A DAILY@0900 [facility] Stop: 01/21/24 08:59 Last Admin: 12/24/23 08:53 Dose: 1 each Ondansetron HCl (Ondansetron Inj 2 Mg/Ml 2 Ml Vial) 4 mg IV Q6H PRN PRN Reason: Nausea And Vomiting Stop: 01/18/24 13:39 Last Admin: 12/19/23 14:01 Dose: 4 mg Oxycodone HCl (Oxycodone Hcl Ir 5 Mg Tab (Immediate Release)) 5 mg PO Q4H PRN PRN Reason: Pain Stop: 12/31/23 20:37 Last Admin: 12/23/23 18:31 Dose: 5 mg Polyethylene Glycol (Polyethylene (Miralax) 17 Gm Pack) 17 gm PO DAILY PRN PRN Reason: Constipation Stop: 01/16/24 16:48 Potassium Phosphate (Pot Phosphate Monobasic W/ Sod Tab) 1 tab PO QID [facility] Stop: 01/23/24 08:59 Last Admin: 12/24/23 12:24 Dose: 1 tab Torsemide (Torsemide 10 Mg Tab) 5 mg PO QAM [facility] Stop: 01/17/24 08:59 Last Admin: 12/18/23 09:20 Dose: 5 mg (1) Acute pancreatitis Acute pancreatitis complication: unspecified Pancreatitis type: unspecified pancreatitis type Qualified Code(s): K85.90 - Acute pancreatitis without necrosis or infection, unspecified
--- NOTE | 2023-12-25 08:16 | Surgery Progress Note ---
<Statement entered by Katie Cottrell DO - 12/25/23 21:51> Patient continues to do well. Please re-consult surgery should concerns arise. Date of Service December 25, 2023 Assessment & Plan (1) Ileus: Plan: Pt reports feeling good this AM Denies fever, chills, CP. Mild dyspnea on exertion Mild abd discomfort with palpation, soft +flatus and +BMs no nausea / vomiting tolerating diet Resolving Ileus, General surgery will sign off , please call with questions or concerns. Admission and Anticipated Discharge Date Admission Date: December 17, 2023 Subjective Pt reports feeling good this AM Denies fever, chills, CP. Mild dyspnea on exertion Mild abd discomfort with palpation +flatus and BMs no nausea / vomting Review of Systems Constitutional: no fever and no chills Respiratory: + dyspnea on exertion Cardiovascular: no chest pain Gastrointestinal: + abdominal pain (mild TTP); no nausea a nd no vomiting Integumentary: no rash Physical Exam Physical Exam: alert oriented Constitutional: cooperative and comfortable; no acute distress Respiratory: normal respiratory effort and able to speak in complete sentences; no respiratory distress and no audible wheezes Cardiovascular: Rate/Rhythm: + tachycardic (99) Gastrointestinal (Abdomen): Inspection/Auscultation: + abdomen distended Percussion/Palpation: + abdomen tender and abdomen soft; no guarding Skin: no rashes, warm and dry Results & Data Vital Signs (Past 12 Hours) Vital Signs Temp Pulse Pulse Resp BP BP Pulse Ox 12/25/23 08:11 98.2 F 99 H 18 167/90 H 96 12/25/23 07:43 89 12/25/23 02:36 98.1 F 102 H 20 136/76 95 12/24/23 23:31 98.1 F 102 H 18 120/78 95 12/24/23 21:58 112 H 12/24/23 21:57 O2 Del Method 12/25/23 08:11 Room Air 12/25/23 07:43 12/25/23 02:36 Room Air 12/24/23 23:31 Room Air 12/24/23 21:58 12/24/23 21:57 Room Air PG Care Time/CCT Total # of Minutes Spent Total Time Spent with Patient: Total time spent is greater than 50% in coordination of care (as documented) at patient's floor/unit and/or counseling patient: Coding Level of Care Code 20296 SUB INP/OBS CARE 11/14MIN Diagnoses Ileus K56.7
[2023-12-25 08:39] LABS: BUN Creatinine Ratio 17.4 (10-20); Calcium 7.9 mg/dl (8.6-10.3); Creatinine Clr Calc Pharmacy 58.8 ml/min; Est GFR (African American) 103.7 ml/min; Est GFR (Non-African American) 89.4 ml/min; Magnesium 1.9 mg/dl (1.7-2.4); Phosphorus 1.9 mg/dl (2.5-4.9); Potassium 3.2 mmol/L (3.5-5.1)
[2023-12-25] MEDS ORDERED: POTASSIUM PHOS 3 MMOL/1 ML INFUSION IV ONE (09:05)
[2023-12-25] MEDS: POTASSIUM CHLORIDE CRTAB 20 MEQ TABCR PO ONE (10:00)
[2023-12-25] MEDS: POTASSIUM PHOSPHATE 15 MMOL in SODIUM CHLORIDE 0.9% 250 ML IV ONE (10:47)
--- NOTE | 2023-12-25 15:16 | Hospitalist Progress Note ---
Date of Service December 25, 2023 Assessment & Plan (1) Acute pancreatitis: (2) Nausea & vomiting: Plan: Secondary to acute pancreatitis (3) HTN (hypertension): (4) HLD (hyperlipidemia): (5) CKD (chronic kidney disease) stage 3, GFR 30-59 ml/min: Plan 88-year-old female that presented 12/17 with complaints of epigastric pain, nausea and 1 episode of vomiting after eating breakfast. Since then she has had intermittent diarrhea. She recently had COVID October 2023 and since then reports generally feeling poor. No recent travel or known sick contacts. Otherwise is generally healthy and independent at baseline. Additional past medical history includes HTN, HLD, CKD stage III, chronic hyponatremia. Acute pancreatitis Possible colitis Patient presented with acute abdominal pain, associated with nausea and vomiting. --CT ABD:The pancreas is edematous and heterogeneous with significant peripancreatic inflammation and fluid. Findings are consistent with acute pancreatitis. The gland enhances throughout. The duct is normal in caliber. Fluid tracks inferiorly within the retroperitoneum. No organized peripancreatic fluid collection is seen. The splenic vein is patent. There are mildly distended and fluid-filled loops of small bowel with no evidence of high-grade obstruction. This may represent ileus. A nonspecific enteritis could appear similar and this should be correlated clinically. --MRCP:No gallstones are identified. Normal MRCP. Acute pancreatitis. Small volume of abdominal ascites. -- Empirically on IV Zosyn Abdominal pain improved Tolerating current diet Needs endoscopic ultrasound as outpatient Will check stool for C. difficile if recurrence of diarrhea Ileus: Pt developed abd distension , not moved bowel or gas since 12/18 AM. XR KUB w/ ileus on , improving on 12/19 XR KUB. Gen Sx on board, appreciate recs. NPO, IVF, Pain/Nausea Mx. IV PPI. Encourage ambulation NG tube discontinued Has been having BMs Appreciate surgery input Tolerating current diet Electrolyte imbalance Hyponatremia, hypophosphatemia, hypokalemia and hypomagnesemia Replace electrolytes as needed Monitor Shortness of breath and wheezing Sinus Tachycardia Saturating normally on room air CXR on 12/25/23:Small bilateral pleural effusions. IV Lasix as needed Resume home torsemide today COVID-19 positive Not having any symptoms from COVID monitor Other chronic medical conditions: Continue with/resume home meds as and when able. HTN: Chronic, continue home amlodipine, torsemide, lisinopril as able. HLD: Chronic. Continue home atorvastatin. DVT Px: Heparin SQ CODE STATUS: Full code Disposition PT OT prior to discharge Admission and Anticipated Discharge Date Admission Date: December 17, 2023 Subjective Patient is seen and examined at bedside States feeling tired today Appetite slowly improving Cough better when compared yesterday Denies any abdominal pain, nausea vomiting today Had diarrhea overnight Discussed with patient's son at bedside No other complaints Saturating well on room air Review of Systems Review of Systems: All systems reviewed & are unremarkable except as noted in Subjective Physical Exam Physical Exam: Physical Exam: Vitals signs as noted above General Appearance:Elderly, no apparent distress Head: normocephalic, Atraumatic Eyes: normal inspection, EOMI Neck: supple, Trachea midline Respiratory/Chest: Decreased breath sounds, mild basal crackles, No accessory muscle use Cardiovascular: S1, S2, No murmur, +Tachycardia Abdomen/GI:Soft, Non tender, mildly distended, Bowel sounds present Extremities/Musculoskeletal:normal inspection, 1-2+ Pedal edema Neurologic/Psych:AAOX3, grossly no focal neurological deficits Skin: normal color, warm Results & Data Results & Data Vital Signs (Past 12 Hours) Vital Signs Temp Pulse Pulse Resp BP Pulse Ox O2 Del Method 12/25/23 15:09 37.0 C 104 H 18 122/77 96 Room Air 12/25/23 11:39 109 H 18 96 Room Air 12/25/23 08:11 36.8 C 99 H 18 167/90 H 96 Room Air 12/25/23 08:00 Room Air 12/25/23 07:43 89 Laboratory Results [facility] 12/25/23 07:38 Sodium 138 Potassium 3.2 L Chloride 104 Carbon Dioxide 25 BUN 8 Creatinine 0.46 L Glucose 97 Calcium 7.9 L (1) Acute pancreatitis Acute pancreatitis complication: unspecified Pancreatitis type: unspecified pancreatitis type Qualified Code(s): K85.90 - Acute pancreatitis without necrosis or infection, unspecified
--- NOTE | 2023-12-25 16:07 | XRay Report ---
XR chest 1V portable CLINICAL HISTORY: SOB TECHNIQUE: Single frontal radiograph of the chest was obtained. Comparison: Comparison is made to chest radiograph 12/21/2023 FINDINGS: No lines and tubes are seen. Calcified aortic knob is seen. The lungs are clear. Small bilateral pleu ral effusions are seen. IMPRESSION: Small bilateral pleural effusions. ACT 112: Negative or not required by law. Electronically signed by: Paul Yun M.D. 12/25/2023 4:05 PM
[2023-12-26 07:02] LABS: Hemoglobin 11.4 g/dl (12.0-16.0); Mean Corpuscular Hemoglobin 31.5 pg (25.0-34.0); Mean Corpuscular Hgb Conc 34.5 g/dL (32.0-36.0); Mean Corpuscular Volume 91.2 fL (80.0-100.0); Mean Platelet Volume 9.3 fL (9.4-12.4); Platelet Count 279 K/uL (130-400); RDW Coefficient of Variation 14.1 % (11.5-14.5); RDW Standard Deviation 47.1 fL (36.4-46.3); Red Blood Count 3.62 M/uL (4.20-5.40); White Blood Count 10.64 K/ul (4.8-10.8)
[2023-12-26 07:28] LABS: BUN Creatinine Ratio 14.8 (10-20); Calcium 7.9 mg/dl (8.6-10.3); Creatinine Clr Calc Pharmacy 50.1 ml/min; Est GFR (African American) 98.3 ml/min; Est GFR (Non-African American) 84.8 ml/min; Phosphorus 2.4 mg/dl (2.5-4.9); Potassium 3.4 mmol/L (3.5-5.1)
[2023-12-26] MEDS: ADVANCED PROBIOTIC 625 MG CAPSULE PO SCH (08:37)
[2023-12-26] MEDS: AMOXICILLIN/CLAVULANATE 500 MG TAB PO SCH (14:07)
[2023-12-26] MEDS: POTASSIUM CHLORIDE CRTAB 20 MEQ TABCR PO ONE (14:08)
[2023-12-26] MEDS: LOPERAMIDE HCL 2 MG CAP PO PRN (15:03)
--- NOTE | 2023-12-26 15:27 | Hospitalist Progress Note ---
Date of Service December 26, 2023 Assessment & Plan (1) Acute pancreatitis: (2) Nausea & vomiting: Plan: Secondary to acute pancreatitis (3) HTN (hypertension): (4) HLD (hyperlipidemia): (5) CKD (chronic kidney disease) stage 3, GFR 30-59 ml/min: Plan 88-year-old female that presented 12/17 with complaints of epigastric pain, nausea and 1 episode of vomiting after eating breakfast. Since then she has had intermittent diarrhea. She recently had COVID October 2023 and since then reports generally feeling poor. No recent travel or known sick contacts. Otherwise is generally healthy and independent at baseline. Additional past medical history includes HTN, HLD, CKD stage III, chronic hyponatremia. Acute pancreatitis Possible colitis Patient presented with acute abdominal pain, associated with nausea and vomiting. --CT ABD:The pancreas is edematous and heterogeneous with significant peripancreatic inflammation and fluid. Findings are consistent with acute pancreatitis. The gland enhances throughout. The duct is normal in caliber. Fluid tracks inferiorly within the retroperitoneum. No organized peripancreatic fluid collection is seen. The splenic vein is patent. There are mildly distended and fluid-filled loops of small bowel with no evidence of high-grade obstruction. This may represent ileus. A nonspecific enteritis could appear similar and this should be correlated clinically. --MRCP:No gallstones are identified. Normal MRCP. Acute pancreatitis. Small volume of abdominal ascites. -- Empirically on IV Zosyn>> transition to Augmentin --Diarrhea likely secondary to antibiotics Stool for C. difficile negative Abdominal pain resolved Tolerating current diet Needs endoscopic ultrasound as outpatient Needs follow-up with GI on discharge Ileus: Pt developed abd distension , not moved bowel or gas since 12/18 AM. XR KUB w/ ileus on , improving on 12/19 XR KUB. Gen Sx on board, appreciate recs. NPO, IVF, Pain/Nausea Mx. IV PPI. Encourage ambulation NG tube discontinued Has been having BMs Appreciate surgery input Tolerating current diet Resolved Electrolyte imbalance Hyponatremia, hypophosphatemia, hypokalemia and hypomagnesemia Replace electrolytes as needed Monitor Shortness of breath and wheezing Sinus Tachycardia Saturating normally on room air CXR on 12/25/23:Small bilateral pleural effusions. IV Lasix as needed Continue home torsemide COVID-19 positive Not having any symptoms from COVID monitor Sinus tachycardia, PACs Continue metoprolol succinate 100 mg QAM Added metoprolol succinate 25 mg QPM Other chronic medical conditions: Continue with/resume home meds as and when able. HTN: Chronic, continue home amlodipine, torsemide, lisinopril as able. HLD: Chronic. Continue home atorvastatin. DVT Px: Heparin SQ CODE STATUS: Full code Disposition Home with 24 Hr care as able Admission and Anticipated Discharge Date Admission Date: December 17, 2023 Subjective Patient is seen and examined at bedside Still has persistent diarrhea No significant cough Discussed with family at bedside Tolerating diet Denies any chest pain, dyspnea, nausea, vomiting, abdominal pain Review of Systems Review of Systems: All systems reviewed & are unremarkable except as noted in Subjective Physical Exam Physical Exam: Physical Exam: Vitals signs as noted above General Appearance:Elderly, no apparent distress Head: normocephalic, Atraumatic Eyes: normal inspection, EOMI Neck: supple, Trachea midline Respiratory/Chest: Decreased breath sounds, CTA, No accessory muscle use Cardiovascular: S1, S2, No murmur, +Tachycardia Abdomen/GI:Soft, Non tender, mildly distended, Bowel sounds present Extremities/Musculoskeletal:normal inspection, 1-2+ Pedal edema Neurologic/Psych:AAOX3, grossly no focal neurological deficits Skin: normal color, warm Results & Data Results & Data Vital Signs (Past 12 Hours) Vital Signs Temp Pulse Pulse Resp BP BP Pulse Ox 12/26/23 11:33 36.9 C 103 H 16 147/81 H 95 12/26/23 08:07 36.8 C 113 H 16 152/84 H 97 12/26/23 06:35 88 12/26/23 04:00 36.4 C L 99 H 18 134/89 97 O2 Del Method 12/26/23 11:33 Room Air 12/26/23 08:07 Room Air 12/26/23 06:35 12/26/23 04:00 Room Air Laboratory Results Short CBC 12/26/23 Range/Units 06:48 WBC 10.64 (4.8-10.8) K/ul Hgb 11.4 L (12.0-16.0) g/dl Hct 33.0 L (37.0-47.0) % Plt Count 279 (130-400) K/uL BMP 12/26/23 06:48 Sodium 138 Potassium 3.4 L Chloride 105 Carbon Dioxide 28 BUN 8 Creatinine 0.54 L Glucose 106 H Calcium 7.9 L (1) Acute pancreatitis Acute pancreatitis complication: unspecified Pancreatitis type: unspecified pancreatitis type Qualified Code(s): K85.90 - Acute pancreatitis without necrosis or infection, unspecified
[2023-12-26] MEDS: METOPROLOL SUCC 25MG EXT REL TAB PO SCH (20:06)
[2023-12-27 07:56] LABS: Hematocrit (blood only) 35.3 % (37.0-47.0); Hemoglobin 12.1 g/dl (12.0-16.0); Mean Corpuscular Hemoglobin 31.3 pg (25.0-34.0); Mean Corpuscular Hgb Conc 34.3 g/dL (32.0-36.0); Mean Corpuscular Volume 91.2 fL (80.0-100.0); Mean Platelet Volume 9.6 fL (9.4-12.4); Platelet Count 342 K/uL (130-400); RDW Coefficient of Variation 14.5 % (11.5-14.5); RDW Standard Deviation 48.3 fL (36.4-46.3); Red Blood Count 3.87 M/uL (4.20-5.40); White Blood Count 10.07 K/ul (4.8-10.8)
[2023-12-27 08:08] LABS: BUN Creatinine Ratio 12.2 (10-20); Calcium 8.2 mg/dl (8.6-10.3); Creatinine Clr Calc Pharmacy 55.2 ml/min; Est GFR (African American) 101.5 ml/min; Est GFR (Non-African American) 87.6 ml/min; Magnesium 1.7 mg/dl (1.7-2.4); Phosphorus 2.4 mg/dl (2.5-4.9); Potassium 3.2 mmol/L (3.5-5.1)
[2023-12-27] MEDS: MAGNESIUM CHLORIDE W/CALCIUM 64MG DELAYED REL TAB PO SCH (10:07)
[2023-12-27] MEDS: POTASSIUM CHLORIDE CRTAB 20 MEQ TABCR PO ONE (10:07)
--- NOTE | 2023-12-27 12:17 | Hospitalist Progress Note ---
Date of Service December 27, 2023 Assessment & Plan (1) Acute pancreatitis: (2) Nausea & vomiting: Plan: Secondary to acute pancreatitis (3) HTN (hypertension): (4) HLD (hyperlipidemia): (5) CKD (chronic kidney disease) stage 3, GFR 30-59 ml/min: Plan 88-year-old female that presented 12/17 with complaints of epigastric pain, nausea and 1 episode of vomiting after eating breakfast. Since then she has had intermittent diarrhea. She recently had COVID October 2023 and since then reports generally feeling poor. No recent travel or known sick contacts. Otherwise is generally healthy and independent at baseline. Additional past medical history includes HTN, HLD, CKD stage III, chronic hyponatremia. Acute pancreatitis Possible colitis Patient presented with acute abdominal pain, associated with nausea and vomiting. --CT ABD:The pancreas is edematous and heterogeneous with significant peripancreatic inflammation and fluid. Findings are consistent with acute pancreatitis. The gland enhances throughout. The duct is normal in caliber. Fluid tracks inferiorly within the retroperitoneum. No organized peripancreatic fluid collection is seen. The splenic vein is patent. There are mildly distended and fluid-filled loops of small bowel with no evidence of high-grade obstruction. This may represent ileus. A nonspecific enteritis could appear similar and this should be correlated clinically. --MRCP:No gallstones are identified. Normal MRCP. Acute pancreatitis. Small volume of abdominal ascites. -- Empirically on IV Zosyn>> transition to Augmentin--completed the course --Diarrhea likely secondary to antibiotics Stool for C. difficile negative Abdominal pain resolved Tolerating current diet Needs endoscopic ultrasound as outpatient Advised to follow-up with GI as outpatient Plan to discharge home today Ileus: Pt developed abd distension , not moved bowel or gas since 12/18 AM. XR KUB w/ ileus on , improving on 12/19 XR KUB. Gen Sx on board, appreciate recs. NPO, IVF, Pain/Nausea Mx. IV PPI. Encourage ambulation NG tube discontinued Has been having BMs Appreciate surgery input Tolerating current diet Resolved Electrolyte imbalance Hyponatremia, hypophosphatemia, hypokalemia and hypomagnesemia Replace electrolytes as needed Monitor Shortness of breath and wheezing Sinus Tachycardia Saturating normally on room air CXR on 12/25/23:Small bilateral pleural effusions. IV Lasix as needed Continue home torsemide COVID-19 positive Not having any symptoms from COVID monitor Sinus tachycardia, PACs Continue metoprolol succinate 100 mg QAM Added metoprolol succinate 25 mg QPM Other chronic medical conditions: Continue with/resume home meds as and when able. HTN: Chronic, continue home amlodipine, torsemide, lisinopril as able. HLD: Chronic. Continue home atorvastatin. DVT Px: Heparin SQ CODE STATUS: Full code Disposition Home with 24 Hr care as able Admission and Anticipated Discharge Date Admission Date: December 17, 2023 Subjective Patient is seen and examined at bedside States feeling much better today Diarrhea improved, has some formed stools today Denies any nausea, vomiting, chest pain, dyspnea Plan to be discharged home today Discussed with patient's family at bedside Review of Systems Review of Systems: All systems reviewed & are unremarkable except as noted in Subjective Physical Exam Physical Exam: Physical Exam: Vitals signs as noted above General Appearance:Elderly, no apparent distress Head: normocephalic, Atraumatic Eyes: normal inspection, EOMI Neck: supple, Trachea midline Respiratory/Chest: Decreased breath sounds, CTA, No accessory muscle use Cardiovascular: S1, S2, No murmur, +Tachycardia Abdomen/GI:Soft, Non tender, mildly distended, Bowel sounds present Extremities/Musculoskeletal:normal inspection, 1-2+ Pedal edema Neurologic/Psych:AAOX3, grossly no focal neurological deficits Skin: normal color, warm Results & Data Results & Data Vital Signs (Past 12 Hours) Vital Signs Temp Pulse Pulse Resp BP BP Pulse Ox 12/27/23 12:13 36.9 C 102 H 20 147/82 H 97 12/27/23 08:13 36.9 C 101 H 18 164/86 H 98 12/27/23 07:05 85 12/27/23 04:00 36.6 C 93 H 18 145/86 H 97 O2 Del Method 12/27/23 12:13 Room Air 12/27/23 08:13 Room Air 12/27/23 07:05 12/27/23 04:00 Room Air Laboratory Results Short CBC 12/27/23 Range/Units 07:13 WBC 10.07 (4.8-10.8) K/ul Hgb 12.1 (12.0-16.0) g/dl Hct 35.3 L (37.0-47.0) % Plt Count 342 (130-400) K/uL [facility] 12/27/23 07:13 Sodium 139 Potassium 3.2 L Chloride 105 Carbon Dioxide 28 BUN 6 Creatinine 0.49 L Glucose 94 Calcium 8.2 L (1) Acute pancreatitis Acute pancreatitis complication: unspecified Pancreatitis type: unspecified pancreatitis type Qualified Code(s): K85.90 - Acute pancreatitis without necrosis or infection, unspecified
--- NOTE | 2023-12-27 12:26 | Discharge Summary ---
Date of Service December 27, 2023 Admission HPI Per Admitting Provider Ms. Cash is an 88-year-old female that presents today with complaints o epigastric pain, nausea and 1 episode of vomiting that occurred around 1030 this morning. She had just finished eating toast, cereal, crackers with peanut butter and her coffee as usual and while she was watching TV started to feel nauseated. She sat on a nearby rolled walker and had a near syncopal episode but did not fall or lose consciousness that lasted a few seconds. Since then she has had intermittent diarrhea. She recently had COVID October 2023 and since then reports generally feeling poor. Patient denies tobacco, alcohol, recreational drug use including medical marijuana. No recent travel or known sick contacts. Otherwise is generally healthy and independent at baseline. Patient recently finished a 5-day course of p.o. prednisone for arthritic changes in her back which was started on 12/05/2023. Additional past medical history includes HTN, HLD, CKD stage III, chronic hyponatremia. In the ED noted leukocytosis 26.81, lipase 15,300, LFTs unremarkable, troponin negative, otherwise labs unremarkable. Incidentally tested positive for COVID on [employer]. Patient received IV Zofran and IV fentanyl for symptom management. Abdomen pelvis CT in the ED There is thickening of the transverse colon and cecum with peritoneal fluid, this may represent an infectious/inflammatory colitis. No clear fluid collection or abscess noted. Patient will be admitted for acute pancreatitis with IV fluid resuscitation and broad-spectrum IV antibiotics. Will keep patient n.p.o. and obtain MRCP tonight.will check lactate and calcium and magnesium level. Will continue scheduled Zofran and as needed Dilaudid. Incidentally patient tested positive for COVID and will be placed on airborne precautions. GI consult formally placed. Admission Exam Per Admitting Provider Neuro: AAOx4, PERRLA, no aphagia, memory changes, CNII-XII grossly intact HEENT: head normocephalic, moist mucus membranes CV: S1/S2, (-) M/G/R, (-) edema, cap refill < 3 seconds Resp: Lungs CTA in all geiger. On RA GI: Abdomen Ax4 bowel sounds. (+) rebound tenderness LUQ; generalized abdominal pain. (+) soft. (-) CVA tenderness Musculoskeletal: 5/5 B/L UE strength, 5/5 B/L LE strength. No gait disturbance Skin: (-) rashes , (-) erythema. Psych: euthymic mood Principal Diagnosis Acute pancreatitis Ileus Colitis COVID-19 Sinus tachycardia, PACs Discharge Data Allergies Allergy/AdvReac Type Severity Reaction Status Date / Time No Known Allergies Allergy Unverified 12/17/23 15:49 Consultations 12/17/23 16:03 ED Decision to Admit Stat 12/17/23 16:49 Consult Gastroenterology Routine 12/19/23 11:00 Consult General Surgery Routine Procedures Performed Laboratory Results WBC 10.07 K/ul (4.8-10.8) 12/27/23 07:13 RBC 3.87 M/uL (4.20-5.40) L 12/27/23 07:13 Hgb 12.1 g/dl (12.0-16.0) 12/27/23 07:13 Hct 35.3 % (37.0-47.0) L 12/27/23 07:13 MCV 91.2 fL (80.0-100.0) 12/27/23 07:13 MCH 31.3 pg (25.0-34.0) 12/27/23 07:13 MCHC 34.3 g/dL (32.0-36.0) 12/27/23 07:13 RDW Std Deviation 48.3 fL (36.4-46.3) H 12/27/23 07:13 RDW Coeff of Idalmis 14.5 % (11.5-14.5) 12/27/23 07:13 Plt Count 342 K/uL (130-400) 12/27/23 07:13 MPV 9.6 fL (9.4-12.4) 12/27/23 07:13 Immature Gran % (Auto) 0.6 % 12/23/23 06:33 Neut % (Auto) 83.4 % 12/23/23 06:33 Lymph % (Auto) 4.4 % 12/23/23 06:33 Tillman % (Auto) 9.6 % 12/23/23 06:33 Eos % (Auto) 1.4 % 12/23/23 06:33 Baso % (Auto) 0.6 % 12/23/23 06:33 Neut # (Auto) 10.59 K/uL (1.40-6.50) H 12/23/23 06:33 Lymph # (Auto) 0.56 K/uL (1.20-3.40) L 12/23/23 06:33 Tillman # (Auto) 1.22 K/uL (0.11-0.59) H 12/23/23 06:33 Eos # (Auto) 0.18 K/uL (0.00-0.50) 12/23/23 06:33 Baso # (Auto) 0.07 K/uL (0.00-0.20) 12/23/23 06:33 Immature Gran # (Auto) 0.07 K/uL (0.01-0.20) 12/23/23 06:33 Sodium 139 mmol/L (136-145) 12/27/23 07:13 Potassium 3.2 mmol/L (3.5-5.1) L 12/27/23 07:13 Chloride 105 mmol/L (98-107) 12/27/23 07:13 Carbon Dioxide 28 mmol/L (21-32) 12/27/23 07:13 Anion Gap 6 (3-11) 12/27/23 07:13 BUN 6 mg/dl (6-23) 12/27/23 07:13 Creatinine 0.49 mg/dl (0.6-1.2) L 12/27/23 07:13 Est Cr Clr Drug Dosing 55.2 ml/min 12/27/23 07:13 Est GFR ( Amer) 101.5 ml/min 12/27/23 07:13 Est GFR (Non-Af Amer) 87.6 ml/min 12/27/23 07:13 BUN/Creatinine Ratio 12.2 (10-20) 12/27/23 07:13 Glucose 94 mg/dl (70-99(Fasting)) 12/27/23 07:13 Lactate 1.3 mmol/L (0.4-2.0) 12/17/23 18:07 Calcium 8.2 mg/dl (8.6-10.3) L 12/27/23 07:13 Phosphorus 2.4 mg/dl (2.5-4.9) L 12/27/23 07:13 Magnesium 1.7 mg/dl (1.7-2.4) 12/27/23 07:13 Total Bilirubin 1.1 mg/dl (0.2-1.0) H 12/22/23 05:54 AST 21 U/L (13-39) 12/22/23 05:54 ALT 13 U/L (7-52) 12/22/23 05:54 Alkaline Phosphatase 73 U/L (34-104) 12/22/23 05:54 Troponin I High Sens 6.7 pg/ml (0-14) 12/17/23 14:06 Total Protein 5.6 gm/dl (6.0-8.3) L 12/22/23 05:54 Albumin 2.9 gm/dl (3.4-5.0) L 12/22/23 05:54 Globulin 2.7 gm/dl (2.5-4.0) 12/22/23 05:54 Albumin/Globulin Ratio 1.1 (0.9-2) 12/22/23 05:54 Triglycerides 81 mg/dl (0-150) 12/18/23 04:30 Cholesterol 119 mg/dl (0-200) 12/18/23 04:30 LDL Cholesterol, Calc 49 mg/dl 12/18/23 04:30 VLDL Cholesterol, Calc 16 mg/dl (0-30) 12/18/23 04:30 HDL Cholesterol 54 mg/dl 12/18/23 04:30 Cholesterol/HDL Ratio 2.2 (0-5) 12/18/23 04:30 Lipase 47 U/L (11-82) 12/20/23 07:51 Procalcitonin 1.10 ng/ml (0-0.5) H 12/19/23 06:36 Urine Color Yellow 12/18/23 00:20 Urine Appearance Clear (Clear) 12/18/23 00:20 Urine pH 5.5 (4.5-7.5) 12/18/23 00:20 Ur Specific [place] > 1.045 (1.000-1.030) H 12/18/23 00:20 Urine Protein Trace (Negative) H 12/18/23 00:20 Urine Glucose (UA) Negative (Negative) 12/18/23 00:20 Urine Ketones Trace (Negative) H 12/18/23 00:20 Urine Blood Negative (Negative) 12/18/23 00:20 Urine Nitrite Negative (Negative) 12/18/23 00:20 Urine Bilirubin Negative (Negative) 12/18/23 00:20 Urine Urobilinogen Negative (Negative) 12/18/23 00:20 Ur Leukocyte Esterase Negative (Negative) 12/18/23 00:20 Urine WBC (Auto) 5-10 /hpf (0-5) H 12/18/23 00:20 Urine RBC (Auto) 0-4 /hpf (0-4) 12/18/23 00:20 U Hyaline Cast (Auto) 1-5 /lpf (0-5) 12/18/23 00:20 U Epithel Cells (Auto) >30 /lpf (0-5) H 12/18/23 00:20 Urine Bacteria (Auto) 1+ (Negative) H 12/18/23 00:20 Ur Renal Epithelial Cell Not Reportable 12/18/23 00:20 Urine Yeast Not Reportable 12/18/23 00:20 Stl C. diff Tox B Gene Negative Cdiff Gene (Neg) 12/26/23 Unknown Adenovirus (PCR) Not Detected (NotDetected) 12/17/23 14:42 B. pertussis DNA (PCR) Not Detected (NotDetected) 12/17/23 14:42 B.parapertussis DNA PCR Not Detected (NotDetected) 12/17/23 14:42 C. pneumoniae DNA (PCR) Not Detected (NotDetected) 12/17/23 14:42 Coronavirus OC43 (PCR) Not Detected (NotDetected) 12/17/23 14:42 Coronavirus HKU1 (PCR) Not Detected (NotDetected) 12/17/23 14:42 Coronavirus 229E (PCR) Not Detected (NotDetected) 12/17/23 14:42 SARS-CoV-2 (PCR) DETECTED (NotDetected) A 12/17/23 14:42 Coronavirus NL63 (PCR) Not Detected (NotDetected) 12/17/23 14:42 Human Metapneumovir PCR Not Detected (NotDetected) 12/17/23 14:42 Influenza Type A (PCR) Not Detected (NotDetected) 12/17/23 14:42 Influenza Type B (PCR) Not Detected (NotDetected) 12/17/23 14:42 M. pneumoniae (PCR) Not Detected (NotDetected) 12/17/23 14:42 Parainfluenza 1 (PCR) Not Detected (NotDetected) 12/17/23 14:42 Parainfluenza 2 (PCR) Not Detected (NotDetected) 12/17/23 14:42 Parainfluenza 3 (PCR) Not Detected (NotDetected) 12/17/23 14:42 Parainfluenza 4 (PCR) Not Detected (NotDetected) 12/17/23 14:42 RSV (PCR) Not Detected (NotDetected) 12/17/23 14:42 Entero/Rhino (PCR) Not Detected (NotDetected) 12/17/23 14:42 Impressions Abdomen/Pelvis CT 12/17/23 14:14 CT abd pelvis IV con only CLINICAL HISTORY: n/v/d, upper abd pain TECHNIQUE: Helical axial images of the abdomen and pelvis were obtained and displayed. Automated dose lowering techniques and/or adjustment according to patient size were utilized for this exam. This exam was performed with intravenous contrast. CT DOSE: 431.36 mGy.cm COMPARISON: Comparison is made to CT abdomen pelvis 02/21/2022 FINDINGS: Lower chest: Bibasilar atelectasis versus scarring is seen. Liver: Subcentimeter hypodensities in the liver are too small to characterize. Gallbladder and biliary tree: No calcified gallstones. Normal caliber wall. No intra- or extrahepatic biliary ductal dilation. Pancreas: Unremarkable, no focal lesions. Spleen: Unremarkable. Adrenals: Unremarkable. Kidneys and ureters: 16 mm cyst arises from the right kidney superior pole. Bladder: Unremarkable. Reproductive organs: Unremarkable. Bowel: Diverticulosis is seen without diverticulitis. The appendix is normal. Thickening of the transverse colon and cecal art noted. Liquid contents are seen in the colon. Lymph nodes Retroperitoneal: Unremarkable. Pelvic: Unremarkable. Mesenteric: Unremarkable. Peritoneum: Mild peritoneal fluid is seen. Vessels: Atherosclerotic calcifications are seen. Abdominal wall: Unremarkable. Bones: Old healed rib fractures are seen. Degenerative changes are seen in the spine. Scoliosis is seen. Old compression fractures of the spine are again seen. IMPRESSION: There is thickening of the transverse colon and cecum with peritoneal fluid, this may represent an infectious/inflammatory colitis. ACT 112: Negative or not required by law. Electronically signed by: Paul Yun M.D. 12/17/2023 3:15 PM Cholangiopancreatography MRI 12/17/23 17:11 MRCP CLINICAL HISTORY: Acute pancreatitis. COMPARISON STUDY: Abdominal CT dated 12/17/2023. TECHNIQUE: Abdominal MRCP is performed utilizing various T2-weighted sequences in the axial and coronal planes. 3-D reformats are created and assessed. IV contrast was not administered for this examination. Diffusion -weighted imaging was utilized. FINDINGS: The gallbladder is normal in appearance. No gallstones are identified. There is no intra or extrahepatic biliary ductal dilatation. The common bile duct is normal in caliber, measuring up to 5 mm in diameter. There are no intraluminal filling defects to suggest choledocholithiasis. The pancreatic duct is normal in caliber. The pancreas is edematous with peripancreatic inflammation and fluid. This is consistent with acute pancreatitis. Fluid tracks inferiorly in the retroperitoneal space. There are scattered subcentimeter hepatic cysts. The unenhanced liver, spleen, and adrenal glands are otherwise grossly unremarkable. The kidneys are normal in size and without hydronephrosis. A 1.6 cm cyst is noted in the right upper pole. The abdominal aorta is normal in course and caliber. There is no evidence of bowel obstruction. There is a small amount of perihepatic and perisplenic ascites. There is no evidence of destructive bony lesion. Degenerative change and scoliosis is seen in the lumbar spine. No pleural effusion is seen. IMPRESSION: 1. No gallstones are identified. Normal MRCP. 2. Acute pancreatitis. 3. Small volume of abdominal ascites. Dictated: 12/18/2023 8:14 AM Transcribed: 12/18/2023 8:22 AM Rene [id number] [email or web address] Electronically signed by: Jarret Neal M.D. 12/18/2023 8:39 AM KUB X-Ray 12/20/23 06:00 KUB HISTORY: ileus COMPARISON: KUB 12/19/2023. FINDINGS: Nasogastric tube terminates in the distal stomach. Left basilar linear densities favor subsegmental atelectasis. Mildly dilated gas-filled loops of small bowel seen within the abdomen. There is gas within the nondistended colon. Findings could represent an ileus versus partial small bowel obstruction. No renal calculi. No ureteral calculi. No pneumoperitoneum or pneumatosis. IMPRESSION: Mildly dilated gas-filled loops of small bowel within the abdomen. This could represent an ileus versus small bowel obstruction. ACT 112: Negative or not required by law. Electronically signed by: Massimo Enamorado M.D. 12/20/2023 7:10 AM Chest X-Ray 12/25/23 14:26 XR chest 1V portable CLINICAL HISTORY: SOB TECHNIQUE: Single frontal radiograph of the chest was obtained. Comparison: Comparison is made to chest radiograph 12/21/2023 FINDINGS: No lines and tubes are seen. Calcified aortic knob is seen. The lungs are clear. Small bilateral pleural effusions are seen. IMPRESSION: Small bilateral pleural effusions. ACT 112: Negative or not required by law. Electronically signed by: Paul Yun M.D. 12/25/2023 4:05 PM Ordered Studies 12/17/23 14:14 CT abd pelvis IV con only Stat 12/17/23 17:11 MRI MRCP [MR MRCP] Routine Hospital Course (1) Acute pancreatitis: (2) Nausea & vomiting: Secondary to acute pancreatitis (3) HTN (hypertension): (4) HLD (hyperlipidemia): (5) CKD (chronic kidney disease) stage 3, GFR 30-59 ml/min: Plan 88-year-old female that presented 12/17 with complaints of epigastric pain, nausea and 1 episode of vomiting after eating breakfast. Since then she has had intermittent diarrhea. She recently had COVID October 2023 and since then reports generally feeling poor. No recent travel or known sick contacts. Otherwise is generally healthy and independent at baseline. Additional past medical history includes HTN, HLD, CKD stage III, chronic hyponatremia. Acute pancreatitis Possible colitis Patient presented with acute abdominal pain, associated with nausea and vomiting. --CT ABD:The pancreas is edematous and heterogeneous with significant peripancreatic inflammation and fluid. Findings are consistent with acute pancreatitis. The gland enhances throughout. The duct is normal in caliber. Fluid tracks inferiorly within the retroperitoneum. No organized peripancreatic fluid collection is seen. The splenic vein is patent. There are mildly distended and fluid-filled loops of small bowel with no evidence of high-grade obstruction. This may represent ileus. A nonspecific enteritis could appear similar and this should be correlated clinically. --MRCP:No gallstones are identified. Normal MRCP. Acute pancreatitis. Small volume of abdominal ascites. -- Empirically on IV Zosyn>> transition to Augmentin --Diarrhea likely secondary to antibiotics Stool for C. difficile negative Abdominal pain resolved Tolerating current diet Needs endoscopic ultrasound as outpatient Needs follow-up with GI on discharge Ileus: Pt developed abd distension , not moved bowel or gas since 12/18 AM. XR KUB w/ ileus on , improving on 12/19 XR KUB. Gen Sx on board, appreciate recs. NPO, IVF, Pain/Nausea Mx. IV PPI. Encourage ambulation NG tube discontinued Has been having BMs Appreciate surgery input Tolerating current diet Resolved Electrolyte imbalance Hyponatremia, hypophosphatemia, hypokalemia and hypomagnesemia Replace electrolytes as needed Monitor Shortness of breath and wheezing Sinus Tachycardia Saturating normally on room air CXR on 12/25/23:Small bilateral pleural effusions. IV Lasix as needed Continue home torsemide COVID-19 positive Not having any symptoms from COVID monitor Sinus tachycardia, PACs Continue metoprolol succinate 100 mg QAM Added metoprolol succinate 25 mg QPM Other chronic medical conditions: Continue with/resume home meds as and when able. HTN: Chronic, continue home amlodipine, torsemide, lisinopril as able. HLD: Chronic. Continue home atorvastatin. DVT Px: Heparin SQ CODE STATUS: Full code Disposition Home with 24 Hr care as able Total Time Total Time Spent Total Time Spent (In Minutes): 58 minutes Discharge Plan Discharge Items Patient Disposition: Home - Home Health Services Reason For Visit: ABDOMINAL PAIN Discharge Diagnosis: Acute pancreatitis Ileus Colitis COVID-19 Sinus tachycardia, PACs Activity: Per Instructions section Exercise/Sports: Wait until after follow-up appointment Non-emergency contact: Primary Care Provider and [facility] Call non-emergency contact if: you have any medication questions, your symptoms worsen, your pain is concerning for you and you have a fever Follow-up/Referrals: Mindy Willis DO [Primary Care Provider] - (Date & Time 12/31/2023 3:20 PM Provider Leonora Alonso PA-C Department Family Medicine [facility] ) Diet: Heart Healthy Diet Texture: Easy to Chew Addtl Attending Provider Instructions: Follow-up with your primary care physician on 12/31/2023 3:20 PM Follow-up with your tunnel inspector Dr. Hughes in 1-2 months for outpatient endoscopic ultrasound as recommended -- Obtain blood test basic metabolic panel, phosphorus and magnesium levels in 1 week and follow-up with your physician for results and further recommendations. Seek immediate medical attention if your symptoms reoccur or worsen Please take all medications as instructed on discharge list below. Please call if you have any questions or problems. You can reach a [facility] hospitalist on duty at [facility] 24 hours a day by calling [phone] Pending Studies at Discharge: No Stand-Alone Forms: My [facility] Health, Smoking Cessation Medications and DC Order Prescriptions: New metoprolol succinate 25 mg Tablet Extended Release 24 Hr 25 mg PO HS Qty: 30 0RF Mag 64 64 mg Tablet,Delayed Release (Dr/Ec) 64 mg PO BID Qty: 30 0RF Phospha 250 Neutral 250 mg Tablet 1 tab PO QID 5 Days Qty: 20 0RF Advanced Probiotic 625 mg (10 billion cell) Capsule 1 cap PO DAILY Qty: 30 0RF loperamide 2 mg Capsule 2 mg PO Q8H PRN (Reason: loose stool) Qty: 30 0RF potassium chloride 20 mEq tablet extended release 20 meq PO DAILY Qty: 5 0RF Continued alendronate 70 mg tablet 70 mg PO WK Rx Instructions: TAKE 1 TABLET BY MOUTH ONCE A WEEK. coenzyme Q10 [CoQ-10] 100 mg Capsule 100 mg PO DAILY calcium carb-D3-mag ox-zinc ox 333 mg-133 unit -133 mg-5 mg Tablet 1 tab PO DAILY torsemide 5 mg tablet 5 mg PO QAM lisinopril 10 mg tablet 10 mg PO QAM fluorouracil 5 % cream 1 applic TOPICAL BID Rx Instructions: apply to isolated areas on face for 6-8 weeks atorvastatin 20 mg tablet 20 mg PO QAM metoprolol succinate 100 mg tablet extended release 24 hr 100 mg PO QAM amlodipine 2.5 mg tablet 2.5 mg PO QAM multivitamin Tablet 1 tab PO QAM ascorbic acid (vitamin C) [Vitamin C] 125 mg Tablet,Chewable 125 mg PO DAILY acetaminophen 500 mg Tablet 1,000 mg PO Q8 PRN (Reason: pain,moderate or headache) Discharge Orders: Discharge Order (Routine); Ordered 12/27/23 Ordered By: Theo Rowland Admission Data Admit Date/Time: 12/17/23 16:44 Attending Provider: Theo Rowland Admit Provider: Korina Sandoval Primary Care Provider: Mindy Willis Other Providers: Korina Sandoval; Cosme Hughes; Katie Cottrell; Africa Salas Other Interventions: Discharge Summary Assessment (RN) Last Done: 12/27/23 12:32
== END 2023-12-27 13:39 | disposition home health service (06) | DRG 438 ==
LOC: ED 13:33 → 2N 16:11 → EDINP 16:44 → SUATTDRO 16:44 → 2N 12-18 10:24